=== PATIENT | female | born 1935 | race Caucasian/White ===

== ENCOUNTER → 2016-08-27 | Outpatient (CLI) | payer MEDICARE, OTHER ==
[2016-08-27 16:00] LABS: HEMATOCRIT 31.3 % (36.0-47.0); HEMOGLOBIN 10.6 g/dL (12.0-15.5); HGB HCT DIFFERENCE 0.5; MEAN CORPUSCULAR HEMOGLOBIN 33.2 pg (27.0-33.4); MEAN CORPUSCULAR HGB CONC 33.8 g/dL (32.0-36.0); MEAN CORPUSCULAR VOLUME 98 fl (80-97); RED BLOOD COUNT 3.18 10^6/uL (3.72-5.28); RED CELL DISTRIBUTION WIDTH 12.3 % (11.5-14.0); WHITE BLOOD COUNT 11.3 10^3/uL (4.0-10.5)
[2016-08-28 11:06] LABS: ANION GAP 16 (5-19); BLOOD UREA NITROGEN 42 mg/dL (7-20); CALCIUM 9.1 mg/dL (8.4-10.2); CARBON DIOXIDE 20 mmol/L (22-30); CHLORIDE 97 mmol/L (98-107); CREATININE RESULT 1.83 mg/dL (0.52-1.25); POTASSIUM 5.5 mmol/L (3.6-5.0); SODIUM 132.5 mmol/L (137-145)
[2016-08-28 11:21] LABS: GLUCOSE 438 mg/dL (75-110)
== END ==
LOC: OD 15:12
PROVIDERS: ATTEND Internal Medicine Nephrology
DX: D64.9 Anemia, unspecified (principal); N18.3 Chronic kidney disease, stage 3 (moderate); E11.9 Type 2 diabetes mellitus without complications; I12.9 Hypertensive chronic kidney disease with stage 1 through stage 4 chronic kidney disease, or unspecified chronic kidney disease
CPT/HCPCS: 36415; 80048; 82728; 83540; 83550; 85027

== ENCOUNTER → 2016-11-13 | Outpatient (CLI) | payer MEDICARE, OTHER ==
--- NOTE | 2016-11-13 14:24 | RADIOLOGY REPORT (SQ) ---
EXAM DESCRIPTION: HIPS BILATERAL COMPLETED DATE/TIME: 11/13/2016 1:39 pm REASON FOR STUDY: PAIN IN UNSPECIFIED HIP M25.569 PAIN IN UNSPECIFIED KNEE M25.559 PAIN IN UNSPECI FIED HIP COMPARISON: None. NUMBER OF VIEWS: Two views TECHNIQUE: AP pelvis and additional frog-leg view of both hips. LIMITATIONS: None. FINDINGS: MINERALIZATION: Bony structures are somewhat osteopenic. HIPS: No acute fracture or dislocation. No worrisome bone lesions. PELVIS AND SACRUM: No acute fracture or dislocation. Sclerotic density is identified adjacent to th e right SI joint presumably degenerative in nature. This was present on the previous KUB dated 2015 PUBIS AND ISCHIUM: No acute fracture. LOWER LUMBAR SPINE: Degenerative changes are identified in the lower lumbar spine. SOFT TISSUES: Extensive calcifications are identified in the pelvis most consistent with calcified ut erine fibroids. OTHER: No other significant finding. IMPRESSION: No evidence for acute fracture dislocation. Other findings as noted above. TECHNICAL DOCUMENTATION: JOB ID: [id number] [employer]- All Rights Reserved
--- NOTE | 2016-11-13 14:26 | RADIOLOGY REPORT (SQ) ---
EXAM DESCRIPTION: KNEE LEFT 4 VIEWS COMPLETED DATE/TIME: 11/13/2016 1:39 pm REASON FOR STUDY: PAIN IN UNSPECIFIED KNEE M25.569 PAIN IN UNSPECIFIED KNEE M25.559 PAIN IN UNSPEC IFIED HIP COMPARISON: None. NUMBER OF VIEWS: Four views. TECHNIQUE: AP, lateral, and both oblique radiographic images acquired of the left knee. LIMITATIONS: None. FINDINGS: MINERALIZATION: Normal. BONES: No acute fracture or dislocation. Osteophytic lipping is identified at the level of the media l compartment. A separate bony ossicle is identified at the level of the medial tibial plateau which may be related to previous trauma JOINT: No effusion. No chondrocalcinosis. OTHER: Extensive vascular calcifications are identified. IMPRESSION: No acute fracture or dislocation. Degenerative changes as noted above. Other findings as noted above TECHNICAL DOCUMENTATION: JOB ID: [id number] [employer]- All Rights Reserved
--- NOTE | 2016-11-13 14:29 | RADIOLOGY REPORT (SQ) ---
EXAM DESCRIPTION: KNEE RIGHT 4 VIEWS COMPLETED DATE/TIME: 11/13/2016 1:39 pm REASON FOR STUDY: PAIN IN UNSPECIFIED KNEE M25.569 PAIN IN UNSPECIFIED KNEE M25.559 PAIN IN UNSPEC IFIED HIP COMPARISON: July 2015 NUMBER OF VIEWS: Four views. TECHNIQUE: AP, lateral, and both oblique radiographic images acquired of the right knee. LIMITATIONS: None. FINDINGS: MINERALIZATION: Normal. BONES: No acute fracture or dislocation. The previously described sclerosis and irregularity of the lateral femoral condyle and lateral tibial plateau appears unchanged JOINT: The previously described joint space narrowing with osteophytes in all 3 compartments appears stable. Calcific density is identified posterior to the distal femur which could conceivably represe nt synovial chondrocalcinosis or an intra-articular loose body. SOFT TISSUES: No soft tissue swelling. No radio-opaque foreign body. OTHER: Vascular calcifications are again identified. IMPRESSION: Degenerative changes as noted above. Other findings as noted above. TECHNICAL DOCUMENTATION: JOB ID: [id number] [employer]- All Rights Reserved
== END ==
LOC: OD 13:06
PROVIDERS: ATTEND Physician Assistant Medical
DX: M25.562 Pain in left knee (principal); M25.561 Pain in right knee; M25.552 Pain in left hip; M25.551 Pain in right hip
CPT/HCPCS: 73522

== ENCOUNTER → 2016-11-28 | Outpatient (CLI) | payer MEDICARE, OTHER ==
[2016-11-28 14:53] LABS: HEMATOCRIT 34.3 % (36.0-47.0); HEMOGLOBIN 11.5 g/dL (12.0-15.5); HGB HCT DIFFERENCE 0.2; MEAN CORPUSCULAR HEMOGLOBIN 33.5 pg (27.0-33.4); MEAN CORPUSCULAR HGB CONC 33.5 g/dL (32.0-36.0); MEAN CORPUSCULAR VOLUME 100 fl (80-97); RED BLOOD COUNT 3.44 10^6/uL (3.72-5.28); RED CELL DISTRIBUTION WIDTH 13.2 % (11.5-14.0); WHITE BLOOD COUNT 8.1 10^3/uL (4.0-10.5)
[2016-11-28 15:09] LABS: ANION GAP 11 (5-19); BLOOD UREA NITROGEN 35 mg/dL (7-20); CALCIUM 8.9 mg/dL (8.4-10.2); CARBON DIOXIDE 22 mmol/L (22-30); CHLORIDE 99 mmol/L (98-107); CREATININE RESULT 1.95 mg/dL (0.52-1.25); SODIUM 132.3 mmol/L (137-145)
[2016-11-28 15:53] LABS: GLUCOSE 475 mg/dL (75-110)
== END ==
LOC: OD 14:12
PROVIDERS: ATTEND Internal Medicine Nephrology
DX: I12.9 Hypertensive chronic kidney disease with stage 1 through stage 4 chronic kidney disease, or unspecified chronic kidney disease (principal); N18.3 Chronic kidney disease, stage 3 (moderate); D64.9 Anemia, unspecified; E87.1 Hypo-osmolality and hyponatremia
CPT/HCPCS: 36415; 80048; 82728; 83540; 83550; 85027

== ENCOUNTER 2016-12-08 18:56 | Inpatient (IN) | payer MEDICARE, OTHER ==
--- NOTE | 2016-12-08 19:18 | ER Document Report ---
ED General - General Chief Complaint: Knee Pain Stated Complaint: FALL, KNEE PAIN Time Seen by Provider: 12/08/16 19:08 Notes: 81-year-old female with history of diabetes dementia and DJD presents with 2 days of right knee swelling after a fall from standing while getting into bed. She has had multiple falls and gets around with a walker. Swelling began yesterday but the daughter states that this is happened before and usually the swelling goes down. They brought her in tonight because it did not go down. She commits of no numbness or tingling. She did not syncopized lose consciousness or hit her head when she fell. TRAVEL OUTSIDE OF THE [place] IN LAST 30 DAYS: No - Related Data Allergies/Adverse Reactions: promethazine HCl [From Phenergan] Allergy (Severe, Verified 01/09/15 15:40) severe leg pain baclofen [Baclofen] Allergy (Mild, Verified 01/09/15 15:40) Hives,hallucinate Beef Containing Products Adverse Reaction (Severe, Verified 08/02/15 14:20) GI upset Past Medical History - General Information source: Patient - Social History Smoking Status: Former Smoker Frequency of alcohol use: None Family History: CAD, DM - Past Medical History Cardiac Medical History: Reports: Hx Atrial Fibrillation, Hx Congestive Heart Failure, Hx Coronary Artery Disease, Hx Hypercholesterolemia, Hx Hypertension Denies: Hx Heart Attack Pulmonary Medical History: Reports: Hx Pneumonia - Hx of septic shock Denies: Hx Asthma, Hx Bronchitis, Hx COPD Neurological Medical History: Denies: Hx Cerebrovascular Accident, Hx Seizures Endocrine Medical History: Reports: Hx Diabetes Mellitus Type 1, Hx Diabetes Mellitus Type 2 Renal/ Medical History: Reports: Hx End Stage Renal Disease - stage 3 Musculoskeltal Medical History: Reports Hx Arthritis - osteoporosis/legs Psychiatric Medical History: Reports: Hx Depression Past Surgical History: Reports: Hx Abdominal Surgery - hernia, Hx Appendectomy. Denies: Hx Hysterectomy, Hx Pacemaker - Immunizations Hx Diphtheria, Pertussis, Tetanus Vaccination: No Hx Pneumococcal Vaccination: 01/25/13 Review of Systems - Review of Systems Notes: REVIEW OF SYSTEMS GEN: Denies fever, chills, weight loss ENT: Denies sore throat, nasal discharge, ear pain EYES: Denies blurry vision, eye pain, discharge CV: Denies chest pain, palpitations, edema RESP: Denies cough, shortness of breath, wheezing GI: Denies abdominal pain, nausea, vomiting, diarrhea MSK: Right knee pain and swelling SKIN: Denies rash, skin lesions LYMPH: Denies swollen glands/lymph nodes NEURO: Denies headache, focal weakness or numbness, dizziness PSYCH: Denies depression, suicidal or homicidal ideation PHYSICAL EXAMINATION General: No acute distress, well-nourished Head: Atraumatic, normocephalic ENT: Mouth normal, oropharynx moist, no exudates or tonsillar enlargement Eyes: Conjunctiva normal, pupils equal, lids normal Neck: No JVD, supple, no guarding CVS: Normal rate, regular rhythm, no murmurs Resp: No resp distress, equal and normal breath sounds bilaterally GI: Nondistended, soft, no tenderness to palpation, no rebound or guarding Ext: Pronounced deformity of the right knee with large effusion and medial tibial plateau swelling with tenderness. Decreased range of motion. Patella is palpable in its normal position, however ballotable secondary to effusion. Lateral medial and superficial posterior compartments are soft. Normal movement of the toes without pain. Back: No CVA or midline TTP Skin: No rash, warm Lymphatic: No lymphadeopathy noted Neuro: Awake, alert. Face symmetric. GCS 15. Obvious memory impairment. Normal sensation right foot. Physical Exam - Vital signs Vitals: Temp Pulse Resp BP Pulse Ox 98.4 F 67 18 173/72 H 95 12/08/16 19:10 12/08/16 19:10 12/08/16 19:10 12/08/16 19:10 12/08/16 19:10 Course - Re-evaluation Re-evalutation: 12/08/16 19:18 81-year-old female baseline dementia and walks with wheelchair presented with obvious right knee trauma. Likely tibial plateau fracture. Less likely dislocation or patellar dislocation based on her physical exam. We will get x- rays. 12/08/16 20:12 On reassessment after the x-rays were read as only degenerative change and I saw that there old films that look like, it turns out the patient's knee is almost always this swollen. The daughter is now saying that the patient needs to be admitted because she cannot walk and the daughter can no longer care for her. I did a CT scan to rule out acute fracture and it was negative. Will admit for placement and physical therapy in the setting of ambulatory dysfunction. - Vital Signs Vital signs: Temp Pulse Resp BP Pulse Ox 98.4 F 67 14 172/57 H 97 12/08/16 20:52 12/08/16 20:52 12/08/16 20:52 12/08/16 20:52 12/08/16 20:52 - Laboratory Result Diagrams: 12/08/16 20:28 12/08/16 20:28 Laboratory results interpreted by me: 12/08/16 12/08/16 20:28 20:28 RBC 3.58 L MCV 101 H MCH 34.0 H Chloride 110 H Carbon Dioxide 19 L BUN 33 H Creatinine 1.49 H Est GFR ( Amer) 41 L Est GFR (Non-Af Amer) 34 L Glucose 348 H Calcium 7.7 L - Diagnostic Test Radiology reviewed: Image reviewed, Reports reviewed Discharge - Discharge Clinical Impression: Osteoarthritis involving multiple joints on both sides of body Condition: Good Disposition: ADMITTED INPATIENT Admitting Provider: Hospitalist Unit Admitted: Telemetry
--- NOTE | 2016-12-08 19:52 | RADIOLOGY REPORT (SQ) ---
EXAM DESCRIPTION: KNEE RIGHT 3 VIEWS COMPLETED DATE/TIME: 12/08/2016 7:32 pm REASON FOR STUDY: fall pn COMPARISON: 11/13/2016 NUMBER OF VIEWS: Three views TECHNIQUE: AP, lateral, and sunrise patella radiographic images acquired of the right knee. LIMITATIONS: None. FINDINGS: MINERALIZATION: Bony structures are osteopenic BONES: No acute fracture or dislocation. The previously described sclerosis and irregularity of the lateral femoral condyles and lateral tibial plateau appears unchanged. JOINT: The previously described joint space narrowing with osteophytes in all 3 compartments appears stable. Calcific density is again identified posterior to the distal femur which could conceivably r epresent synovial chondrocalcinosis or an intra-articular loose body. SOFT TISSUES: No soft tissue swelling. No radio-opaque foreign body. Extensive vascular calcificati ons are identified. OTHER: No other significant finding. IMPRESSION: Degenerative changes as noted above. No acute fracture dislocation. Other findings as noted above TECHNICAL DOCUMENTATION: JOB ID: [id number] [employer]- All Rights Reserved
--- NOTE | 2016-12-08 20:24 | RADIOLOGY REPORT (SQ) ---
EXAM DESCRIPTION: CT RT LOWER EXTREMITY WITHOUT COMPLETED DATE/TIME: 12/08/2016 8:09 pm REASON FOR STUDY: knee fx vs. degen COMPARISON: Plain films dated 12/08/2016 TECHNIQUE: Axial imaging performed through the right knee with reformatted coronal and sagittal imag ing windowed for bone and soft tissues. Images saved to PACS. 3D IMAGING: Were 3D images as MIP, SSD, or volume rendering performed at the work station? No All CT scanners at this facility use dose modulation, iterative reconstruction, and/or weight based d osing when appropriate to reduce radiation dose to as low as reasonably achievable (ALARA). [facility]: Dose Right [facility]: CareDose [facility]: Dose Right [facility]: Teradose 4D [facility]: [employer] LIMITATIONS: None. RADIATION DOSE: Up-to-date CT equipment and radiation dose reduction techniques were employed. CTDIv ol: 4.1 mGy. DLP: 104 mGy-cm. mGy. FINDINGS: SOFT TISSUES: Joint effusion is identified. BONES: Extensive degenerative changes are identified without definite evidence for acute fracture or dislocation. MINERALIZATION: Bony structures are osteopenic OTHER: Vascular calcifications are identified. Calcific density is identified posterior to the media l femoral condyles which could represent synovial calcifications or an intra-articular loose body. IMPRESSION: Extensive degenerative changes are identified without definite evidence for acute fractu re dislocation. Joint effusion is identified. Other findings as noted above TECHNICAL DOCUMENTATION: JOB ID: [id number] Quality ID # [id number]: Final reports with documentation of one or more dose reduction techniques (e.g., Au tomated exposure control, adjustment of the mA and/or kV according to patient size, use of iterative reconstruction technique) 2010 [employer]- All Rights Reserved
[2016-12-08 20:35] LABS: ABSOLUTE EOSINOPHILS # (AUTO) 0.1 10^3/uL (0.0-0.6); ABSOLUTE LYMPHOCYTES (AUTO) 1.4 10^3/uL (0.5-4.7); ABSOLUTE MONOCYTES (AUTO) 0.7 10^3/uL (0.1-1.4); ABSOLUTE NEUT (AUTO) 5.8 10^3/uL (1.7-8.2); BASOPHILS % (AUTO) 0.2 % (0-2); EOSINOPHILS % (AUTO) 0.9 % (0-6); HEMATOCRIT 36.3 % (36.0-47.0); HEMOGLOBIN 12.2 g/dL (12.0-15.5); HGB HCT DIFFERENCE 0.3; LYMPHOCYTES % (AUTO) 17.6 % (13-45); MEAN CORPUSCULAR HGB CONC 33.6 g/dL (32.0-36.0); MEAN CORPUSCULAR VOLUME 101 fl (80-97); MONOCYTES % (AUTO) 9.3 % (3-13); RED BLOOD COUNT 3.58 10^6/uL (3.72-5.28); RED CELL DISTRIBUTION WIDTH 13.2 % (11.5-14.0); WHITE BLOOD COUNT 8.1 10^3/uL (4.0-10.5)
[2016-12-08 21:04] LABS: ANION GAP 9 (5-19); BLOOD UREA NITROGEN 33 mg/dL (7-20); CALCIUM 7.7 mg/dL (8.4-10.2); CARBON DIOXIDE 19 mmol/L (22-30); CHLORIDE 110 mmol/L (98-107); CREATININE RESULT 1.49 mg/dL (0.52-1.25); GLUCOSE 348 mg/dL (75-110); POTASSIUM 4.3 mmol/L (3.6-5.0); SODIUM 137.9 mmol/L (137-145)
[2016-12-09] MEDS ORDERED: GLUCAGON,HUMAN RECOMB 1 MG INJ IM PRN (02:19)
[2016-12-09] MEDS ORDERED: DEXTROSE 50%-WATER 25 GM/50 ML DISP.SYRIN IV PRN ×2 (02:19)
[2016-12-09] MEDS ORDERED: DEXTROSE 40% GEL 15 GM TUBE PO PRN ×2 (02:19)
[2016-12-09] MEDS ORDERED: ACETAMINOPHEN 325 MG TABLET PO PRN (02:34)
--- NOTE | 2016-12-09 02:51 | PDOC H&P ---
History of Present Illness Admission Date/PCP: 12/08/16 21:31 HARI NELSON MD Patient complains of: Right knee pain and swelling, difficulty walking History of Present Illness: THOR PORTER is a 81 year old female, with known underlying type 1 diabetes mellitus, hypertension, and degenerative joint disease, who presents to the emergency room for evaluation of a 2 day history of increasing pain and swelling involving her right knee, along with falls and generalized weakness. Patient has been discussed with emergency room physician who evaluated the patient. Patient is globally disoriented and is able to provide no history whatsoever in terms of acute or chronic events, review of systems, personal habits, family history, etc. No friends or family are present. Old inpatient records are reviewed. There was no loss of consciousness or head trauma. According to emergency room physician, initial suspicion was that the swelling of the knee had worsened. However, upon further discussion with family members , it turns out she has had swelling around the right knee for quite some time now. Overall, family has come to the decision that they simply are no longer able to care for patient and would like her placed in a group home. This is confirmed by my telephone conversation shortly after 2 AM with Daughter Leonarda Porter, who is her healthcare power of state attorney. Daughter also confirmed that mother is a full code. Patient is currently resting quietly, denying pain. Hospitalized on our service July 27- of last year with final diagnoses including pneumonia secondary to ESBL E. coli, along with a ESBL urinary tract infection. History and physical and discharge summary have been reviewed. Dictation via voice recognition software. Laboratory results are listed in [employer] and are reviewed. X-ray summary results are listed below, with full report(s) reviewed. . EKG reviewed. Social history/personal habits: . Currently lives with family. Former smoker. Allergies/adverse reactions are listed in [employer] and are reviewed. Home medications initially autopopulated into [employer] may not accurately reflect patient's true medications, dosages, and/or frequencies. firestopper technician to reconcile medications. Unfortunately, patient not able to provide any information related to medications/dosages/frequencies. REVIEW OF SYSTEMS: See history and present illness. No further information available this point in time. PHYSICAL EXAMINATION: 5 feet 5 inches tall. 72.9 kg. BMI 26.7 kg/m.Temperature 98.2. Blood pressure 168/65. Pulse 68 and regular. Respirations are 16 and unlabored. 94 % saturation on room air. Slightly overweight otherwise well-nourished well-developed elderly female appearing approximately her stated age. Initially asleep, but awakens easily. Cooperative. No obvious distress other than perhaps mildly anxious. Female floor nurse Julieta is present. Skin is warm and dry. No grossly obvious evidence of rash in areas of skin examined. No subcutaneous nodules palpated. No evidence of skin breakdown per nursing staff. ENT: Perhaps slightly hard of hearing to normal conversation. Tongue midline on protrusion pink and slightly tacky. No alvarado sign. Eyes: No scleral icterus. Pupils equal and reactive to light at 4 mm. [place] conjunctivae. No raccoon eyes. Neck is supple and nontender to gentle active range of motion and palpation. Midline trachea. No palpable thyroid nodule mass enlargement or tenderness. Lymphatic: No palpable cervical or clavicular nodes. Neck and lymphatic exams limited by patient body habitus. Psychiatric: Cannot be adequately evaluated due to her current status. Lungs: Auscultation reveals clear and equal breath sounds bilaterally. No use of accessory respiratory muscles. Cardiovascular: Heart regular rate and rhythm, without gallop murmur or rub. No carotid or abdominal aortic bruits. Very mild bilateral symmetric nonpitting ankle and pedal edema. Faintly palpable dorsalis pedis pulses. Abdomen:soft slightly distended nontender with positive bowel sounds. Unable to adequately evaluate abdomen for masses or organomegaly due to distention. Extremities: Feet are warm and dry. No calf tenderness to compression. No grossly obvious visual evidence of calf swelling. Gentle manipulation of left lower extremity fails to reveal any obvious evidence of injury or instability to knee hip or ankle. Examination of the right lower extremity reveals small to moderate effusion, primarily superolateral to the right knee joint. No inflammation warmth, or unusual discomfort on palpation of the effusion, which is soft. Gentle manipulation of right lower extremity does reveal some mild discomfort and slight restricted range of motion at the knee. Neurologic: Moves upper extremities grossly normally. Absent Babinski. Light touch cannot be adequately evaluated due to her mental status. Dorsiflexion and plantarflexion of feet 5 / 5 and symmetric. Past Medical History Past Medical History: Information from current and old records; patient not able to provide any information herself. Cardiac Medical History: Reports: Atrial Fibrillation, Congestive Heart Failure , Coronary Artery Disease, Hyperlipidema, Hypertension Denies: Myocardial Infarction Pulmonary Medical History: Reports: Pneumonia - Hx of septic shock Denies: Asthma, Bronchitis, Chronic Obstructive Pulmonary Disease (COPD) Neurological Medical History: Denies: Seizures Endocrine Medical History: Reports: Diabetes Mellitus Type 2 Renal/ Medical History: Reports: Chronic Kidney Disease GI Medical History: Reports: Other - Hx IBS Musculoskeltal Medical History: Reports: Arthritis, Other - DJD; osteoporosis Psychiatric Medical History: Reports: Depression Hematology: Reports: Anemia - chronic dz Past Surgical History Past Surgical History: Information from current and old records; patient not able to provide any information herself. Past Surgical History: Reports: Appendectomy Social History Information Source: Emergency Med Personnel, [facility] Records Lives with: Family Smoking Status: Former Smoker Frequency of Alcohol Use: None Hx Recreational Drug Use: No Drugs: None Hx Prescription Drug Abuse: No - Advance Directive Resuscitation Status: Full Code Surrogate healthcare decision maker:: Daughter Leonarda Porter Family History Family History: CAD, DM Parental Family History Reviewed: No - Patient cannot provide any information. Children Family History Reviewed: No - Patient cannot provide any information. Sibling(s) Family History Reviewed.: No - Patient cannot provide any information. Medication/Allergy Home Medications: RX: Alendronate Sodium [Fosamax 10 mg Tablet] 10 mg PO MOWEFR@1000 12/09/16 RX: Cholecalciferol (Vitamin D3) [Vitamin D3 400 Unit Tablet] 400 unit PO DAILY 12/09/16 RX: Ferrous Sulfate [Feosol 325 mg Tablet] 325 mg PO QHS 12/09/16 RX: Fluoxetine HCl [Prozac 20 mg Capsule] 20 mg PO DAILY 12/09/16 RX: Levothyroxine Sodium [Levo-T] 100 mcg PO DAILY 12/09/16 RX: Memantine HCl [Namenda Xr] 14 mg PO DAILY 12/09/16 RX: Metoprolol Tartrate [Lopressor 50 mg Tablet] 50 mg PO Q12 12/09/16 RX: Omeprazole 40 mg PO BID 12/09/16 RX: Ondansetron HCl [Zofran 4 mg Tablet] 1 tab PO Q8HP PRN 12/09/16 RX: Ranitidine HCl [Zantac 150 mg Tablet] 150 mg PO QHS 12/09/16 RX: Rivastigmine Tartrate [Rivastigmine] 3 mg PO BID 12/09/16 RX: Ropinirole HCl [Requip] 0.5 mg PO HSP PRN 12/09/16 RX: Acetaminophen [Tylenol 325 mg Tablet] 650 mg PO Q8HP PRN tablet 12/12/16 RX: Gabapentin [Neurontin 100 mg Capsule] 200 mg PO Q8 capsule 12/12/16 RX: Tramadol HCl [Ultram 50 mg Tablet] 50 mg PO Q4HP PRN #30 tablet 12/12/16 Allergies/Adverse Reactions: promethazine HCl [From Phenergan] Allergy (Severe, Verified 01/09/15 15:40) severe leg pain baclofen [Baclofen] Allergy (Mild, Verified 01/09/15 15:40) Hives,hallucinate Beef Containing Products Adverse Reaction (Severe, Verified 08/02/15 14:20) GI upset Physical Exam Vital Signs: Temp Pulse Resp BP Pulse Ox 98.2 F 68 16 168/65 H 94 12/08/16 23:29 12/08/16 23:29 12/08/16 23:29 12/08/16 23:29 12/08/16 23:29 Results Impressions: Knee X-Ray 12/08/16 19:08 IMPRESSION: Degenerative changes as noted above. No acute fracture dislocation. Other findings as noted above Lower Extremity CT 12/08/16 19:46 IMPRESSION: Extensive degenerative changes are identified without definite evidence for acute fracture dislocation. Joint effusion is identified. Other findings as noted above Assessment & Plan - Diagnosis (1) Ambulatory dysfunction Is this a current diagnosis for this admission?: Yes (2) Effusion, right knee Is this a current diagnosis for this admission?: Yes (3) Right knee DJD Qualifiers: Osteoarthritis type: unspecified Qualified Code(s): M17.11 - Unilateral primary osteoarthritis, right knee Is this a current diagnosis for this admission?: Yes (4) Right knee pain Qualifiers: Chronicity: unspecified Qualified Code(s): M25.561 - Pain in right knee Is this a current diagnosis for this admission?: Yes Plan: Orthopedics consult. Physical therapy consult. According to daughter Leonarda, confirmed also by my earlier telephone conversation with her sister Vida, family members are interested in patient being transferred to group home. Point has been reach where she simply cannot be properly cared for at home. I have strongly encouraged patient not to get out of bed without notifying staff , to avoid a fall with injury. Knee high SCDs for DVT prophylaxis, along with subcutaneous heparin. Impression and plans were discussed with daughters, who concur. Time spent in evaluation and management of patient: 60 minutes. (5) HTN (hypertension) Qualifiers: Hypertension type: essential hypertension Qualified Code(s): I10 - Essential (primary) hypertension Is this a current diagnosis for this admission?: Yes Plan: Resume home medications as appropriate once these have been determined and reviewed. (6) Dementia Qualifiers: Dementia type: unspecified type Dementia behavioral disturbance: without behavioral disturbance Qualified Code(s): F03.90 - Unspecified dementia without behavioral disturbance Is this a current diagnosis for this admission?: Yes Plan: Resume home medications as appropriate once these have been determined and reviewed. (7) Diabetes mellitus type 1 Qualifiers: Diabetes mellitus complication status: without complication Qualified Code( s): E10.9 - Type 1 diabetes mellitus without complications Is this a current diagnosis for this admission?: Yes Plan: Diabetic cardiac prerenal diet. Accu-Cheks with appropriate sliding scale coverage. Resume home medications as appropriate once these have been determined and reviewed. (8) Hypothyroidism Qualifiers: Hypothyroidism type: unspecified Qualified Code(s): E03.9 - Hypothyroidism , unspecified Is this a current diagnosis for this admission?: Yes Plan: Resume home medications as appropriate once these have been determined and reviewed. - Time Time Spent: 50 to 70 Minutes Anticipated discharge: SNF Within: within 72 hours - Inpatient Certification Based on my medical assessment, after consideration of the patient's comorbidities, presenting symptoms, or acuity I expect that the services needed warrant INPATIENT care.: Yes I certify that my determination is in accordance with my understanding of Medicare's requirements for reasonable and necessary INPATIENT services [42 CFR 412.3e].: Yes Medical Necessity: Significant Comorbidiites Make Outpatient Treatment Too Risky , Need for Pain Control Post Hospital Care: D/C or Transfer Summary
[2016-12-09 04:18] LABS: APPEARANCE,URINE TURBID; BILIRUBIN,URINE NEGATIVE (NEGATIVE); GLUCOSE, URINE 50 mg/dL (NEGATIVE); KETONES,URINE NEGATIVE (NEGATIVE); LEUKOCYTE ESTERASE,URINE MODERATE (NEGATIVE); NITRITE,URINE NEGATIVE (NEGATIVE); PROTEIN,URINE 100 mg/dL (NEGATIVE); URINE SPECIFIC GRAVITY 1.014; UROBILINOGEN,URINE NEGATIVE mg/dL (<2.0)
[2016-12-09] MEDS ORDERED: PHARMACY COMMUNICATION ORDER MC SCH (05:30)
[2016-12-09 05:44] LABS: ADD ON TESTING BLD IN LAB ACKNOWLEDGE
[2016-12-09 05:51] LABS: ALANINE AMINOTRANSFERASE 10 U/L (9-52); ALBUMIN 2.8 g/dL (3.5-5.0); ALKALINE PHOSPHATASE 112 U/L (38-126); ASPARTATE AMINO TRANSFERASE 18 U/L (14-36); BILIRUBIN,DIRECT 0.4 mg/dL (0.0-0.4); BILIRUBIN,TOTAL 0.5 mg/dL (0.2-1.3); MAGNESIUM 1.8 mg/dL (1.6-2.3); TOTAL PROTEIN 5.6 g/dL (6.3-8.2)
[2016-12-09] MEDS ORDERED: PIPERACILLIN SODIUM/TAZOBACTAM 3.375 GM in NORMAL SALINE 100 ML IV SCH (06:00)
[2016-12-09] MEDS ORDERED: PIPERACILLIN/TAZOBACTAM 3.375 GM VIAL IV PRN (06:01)
[2016-12-09] MEDS ORDERED: PIPERACILLIN/TAZOBACTAM 3.375 GM VIAL IV ONE (06:13)
[2016-12-09] MEDS ORDERED: PIPERACILLIN SODIUM/TAZOBACTAM 3.375 GM in NORMAL SALINE 100 ML IV ONE (06:15)
[2016-12-09 06:58] LABS: ANION GAP 11 (5-19); BLOOD UREA NITROGEN 35 mg/dL (7-20); CARBON DIOXIDE 24 mmol/L (22-30); CHLORIDE 106 mmol/L (98-107); CREATININE RESULT 1.83 mg/dL (0.52-1.25); GLUCOSE 183 mg/dL (75-110); POTASSIUM 3.8 mmol/L (3.6-5.0); SODIUM 140.8 mmol/L (137-145)
--- NOTE | 2016-12-09 07:07 | PDOC CONSULTATION ---
Consultation Consult Date: 12/09/16 Consult reason:: Right knee pain History of Present Illness Admission Date/PCP: 12/09/16 02:31 HARI NELSON MD History of Present Illness: An 81-year-old white female who has been a functional household ambulator with a walker who fell on Thursday and has been unable to ambulate since that time. She seen multiple orthopedic surgeons in the past regarding bilateral knee pain right greater than left and while a diagnosis of severe osteoarthritis has been made, and has been felt in the past that she is not a surgical candidate. Admitted because of a fall on Thursday and questionable mental status changes. Plan is for placement in a facility Past Medical History Cardiac Medical History: Reports: Atrial Fibrillation, Congestive Heart Failure , Coronary Artery Disease, Hyperlipidema, Hypertension Denies: Myocardial Infarction Pulmonary Medical History: Reports: Pneumonia - Hx of septic shock Denies: Asthma, Bronchitis, Chronic Obstructive Pulmonary Disease (COPD) Neurological Medical History: Denies: Seizures Endocrine Medical History: Reports: Diabetes Mellitus Type 1, Diabetes Mellitus Type 2 Renal/ Medical History: Reports: End Stage Renal Disease - stage 3 Musculoskeltal Medical History: Reports: Arthritis - osteoporosis/legs Psychiatric Medical History: Reports: Depression Hematology: Reports: Anemia - Procrit Q 2 wks Iron Q 6 months Past Surgical History Past Surgical History: Reports: Appendectomy Denies: Hysterectomy, Pacemaker Social History Lives with: Family Smoking Status: Former Smoker Frequency of Alcohol Use: None Hx Recreational Drug Use: No Drugs: None Hx Prescription Drug Abuse: No - Advance Directive Resuscitation Status: Full Code Family History Family History: CAD, DM Parental Family History Reviewed: No Children Family History Reviewed: No Sibling(s) Family History Reviewed.: No Medication/Allergy Home Medications: Gabapentin 200 mg PO TID 09/06/14 Ropinirole HCl [Requip] 0.5 mg PO QHS PRN 09/06/14 Albuterol Sulfate [Ventolin HFA MDI 18 GM] 1 - 2 puff IH Q4H PRN #1 mdi Cholecalciferol (Vitamin D3) [Vitamin D3] 400 unit PO DAILY #30 ml 12/21/14 Oxybutynin Chloride [Ditropan Xl] 10 mg PO QHS #30 tab.er.24 12/21/14 Ferrous Sulfate 324 mg PO QHS 01/09/15 Insulin Glargine,Hum.rec.anlog [Lantus] See Protocol SQ ASDIR PRN 01/09/15 Cranberry Extract [Urinary Health 450 mg Tablet] 450 mg PO PRN PRN 07/28/15 Fluoxetine HCl 20 mg PO DAILY 07/28/15 L-Thyroxine 100 mcg PO DAILY 07/28/15 Metoprolol Tartrate [Lopressor] 50 mg PO BID 07/28/15 Omeprazole 40 mg PO DAILY 07/28/15 Rivastigmine Tartrate [Exelon] 3 mg PO BID 07/28/15 Simvastatin 20 mg PO QHS 07/28/15 Acetaminophen [Tylenol 325 mg Tablet] 650 mg PO Q4HP PRN tablet 08/03/15 Alprazolam [Xanax 0.5 mg Tablet] 0.5 mg PO TID PRN #30 tablet 08/03/15 Aspirin [Ecotrin 81 mg EC Tablet] 81 mg PO DAILY tabec 08/03/15 Diltiazem HCl [Cardizem Cd 240 mg Capsule.cr] 240 mg PO QHS capsule.cr Docusate Sodium [Colace 100 mg Capsule] 100 mg PO BID capsule 08/03/15 Hydrocodone/Acetaminophen [Lortab 7.5-325 mg Tablet] 1 each PO Q8H PRN #30 tablet 08/03/15 Imipenem/Cilastatin Sodium [Primaxin 500 mg Vial] 500 mg IV Q8H #33 vial Allergies/Adverse Reactions: promethazine HCl [From Phenergan] Allergy (Severe, Verified 01/09/15 15:40) severe leg pain baclofen [Baclofen] Allergy (Mild, Verified 01/09/15 15:40) Hives,hallucinate Beef Containing Products Adverse Reaction (Severe, Verified 08/02/15 14:20) GI upset Review of Systems All systems: as per PMH Physical Exam Vital Signs: Temp Pulse Resp BP Pulse Ox 36.8 C 64 16 142/66 H 97 12/09/16 03:00 12/09/16 03:00 12/09/16 03:00 12/09/16 03:00 12/09/16 03:00 Intake & Output 12/08/16 12/09/16 12/10/16 06:59 06:59 06:59 Intake Total 600 Output Total 60 Balance 540 Weight 62.5 kg General appearance: PRESENT: mild distress Head exam: PRESENT: normocephalic Eye exam: PRESENT: EOMI Respiratory exam: PRESENT: unlabored Cardiovascular exam: PRESENT: RRR Pulses: PRESENT: +1 pedal pulses bilateral Vascular exam: PRESENT: normal capillary refill GI/Abdominal exam: PRESENT: soft Rectal exam: PRESENT: deferred Extremities exam: PRESENT: other - Supine on a hospital bed with pillows behind her knees. Right knee has a considerable effusion. Passive range of motion is painful. Ligamentous instability cannot be adequately assessed. Skin is intact. Distal neurovascular examination is intact. Neurological exam: PRESENT: alert, awake, oriented to person, oriented to place , oriented to time, oriented to situation. ABSENT: motor sensory deficit Psychiatric exam: PRESENT: appropriate affect, normal mood. ABSENT: homicidal ideation, suicidal ideation Skin exam: PRESENT: dry, intact, warm. ABSENT: cyanosis, rash Results Laboratory Results: 12/09/16 06:10 12/09/16 12/09/16 03:40 06:10 Sodium 140.8 Potassium 3.8 Chloride 106 Carbon Dioxide 24 Anion Gap 11 BUN 35 H Creatinine 1.83 H Est GFR ( Amer) 32 L Est GFR (Non-Af Amer) 26 L Glucose 183 H Calcium 9.0 Urine Color YELLOW Urine Appearance TURBID Urine pH 5.0 Ur Specific [place] 1.014 Urine Protein 100 H Urine Glucose (UA) 50 H Urine Ketones NEGATIVE Urine Blood SMALL H Urine Nitrite NEGATIVE Ur Leukocyte Esterase MODERATE H Urine WBC (Auto) >182 Urine RBC (Auto) 10 Impressions: Knee X-Ray 12/08/16 19:08 IMPRESSION: Degenerative changes as noted above. No acute fracture dislocation. Other findings as noted above Lower Extremity CT 12/08/16 19:46 IMPRESSION: Extensive degenerative changes are identified without definite evidence for acute fracture dislocation. Joint effusion is identified. Other findings as noted above Status: Imported from PACS Assessment & Plan - Diagnosis (1) Right knee DJD Qualifiers: Osteoarthritis type: unspecified Qualified Code(s): M17.11 - Unilateral primary osteoarthritis, right knee Is this a current diagnosis for this admission?: YesPlan: 81-year-old white female with declining functional status who had previously been a functional household ambulator with a walker. Her bilateral knee arthritis has been assessed in the past and she is felt not to be an adequate surgical candidate. At this point potentially intra-articular steroid injection to alleviate her pain temporarily. - Time Time Spent: 50 to 70 Minutes Anticipated discharge: SNF Within: Other
--- NOTE | 2016-12-09 07:46 | EKG REPORT ---
SEVERITY:- ABNORMAL ECG - SINUS RHYTHM LEFT VENTRICULAR HYPERTROPHY BORDERLINE PROLONGED QT INTERVAL : Confirmed by: Yves Garcia MD 09-Dec-2016 07:44:32
--- NOTE | 2016-12-09 09:46 | Physician Advisory Note ---
Physician Advisor ProgressNote .: Pursuant to the plan for [facility], I have reviewed the medical record for this patient. Physician Advisor Statement: Please consider documentin. "Chronic ___ type CHF" (?"valvular" type or cor pulmonale? or syst/diast? - last ECHO = mod MR, mod-sev TR, severe pulm HTN, EF>65%, diast fn "nl") 2. "persistent Afib" or "paroxysmal Afib" ? 3. ? "ARF, likely due to intravascular volume depletion due to poor po intake related to knee pain" (what do you consider to be her baseline Cr?) 4. What is being tx'd with Zosyn? 5. ? "Acute metabolic acidosis, likely due to ____, improved" ? Status; 81yo Medicare pt w/DM uncontrolled, chronic CHF likely valvular or cor pulmonale type, ___ type Afib, CAD, HTN, HLD, CKD-3, dementia, severe DJD but not been an operative candidate due to her chronic problematic co-morbidities, came in w/severe Rt knee swelling/pain, unable to walk, family unable to care for her. Initially, sounded most appropriate for Outpt Obs status for OA/pain tx'd w/Tylenol, placement needs. However, per today's attending (phone call), pt has not been eating/drinking due to the severe acute pain, & not taking her meds due to it either, and her repeat labs show evidence of ARF newly developed 12/09 related to this. Attg has ordered IV NS to help this, though this is at slower rate than otherwise would due to her underlying CHF with risks for precipitating acute CHF, especially given underlying Afib presence as well. Repeat labs are planned. For this, patient needs a 2nd midnight in hospital care & monitoring, so therefore she is now appropriate for Inpatient status. CK
[2016-12-09] MEDS: DOCUSATE SODIUM 100 MG CAPSULE PO SCH ×2 (11:25→17:13)
[2016-12-09] MEDS: TRAMADOL HCL 50 MG TABLET PO PRN ×3 (11:25→22:30)
[2016-12-09] MEDS: HEPARIN SOD (PORCINE) 5,000 UNIT/ML 1 ML SYRINGE SUBCUT SCH ×2 (11:26→21:18)
[2016-12-09] MEDS ORDERED: (PENDING PHARMACY ID) (Ropinirole Hcl [Requip] 0.5 MG) PO PRN (11:59)
[2016-12-09] MEDS: INSULIN LISPRO 100 UNIT/ML 3 ML VIAL SUBCUT PRN (12:05)
[2016-12-09] MEDS ORDERED: ONDANSETRON 4 MG TAB.RAPDIS PO PRN (12:06)
[2016-12-09] MEDS: NORMAL SALINE 1000 ML 1,000 ML IV PRN (12:09)
[2016-12-09] MEDS: LANSOPRAZOLE 30 MG TAB.RAP.DR PO SCH (17:14)
[2016-12-09] MEDS: RIVASTIGMINE TARTRATE 1.5 MG CAPSULE PO SCH (17:15)
[2016-12-09] MEDS ORDERED: (PENDING PHARMACY ID) (Rivastigmine Tartrate [Rivastigmine] 3 MG) PO SCH (18:00)
[2016-12-09] MEDS: METOPROLOL TARTRATE 50 MG TABLET PO SCH (21:18)
[2016-12-09] MEDS: FERROUS SULFATE 325 MG TABLET PO SCH (21:18)
[2016-12-09] MEDS: FAMOTIDINE 20 MG TABLET PO SCH (21:19)
[2016-12-09] MEDS ORDERED: (PENDING PHARMACY ID) (Ranitidine Hcl [Zantac 150 Mg Tablet] 150 MG) PO SCH (22:00)
[2016-12-10] MEDS: TRAMADOL HCL 50 MG TABLET PO PRN ×3 (06:00→18:41)
[2016-12-10 07:55] LABS: ANION GAP 10 (5-19); BLOOD UREA NITROGEN 31 mg/dL (7-20); CALCIUM 8.8 mg/dL (8.4-10.2); CARBON DIOXIDE 22 mmol/L (22-30); CHLORIDE 108 mmol/L (98-107); CREATININE RESULT 1.69 mg/dL (0.52-1.25); GLUCOSE 91 mg/dL (75-110); MAGNESIUM 1.9 mg/dL (1.6-2.3); POTASSIUM 3.9 mmol/L (3.6-5.0); SODIUM 139.7 mmol/L (137-145)
[2016-12-10] MEDS ORDERED: BETAMET ACET/BETAMET NA INJ 6 MG/1 ML IM ONE (08:30)
[2016-12-10] MEDS ORDERED: BUPIVACAINE HCL 0.25 % INJ/PF (2.5 MG/1 ML) 30 ML VIAL INJ ONE (08:30)
[2016-12-10] MEDS ORDERED: (PENDING PHARMACY ID) (Memantine Hcl [Namenda Xr] 14 MG) PO SCH (10:00)
--- NOTE | 2016-12-10 10:10 | PDOC PROGRESS REPORT ---
Subjective Progress Note for:: 12/09/16 Subjective:: Patient seen on morning rounds resting in bed. She is currently eating breakfast. She complains of pain in the right knee even at rest. It is swollen , tender to palpation, but there is no warmth or erythema of the joint. She denies any fever or chills. She denies any cough or dyspnea. She denies any cough, shortness of breath or dyspnea. She denies any nausea, vomiting or abdominal pain. She has had a poor appetite because of her knee pain. She does admit to frequent falls because her right knee mary and gives out. Remaining review of systems is negative. Physical Exam Vital Signs: Temp Pulse Resp BP Pulse Ox 98.3 F 67 16 145/69 H 92 12/09/16 07:40 12/09/16 07:40 12/09/16 07:40 12/09/16 07:40 12/09/16 07:40 Intake & Output 12/08/16 12/09/16 12/10/16 06:59 06:59 06:59 Intake Total 600 Output Total 60 Balance 540 Weight 62.5 kg General appearance: PRESENT: no acute distress, well-developed, well-nourished Head exam: PRESENT: atraumatic, normocephalic Eye exam: PRESENT: conjunctiva pink, EOMI, PERRLA. ABSENT: scleral icterus Ear exam: PRESENT: normal external ear exam Mouth exam: PRESENT: moist, tongue midline Neck exam: ABSENT: carotid bruit, JVD, lymphadenopathy, thyromegaly Respiratory exam: PRESENT: clear to auscultation mónica. ABSENT: rales, rhonchi, wheezes Cardiovascular exam: PRESENT: +S1 - 3/6 mitral area, +S2, systolic murmur Pulses: PRESENT: normal dorsalis pedis pul Vascular exam: PRESENT: normal capillary refill GI/Abdominal exam: PRESENT: normal bowel sounds, soft. ABSENT: distended, guarding, mass, organolmegaly, rebound, tenderness Rectal exam: PRESENT: deferred Extremities exam: PRESENT: joint swelling, +2 edema - right knee Musculoskeletal exam: PRESENT: tenderness, other Neurological exam: PRESENT: alert, altered, awake, oriented to person, CN II- XII grossly intact Psychiatric exam: PRESENT: appropriate affect, normal mood. ABSENT: homicidal ideation, suicidal ideation Skin exam: PRESENT: dry, intact, warm. ABSENT: cyanosis, rash Results Laboratory Results: 12/09/16 06:10 12/09/16 12/09/16 03:40 06:10 Sodium 140.8 Potassium 3.8 Chloride 106 Carbon Dioxide 24 Anion Gap 11 BUN 35 H Creatinine 1.83 H Est GFR ( Amer) 32 L Est GFR (Non-Af Amer) 26 L Glucose 183 H Calcium 9.0 Urine Color YELLOW Urine Appearance TURBID Urine pH 5.0 Ur Specific [place] 1.014 Urine Protein 100 H Urine Glucose (UA) 50 H Urine Ketones NEGATIVE Urine Blood SMALL H Urine Nitrite NEGATIVE Ur Leukocyte Esterase MODERATE H Urine WBC (Auto) >182 Urine RBC (Auto) 10 Impressions: Knee X-Ray 12/08/16 19:08 IMPRESSION: Degenerative changes as noted above. No acute fracture dislocation. Other findings as noted above Lower Extremity CT 12/08/16 19:46 IMPRESSION: Extensive degenerative changes are identified without definite evidence for acute fracture dislocation. Joint effusion is identified. Other findings as noted above Assessment & Plan - Diagnosis (1) Acute renal failure superimposed on stage 3 chronic kidney disease Qualifiers: Acute renal failure type: unspecified Qualified Code(s): N17.9 - Acute kidney failure, unspecified Is this a current diagnosis for this admission?: Yes Plan: Patient admits to poor appetite and oral intake secondary to pain. Her blood glucose is also elevated on admission. Most likely acute kidney injury is due to prerenal dehydration from poor oral intake and hyperglycemia. Will start gentle hydration with normal saline at 75 cc/h and monitor. Will avoid nephrotoxic drugs and dosages. (2) Diabetes 1.5, managed as type 2 Is this a current diagnosis for this admission?: Yes Plan: Continue current home medications and sliding scale coverage (3) Ambulatory dysfunction Is this a current diagnosis for this admission?: Yes Plan: Will attempt to consult physical therapy once her pain. (4) Effusion, right knee Is this a current diagnosis for this admission?: Yes Plan: Dr Combs, from orthopedic surgery (5) Right knee pain Qualifiers: Chronicity: unspecified Qualified Code(s): M25.561 - Pain in right knee Is this a current diagnosis for this admission?: Yes (6) Chronic diastolic heart failure due to valvular disease Is this a current diagnosis for this admission?: Yes Plan: Stable. (7) HTN (hypertension) Qualifiers: Hypertension type: essential hypertension Qualified Code(s): I10 - Essential (primary) hypertension Is this a current diagnosis for this admission?: Yes (9) Pulmonary hypertension Is this a current diagnosis for this admission?: Yes (11) Dementia Qualifiers: Dementia type: unspecified type Dementia behavioral disturbance: without behavioral disturbance Qualified Code(s): F03.90 - Unspecified dementia without behavioral disturbance Is this a current diagnosis for this admission?: Yes (12) Hypothyroidism Qualifiers: Hypothyroidism type: unspecified Qualified Code(s): E03.9 - Hypothyroidism , unspecified Is this a current diagnosis for this admission?: Yes - Time Time Spent with patient: 25-34 minutes Critical Time spent with patient: 25-34 minutes Medications reviewed and adjusted accordingly: Yes Anticipated discharge: Home with Homehealth
[2016-12-10] MEDS: LANSOPRAZOLE 30 MG TAB.RAP.DR PO SCH ×2 (10:23→17:32)
[2016-12-10] MEDS: METOPROLOL TARTRATE 50 MG TABLET PO SCH ×2 (10:23→21:40)
[2016-12-10] MEDS: HEPARIN SOD (PORCINE) 5,000 UNIT/ML 1 ML SYRINGE SUBCUT SCH ×2 (10:23→21:41)
[2016-12-10] MEDS: DOCUSATE SODIUM 100 MG CAPSULE PO SCH ×2 (10:24→17:32)
[2016-12-10] MEDS: LEVOTHYROXINE SODIUM 0.1 MG TABLET PO SCH (10:24)
[2016-12-10] MEDS: FLUOXETINE HCL 20 MG CAPSULE PO SCH (12:20)
[2016-12-10] MEDS: RIVASTIGMINE TARTRATE 1.5 MG CAPSULE PO SCH ×2 (12:21→17:32)
[2016-12-10] MEDS: CHOLECALCIFEROL (D3) 400 UNIT TABLET PO SCH (13:45)
[2016-12-10] MEDS: ALENDRONATE SODIUM 10 MG TABLET PO SCH (13:46)
--- NOTE | 2016-12-10 14:17 | PDOC PROGRESS REPORT ---
Subjective Progress Note for:: 12/10/16 Subjective:: Patient seen on morning rounds resting in bed. She continues to complain of pain in the right knee even at rest. It is swollen, tender to palpation, but there is no warmth or erythema of the joint. She denies any fever or chills. She denies any cough or dyspnea. She denies any cough, shortness of breath or dyspnea. She denies any nausea, vomiting or abdominal pain. She has had a poor appetite because of her knee pain. She does admit to frequent falls because her right knee mary and gives out. Remaining review of systems is negative. Physical Exam Vital Signs: Temp Pulse Resp BP Pulse Ox 98.3 F 64 18 198/64 H 94 12/10/16 11:45 12/10/16 11:45 12/10/16 11:45 12/10/16 11:45 12/10/16 11:45 Intake & Output 12/09/16 12/10/16 12/11/16 06:59 06:59 06:59 Intake Total 600 3820 Output Total 60 Balance 540 3820 Weight 62.5 kg General appearance: PRESENT: no acute distress, well-developed, well-nourished Head exam: PRESENT: atraumatic, normocephalic Eye exam: PRESENT: conjunctiva pink, EOMI, PERRLA. ABSENT: scleral icterus Ear exam: PRESENT: normal external ear exam Mouth exam: PRESENT: moist, tongue midline Neck exam: ABSENT: carotid bruit, JVD, lymphadenopathy, thyromegaly Respiratory exam: PRESENT: clear to auscultation mónica. ABSENT: rales, rhonchi, wheezes Cardiovascular exam: PRESENT: RRR. ABSENT: diastolic murmur, rubs, systolic murmur Pulses: PRESENT: normal dorsalis pedis pul Vascular exam: PRESENT: normal capillary refill GI/Abdominal exam: PRESENT: ascites Rectal exam: PRESENT: deferred Extremities exam: PRESENT: +2 edema Musculoskeletal exam: PRESENT: tenderness, other Neurological exam: PRESENT: alert, awake, oriented to person, oriented to place , oriented to situation, CN II-XII grossly intact. ABSENT: motor sensory deficit Psychiatric exam: PRESENT: appropriate affect, normal mood. ABSENT: homicidal ideation, suicidal ideation Skin exam: PRESENT: dry, intact, warm. ABSENT: cyanosis, rash Results Laboratory Results: 12/10/16 04:26 12/10/16 04:26 Sodium 139.7 Potassium 3.9 Chloride 108 H Carbon Dioxide 22 Anion Gap 10 BUN 31 H Creatinine 1.69 H Est GFR ( Amer) 35 L Est GFR (Non-Af Amer) 29 L Glucose 91 Calcium 8.8 Magnesium 1.9 12/09/16 03:40 Catheterized Urine Urine Culture - Final Yeast, Not [place] Impressions: Knee X-Ray 12/08/16 19:08 IMPRESSION: Degenerative changes as noted above. No acute fracture dislocation. Other findings as noted above Lower Extremity CT 12/08/16 19:46 IMPRESSION: Extensive degenerative changes are identified without definite evidence for acute fracture dislocation. Joint effusion is identified. Other findings as noted above Assessment & Plan - Diagnosis (1) Acute renal failure superimposed on stage 3 chronic kidney disease Qualifiers: Acute renal failure type: unspecified Qualified Code(s): N17.9 - Acute kidney failure, unspecified Is this a current diagnosis for this admission?: Yes Plan: Patient admits to poor appetite and oral intake secondary to pain. Her blood glucose is also elevated on admission. Most likely acute kidney injury is due to prerenal dehydration from poor oral intake and hyperglycemia. Will start gentle hydration with normal saline at 75 cc/h and monitor. Will avoid nephrotoxic drugs and dosages. (2) Diabetes 1.5, managed as type 2 Is this a current diagnosis for this admission?: Yes Plan: Continue current home medications and sliding scale coverage (3) Ambulatory dysfunction Is this a current diagnosis for this admission?: Yes Plan: Will attempt to consult physical therapy once her pain. (4) Effusion, right knee Is this a current diagnosis for this admission?: Yes Plan: Dr Combs, from orthopedic surgery (5) Right knee pain Qualifiers: Chronicity: unspecified Qualified Code(s): M25.561 - Pain in right knee Is this a current diagnosis for this admission?: Yes (6) Chronic diastolic heart failure due to valvular disease Is this a current diagnosis for this admission?: Yes Plan: Stable. (7) HTN (hypertension) Qualifiers: Hypertension type: essential hypertension Qualified Code(s): I10 - Essential (primary) hypertension Is this a current diagnosis for this admission?: Yes Plan: Continue home medications (8) Iron deficiency anemia Is this a current diagnosis for this admission?: Yes (9) Pulmonary hypertension Is this a current diagnosis for this admission?: Yes (10) Debility Is this a current diagnosis for this admission?: Yes (11) Dementia Qualifiers: Dementia type: unspecified type Dementia behavioral disturbance: without behavioral disturbance Qualified Code(s): F03.90 - Unspecified dementia without behavioral disturbance Is this a current diagnosis for this admission?: Yes (12) Hypothyroidism Qualifiers: Hypothyroidism type: unspecified Qualified Code(s): E03.9 - Hypothyroidism , unspecified Is this a current diagnosis for this admission?: Yes Plan: Continue synthroid - Time Time Spent with patient: 25-34 minutes Critical Time spent with patient: 15-24 minutes Medications reviewed and adjusted accordingly: Yes Anticipated discharge: Home with Homehealth
[2016-12-10] MEDS: NORMAL SALINE 1000 ML 1,000 ML IV PRN (15:20)
[2016-12-10] MEDS: INSULIN LISPRO 100 UNIT/ML 3 ML VIAL SUBCUT PRN ×2 (18:39→22:50)
[2016-12-10] MEDS: FAMOTIDINE 20 MG TABLET PO SCH (21:40)
[2016-12-10] MEDS: ROPINIROLE HCL 0.25 MG TABLET PO PRN (21:40)
[2016-12-10] MEDS: FERROUS SULFATE 325 MG TABLET PO SCH (21:40)
[2016-12-11] MEDS: TRAMADOL HCL 50 MG TABLET PO PRN ×3 (03:32→21:55)
--- NOTE | 2016-12-11 07:13 | PDOC PROGRESS REPORT ---
Subjective Progress Note for:: 12/11/16 Subjective:: 81 yo female 1 day s/p right knee injection. Patient reports that her pain is much better this morning and that she has regained much mobility and function as a result. Physical Exam Vital Signs: Temp Pulse Resp BP Pulse Ox 36.8 C 52 L 16 186/58 H 97 12/11/16 03:29 12/11/16 03:29 12/11/16 03:29 12/11/16 03:29 12/11/16 03:29 Intake & Output 12/10/16 12/11/16 12/12/16 06:59 06:59 06:59 Intake Total 3820 1260 Balance 3820 1260 General appearance: PRESENT: no acute distress, well-developed, well-nourished Head exam: PRESENT: atraumatic, normocephalic Musculoskeletal exam: PRESENT: ambulatory Neurological exam: PRESENT: alert, awake, oriented to person, oriented to place , oriented to time, oriented to situation, CN II-XII grossly intact. ABSENT: motor sensory deficit Psychiatric exam: PRESENT: appropriate affect, normal mood. ABSENT: homicidal ideation, suicidal ideation Skin exam: PRESENT: dry, intact, warm. ABSENT: cyanosis, rash Results Laboratory Results: 12/10/16 04:26 12/10/16 04:26 Sodium 139.7 Potassium 3.9 Chloride 108 H Carbon Dioxide 22 Anion Gap 10 BUN 31 H Creatinine 1.69 H Est GFR ( Amer) 35 L Est GFR (Non-Af Amer) 29 L Glucose 91 Calcium 8.8 Magnesium 1.9 12/09/16 03:40 Catheterized Urine Urine Culture - Final Yeast, Not [place] Impressions: Knee X-Ray 12/08/16 19:08 IMPRESSION: Degenerative changes as noted above. No acute fracture dislocation. Other findings as noted above Lower Extremity CT 12/08/16 19:46 IMPRESSION: Extensive degenerative changes are identified without definite evidence for acute fracture dislocation. Joint effusion is identified. Other findings as noted above Assessment & Plan - Diagnosis (1) Effusion, right knee Is this a current diagnosis for this admission?: Yes Plan: Patient received injection of marcane and celestone on 12/10/16. She has experienced great pain relief and increased mobility. Physical therapy is recommended at this point to assist with increased strength and mobility of right knee.
[2016-12-11] MEDS: HEPARIN SOD (PORCINE) 5,000 UNIT/ML 1 ML SYRINGE SUBCUT SCH ×2 (10:09→21:56)
[2016-12-11] MEDS: LEVOTHYROXINE SODIUM 0.1 MG TABLET PO SCH (10:11)
[2016-12-11] MEDS: FLUOXETINE HCL 20 MG CAPSULE PO SCH (10:11)
[2016-12-11] MEDS: METOPROLOL TARTRATE 50 MG TABLET PO SCH ×2 (10:12→21:54)
[2016-12-11] MEDS: DOCUSATE SODIUM 100 MG CAPSULE PO SCH ×2 (10:12→18:23)
[2016-12-11] MEDS: LANSOPRAZOLE 30 MG TAB.RAP.DR PO SCH ×2 (10:13→18:23)
[2016-12-11] MEDS: CHOLECALCIFEROL (D3) 400 UNIT TABLET PO SCH (10:15)
[2016-12-11] MEDS: RIVASTIGMINE TARTRATE 1.5 MG CAPSULE PO SCH ×2 (10:15→18:23)
--- NOTE | 2016-12-11 11:29 | PDOC PROGRESS REPORT ---
Subjective Progress Note for:: 12/11/16 Subjective:: Patient seen on morning rounds resting in bed. She states her right knee She denies any fever or chills. She denies any cough or dyspnea. She denies any cough, shortness of breath or dyspnea. She denies any nausea, vomiting or abdominal pain. Her appetite is improving Remaining review of systems is negative. Physical Exam Vital Signs: Temp Pulse Resp BP Pulse Ox 98.3 F 64 20 176/60 H 100 12/11/16 08:14 12/11/16 08:14 12/11/16 08:14 12/11/16 08:14 12/11/16 08:14 Intake & Output 12/10/16 12/11/16 12/12/16 06:59 06:59 06:59 Intake Total 3820 1999 Balance 3820 1999 Weight 71.6 kg General appearance: PRESENT: no acute distress, obese, well-developed, well- nourished Head exam: PRESENT: atraumatic, normocephalic Eye exam: PRESENT: conjunctiva pink, EOMI, PERRLA. ABSENT: scleral icterus Ear exam: PRESENT: normal external ear exam Mouth exam: PRESENT: moist, tongue midline Neck exam: ABSENT: carotid bruit, JVD, lymphadenopathy, thyromegaly Respiratory exam: PRESENT: clear to auscultation mónica. ABSENT: rales, rhonchi, wheezes Cardiovascular exam: PRESENT: RRR. ABSENT: diastolic murmur, rubs, systolic murmur Pulses: PRESENT: normal dorsalis pedis pul Vascular exam: PRESENT: normal capillary refill GI/Abdominal exam: PRESENT: normal bowel sounds, soft. ABSENT: distended, guarding, mass, organolmegaly, rebound, tenderness Rectal exam: PRESENT: deferred Extremities exam: PRESENT: full ROM. ABSENT: calf tenderness, clubbing, pedal edema Neurological exam: PRESENT: alert, awake, oriented to person, CN II-XII grossly intact. ABSENT: motor sensory deficit Psychiatric exam: PRESENT: appropriate affect, normal mood. ABSENT: homicidal ideation, suicidal ideation Skin exam: PRESENT: dry, intact, warm. ABSENT: cyanosis, rash Results Laboratory Results: 12/10/16 04:26 12/09/16 03:40 Catheterized Urine Urine Culture - Final Yeast, Not [place] Impressions: Knee X-Ray 12/08/16 19:08 IMPRESSION: Degenerative changes as noted above. No acute fracture dislocation. Other findings as noted above Lower Extremity CT 12/08/16 19:46 IMPRESSION: Extensive degenerative changes are identified without definite evidence for acute fracture dislocation. Joint effusion is identified. Other findings as noted above Assessment & Plan - Diagnosis (1) Acute renal failure superimposed on stage 3 chronic kidney disease Qualifiers: Acute renal failure type: unspecified Qualified Code(s): N17.9 - Acute kidney failure, unspecified Is this a current diagnosis for this admission?: Yes Plan: Patient admits to poor appetite and oral intake secondary to pain. Her blood glucose is also elevated on admission. Most likely acute kidney injury is due to prerenal dehydration from poor oral intake and hyperglycemia. Will start gentle hydration with normal saline at 75 cc/h and monitor. Will avoid nephrotoxic drugs and dosages. (2) Diabetes 1.5, managed as type 2 Is this a current diagnosis for this admission?: Yes Plan: Continue current home medications and sliding scale coverage (3) Ambulatory dysfunction Is this a current diagnosis for this admission?: Yes Plan: Will attempt to consult physical therapy once her pain. (4) Effusion, right knee Is this a current diagnosis for this admission?: Yes Plan: Dr Combs, from orthopedic surgery (5) Right knee pain Qualifiers: Chronicity: unspecified Qualified Code(s): M25.561 - Pain in right knee Is this a current diagnosis for this admission?: Yes (6) Chronic diastolic heart failure due to valvular disease Is this a current diagnosis for this admission?: Yes Plan: Stable. (7) HTN (hypertension) Qualifiers: Hypertension type: essential hypertension Qualified Code(s): I10 - Essential (primary) hypertension Is this a current diagnosis for this admission?: Yes Plan: Continue home medications (8) Iron deficiency anemia Is this a current diagnosis for this admission?: Yes (9) Pulmonary hypertension Is this a current diagnosis for this admission?: Yes (10) Debility Is this a current diagnosis for this admission?: Yes (11) Dementia Qualifiers: Dementia type: unspecified type Dementia behavioral disturbance: without behavioral disturbance Qualified Code(s): F03.90 - Unspecified dementia without behavioral disturbance Is this a current diagnosis for this admission?: Yes (12) Hypothyroidism Qualifiers: Hypothyroidism type: unspecified Qualified Code(s): E03.9 - Hypothyroidism , unspecified Is this a current diagnosis for this admission?: Yes Plan: Continue synthroid - Time Time Spent with patient: 25-34 minutes Critical Time spent with patient: 15-24 minutes Medications reviewed and adjusted accordingly: Yes Anticipated discharge: SNF Within: when bed available
[2016-12-11] MEDS: GABAPENTIN 100 MG CAPSULE PO SCH ×2 (15:13→21:54)
--- NOTE | 2016-12-11 16:36 | Physician Advisory Note ---
Physician Advisor ProgressNote .: Pursuant to the plan for [facility], I have reviewed the medical record for this patient. Physician Advisor Statement: 1. H&P states, under PMH, that there is Afib. Please clarify if this is "chronic/persistent Afib" or "paroxysmal Afib", or if pt doesn't actually have Afib. 2. Fe defic anemia - if possible, please state whether this is likely from " nutritional cause" or "from chronic or acute blood loss from ____". Very nice documentation otherwise! Thanks! CK
[2016-12-11] MEDS: FERROUS SULFATE 325 MG TABLET PO SCH (21:53)
[2016-12-11] MEDS: ROPINIROLE HCL 0.25 MG TABLET PO PRN (21:53)
[2016-12-11] MEDS: FAMOTIDINE 20 MG TABLET PO SCH (21:55)
[2016-12-11] MEDS: INSULIN LISPRO 100 UNIT/ML 3 ML VIAL SUBCUT PRN (22:57)
[2016-12-12] MEDS ORDERED: COLCHICINE 0.6 MG TABLET PO ONE ×3 (00:30→06:45)
[2016-12-12] MEDS ORDERED: NORMAL SALINE 1000 ML 1,000 ML IV ONE (01:03)
[2016-12-12 05:14] LABS: ANION GAP 11 (5-19); BLOOD UREA NITROGEN 33 mg/dL (7-20); CALCIUM 9.1 mg/dL (8.4-10.2); CARBON DIOXIDE 19 mmol/L (22-30); CHLORIDE 107 mmol/L (98-107); CREATININE RESULT 1.47 mg/dL (0.52-1.25); GLUCOSE 120 mg/dL (75-110); POTASSIUM 4.3 mmol/L (3.6-5.0); SODIUM 136.9 mmol/L (137-145)
[2016-12-12] MEDS: GABAPENTIN 100 MG CAPSULE PO SCH (05:20)
[2016-12-12] MEDS ORDERED: LEVOTHYROXINE SODIUM 0.1 MG TABLET PO SCH ×2 (06:00→08:00)
[2016-12-12] MEDS: LANSOPRAZOLE 30 MG TAB.RAP.DR PO SCH ×2 (12:11→18:20)
[2016-12-12] MEDS: FLUOXETINE HCL 20 MG CAPSULE PO SCH (12:13)
[2016-12-12] MEDS: METOPROLOL TARTRATE 50 MG TABLET PO SCH (12:13)
[2016-12-12] MEDS: HEPARIN SOD (PORCINE) 5,000 UNIT/ML 1 ML SYRINGE SUBCUT SCH (12:14)
[2016-12-12] MEDS: CHOLECALCIFEROL (D3) 400 UNIT TABLET PO SCH (12:19)
[2016-12-12] MEDS: ALENDRONATE SODIUM 10 MG TABLET PO SCH (12:19)
[2016-12-12] MEDS: DOCUSATE SODIUM 100 MG CAPSULE PO SCH ×2 (12:20→18:03)
[2016-12-12] MEDS: RIVASTIGMINE TARTRATE 1.5 MG CAPSULE PO SCH ×2 (12:20→18:20)
--- NOTE | 2016-12-12 13:57 | PDOC TRANSFER SUMMARY ---
General - Admit/Disc Date/PCP Admission Date/Primary Care Provider: 12/09/16 02:31 HARI NELSON MD Discharge Date: 12/12/16 - Discharge Diagnosis (1) Acute renal failure superimposed on stage 3 chronic kidney disease Is this a current diagnosis for this admission?: Yes Summary: Resolved with IV hydration (2) Diabetes 1.5, managed as type 2 Is this a current diagnosis for this admission?: Yes Summary: Continue current medications and sliding scale coverage (3) Ambulatory dysfunction Is this a current diagnosis for this admission?: Yes Summary: She is increasing activity with physical therapy. She is status post cortisone injection into the right knee by Dr. Combs with improvement of her pain. (4) Effusion, right knee Is this a current diagnosis for this admission?: Yes Summary: Somewhat improved with injectable steroid (5) Right knee pain Is this a current diagnosis for this admission?: Yes Summary: Post cortisone injection improving (6) Chronic diastolic heart failure due to valvular disease Is this a current diagnosis for this admission?: Yes Summary: Presently euvolemic (7) HTN (hypertension) Is this a current diagnosis for this admission?: Yes Summary: Continue current medications. (8) Iron deficiency anemia Is this a current diagnosis for this admission?: Yes Summary: New iron supplements. (9) Pulmonary hypertension Is this a current diagnosis for this admission?: Yes Summary: Patient with severe pulmonary hypertension. (10) Debility Is this a current diagnosis for this admission?: Yes (11) Dementia Is this a current diagnosis for this admission?: Yes (12) Hypothyroidism Is this a current diagnosis for this admission?: Yes Summary: Continue thyroid replacement. - Additional Information Resuscitation Status: Full Code Discharge Diet: Regular, Other (Comments) - Ensure supplements with each meals Discharge Activity: Activity As Tolerated, Balance Activity w/Rest Home Medications: Alendronate Sodium [Fosamax 10 mg Tablet] 10 mg PO MOWEFR@1000 12/09/16 Cholecalciferol (Vitamin D3) [Vitamin D3 400 Unit Tablet] 400 unit PO DAILY Ferrous Sulfate [Feosol 325 mg Tablet] 325 mg PO QHS 12/09/16 Fluoxetine HCl [Prozac 20 mg Capsule] 20 mg PO DAILY 12/09/16 Levothyroxine Sodium [Levo-T] 100 mcg PO DAILY 12/09/16 Memantine HCl [Namenda Xr] 14 mg PO DAILY 12/09/16 Metoprolol Tartrate [Lopressor 50 mg Tablet] 50 mg PO Q12 12/09/16 Omeprazole 40 mg PO BID 12/09/16 Ondansetron HCl [Zofran 4 mg Tablet] 1 tab PO Q8HP PRN 12/09/16 Ranitidine HCl [Zantac 150 mg Tablet] 150 mg PO QHS 12/09/16 Rivastigmine Tartrate [Rivastigmine] 3 mg PO BID 12/09/16 Ropinirole HCl [Requip] 0.5 mg PO HSP PRN 12/09/16 Acetaminophen [Tylenol 325 mg Tablet] 650 mg PO Q8HP PRN tablet 12/12/16 Gabapentin [Neurontin 100 mg Capsule] 200 mg PO Q8 capsule 12/12/16 Tramadol HCl [Ultram 50 mg Tablet] 50 mg PO Q4HP PRN #30 tablet 12/12/16 History of Present Illness Admission Date/PCP: 12/09/16 02:31 HARI NELSON MD Patient complains of: Increasing right knee pain and inability to ambulate and falls History of Present Illness: THOR SWAN is a 81 year old female, with known underlying type 1 diabetes mellitus, hypertension, and degenerative joint disease, who presents to the emergency room for evaluation of a 2 day history of increasing pain and swelling involving her right knee, along with falls and generalized weakness. Patient has been discussed with emergency room physician who evaluated the patient. Patient is globally disoriented and is able to provide no history whatsoever in terms of acute or chronic events, review of systems, personal habits, family history, etc. No friends or family are present. Old inpatient records are reviewed. There was no loss of consciousness or head trauma. According to emergency room physician, initial suspicion was that the swelling of the knee had worsened. However, upon further discussion with family members , it turns out she has had swelling around the right knee for quite some time now. Overall, family has come to the decision that they simply are no longer able to care for patient and would like her placed in a group home. This is confirmed by my telephone conversation shortly after 2 AM withDaughter Leonarda Swan, who is her healthcare power of commercial real estate attorney. Daughter also confirmed that mother is a full code. Patient is currently resting quietly, denying pain. Hospitalized on our service July 27- of last year with final diagnoses including pneumonia secondary to ESBL E. coli, along with a ESBL urinary tract infection. History and physical and discharge summary have been reviewed. Dictation via voice recognition software. Laboratory results are listed in [employer] and are reviewed. X-ray summary results are listed below, with full report(s) reviewed. . EKG reviewed. Social history/personal habits: . Currently lives with family. Former smoker. Allergies/adverse reactions are listed in [employer] and are reviewed. Home medications initially autopopulated into [employer] may not accurately reflect patient's true medications, dosages, and/or frequencies. manufacturing technology professor to reconcile medications. Unfortunately, patient not able to provide any information related to medications/dosages/frequencies. REVIEW OF SYSTEMS: See history and present illness. No further information available this point in time. PHYSICAL EXAMINATION: 5 feet 5 inches tall. 72.9 kg. BMI 26.7 kg/m.Temperature 98.2. Blood pressure 168/65. Pulse 68 and regular. Respirations are 16 and unlabored. 94 % saturation on room air. Slightly overweight otherwise well-nourished well-developed elderly female appearing approximately her stated age. Initially asleep, but awakens easily. Cooperative. No obvious distress other than perhaps mildly anxious. Female floor nurse Julieta is present. Skin is warm and dry. No grossly obvious evidence of rash in areas of skin examined. No subcutaneous nodules palpated. No evidence of skin breakdown per nursing staff. ENT: Perhaps slightly hard of hearing to normal conversation. Tongue midline on protrusion pink and slightly tacky. No alvarado sign. Eyes: No scleral icterus. Pupils equal and reactive to light at 4 mm. [place] conjunctivae. No raccoon eyes. Neck is supple and nontender to gentle active range of motion and palpation. Midline trachea. No palpable thyroid nodule mass enlargement or tenderness. Lymphatic: No palpable cervical or clavicular nodes. Neck and lymphatic exams limited by patient body habitus. Psychiatric: Cannot be adequately evaluated due to her current status. Lungs: Auscultation reveals clear and equal breath sounds bilaterally. No use of accessory respiratory muscles. Cardiovascular: Heart regular rate and rhythm, without gallop murmur or rub. No carotid or abdominal aortic bruits. Very mild bilateral symmetric nonpitting ankle and pedal edema. Faintly palpable dorsalis pedis pulses. Abdomen:soft slightly distended nontender with positive bowel sounds. Unable to adequately evaluate abdomen for masses or organomegaly due to distention. Extremities: Feet are warm and dry. No calf tenderness to compression. No grossly obvious visual evidence of calf swelling. Gentle manipulation of lower extremities fails to reveal any obvious evidence of injury or instability to left knee hip or ankle. Examination of the right lower extremity reveals small to moderate effusion, primarily superior lateral to the right knee joint. No inflammation warmth, or unusual discomfort on palpation of the effusion, which is soft. Gentle manipulation of right lower extremity does reveal some mild discomfort and slight restricted range of motion at the knee. Neurologic: Moves upper extremities grossly normally. Absent Babinski. Light touch cannot be adequately evaluated due to her mental status. Dorsiflexion and plantarflexion of feet 5 / 5 and symmetric. Hospital Course Hospital Course: Patient was admitted to telemetry. Started IV hydration for her acute kidney injury on her chronic kidney disease stage III per she needed much encouragement to drink or eat. She continued to have significant pain and swelling in the right knee. Dr. Combs saw the patient in consult. He feels her pain is due to degenerative joint disease and osteoarthritis. He offered her the option of steroid injection into the knee. Patient was agreeable to proceed. This was done 2 days ago. She has had decreasing pain and swelling since that time. Physical therapy was consulted for mobilization. Patient does have underlying vascular dementia which has been progressive according to her daughter. She states she has had very poor appetite over the last month. Social work was consulted for discharge planning. Patient is agreeable to rehab post discharge. Physical Exam Vital Signs: Temp Pulse Resp BP Pulse Ox 98.5 F 52 L 17 183/63 H 98 12/12/16 12:01 12/12/16 12:01 12/12/16 12:01 12/12/16 12:01 12/12/16 12:01 Intake & Output 12/11/16 12/12/16 12/13/16 06:59 06:59 06:59 Intake Total 1999 880 Balance 1999 880 Weight 71.6 kg 71.3 kg General appearance: PRESENT: no acute distress, well-developed, well-nourished Head exam: PRESENT: atraumatic, normocephalic Eye exam: PRESENT: conjunctiva pink, EOMI, PERRLA. ABSENT: scleral icterus Ear exam: PRESENT: normal external ear exam Mouth exam: PRESENT: dry mucosa Neck exam: ABSENT: carotid bruit, JVD, lymphadenopathy, thyromegaly Respiratory exam: PRESENT: clear to auscultation mónica. ABSENT: rales, rhonchi, wheezes Cardiovascular exam: PRESENT: RRR. ABSENT: diastolic murmur, rubs, systolic murmur Pulses: PRESENT: normal carotid pulses, normal radial pulses Vascular exam: PRESENT: normal capillary refill Rectal exam: PRESENT: deferred Extremities exam: PRESENT: full ROM. ABSENT: calf tenderness, clubbing, pedal edema Musculoskeletal exam: PRESENT: ambulatory, tenderness, other - swelling of right knee Neurological exam: PRESENT: alert, awake, oriented to person, oriented to place , CN II-XII grossly intact. ABSENT: motor sensory deficit Psychiatric exam: PRESENT: appropriate affect, normal mood. ABSENT: homicidal ideation, suicidal ideation Skin exam: PRESENT: dry, intact, warm. ABSENT: cyanosis, rash Results Laboratory Results: 12/12/16 04:23 12/12/16 04:23 Sodium 136.9 L Potassium 4.3 Chloride 107 Carbon Dioxide 19 L Anion Gap 11 BUN 33 H Creatinine 1.47 H Est GFR ( Amer) 41 L Est GFR (Non-Af Amer) 34 L Glucose 120 H Calcium 9.1 Impressions: Knee X-Ray 12/08/16 19:08 IMPRESSION: Degenerative changes as noted above. No acute fracture dislocation. Other findings as noted above Lower Extremity CT 12/08/16 19:46 IMPRESSION: Extensive degenerative changes are identified without definite evidence for acute fracture dislocation. Joint effusion is identified. Other findings as noted above Transfer Plan - Disposition Transfer Plan: [facility] - Time Spent with Patient Time spent with patient: Less than 30 Minutes
[2016-12-12] MEDS ORDERED: GABAPENTIN 100 MG CAPSULE PO SCH (14:00)
[2016-12-12 15:44] VITALS: BP 159/52
[2016-12-12] MEDS: TRAMADOL HCL 50 MG TABLET PO PRN (18:48)
== END 2016-12-12 19:39 | DRG 683 ==
LOC: ER 18:56 → UNDOADMIN 21:31 → EH 21:31 → 4S 23:45 → EH 23:45 → 4S 12-09 02:31
PROVIDERS: ADMIT Family Medicine; ATTEND Family Medicine
PROC: 3E0U33Z Introduction of Anti-inflammatory into Joints, Percutaneous Approach (ICD-10-PCS; principal; 2016-12-10)
PROC: 3E0U3BZ Introduction of Anesthetic Agent into Joints, Percutaneous Approach (ICD-10-PCS; 2016-12-10)
DX: N17.9 Acute kidney failure, unspecified (principal); I13.0 Hypertensive heart and chronic kidney disease with heart failure and stage 1 through stage 4 chronic kidney disease, or unspecified chronic kidney disease; I50.32 Chronic diastolic (congestive) heart failure; M17.11 Unilateral primary osteoarthritis, right knee; M25.561 Pain in right knee; N18.3 Chronic kidney disease, stage 3 (moderate); D63.8 Anemia in other chronic diseases classified elsewhere; E11.22 Type 2 diabetes mellitus with diabetic chronic kidney disease; F03.90 Unspecified dementia, unspecified severity, without behavioral disturbance, psychotic disturbance, mood disturbance, and anxiety; I48.2 Chronic atrial fibrillation; E03.9 Hypothyroidism, unspecified; I27.2 Other secondary pulmonary hypertension; E86.0 Dehydration; R53.81 Other malaise; D50.9 Iron deficiency anemia, unspecified; E78.5 Hyperlipidemia, unspecified; W18.39XA Other fall on same level, initial encounter; Y93.89 Activity, other specified; Y92.013 Bedroom of single-family (private) house as the place of occurrence of the external cause; Z87.891 Personal history of nicotine dependence; Z79.82 Long term (current) use of aspirin; Z79.4 Long term (current) use of insulin; Z79.51 Long term (current) use of inhaled steroids; Z79.899 Other long term (current) drug therapy
CPT/HCPCS: 36415; 80048; 80076; 81001; 82962; 83735; 84443; 85025; 87040; 87086; 93005; 93010; 99285; G8978-GP; G8979-GP; J0702; J1644; J1815; J2543; J3490; J7030

== ENCOUNTER 2016-12-23 11:54 | Emergency (ER) | payer MEDICARE, OTHER ==
[2016-12-23 12:52] LABS: ABSOLUTE LYMPHOCYTES (AUTO) 1.6 10^3/uL (0.5-4.7); ABSOLUTE MONOCYTES (AUTO) 0.8 10^3/uL (0.1-1.4); ABSOLUTE NEUT (AUTO) 6.1 10^3/uL (1.7-8.2); BASOPHILS % (AUTO) 0.3 % (0-2); EOSINOPHILS % (AUTO) 0.1 % (0-6); HEMATOCRIT 30.6 % (36.0-47.0); HEMOGLOBIN 10.3 g/dL (12.0-15.5); HGB HCT DIFFERENCE 0.3; LYMPHOCYTES % (AUTO) 18.9 % (13-45); MEAN CORPUSCULAR HEMOGLOBIN 33.7 pg (27.0-33.4); MEAN CORPUSCULAR HGB CONC 33.6 g/dL (32.0-36.0); MEAN CORPUSCULAR VOLUME 100 fl (80-97); MONOCYTES % (AUTO) 9.4 % (3-13); RED BLOOD COUNT 3.04 10^6/uL (3.72-5.28); RED CELL DISTRIBUTION WIDTH 13.7 % (11.5-14.0); SEGMENTED NEUTROPHILS % (AUTO) 71.3 % (42-78); WHITE BLOOD COUNT 8.6 10^3/uL (4.0-10.5)
[2016-12-23 12:53] LABS: VENOUS BLOOD BASE EXCESS -6.8 mmol/L; VENOUS BLOOD PCO2 33.5 mmHg (35-63); VENOUS BLOOD PH 7.35 (7.30-7.42)
[2016-12-23 13:02] LABS: APPEARANCE,URINE SLIGHTLY-CLOUDY; BILIRUBIN,URINE NEGATIVE (NEGATIVE); GLUCOSE, URINE >=500 mg/dL (NEGATIVE); KETONES,URINE NEGATIVE (NEGATIVE); LEUKOCYTE ESTERASE,URINE TRACE (NEGATIVE); NITRITE,URINE NEGATIVE (NEGATIVE); PROTEIN,URINE 100 mg/dL (NEGATIVE); URINE SPECIFIC GRAVITY 1.015; UROBILINOGEN,URINE NEGATIVE mg/dL (<2.0)
[2016-12-23 13:08] LABS: ANION GAP 12 (5-19); BLOOD UREA NITROGEN 35 mg/dL (7-20); CALCIUM 8.1 mg/dL (8.4-10.2); CARBON DIOXIDE 18 mmol/L (22-30); CHLORIDE 106 mmol/L (98-107); CREATININE RESULT 1.79 mg/dL (0.52-1.25); GLUCOSE 342 mg/dL (75-110); POTASSIUM 4.7 mmol/L (3.6-5.0); SODIUM 136.3 mmol/L (137-145)
[2016-12-23] MEDS ORDERED: NORMAL SALINE 1000 ML 1,000 ML IV ONE (13:11)
[2016-12-23] MEDS ORDERED: NITROFURANTOIN MONOHYD/M-CRYST 100 MG CAPSULE PO ONE (14:06)
--- NOTE | 2016-12-23 14:06 | ER Document Report ---
ED General - General Chief Complaint: High Blood Sugar Stated Complaint: BLOOD SUGAR PROBLEM Time Seen by Provider: 12/23/16 12:03 TRAVEL OUTSIDE OF THE [place] IN LAST 30 DAYS: No - HPI Patient complains to provider of: Elevated blood sugar Notes: Patient coming in for blood sugar greater than [facility]. Patient otherwise states chronic myalgias which currently under evaluation by her PCP. Patient also states that she is having burning with urination. Apparently patient is insulin was changed over the weekend. Patient is unaware of what the insulin was changed to. Otherwise patient is alert no signs of obvious distress upon my evaluation. Vital signs look to be within normal - Related Data Allergies/Adverse Reactions: promethazine HCl [From Phenergan] Allergy (Severe, Verified 01/09/15 15:40) severe leg pain baclofen [Baclofen] Allergy (Mild, Verified 01/09/15 15:40) Hives,hallucinate Beef Containing Products Adverse Reaction (Severe, Verified 08/02/15 14:20) GI upset Past Medical History - Social History Smoking Status: Never Smoker Chew tobacco use (# tins/day): No Frequency of alcohol use: None Drug Abuse: None Family History: CAD, DM - Past Medical History Cardiac Medical History: Reports: Hx Atrial Fibrillation, Hx Congestive Heart Failure, Hx Coronary Artery Disease, Hx Hypercholesterolemia, Hx Hypertension Denies: Hx Heart Attack Pulmonary Medical History: Reports: Hx Pneumonia - Hx of septic shock Denies: Hx Asthma, Hx Bronchitis, Hx COPD Neurological Medical History: Denies: Hx Cerebrovascular Accident, Hx Seizures Endocrine Medical History: Reports: Hx Diabetes Mellitus Type 1, Hx Diabetes Mellitus Type 2 Renal/ Medical History: Reports: Hx End Stage Renal Disease - stage 3. Denies : Hx Peritoneal Dialysis Musculoskeltal Medical History: Reports Hx Arthritis Psychiatric Medical History: Reports: Hx Depression Past Surgical History: Reports: Hx Abdominal Surgery - hernia, Hx Appendectomy. Denies: Hx Hysterectomy, Hx Pacemaker - Immunizations Hx Diphtheria, Pertussis, Tetanus Vaccination: No Hx Pneumococcal Vaccination: 01/25/13 Review of Systems - Review of Systems Constitutional: Other - Dysuria elevated blood sugars EENT: No symptoms reported Cardiovascular: No symptoms reported Respiratory: No symptoms reported Gastrointestinal: No symptoms reported Genitourinary: No symptoms reported Female Genitourinary: No symptoms reported Musculoskeletal: No symptoms reported Skin: No symptoms reported Hematologic/Lymphatic: No symptoms reported Neurological/Psychological: No symptoms reported Physical Exam - Vital signs Vitals: Resp Pulse Ox 20 99 12/23/16 12:11 12/23/16 12:11 Interpretation: Normal - General General appearance: Appears well, Alert - HEENT Head: Normocephalic, Atraumatic Eyes: Normal Pupils: PERRL - Respiratory Respiratory status: No respiratory distress Chest status: Nontender Breath sounds: Normal Chest palpation: Normal - Cardiovascular Rhythm: Regular Heart sounds: Normal auscultation Murmur: No - Abdominal Inspection: Normal Distension: No distension Bowel sounds: Normal Tenderness: Nontender Organomegaly: No organomegaly - Back Back: Normal, Nontender - Extremities General upper extremity: Normal inspection, Nontender, Normal color, Normal ROM , Normal temperature General lower extremity: Normal inspection, Nontender, Normal color, Normal ROM , Normal temperature, Normal weight bearing. No: Nadeen's sign - Neurological Neuro grossly intact: Yes Cognition: Normal Orientation: AAOx4 [place] Coma Scale Eye Opening: Spontaneous Jovanny Coma Scale Verbal: Oriented Jovanny Coma Scale Motor: Obeys Commands Jovanny Coma Scale Total: 15 Speech: Normal Motor strength normal: LUE, RUE, LLE, RLE Sensory: Normal - Psychological Associated symptoms: Normal affect, Normal mood - Skin Skin Temperature: Warm Skin Moisture: Dry Skin Color: Normal Course - Re-evaluation Re-evalutation: 12/23/16 14:05 Patient coming in today for evaluation of hyperglycemia. Lab work does not show any signs of DKA or HH S. Slight dehydration. Patient's hemoglobin A1c recently performed in November was 11.1. Please have the patient's insulin and sliding scale insulin adjusted appropriately. Urinalysis was bacteria with pyuria will treat with Macrobid until urine culture can return for sensitivities in the next 2 days. Would recommend calling the hospital for that evaluation. Return to the ER if symptoms worsen. Patient does show signs of slight dehydration patient was given IV fluids here stable for return back to jail. - Vital Signs Vital signs: Temp Pulse Resp BP Pulse Ox 17 178/79 H 100 12/23/16 14:01 12/23/16 14:01 12/23/16 14:01 - Laboratory Result Diagrams: 12/23/16 12:25 12/23/16 12:25 Laboratory results interpreted by me: 12/23/16 12/23/16 12/23/16 12:25 12:25 12:25 RBC 3.04 L Hgb 10.3 L Hct 30.6 L MCV 100 H MCH 33.7 H VBG pCO2 33.5 L VBG HCO3 18.0 L Sodium 136.3 L Carbon Dioxide 18 L BUN 35 H Creatinine 1.79 H Est GFR ( Amer) 33 L Est GFR (Non-Af Amer) 27 L Glucose 342 H Calcium 8.1 L Urine Protein Urine Glucose (UA) Ur Leukocyte Esterase 12/23/16 12:25 RBC Hgb Hct MCV MCH VBG pCO2 VBG HCO3 Sodium Carbon Dioxide BUN Creatinine Est GFR ( Amer) Est GFR (Non-Af Amer) Glucose Calcium Urine Protein 100 H Urine Glucose (UA) >=500 H Ur Leukocyte Esterase TRACE H Discharge - Discharge Clinical Impression: Hyperglycemia, Dehydration UTI (urinary tract infection) Qualifiers: Urinary tract infection type: site unspecified Hematuria presence: without hematuria Qualified Code(s): N39.0 - Urinary tract infection, site not specified Condition: Good Disposition: HOME, SELF-CARE Instructions: Hyperglycemia ([facility]), Nitrofurantoin ([facility]), Urinary Tract Infection ([facility]) Additional Instructions: Patient coming in today for evaluation of hyperglycemia. Lab work does not show any signs of DKA or HH S. Slight dehydration. Patient's hemoglobin A1c recently performed in November was 11.1. Please have the patient's insulin and sliding scale insulin adjusted appropriately. Urinalysis was bacteria with pyuria will treat with Macrobid until urine culture can return for sensitivities in the next 2 days. Would recommend calling the hospital for that evaluation. Return to the ER if symptoms worsen. Patient does show signs of slight dehydration patient was given IV fluids here stable for return back to jail. Prescriptions: Nitrofurantoin Monohyd/M-Cryst [Macrobid 100 mg Capsule] 100 mg PO BID #14 capsule Forms: Return to Work
[2016-12-23 17:07] VITALS: BP 174/70
== END 2016-12-23 15:00 | disposition home or self-care (01) ==
LOC: ER 11:54
DX: E11.65 Type 2 diabetes mellitus with hyperglycemia (principal); Z79.4 Long term (current) use of insulin; E86.0 Dehydration; N39.0 Urinary tract infection, site not specified; M79.1 Myalgia; R30.0 Dysuria; I10 Essential (primary) hypertension; I25.10 Atherosclerotic heart disease of native coronary artery without angina pectoris; Z88.8 Allergy status to other drugs, medicaments and biological substances
CPT/HCPCS: 99285; 96360; 36415; 85025; 80048; 81001; 82803; J7030; A9270; J8499

== ENCOUNTER → 2018-06-15 | Outpatient (CLI) | payer MEDICARE, OTHER ==
--- NOTE | 2018-06-15 16:25 | RADIOLOGY REPORT (SQ) ---
EXAM DESCRIPTION: HIP LEFT AP/LATERAL COMPLETED DATE/TIME: 06/15/2018 3:57 pm REASON FOR STUDY: LEFT HIP PAIN N18.3 CHRONIC KIDNEY DISEASE, STAGE 3 (MODERATE) E87.5 HYPERKALEMI A D64.9 ANEMIA, UNSPECIFIED COMPARISON: None. NUMBER OF VIEWS: Two views. TECHNIQUE: AP pelvis and additional frog-leg view of the left hip. LIMITATIONS: None. FINDINGS: MINERALIZATION: Normal. LEFT HIP: No fracture or dislocation. No worrisome bone lesions. No contour deformity. No joint spa ce narrowing. RIGHT HIP: No fracture or dislocation. No worrisome bone lesions. PUBIS AND ISCHIUM: No fracture. PELVIS: No fracture. SACRUM: No fracture or dislocation. No worrisome bone lesions. LOWER LUMBAR SPINE: No fracture or dislocation. No worrisome bone lesions. No significant disc disea se. SOFT TISSUES: No findings. OTHER: Pelvic calcifications secondary to calcified uterine fibroids. IMPRESSION: NEGATIVE STUDY OF THE LEFT HIP AND PELVIS. NO EXPLANATION FOR PAIN. TECHNICAL DOCUMENTATION: JOB ID: [id number] [employer]- All Rights Reserved Reading location - IP/workstation name: [email or web address]
[2018-06-15 16:59] LABS: HEMOGLOBIN 11.8 g/dL (12.0-15.5); MEAN CORPUSCULAR HEMOGLOBIN 33.3 pg (27.0-33.4); MEAN CORPUSCULAR HGB CONC 33.7 g/dL (32.0-36.0); MEAN CORPUSCULAR VOLUME 99 fl (80-97); PLATELET COUNT 203 10^3/uL (150-450); RED BLOOD COUNT 3.55 10^6/uL (3.72-5.28); RED CELL DISTRIBUTION WIDTH 13.5 % (11.5-14.0); WHITE BLOOD COUNT 8.2 10^3/uL (4.0-10.5)
[2018-06-15 17:29] LABS: ANION GAP 12 (5-19); BLOOD UREA NITROGEN 34 mg/dL (7-20); CARBON DIOXIDE 22 mmol/L (22-30); CHLORIDE 95 mmol/L (98-107); POTASSIUM 4.9 mmol/L (3.6-5.0); SODIUM 128.8 mmol/L (137-145)
[2018-06-15 18:58] LABS: GLUCOSE 691 mg/dL (75-110)
== END ==
LOC: OD 15:15
PROVIDERS: ATTEND Family Medicine
DX: M25.552 Pain in left hip (principal); N18.3 Chronic kidney disease, stage 3 (moderate); E87.5 Hyperkalemia; D64.9 Anemia, unspecified; D25.9 Leiomyoma of uterus, unspecified
CPT/HCPCS: 36415; 80048; 85027

== ENCOUNTER → 2018-07-02 | Outpatient (CLI) | payer MEDICARE, OTHER ==
[2018-07-02 16:15] LABS: HEMATOCRIT 36.7 % (36.0-47.0); HEMOGLOBIN 12.2 g/dL (12.0-15.5); MEAN CORPUSCULAR HEMOGLOBIN 33.1 pg (27.0-33.4); MEAN CORPUSCULAR HGB CONC 33.3 g/dL (32.0-36.0); MEAN CORPUSCULAR VOLUME 99 fl (80-97); PLATELET COUNT 186 10^3/uL (150-450); RED BLOOD COUNT 3.69 10^6/uL (3.72-5.28); RED CELL DISTRIBUTION WIDTH 13.4 % (11.5-14.0); WHITE BLOOD COUNT 10.9 10^3/uL (4.0-10.5)
[2018-07-02 18:01] LABS: ANION GAP 13 (5-19); BLOOD UREA NITROGEN 35 mg/dL (7-20); CALCIUM 9.1 mg/dL (8.4-10.2); CARBON DIOXIDE 21 mmol/L (22-30); CHLORIDE 93 mmol/L (98-107); POTASSIUM 4.6 mmol/L (3.6-5.0); SODIUM 127.2 mmol/L (137-145)
[2018-07-02 18:44] LABS: GLUCOSE 568 mg/dL (75-110)
== END ==
LOC: OD 15:18
PROVIDERS: ATTEND Internal Medicine Nephrology
DX: I12.9 Hypertensive chronic kidney disease with stage 1 through stage 4 chronic kidney disease, or unspecified chronic kidney disease (principal); N18.3 Chronic kidney disease, stage 3 (moderate); E11.21 Type 2 diabetes mellitus with diabetic nephropathy; E87.5 Hyperkalemia; D63.1 Anemia in chronic kidney disease
CPT/HCPCS: 36415; 80048; 83735; 83930; 84443; 85027

== ENCOUNTER 2018-07-04 13:55 | Inpatient (IN) | payer MEDICARE, OTHER ==
[2018-07-04 14:46] LABS: ABSOLUTE LYMPHOCYTES (AUTO) 1.1 10^3/uL (0.5-4.7); ABSOLUTE MONOCYTES (AUTO) 0.9 10^3/uL (0.1-1.4); BASOPHILS % (AUTO) 0.3 % (0-2); EOSINOPHILS % (AUTO) 0.1 % (0-6); HEMATOCRIT 34.5 % (36.0-47.0); HEMOGLOBIN 11.4 g/dL (12.0-15.5); LYMPHOCYTES % (AUTO) 7.9 % (13-45); MEAN CORPUSCULAR HEMOGLOBIN 32.7 pg (27.0-33.4); MEAN CORPUSCULAR HGB CONC 32.9 g/dL (32.0-36.0); MEAN CORPUSCULAR VOLUME 99 fl (80-97); MONOCYTES % (AUTO) 6.7 % (3-13); PLATELET COUNT 206 10^3/uL (150-450); RED BLOOD COUNT 3.48 10^6/uL (3.72-5.28); RED CELL DISTRIBUTION WIDTH 13.4 % (11.5-14.0); TOTAL CELLS COUNTED % (AUTO) 100 %; WHITE BLOOD COUNT 14.1 10^3/uL (4.0-10.5)
[2018-07-04 14:50] LABS: VENOUS BLOOD HCO3 21.5 mmol/L (20-32); VENOUS BLOOD PCO2 49.3 mmHg (35-63); VENOUS BLOOD PH 7.26 (7.30-7.42)
[2018-07-04 14:59] LABS: APPEARANCE,URINE TURBID; BILIRUBIN,URINE NEGATIVE (NEGATIVE); COLOR,URINE AMBER; GLUCOSE, URINE >=500 mg/dL (NEGATIVE); KETONES,URINE TRACE mg/dL (NEGATIVE); LEUKOCYTE ESTERASE,URINE LARGE (NEGATIVE); NITRITE,URINE NEGATIVE (NEGATIVE); PROTEIN,URINE 100 mg/dL (NEGATIVE); URINE SPECIFIC GRAVITY 1.016; UROBILINOGEN,URINE NEGATIVE mg/dL (<2.0)
[2018-07-04 15:06] LABS: ALANINE AMINOTRANSFERASE 17 U/L (9-52); ALBUMIN 3.1 g/dL (3.5-5.0); ALKALINE PHOSPHATASE 116 U/L (38-126); ANION GAP 13 (5-19); ASPARTATE AMINO TRANSFERASE 11 U/L (14-36); BILIRUBIN,DIRECT 0.3 mg/dL (0.0-0.4); BILIRUBIN,TOTAL 0.7 mg/dL (0.2-1.3); BLOOD UREA NITROGEN 39 mg/dL (7-20); CALCIUM 8.5 mg/dL (8.4-10.2); CARBON DIOXIDE 20 mmol/L (22-30); CHLORIDE 98 mmol/L (98-107); LIPASE 52.3 U/L (23-300); POTASSIUM 4.5 mmol/L (3.6-5.0); SODIUM 130.8 mmol/L (137-145); TOTAL PROTEIN 5.8 g/dL (6.3-8.2)
[2018-07-04 15:15] LABS: GLUCOSE 470 mg/dL (75-110)
[2018-07-04] MEDS ORDERED: NORMAL SALINE 1000 ML 1,000 ML IV ONE ×2 (15:20)
[2018-07-04] MEDS ORDERED: INSULIN REG, HUMAN 100 UNIT/ML 3 ML VIAL (PYX) IV ONE ×2 (15:20→20:46)
[2018-07-04 15:26] LABS: INTERNATIONAL RATION (INR) 1.13; PARTIAL THROMBOPLASTIN TIME 33.8 SEC (23.5-35.8); PROTHROMBIN TIME 15.1 SEC (11.4-15.4)
--- NOTE | 2018-07-04 15:35 | RADIOLOGY REPORT (SQ) ---
EXAM DESCRIPTION: CHEST SINGLE VIEW COMPLETED DATE/TIME: 07/04/2018 3:25 pm REASON FOR STUDY: cough COMPARISON: Chest x-ray 07/31/2015, 12/18/2014. EXAM PARAMETERS: NUMBER OF VIEWS: One view. TECHNIQUE: Single frontal radiographic view of the chest acquired. RADIATION DOSE: NA LIMITATIONS: None. FINDINGS: LUNGS AND PLEURA: No consolidation, pneumothorax or pleural effusion. MEDIASTINUM AND HILAR STRUCTURES: No masses. Contour normal. HEART AND VASCULAR STRUCTURES: Heart normal in size. No overt vascular congestion. BONES: No acute findings. HARDWARE: None in the chest. IMPRESSION: No acute radiographic finding in the chest. TECHNICAL DOCUMENTATION: JOB ID: [id number] 2010 [employer]- All Rights Reserved Reading location - IP/workstation name: [email or web address]
[2018-07-04 15:42] LABS: CREATINE KINASE MB 0.63 ng/mL (<4.55)
[2018-07-04 15:46] LABS: TROPONIN I 0.038 ng/mL
--- NOTE | 2018-07-04 15:54 | RADIOLOGY REPORT (SQ) ---
EXAM DESCRIPTION: HIP LEFT AP/LATERAL COMPLETED DATE/TIME: 07/04/2018 3:25 pm REASON FOR STUDY: pain COMPARISON: Left hip x-ray 06/15/2018. Bilateral hip x-ray 11/13/2016. NUMBER OF VIEWS: Two views. TECHNIQUE: AP pelvis and additional frog-leg view of the left hip. LIMITATIONS: None. FINDINGS: There is diffuse osteopenia. There is no acute fracture or dislocation. The pelvic ring is intact. The bilateral hip joints are maintained. Degenerative changes at the visualized lower mari mbar spine. Coarse calcifications at the pelvis are probably uterine fibroids. Stool ball at the re ctum. Vascular calcifications are noted. The soft tissues are unremarkable. IMPRESSION: 1. Osteopenia. No radiographic evidence for acute fracture at the pelvis or left hip. 2. Stool ball at the rectum, please correlate for constipation/ fecal impaction. TECHNICAL DOCUMENTATION: JOB ID: [id number] 2010 [employer]- All Rights Reserved Reading location - IP/workstation name: [email or web address]
[2018-07-04] MEDS ORDERED: CEFTRIAXONE 2 GM/D5W RTU 2 GM/50 ML RTUPB IV ONE (18:54)
[2018-07-04] MEDS ORDERED: NORMAL SALINE 100 ML with INSULIN REGULAR, HUMAN 100 UNIT IV PRN ×4 (18:59→19:12)
--- NOTE | 2018-07-04 19:07 | ER Document Report ---
ED General - General Chief Complaint: Flank Pain Stated Complaint: FALL/HIP PAIN Time Seen by Provider: 07/04/18 19:02 Mode of Arrival: Stretcher Information source: Patient TRAVEL OUTSIDE OF THE [place] IN LAST 30 DAYS: No - HPI Onset: Just prior to arrival Onset/Duration: Sudden Quality of pain: Sharp Pain Level: 2 Associated symptoms: Other - Painful urination. Exacerbated by: Movement Relieved by: Denies Similar symptoms previously: No Recently seen / treated by doctor: No - Related Data Allergies/Adverse Reactions: promethazine HCl [From Phenergan] Allergy (Severe, Verified 01/09/15 15:40) severe leg pain baclofen [Baclofen] Allergy (Mild, Verified 01/09/15 15:40) Hives,hallucinate Beef Containing Products Adverse Reaction (Severe, Verified 08/02/15 14:20) GI upset Past Medical History - Social History Smoking Status: Never Smoker Chew tobacco use (# tins/day): No Frequency of alcohol use: None Drug Abuse: None Family History: CAD, DM Patient has suicidal ideation: No Patient has homicidal ideation: No - Past Medical History Cardiac Medical History: Reports: Hx Atrial Fibrillation, Hx Congestive Heart Failure, Hx Coronary Artery Disease, Hx Hypercholesterolemia, Hx Hypertension Denies: Hx Heart Attack Pulmonary Medical History: Reports: Hx Pneumonia - Hx of septic shock Denies: Hx Asthma, Hx Bronchitis, Hx COPD Neurological Medical History: Denies: Hx Cerebrovascular Accident, Hx Seizures Endocrine Medical History: Reports: Hx Diabetes Mellitus Type 1, Hx Diabetes Mellitus Type 2 Renal/ Medical History: Reports: Hx End Stage Renal Disease - stage 3. Denies: Hx Peritoneal Dialysis Musculoskeletal Medical History: Reports Hx Arthritis Psychiatric Medical History: Reports: Hx Depression Past Surgical History: Reports: Hx Abdominal Surgery - hernia, Hx Appendectomy. Denies: Hx Hysterectomy, Hx Pacemaker - Immunizations Hx Diphtheria, Pertussis, Tetanus Vaccination: No Hx Pneumococcal Vaccination: 01/25/13 Review of Systems - Review of Systems Constitutional: No symptoms reported EENT: No symptoms reported Cardiovascular: No symptoms reported Respiratory: No symptoms reported Gastrointestinal: No symptoms reported Genitourinary: Burning, Dysuria Female Genitourinary: No symptoms reported Musculoskeletal: Other - Left Hip Pain. Skin: No symptoms reported Hematologic/Lymphatic: No symptoms reported Neurological/Psychological: No symptoms reported -: Yes All other systems reviewed and negative Physical Exam - Vital signs Vitals: Temp 98.1 F 07/04/18 14:03 Interpretation: Normal - General General appearance: Appears well, Alert - HEENT Head: Normocephalic, Atraumatic Eyes: Normal Pupils: PERRL - Respiratory Respiratory status: No respiratory distress Chest status: Nontender Breath sounds: Normal Chest palpation: Normal - Cardiovascular Rhythm: Regular Heart sounds: Normal auscultation Murmur: No - Abdominal Inspection: Normal Distension: No distension Bowel sounds: Normal Tenderness: Nontender Organomegaly: No organomegaly - Back Back: Normal, Nontender - Extremities General upper extremity: Normal inspection, Nontender, Normal color, Normal ROM, Normal temperature General lower extremity: Normal inspection, Tender, Normal color, Normal ROM, Normal temperature, Normal weight bearing, Other - Left hip is tender to palpation.. No: Nadeen's sign - Neurological Neuro grossly intact: Yes Cognition: Normal Orientation: AAOx4 [place] Coma Scale Eye Opening: Spontaneous Jovanny Coma Scale Verbal: Oriented [place] Coma Scale Motor: Obeys Commands [place] Coma Scale Total: 15 Speech: Normal Motor strength normal: LUE, RUE, LLE, RLE Sensory: Normal - Psychological Associated symptoms: Normal affect, Normal mood - Skin Skin Temperature: Warm Skin Moisture: Dry Skin Color: Normal Course - Vital Signs Vital signs: Temp Pulse Resp BP Pulse Ox 98.1 F 20 176/81 H 100 07/04/18 14:03 07/04/18 19:01 07/04/18 19:01 07/04/18 19:01 - Laboratory Result Diagrams: 07/04/18 14:24 07/04/18 14:24 Laboratory results interpreted by me: 07/04/18 07/04/18 07/04/18 14:24 14:24 14:24 WBC 14.1 H RBC 3.48 L Hgb 11.4 L Hct 34.5 L MCV 99 H Seg Neutrophils % 85.0 H Lymphocytes % 7.9 L Absolute Neutrophils 12.0 H VBG pH 7.26 L Sodium 130.8 L Carbon Dioxide 20 L BUN 39 H Creatinine 2.33 H Est GFR ( Amer) 24 L Est GFR (Non-Af Amer) 20 L Glucose 470 H* POC Glucose AST 11 L Creatine Kinase Total Protein 5.8 L Albumin 3.1 L Urine Protein Urine Glucose (UA) Urine Ketones Urine Blood Ur Leukocyte Esterase 07/04/18 07/04/18 07/04/18 14:24 14:41 18:55 WBC RBC Hgb Hct MCV Seg Neutrophils % Lymphocytes % Absolute Neutrophils VBG pH Sodium Carbon Dioxide BUN Creatinine Est GFR ( Amer) Est GFR (Non-Af Amer) Glucose POC Glucose 315 H AST Creatine Kinase 22 L Total Protein Albumin Urine Protein 100 H Urine Glucose (UA) >=500 H Urine Ketones TRACE H Urine Blood SMALL H Ur Leukocyte Esterase LARGE H - Diagnostic Test Radiology reviewed: Reports reviewed - EKG Interpretation by Me EKG shows normal: Sinus rhythm Rate: Normal - 69 Voltage: Increased voltage, Consistant with LVH When compared to previous EKG there are: Changes noted Additional EKG results interpreted by me: 07/04/18 20:31 Nonspecific T wave changes. - Transfer of Care Notes: 07/04/18 19:11 Patient will be admitted by the hospitalist Dr Aime Cabrera for further management. Discharge - Discharge Clinical Impression: Left hip pain UTI (urinary tract infection) Qualifiers: Urinary tract infection type: acute cystitis Hematuria presence: without hematuria Qualified Code(s): N30.00 - Acute cystitis without hematuria DKA (diabetic ketoacidosis) Qualifiers: Diabetes mellitus type: type 2 Diabetes mellitus complication detail: without coma Qualified Code(s): E11.10 - Type 2 diabetes mellitus with ketoacidosis without coma Uncontrolled diabetes mellitus Qualifiers: Diabetes mellitus type: type 2 Glycemic state: with hyperglycemia Qualified Code(s): E11.65 - Type 2 diabetes mellitus with hyperglycemia Condition: Stable Disposition: ADMITTED INPATIENT Admitting Provider: Hospitalist Unit Admitted: [facility]
[2018-07-04] MEDS ORDERED: MAGNESIUM HYDROXIDE SUSP 30 ML UDCUP PO PRN (19:12)
[2018-07-04] MEDS ORDERED: DEXTROSE 40% GEL 15 GM TUBE PO PRN ×2 (19:12)
[2018-07-04] MEDS ORDERED: MAG HYDROX/AL HYDROX/SIMETH SUSP 30 ML UDCUP PO PRN (19:12)
[2018-07-04] MEDS ORDERED: GLUCAGON,HUMAN RECOMB 1 MG INJ IM PRN (19:12)
[2018-07-04] MEDS ORDERED: DEXTROSE 50%-WATER 25 GM/50 ML DISP.SYRIN IV PRN (19:12)
--- NOTE | 2018-07-04 19:36 | RADIOLOGY REPORT (SQ) ---
EXAM DESCRIPTION: CT ABD/PELVIS NO ORAL OR IV COMPLETED DATE/TIME: 07/04/2018 7:20 pm REASON FOR STUDY: pain/ left hip pain COMPARISON: 11/22/2014 TECHNIQUE: CT scan of the abdomen and pelvis performed without intravenous or oral contrast. Images reviewed with lung, soft tissue, and bone windows. Reconstructed coronal and sagittal MPR images revi ewed. All images stored on PACS. All CT scanners at this facility use dose modulation, iterative reconstruction, and/or weight based d osing when appropriate to reduce radiation dose to as low as reasonably achievable (ALARA). [facility]: Dose Right [facility]: CareDose [facility]: Dose Right [facility]: Teradose 4D [facility]: [employer] RADIATION DOSE: CT Rad equipment meets quality standard of care and radiation dose reduction techniq ues were employed. CTDIvol: 7.2 mGy. DLP: 354 mGy-cm.mGy. LIMITATIONS: None. FINDINGS: LOWER CHEST: Hiatal hernia. Dense mitral annular calcifications. NON-CONTRASTED LIVER, SPLEEN, ADRENALS: Evaluation limited by lack of IV contrast. No identified sign ificant masses. PANCREAS: No masses. No peripancreatic inflammatory changes. GALLBLADDER: No identified stones by CT criteria. No inflammatory changes to suggest cholecystitis. RIGHT KIDNEY AND URETER: No suspicious masses. Assessment limited by lack of IV contrast. No signif icant calcifications. No hydronephrosis or hydroureter. LEFT KIDNEY AND URETER: No suspicious masses. Assessment limited by lack of IV contrast. No signifi cant calcifications. No hydronephrosis or hydroureter. AORTA AND RETROPERITONEUM: No aneurysm. No retroperitoneal masses or adenopathy. BOWEL AND PERITONEAL CAVITY: No obvious masses or inflammatory changes. No free fluid. APPENDIX: Not visualized. PELVIS, BLADDER, AND ABDOMINAL WALL:Calcified uterine fibroids. Shukla catheter in urinary bladder. BONES: Nothing acute. OTHER: No other significant finding. IMPRESSION: No acute findings. Uterine fibroids. COMMENT: Quality ID # [id number]: Final reports with documentation of one or more dose reduction techniques (e.g., Automated exposure control, adjustment of the mA and/or kV according to patient size, use of iterative reconstruction technique) TECHNICAL DOCUMENTATION: JOB ID: [id number]- All Rights Reserved Reading location - IP/workstation name: [email or web address]
[2018-07-04] MEDS ORDERED: LACTULOSE SYRUP 20 GM/30 ML UDCUP PO ONE ×2 (20:10→22:26)
[2018-07-04] MEDS ORDERED: NA PHOS,M-B/NA PHOS,DI-BA (ADULT) 133 ML ENEMA PR ONE (20:15)
[2018-07-04 21:06] LABS: ANION GAP 9 (5-19); BLOOD UREA NITROGEN 35 mg/dL (7-20); CARBON DIOXIDE 22 mmol/L (22-30); CHLORIDE 104 mmol/L (98-107); GLUCOSE 315 mg/dL (75-110); POTASSIUM 3.9 mmol/L (3.6-5.0); SODIUM 134.6 mmol/L (137-145)
[2018-07-04] MEDS ORDERED: HUM INSULIN NPH/REG INSULIN HM 100 UNIT/1 ML 3 ML SUBCUT ONE (22:14)
[2018-07-04] MEDS: FERROUS SULFATE 325 MG TABLET PO SCH (22:33)
[2018-07-04] MEDS: GABAPENTIN 100 MG CAPSULE PO SCH (22:33)
[2018-07-04] MEDS: HEPARIN SOD (PORCINE) 5,000 UNIT/ML 1 ML SYRINGE SUBCUT SCH (22:38)
[2018-07-04] MEDS: NORMAL SALINE 1000 ML 1,000 ML IV PRN (23:49)
[2018-07-05 01:04] LABS: ANION GAP 8 (5-19); BLOOD UREA NITROGEN 33 mg/dL (7-20); CALCIUM 8.1 mg/dL (8.4-10.2); CARBON DIOXIDE 21 mmol/L (22-30); CHLORIDE 107 mmol/L (98-107); GLUCOSE 249 mg/dL (75-110); POTASSIUM 3.8 mmol/L (3.6-5.0); SODIUM 135.5 mmol/L (137-145)
--- NOTE | 2018-07-05 01:25 | EKG REPORT ---
SEVERITY:- ABNORMAL ECG - SINUS RHYTHM NONSPECIFIC IVCD WITH LAD LVH WITH SECONDARY REPOLARIZATION ABNORMALITY : Confirmed by: Trinity Fairbanks MD 05-Jul-2018 01:24:11
--- NOTE | 2018-07-05 04:42 | PDOC H&P ---
History of Present Illness Admission Date/PCP: 07/04/18 19:41 GEMA BARNHART Patient complains of: Dysuria and constipation History of Present Illness: THOR PORTER is a 83 year old female with a past medical history of paroxysmal atrial fibrillation, stage III chronic kidney disease, congestive heart failure, coronary artery disease, diabetes, dyslipidemia, osteoarthritis, and constipation predominant irritable bowel syndrome. She presents with abdom inal pain complaining of several days of constipation followed by episodes of explosive diarrhea followed by dysuria. In the emergency room she is found to have fever, atrial fibrillation, pyuria, leukocytosis and metabolic acidosis. She started on IV fluid, insulin and empiric antibiotics and referred to the hospitalist for admission. Patient admits several episodes in the past CT abdomen pelvis reveals constipation but no hip fracture. She denies recent change in medications and otherwise feels well. Past Medical History Cardiac Medical History: Reports: Atrial Fibrillation, Congestive Heart Failure, Coronary Artery Disease, Hyperlipidema, Hypertension Denies: Myocardial Infarction Pulmonary Medical History: Reports: Pneumonia - Hx of septic shock Denies: Asthma, Bronchitis, Chronic Obstructive Pulmonary Disease (COPD) Neurological Medical History: Denies: Seizures Endocrine Medical History: Reports: Diabetes Mellitus Type 1, Diabetes Mellitus Type 2 Renal/ Medical History: Reports: End Stage Renal Disease - stage 3 Musculoskeltal Medical History: Reports: Arthritis Psychiatric Medical History: Reports: Depression Hematology: Reports: Anemia - chronic dz Past Surgical History Past Surgical History: Reports: Appendectomy Denies: Hysterectomy, Pacemaker Social History Information Source: Patient, [facility] Records Smoking Status: Never Smoker Frequency of Alcohol Use: None Hx Recreational Drug Use: No Drugs: None Hx Prescription Drug Abuse: No Family History Family History: CAD, DM Parental Family History Reviewed: Yes Children Family History Reviewed: Yes Sibling(s) Family History Reviewed.: Yes Medication/Allergy Home Medications: Alendronate Sodium [Fosamax 10 mg Tablet] 10 mg PO MOWEFR@1000 12/09/16 Cholecalciferol (Vitamin D3) [Vitamin D3 400 Unit Tablet] 400 unit PO DAILY 12/09/16 Ferrous Sulfate [Feosol 325 mg Tablet] 325 mg PO QHS 12/09/16 Fluoxetine HCl [Prozac 20 mg Capsule] 20 mg PO DAILY 12/09/16 Levothyroxine Sodium [Levo-T] 100 mcg PO DAILY 12/09/16 Memantine HCl [Namenda Xr] 14 mg PO DAILY 12/09/16 Metoprolol Tartrate [Lopressor 50 mg Tablet] 50 mg PO Q12 12/09/16 Omeprazole 40 mg PO BID 12/09/16 Ondansetron HCl [Zofran 4 mg Tablet] 1 tab PO Q8HP PRN 12/09/16 Ranitidine HCl [Zantac 150 mg Tablet] 150 mg PO QHS 12/09/16 Rivastigmine Tartrate [Rivastigmine] 3 mg PO BID 12/09/16 Ropinirole HCl [Requip] 0.5 mg PO HSP PRN 12/09/16 Acetaminophen [Tylenol 325 mg Tablet] 650 mg PO Q8HP PRN tablet 12/12/16 Gabapentin [Neurontin 100 mg Capsule] 200 mg PO Q8 capsule 12/12/16 Tramadol HCl [Ultram 50 mg Tablet] 50 mg PO Q4HP PRN #30 tablet 12/12/16 Nitrofurantoin Monohyd/M-Cryst [Macrobid 100 mg Capsule] 100 mg PO BID #14 capsule 12/23/16 Allergies/Adverse Reactions: promethazine HCl [From Phenergan] Allergy (Severe, Verified 01/09/15 15:40) severe leg pain baclofen [Baclofen] Allergy (Mild, Verified 01/09/15 15:40) Hives,hallucinate Beef Containing Products Adverse Reaction (Severe, Verified 08/02/15 14:20) GI upset Review of Systems Constitutional: PRESENT: as per HPI, anorexia. ABSENT: chills, fever(s), headache(s), weight gain, weight loss Eyes: ABSENT: visual disturbances Ears: ABSENT: hearing changes Cardiovascular: ABSENT: chest pain, dyspnea on exertion, edema, orthropnea, palpitations Respiratory: ABSENT: cough, hemoptysis Gastrointestinal: PRESENT: constipation, diarrhea. ABSENT: abdominal pain, hematemesis, hematochezia, nausea, vomiting Genitourinary: PRESENT: as per HPI, dysuria. ABSENT: hematuria Musculoskeletal: ABSENT: joint swelling Integumentary: ABSENT: rash, wounds Neurological: ABSENT: abnormal gait, abnormal speech, confusion, dizziness, focal weakness, syncope Psychiatric: ABSENT: anxiety, depression, homidical ideation, suicidal ideation Endocrine: ABSENT: cold intolerance, heat intolerance, polydipsia, polyuria Hematologic/Lymphatic: ABSENT: easy bleeding, easy bruising Physical Exam Vital Signs: Temp Pulse Resp BP Pulse Ox 98.8 F 14 151/66 H 99 07/04/18 23:52 07/05/18 02:31 07/05/18 02:31 07/05/18 02:31 Intake & Output 07/03/18 07/04/18 07/05/18 10:59 11:59 11:59 Intake Total 2050 Output Total 725 Balance 1325 Weight 57.4 kg General appearance: PRESENT: cooperative, hard of hearing, mild distress, well- developed, well-nourished Head exam: PRESENT: atraumatic, normocephalic Eye exam: PRESENT: conjunctiva pink, EOMI, PERRLA. ABSENT: scleral icterus Ear exam: PRESENT: normal external ear exam Mouth exam: PRESENT: moist, tongue midline Neck exam: ABSENT: carotid bruit, JVD, lymphadenopathy, thyromegaly Respiratory exam: PRESENT: clear to auscultation mónica. ABSENT: rales, rhonchi, wheezes Cardiovascular exam: PRESENT: RRR. ABSENT: diastolic murmur, rubs, systolic murmur Pulses: PRESENT: normal dorsalis pedis pul Vascular exam: PRESENT: normal capillary refill GI/Abdominal exam: PRESENT: normal bowel sounds, soft, tenderness - Left lower quadrant tender without guarding. ABSENT: distended, guarding, mass, org anolmegaly, rebound Rectal exam: PRESENT: deferred Extremities exam: PRESENT: full ROM. ABSENT: calf tenderness, clubbing, pedal edema Musculoskeletal exam: PRESENT: full ROM Neurological exam: PRESENT: alert, awake, oriented to person, oriented to place, oriented to time, oriented to situation, CN II-XII grossly intact. ABSENT: motor sensory deficit Psychiatric exam: PRESENT: appropriate affect, normal mood. ABSENT: homicidal ideation, suicidal ideation Skin exam: PRESENT: dry, intact, warm. ABSENT: cyanosis, rash Results Laboratory Results: 07/04/18 14:24 07/05/18 00:38 07/04/18 07/04/18 07/04/18 14:24 14:24 14:24 WBC 14.1 H RBC 3.48 L Hgb 11.4 L Hct 34.5 L MCV 99 H MCH 32.7 MCHC 32.9 RDW 13.4 Plt Count 206 Seg Neutrophils % 85.0 H Lymphocytes % 7.9 L Monocytes % 6.7 Eosinophils % 0.1 Basophils % 0.3 Absolute Neutrophils 12.0 H Absolute Lymphocytes 1.1 Absolute Monocytes 0.9 Absolute Eosinophils 0.0 Absolute Basophils 0.0 VBG pH 7.26 L VBG pCO2 49.3 VBG HCO3 21.5 VBG Base Excess -6.0 Sodium 130.8 L Potassium 4.5 Chloride 98 Carbon Dioxide 20 L Anion Gap 13 BUN 39 H Creatinine 2.33 H Est GFR ( Amer) 24 L Est GFR (Non-Af Amer) 20 L Glucose 470 H* Lactic Acid Calcium 8.5 Total Bilirubin 0.7 AST 11 L ALT 17 Alkaline Phosphatase 116 Total Protein 5.8 L Albumin 3.1 L Lipase 52.3 Urine Color Urine Appearance Urine pH Ur Specific [place]oper Urine Protein Urine Glucose (UA) Urine Ketones Urine Blood Urine Nitrite Ur Leukocyte Esterase Urine WBC (Auto) Urine RBC (Auto) 07/04/18 07/04/18 07/04/18 14:24 14:41 20:38 WBC RBC Hgb Hct MCV MCH MCHC RDW Plt Count Seg Neutrophils % Lymphocytes % Monocytes % Eosinophils % Basophils % Absolute Neutrophils Absolute Lymphocytes Absolute Monocytes Absolute Eosinophils Absolute Basophils VBG pH VBG pCO2 VBG HCO3 VBG Base Excess Sodium 134.6 L Potassium 3.9 Chloride 104 Carbon Dioxide 22 Anion Gap 9 BUN 35 H Creatinine 2.14 H Est GFR ( Amer) 27 L Est GFR (Non-Af Amer) 22 L Glucose 315 H Lactic Acid 1.2 Calcium 8.0 L Total Bilirubin AST ALT Alkaline Phosphatase Total Protein Albumin Lipase Urine Color OSMEL Urine Appearance TURBID Urine pH 6.0 Ur Specific [place] 1.016 Urine Protein 100 H Urine Glucose (UA) >=500 H Urine Ketones TRACE H Urine Blood SMALL H Urine Nitrite NEGATIVE Ur Leukocyte Esterase LARGE H Urine WBC (Auto) >182 Urine RBC (Auto) 11 07/05/18 00:38 WBC RBC Hgb Hct MCV MCH MCHC RDW Plt Count Seg Neutrophils % Lymphocytes % Monocytes % Eosinophils % Basophils % Absolute Neutrophils Absolute Lymphocytes Absolute Monocytes Absolute Eosinophils Absolute Basophils VBG pH VBG pCO2 VBG HCO3 VBG Base Excess Sodium 135.5 L Potassium 3.8 Chloride 107 Carbon Dioxide 21 L Anion Gap 8 BUN 33 H Creatinine 2.01 H Est GFR ( Amer) 29 L Est GFR (Non-Af Amer) 24 L Glucose 249 H Lactic Acid Calcium 8.1 L Total Bilirubin AST ALT Alkaline Phosphatase Total Protein Albumin Lipase Urine Color Urine Appearance Urine pH Ur Specific [place] Urine Protein Urine Glucose (UA) Urine Ketones Urine Blood Urine Nitrite Ur Leukocyte Esterase Urine WBC (Auto) Urine RBC (Auto) 07/04/18 07/04/18 14:24 14:24 Creatine Kinase 22 L CK-MB (CK-2) 0.63 Troponin I 0.038 Impressions: Hip X-Ray 07/04/18 15:06 IMPRESSION: 1. Osteopenia. No radiographic evidence for acute fracture at the pelvis or left hip. 2. Stool ball at the rectum, please correlate for constipation/ fecal impaction. Chest X-Ray 07/04/18 15:08 IMPRESSION: No acute radiographic finding in the chest. Abdomen/Pelvis CT 07/04/18 17:54 IMPRESSION: No acute findings. Uterine fibroids. Assessment & Plan - Diagnosis (1) DKA (diabetic ketoacidosis) Qualifiers: Diabetes mellitus type: type 2 Diabetes mellitus complication detail: without coma Qualified Code(s): E11.10 - Type 2 diabetes mellitus with ketoacidosis without coma Is this a current diagnosis for this admission?: Yes Plan: IMCU admission, diabetic ketoacidosis patient has had some degree of polyuria polydipsia with nausea and uncontrolled hyperglycemia with supporting labs. Patient will receive IV fluids IV insulin serial chemistries every 6 hours for evaluation for electrolyte repletion. Complicated by UTI c, diabetic, patient education (2) Constipation Is this a current diagnosis for this admission?: Yes Plan: Lactulose and Fleet enema with bowel regiment ordered (3) Left hip pain Is this a current diagnosis for this admission?: Yes Plan: CT follow-up, consider PT eval (4) UTI (urinary tract infection) Qualifiers: Urinary tract infection type: acute cystitis Hematuria presence: without hematuria Qualified Code(s): N30.00 - Acute cystitis without hematuria Is this a current diagnosis for this admission?: Yes Plan: Complicated by constipation, empiric antibiotics initiated, IV fluid challenge, symptomatic management. Follow-up CBC blood and urine culture - Time Time Spent: 50 to 70 Minutes - Inpatient Certification Medical Necessity: Need Close Monitoring Due to Risk of Patient Decompensation
[2018-07-05] MEDS: NORMAL SALINE 1000 ML 1,000 ML IV PRN (05:02)
[2018-07-05 05:04] LABS: ABSOLUTE LYMPHOCYTES (AUTO) 2.1 10^3/uL (0.5-4.7); ABSOLUTE MONOCYTES (AUTO) 0.9 10^3/uL (0.1-1.4); ABSOLUTE NEUT (AUTO) 6.8 10^3/uL (1.7-8.2); BASOPHILS % (AUTO) 0.5 % (0-2); EOSINOPHILS % (AUTO) 0.4 % (0-6); HEMATOCRIT 29.6 % (36.0-47.0); HEMOGLOBIN 10.1 g/dL (12.0-15.5); LYMPHOCYTES % (AUTO) 21.1 % (13-45); MEAN CORPUSCULAR HEMOGLOBIN 33.6 pg (27.0-33.4); MEAN CORPUSCULAR HGB CONC 34.3 g/dL (32.0-36.0); MEAN CORPUSCULAR VOLUME 98 fl (80-97); MONOCYTES % (AUTO) 9.2 % (3-13); PLATELET COUNT 189 10^3/uL (150-450); RED BLOOD COUNT 3.02 10^6/uL (3.72-5.28); RED CELL DISTRIBUTION WIDTH 13.2 % (11.5-14.0); SEGMENTED NEUTROPHILS % (AUTO) 68.8 % (42-78); TOTAL CELLS COUNTED % (AUTO) 100 %; WHITE BLOOD COUNT 9.8 10^3/uL (4.0-10.5)
[2018-07-05] MEDS: HEPARIN SOD (PORCINE) 5,000 UNIT/ML 1 ML SYRINGE SUBCUT SCH ×3 (05:41→23:48)
[2018-07-05] MEDS: LEVOTHYROXINE SODIUM 0.1 MG TABLET PO SCH (05:41)
[2018-07-05] MEDS: GABAPENTIN 100 MG CAPSULE PO SCH ×3 (05:41→23:48)
[2018-07-05] MEDS: POTASSI CL 20 MEQ/50 ML RIDER 20 MEQ/50 ML RTUPB IV SCH ×2 (05:46→07:59)
[2018-07-05 06:13] LABS: ANION GAP 7 (5-19); BLOOD UREA NITROGEN 30 mg/dL (7-20); CALCIUM 7.7 mg/dL (8.4-10.2); CARBON DIOXIDE 18 mmol/L (22-30); CHLORIDE 113 mmol/L (98-107); GLUCOSE 134 mg/dL (75-110); POTASSIUM 3.4 mmol/L (3.6-5.0); SODIUM 138.3 mmol/L (137-145)
[2018-07-05] MEDS ORDERED: ALENDRONATE SODIUM 10 MG TABLET PO SCH (10:00)
[2018-07-05] MEDS: DOCUSATE SODIUM 100 MG CAPSULE PO SCH ×2 (10:01→18:18)
[2018-07-05 10:18] LABS: ANION GAP 10 (5-19); BLOOD UREA NITROGEN 27 mg/dL (7-20); CARBON DIOXIDE 15 mmol/L (22-30); CHLORIDE 114 mmol/L (98-107); GLUCOSE 138 mg/dL (75-110); SODIUM 138.6 mmol/L (137-145)
[2018-07-05 10:29] LABS: POTASSIUM 4.4 mmol/L (3.6-5.0)
[2018-07-05] MEDS: HUM INSULIN NPH/REG INSULIN HM 100 UNIT/1 ML 3 ML SUBCUT SCH ×2 (10:32→18:18)
[2018-07-05] MEDS: POTASSIUM CHLORIDE 10 MEQ CAPSULE.ER PO SCH ×2 (11:21→23:48)
[2018-07-05] MEDS: FLUOXETINE HCL 20 MG CAPSULE PO SCH (11:22)
[2018-07-05] MEDS: CHOLECALCIFEROL (D3) 400 UNIT TABLET PO SCH (11:22)
[2018-07-05] MEDS: ALENDRONATE SODIUM 10 MG TABLET PO SCH (11:23)
[2018-07-05] MEDS ORDERED: HUM INSULIN NPH/REG INSULIN HM 100 UNIT/1 ML 3 ML SUBCUT ONE (12:30)
[2018-07-05 13:34] LABS: ANION GAP 12 (5-19); BLOOD UREA NITROGEN 27 mg/dL (7-20); CALCIUM 8.4 mg/dL (8.4-10.2); CARBON DIOXIDE 15 mmol/L (22-30); CHLORIDE 112 mmol/L (98-107); GLUCOSE 149 mg/dL (75-110); POTASSIUM 4.2 mmol/L (3.6-5.0); SODIUM 138.9 mmol/L (137-145)
--- NOTE | 2018-07-05 14:50 | PDOC PROGRESS REPORT ---
Subjective Progress Note for:: 07/05/18 Subjective:: This is a 83 years old female patient with past medical history of paroxysmal atrial fibrillation, coronary artery disease, stage III CKD, diabetes mellitus, hyperlipidemia, CHF, Shirley' constipation predominant IBS admitted yesterday night with chief complaint of dysuria, left flank pain, hyperglycemia and constipation. Her urine analysis compatible with urinary tract infection and her urine culture grew gram-negative throat most probably E. coli. Patient has been started on ceftriaxone for her UTI and she was given lactulose for her constipation which is relieved. This afternoon I seen patient resting in bed comfortably and she reports this her flank pain is subsiding. Since patient is deconditioned the family wants her to be in rehab. Reason For Visit: DKA UTI CONSTIPATION Physical Exam Vital Signs: Temp Pulse Resp BP Pulse Ox 98.3 F 88 15 191/87 H 100 07/05/18 06:32 07/05/18 07:00 07/05/18 14:03 07/05/18 14:03 07/05/18 14:03 Intake & Output 07/04/18 07/05/18 07/06/18 06:59 06:59 06:59 Intake Total 3050 1100 Output Total 725 650 Balance 2325 450 Weight 57.4 kg General appearance: PRESENT: no acute distress Head exam: PRESENT: atraumatic Eye exam: PRESENT: conjunctiva pink Neck exam: ABSENT: carotid bruit, JVD, lymphadenopathy, thyromegaly Respiratory exam: PRESENT: clear to auscultation mónica. ABSENT: rales, rhonchi, wheezes Cardiovascular exam: PRESENT: RRR. ABSENT: diastolic murmur, rubs, systolic murmur Neurological exam: PRESENT: alert, awake, oriented to time, oriented to situation Results Laboratory Results: 07/05/18 04:51 07/05/18 12:50 07/04/18 07/04/18 07/04/18 14:24 14:24 14:24 WBC 14.1 H RBC 3.48 L Hgb 11.4 L Hct 34.5 L MCV 99 H MCH 32.7 MCHC 32.9 RDW 13.4 Plt Count 206 Seg Neutrophils % 85.0 H Lymphocytes % 7.9 L Monocytes % 6.7 Eosinophils % 0.1 Basophils % 0.3 Absolute Neutrophils 12.0 H Absolute Lymphocytes 1.1 Absolute Monocytes 0.9 Absolute Eosinophils 0.0 Absolute Basophils 0.0 VBG pH 7.26 L VBG pCO2 49.3 VBG HCO3 21.5 VBG Base Excess -6.0 Sodium 130.8 L Potassium 4.5 Chloride 98 Carbon Dioxide 20 L Anion Gap 13 BUN 39 H Creatinine 2.33 H Est GFR ( Amer) 24 L Est GFR (Non-Af Amer) 20 L Glucose 470 H* Lactic Acid Calcium 8.5 Total Bilirubin 0.7 AST 11 L ALT 17 Alkaline Phosphatase 116 Total Protein 5.8 L Albumin 3.1 L Lipase 52.3 Urine Color Urine Appearance Urine pH Ur Specific [place] Urine Protein Urine Glucose (UA) Urine Ketones Urine Blood Urine Nitrite Ur Leukocyte Esterase Urine WBC (Auto) Urine RBC (Auto) 07/04/18 07/04/18 07/04/18 14:24 14:41 20:38 WBC RBC Hgb Hct MCV MCH MCHC RDW Plt Count Seg Neutrophils % Lymphocytes % Monocytes % Eosinophils % Basophils % Absolute Neutrophils Absolute Lymphocytes Absolute Monocytes Absolute Eosinophils Absolute Basophils VBG pH VBG pCO2 VBG HCO3 VBG Base Excess Sodium 134.6 L Potassium 3.9 Chloride 104 Carbon Dioxide 22 Anion Gap 9 BUN 35 H Creatinine 2.14 H Est GFR ( Amer) 27 L Est GFR (Non-Af Amer) 22 L Glucose 315 H Lactic Acid 1.2 Calcium 8.0 L Total Bilirubin AST ALT Alkaline Phosphatase Total Protein Albumin Lipase Urine Color OSMEL Urine Appearance TURBID Urine pH 6.0 Ur Specific [place] 1.016 Urine Protein 100 H Urine Glucose (UA) >=500 H Urine Ketones TRACE H Urine Blood SMALL H Urine Nitrite NEGATIVE Ur Leukocyte Esterase LARGE H Urine WBC (Auto) >182 Urine RBC (Auto) 07/05/18 07/05/18 07/05/18 00:38 04:51 04:51 WBC 9.8 RBC 3.02 L Hgb 10.1 L Hct 29.6 L MCV 98 H MCH 33.6 H MCHC 34.3 RDW 13.2 Plt Count 189 Seg Neutrophils % 68.8 Lymphocytes % 21.1 Monocytes % 9.2 Eosinophils % 0.4 Basophils % 0.5 Absolute Neutrophils 6.8 Absolute Lymphocytes 2.1 Absolute Monocytes 0.9 Absolute Eosinophils 0.0 Absolute Basophils 0.0 VBG pH VBG pCO2 VBG HCO3 VBG Base Excess Sodium 135.5 L 138.3 Potassium 3.8 3.4 L Chloride 107 113 H Carbon Dioxide 21 L 18 L Anion Gap 8 7 BUN 33 H 30 H Creatinine 2.01 H 1.91 H Est GFR ( Amer) 29 L 30 L Est GFR (Non-Af Amer) 24 L 25 L Glucose 249 H 134 H Lactic Acid Calcium 8.1 L 7.7 L Total Bilirubin AST ALT Alkaline Phosphatase Total Protein Albumin Lipase Urine Color Urine Appearance Urine pH Ur Specific [place] Urine Protein Urine Glucose (UA) Urine Ketones Urine Blood Urine Nitrite Ur Leukocyte Esterase Urine WBC (Auto) Urine RBC (Auto) 07/05/18 07/05/18 09:45 12:50 WBC RBC Hgb Hct MCV MCH MCHC RDW Plt Count Seg Neutrophils % Lymphocytes % Monocytes % Eosinophils % Basophils % Absolute Neutrophils Absolute Lymphocytes Absolute Monocytes Absolute Eosinophils Absolute Basophils VBG pH VBG pCO2 VBG HCO3 VBG Base Excess Sodium 138.6 138.9 Potassium 4.4 D 4.2 Chloride 114 H 112 H Carbon Dioxide 15 L 15 L Anion Gap 10 12 BUN 27 H 27 H Creatinine 1.89 H 1.88 H Est GFR ( Amer) 31 L 31 L Est GFR (Non-Af Amer) 25 L 26 L Glucose 138 H 149 H Lactic Acid Calcium 8.0 L 8.4 Total Bilirubin AST ALT Alkaline Phosphatase Total Protein Albumin Lipase Urine Color Urine Appearance Urine pH Ur Specific [place] Urine Protein Urine Glucose (UA) Urine Ketones Urine Blood Urine Nitrite Ur Leukocyte Esterase Urine WBC (Auto) Urine RBC (Auto) 07/04/18 07/04/18 14:24 14:24 Creatine Kinase 22 L CK-MB (CK-2) 0.63 Troponin I 0.038 Impressions: Hip X-Ray 07/04/18 15:06 IMPRESSION: 1. Osteopenia. No radiographic evidence for acute fracture at the pelvis or left hip. 2. Stool ball at the rectum, please correlate for constipation/ fecal impaction. Chest X-Ray 07/04/18 15:08 IMPRESSION: No acute radiographic finding in the chest. Abdomen/Pelvis CT 07/04/18 17:54 IMPRESSION: No acute findings. Uterine fibroids. Assessment & Plan - Diagnosis (1) Leukocytosis Is this a current diagnosis for this admission?: Yes Plan: Has resolved. (2) DKA (diabetic ketoacidoses) Is this a current diagnosis for this admission?: Yes Plan: Has improved with bolus of regular insulin. Now patient on NPH insulin. (3) Complicated UTI (urinary tract infection) Is this a current diagnosis for this admission?: Yes Plan: Continue ceftriaxone (4) Paroxysmal A-fib Is this a current diagnosis for this admission?: Yes Plan: Rate controlled (5) Stage III chronic kidney disease Is this a current diagnosis for this admission?: Yes Plan: Stable continue follow-up with her primary mechanical apprentice. (6) History of systolic CHF Is this a current diagnosis for this admission?: Yes Plan: Compensated. (7) Coronary artery disease Is this a current diagnosis for this admission?: Yes Plan: No anginal symptoms (8) Type 2 diabetes mellitus Is this a current diagnosis for this admission?: Yes Plan: Continue NPH insulin twice daily (9) Hyperlipidemia Qualifiers: Hyperlipidemia type: unspecified Qualified Code(s): E78.5 - Hyperlipidemia, unspecified Is this a current diagnosis for this admission?: Yes Plan: Continue statin
[2018-07-05 17:09] LABS: ANION GAP 7 (5-19); BLOOD UREA NITROGEN 26 mg/dL (7-20); CALCIUM 8.2 mg/dL (8.4-10.2); CARBON DIOXIDE 18 mmol/L (22-30); CHLORIDE 113 mmol/L (98-107); GLUCOSE 165 mg/dL (75-110); POTASSIUM 4.8 mmol/L (3.6-5.0); SODIUM 137.5 mmol/L (137-145)
[2018-07-05 21:15] LABS: ANION GAP 8 (5-19); BLOOD UREA NITROGEN 24 mg/dL (7-20); CALCIUM 8.4 mg/dL (8.4-10.2); CARBON DIOXIDE 17 mmol/L (22-30); CHLORIDE 112 mmol/L (98-107); GLUCOSE 113 mg/dL (75-110); POTASSIUM 4.3 mmol/L (3.6-5.0); SODIUM 136.7 mmol/L (137-145)
[2018-07-05] MEDS ORDERED: CEFTRIAXONE 1 GM/D5W RTU 1 GM/50 ML RTUPB IV SCH (22:00)
[2018-07-05] MEDS: ACETAMINOPHEN 325 MG TABLET PO PRN (23:47)
[2018-07-05] MEDS: FERROUS SULFATE 325 MG TABLET PO SCH (23:48)
[2018-07-06 00:54] LABS: ANION GAP 7 (5-19); BLOOD UREA NITROGEN 23 mg/dL (7-20); CALCIUM 8.3 mg/dL (8.4-10.2); CARBON DIOXIDE 17 mmol/L (22-30); CHLORIDE 112 mmol/L (98-107); GLUCOSE 83 mg/dL (75-110); POTASSIUM 4.2 mmol/L (3.6-5.0)
[2018-07-06] MEDS: HEPARIN SOD (PORCINE) 5,000 UNIT/ML 1 ML SYRINGE SUBCUT SCH ×3 (05:26→21:48)
[2018-07-06] MEDS: GABAPENTIN 100 MG CAPSULE PO SCH ×3 (05:26→21:48)
[2018-07-06] MEDS: LEVOTHYROXINE SODIUM 0.1 MG TABLET PO SCH (05:29)
[2018-07-06 06:57] LABS: ANION GAP 6 (5-19); BLOOD UREA NITROGEN 22 mg/dL (7-20); CALCIUM 8.4 mg/dL (8.4-10.2); CARBON DIOXIDE 17 mmol/L (22-30); CHLORIDE 115 mmol/L (98-107); SODIUM 137.6 mmol/L (137-145)
[2018-07-06 07:09] LABS: GLUCOSE 68 mg/dL (75-110)
[2018-07-06] MEDS: DOCUSATE SODIUM 100 MG CAPSULE PO SCH ×2 (09:03→17:00)
[2018-07-06] MEDS: HUM INSULIN NPH/REG INSULIN HM 100 UNIT/1 ML 3 ML SUBCUT SCH ×2 (09:10→17:00)
[2018-07-06] MEDS: POTASSIUM CHLORIDE 10 MEQ CAPSULE.ER PO SCH (09:11)
[2018-07-06] MEDS: FLUOXETINE HCL 20 MG CAPSULE PO SCH (09:16)
[2018-07-06] MEDS: CHOLECALCIFEROL (D3) 400 UNIT TABLET PO SCH (09:16)
[2018-07-06 12:06] LABS: ANION GAP 5 (5-19); BLOOD UREA NITROGEN 22 mg/dL (7-20); CALCIUM 8.6 mg/dL (8.4-10.2); CARBON DIOXIDE 17 mmol/L (22-30); CHLORIDE 115 mmol/L (98-107); GLUCOSE 112 mg/dL (75-110); POTASSIUM 5.4 mmol/L (3.6-5.0); SODIUM 136.6 mmol/L (137-145)
[2018-07-06 15:31] LABS: ANION GAP 9 (5-19); BLOOD UREA NITROGEN 20 mg/dL (7-20); CALCIUM 8.7 mg/dL (8.4-10.2); CARBON DIOXIDE 14 mmol/L (22-30); CHLORIDE 112 mmol/L (98-107); GLUCOSE 160 mg/dL (75-110); POTASSIUM 5.3 mmol/L (3.6-5.0); SODIUM 135.2 mmol/L (137-145)
--- NOTE | 2018-07-06 16:52 | PDOC PROGRESS REPORT ---
Subjective Progress Note for:: 07/06/18 Subjective:: The patient is resting in her bed. She states that she is feeling a little better since coming to the hospital but still feels sick. She is awake alert and oriented x3 however she gets quite confused when I am talking to her. It was difficult to get a good review of systems. There are no family members at the bedside Reason For Visit: DKA UTI CONSTIPATION Physical Exam Vital Signs: Temp Pulse Resp BP Pulse Ox 99.7 F 91 16 155/72 H 96 07/06/18 12:26 07/06/18 14:00 07/06/18 12:26 07/06/18 12:26 07/06/18 12:26 Intake & Output 07/05/18 07/06/18 07/07/18 06:59 06:59 06:59 Intake Total 3050 1150 Output Total 725 1050 Balance 2325 100 Weight 57.4 kg 65.2 kg General appearance: PRESENT: no acute distress, thin, well-developed Head exam: PRESENT: atraumatic, normocephalic Mouth exam: PRESENT: moist, tongue midline Neck exam: ABSENT: carotid bruit, JVD, lymphadenopathy, thyromegaly Respiratory exam: PRESENT: clear to auscultation mónica. ABSENT: rales, rhonchi, wheezes Cardiovascular exam: PRESENT: RRR. ABSENT: diastolic murmur, rubs, systolic murmur GI/Abdominal exam: PRESENT: normal bowel sounds, soft. ABSENT: distended, guarding, mass, organolmegaly, rebound, tenderness Rectal exam: PRESENT: deferred Extremities exam: PRESENT: full ROM. ABSENT: calf tenderness, clubbing, pedal edema Musculoskeletal exam: ABSENT: ambulatory Neurological exam: PRESENT: alert, awake, oriented to person, oriented to place, oriented to time, CN II-XII grossly intact, other - However she still is acutely confused. ABSENT: oriented to situation, motor sensory deficit Psychiatric exam: PRESENT: appropriate affect, normal mood. ABSENT: homicidal ideation, suicidal ideation Skin exam: PRESENT: dry, intact, warm. ABSENT: cyanosis, rash Results Laboratory Results: 07/05/18 04:51 07/06/18 14:22 07/05/18 07/05/18 07/06/18 16:32 20:40 00:25 Sodium 137.5 136.7 L 136.0 L Potassium 4.8 4.3 4.2 Chloride 113 H 112 H 112 H Carbon Dioxide 18 L 17 L 17 L Anion Gap 7 8 7 BUN 26 H 24 H 23 H Creatinine 1.83 H 1.78 H 1.72 H Est GFR ( Amer) 32 L 33 L 34 L Est GFR (Non-Af Amer) 26 L 27 L 28 L Glucose 165 H 113 H 83 Calcium 8.2 L 8.4 8.3 L Phosphorus 07/06/18 07/06/18 07/06/18 06:08 06:08 10:01 Sodium 137.6 136.6 L Potassium 5.0 5.4 H Chloride 115 H 115 H Carbon Dioxide 17 L 17 L Anion Gap 6 5 BUN 22 H 22 H Creatinine 1.79 H 1.78 H Est GFR ( Amer) 33 L 33 L Est GFR (Non-Af Amer) 27 L 27 L Glucose 68 L 112 H Calcium 8.4 8.6 Phosphorus 1.8 L 07/06/18 14:22 Sodium 135.2 L Potassium 5.3 H Chloride 112 H Carbon Dioxide 14 L Anion Gap 9 BUN 20 Creatinine 1.75 H Est GFR ( Amer) 34 L Est GFR (Non-Af Amer) 28 L Glucose 160 H Calcium 8.7 Phosphorus 07/04/18 14:41 Catheterized Urine Urine Culture - Final Escherichia Coli Esbl 07/04/18 07/04/18 14:24 14:24 Creatine Kinase 22 L CK-MB (CK-2) 0.63 Troponin I 0.038 Impressions: Hip X-Ray 07/04/18 15:06 IMPRESSION: 1. Osteopenia. No radiographic evidence for acute fracture at the pelvis or left hip. 2. Stool ball at the rectum, please correlate for constipation/ fecal impaction. Chest X-Ray 07/04/18 15:08 IMPRESSION: No acute radiographic finding in the chest. Abdomen/Pelvis CT 07/04/18 17:54 IMPRESSION: No acute findings. Uterine fibroids. Assessment & Plan - Diagnosis (1) DKA (diabetic ketoacidoses) Is this a current diagnosis for this admission?: Yes Plan: Resolved. Currently back on her usual insulin. Her blood sugar was actually a little low this morning. (2) ESBL (extended spectrum beta-lactamase) producing bacteria infection Is this a current diagnosis for this admission?: Yes Plan: She has an ESBL producing E. coli urinary tract infection. I am going to change her antibiotic therapy to Zosyn today. This will be the first day of appro priate therapy. (3) Positive blood culture Is this a current diagnosis for this admission?: Yes Plan: She has 1 out of 2 blood cultures positive for gram-positive cocci. At this point I do not know if this is a contaminant. She should be adequately covered with Zosyn for now. Tomorrow we will repeat blood cultures to document clearing. Certainly if this ends up being something other than a coagulase- negative staph we may need to change her therapy. (4) Acute encephalopathy Is this a current diagnosis for this admission?: Yes Plan: Secondary to urinary tract infection. She still seems a bit confused to me. (5) Paroxysmal atrial fibrillation Is this a current diagnosis for this admission?: Yes Plan: Currently in a sinus rhythm and rate controlled. (6) Chronic systolic CHF (congestive heart failure) Is this a current diagnosis for this admission?: Yes Plan: Currently appears to be euvolemic (7) Chronic renal failure, stage 3 (moderate) Is this a current diagnosis for this admission?: Yes Plan: Stable (8) Hyperlipidemia Is this a current diagnosis for this admission?: Yes Plan: Continue statin medication (9) Anemia Is this a current diagnosis for this admission?: Yes Plan: She has an anemia of chronic disease as well as likely some iron deficiency. Her hemoglobin is stable (11) Coronary artery disease Is this a current diagnosis for this admission?: Yes Plan: Continue home regimen (12) Type 2 diabetes mellitus Is this a current diagnosis for this admission?: Yes Plan: Continue home regimen and sliding scale (13) HTN (hypertension) Qualifiers: Hypertension type: essential hypertension Qualified Code(s): I10 - Essential (primary) hypertension Is this a current diagnosis for this admission?: Yes Plan: Stable (14) Full code status Is this a current diagnosis for this admission?: Yes - Time Time Spent with patient: 35 or more minutes - Inpatient Certification Medical Necessity: Other - Inpatient hospitalization remains necessary. This patient has an ESBL producing E. coli urinary tract infection with quite a bit of resistance. I believe she needs to complete a course of IV antibiotics. She is still in encephalopathic likely because she has not been on the proper therapy. I believe she needs to stay in the hospital for a couple of days. Ultimately she is going to need to pursue subacute rehabilitation at discharge and perhaps we could get IV antibiotics set up at a facility. I will discuss this with the discharge planners tomorrow.
[2018-07-06] MEDS ORDERED: PIPERACILLIN SODIUM/TAZOBACTAM 3.375 GM in NORMAL SALINE 100 ML IV SCH (18:00)
[2018-07-06] MEDS: PIPERACILLIN SODIUM/TAZOBACTAM 2.25 GM in NORMAL SALINE 50 ML IV SCH (18:31)
[2018-07-06 19:14] LABS: ANION GAP 6 (5-19); BLOOD UREA NITROGEN 19 mg/dL (7-20); CALCIUM 8.9 mg/dL (8.4-10.2); CARBON DIOXIDE 17 mmol/L (22-30); CHLORIDE 112 mmol/L (98-107); GLUCOSE 171 mg/dL (75-110); SODIUM 134.9 mmol/L (137-145)
[2018-07-06] MEDS: ACETAMINOPHEN 325 MG TABLET PO PRN (21:47)
[2018-07-06] MEDS: FERROUS SULFATE 325 MG TABLET PO SCH (21:48)
[2018-07-07] MEDS: PIPERACILLIN SODIUM/TAZOBACTAM 2.25 GM in NORMAL SALINE 50 ML IV SCH ×5 (00:26→23:41)
[2018-07-07] MEDS: HYDRALAZINE HCL INJ/PF 20 MG/1 ML SDV IV PRN (00:59)
--- NOTE | 2018-07-07 01:52 | RADIOLOGY REPORT (SQ) ---
CLINICAL HISTORY: acute abdominal pain COMPARISON: None. TECHNIQUE: XR ABDOMEN SUPINE AND ERECT WITH CHEST (ABD ACUTE SERIES) 07/07/2018 12:36 AM CDT FINDINGS: Bowel gas pattern is nonspecific. There are multiple calcified uterine fibroids. Osseous structures are grossly unremarkable. The heart is mildly enlarged. Lungs are clear. IMPRESSION: No bowel obstruction or free air.
[2018-07-07 04:58] LABS: ABSOLUTE LYMPHOCYTES (AUTO) 1.5 10^3/uL (0.5-4.7); ABSOLUTE MONOCYTES (AUTO) 1.2 10^3/uL (0.1-1.4); BASOPHILS % (AUTO) 0.2 % (0-2); EOSINOPHILS % (AUTO) 0.1 % (0-6); HEMATOCRIT 33.1 % (36.0-47.0); LYMPHOCYTES % (AUTO) 10.4 % (13-45); MEAN CORPUSCULAR HEMOGLOBIN 32.7 pg (27.0-33.4); MEAN CORPUSCULAR HGB CONC 33.2 g/dL (32.0-36.0); MEAN CORPUSCULAR VOLUME 99 fl (80-97); MONOCYTES % (AUTO) 7.9 % (3-13); PLATELET COUNT 231 10^3/uL (150-450); RED BLOOD COUNT 3.36 10^6/uL (3.72-5.28); RED CELL DISTRIBUTION WIDTH 13.4 % (11.5-14.0); SEGMENTED NEUTROPHILS % (AUTO) 81.4 % (42-78); TOTAL CELLS COUNTED % (AUTO) 100 %; WHITE BLOOD COUNT 14.7 10^3/uL (4.0-10.5)
[2018-07-07] MEDS ORDERED: FUROSEMIDE INJ/PF 40 MG/4 ML SDV ONE (05:13)
[2018-07-07 05:22] LABS: ANION GAP 13 (5-19); BLOOD UREA NITROGEN 20 mg/dL (7-20); CALCIUM 9.3 mg/dL (8.4-10.2); CARBON DIOXIDE 12 mmol/L (22-30); CHLORIDE 111 mmol/L (98-107); GLUCOSE 223 mg/dL (75-110); POTASSIUM 4.6 mmol/L (3.6-5.0); SODIUM 136.3 mmol/L (137-145)
[2018-07-07] MEDS: HEPARIN SOD (PORCINE) 5,000 UNIT/ML 1 ML SYRINGE SUBCUT SCH ×3 (05:28→22:49)
[2018-07-07] MEDS ORDERED: HYDRALAZINE HCL INJ/PF 20 MG/1 ML SDV IV ONE (05:30)
[2018-07-07] MEDS ORDERED: FUROSEMIDE INJ/PF 40 MG/4 ML SDV IV ONE (06:00)
[2018-07-07 06:01] LABS: CREATINE KINASE MB 6.89 ng/mL (<4.55); TROPONIN I 0.042 ng/mL
[2018-07-07] MEDS: LEVOTHYROXINE SODIUM 0.1 MG TABLET PO SCH (06:45)
[2018-07-07] MEDS: GABAPENTIN 100 MG CAPSULE PO SCH ×3 (06:45→23:35)
[2018-07-07] MEDS: ALENDRONATE SODIUM 10 MG TABLET PO SCH (08:16)
[2018-07-07] MEDS: HUM INSULIN NPH/REG INSULIN HM 100 UNIT/1 ML 3 ML SUBCUT SCH ×2 (09:33→18:41)
[2018-07-07] MEDS: DOCUSATE SODIUM 100 MG CAPSULE PO SCH (09:34)
[2018-07-07] MEDS: FLUOXETINE HCL 20 MG CAPSULE PO SCH (09:34)
[2018-07-07] MEDS: LACTOBACILLUS ACIDOPHILUS 250 MG TAB PO SCH ×2 (09:34→18:32)
[2018-07-07] MEDS: CHOLECALCIFEROL (D3) 400 UNIT TABLET PO SCH (09:35)
--- NOTE | 2018-07-07 11:21 | PDOC PROGRESS REPORT ---
Subjective Progress Note for:: 07/07/18 Subjective:: The patient is an 83-year-old female with a past medical history significant for paroxysmal atrial fibrillation, stage III chronic kidney disease congestive heart failure, coronary artery disease and diabetes. She also has constipation predominant irritable bowel syndrome. The patient presented with abdominal pain following several days of constipation. She had had constipation at home which was treated and she began having bowel movements but began to have explosive diarrhea as well as dysuria. At the time of admission she had evidence of mild DKA which quickly resolved. Urine is growing an ESBL producing E. coli. 1 out of 2 blood cultures are positive for staph hominis. She was initially started on IV ceftriaxone but her antibiotic coverage was changed to Zosyn based on her sensitivity results. Overnight the patient was having worsening abdominal pain. She also has developed some nausea and vomiting. She had some abdominal pain overnight and an abdominal film was obtained which was read as normal but she may have a bit of an ileus. The patient is confused and there have been no family members at the bedside. When I saw the patient this morning she is pleasantly confused. She tells me she is having no pain. She also reports no abdominal pain. Nursing staff reports that she has been vomiting this morning. Review of systems could not be obtained Reason For Visit: DKA UTI CONSTIPATION Physical Exam Vital Signs: Temp Pulse Resp BP Pulse Ox 98.6 F 111 H 18 154/72 H 96 07/07/18 04:40 07/07/18 07:00 07/07/18 04:40 07/07/18 06:20 07/07/18 06:20 Intake & Output 07/06/18 07/07/18 07/08/18 06:59 06:59 06:59 Intake Total 1150 725 Output Total 1050 1400 Balance 100 -675 Weight 65.2 kg 63.4 kg General appearance: PRESENT: no acute distress, other - The patient is in no acute distress but is quite confused this morning. Head exam: PRESENT: atraumatic, normocephalic Eye exam: PRESENT: conjunctiva pink, EOMI, PERRLA. ABSENT: scleral icterus Mouth exam: PRESENT: moist, tongue midline Respiratory exam: PRESENT: clear to auscultation mónica. ABSENT: rales, rhonchi, wheezes Cardiovascular exam: PRESENT: RRR. ABSENT: diastolic murmur, rubs, systolic murmur GI/Abdominal exam: PRESENT: normal bowel sounds, soft. ABSENT: distended, guarding, mass, organolmegaly, rebound, tenderness Rectal exam: PRESENT: deferred Extremities exam: PRESENT: full ROM. ABSENT: calf tenderness, clubbing, pedal edema Musculoskeletal exam: ABSENT: ambulatory Neurological exam: PRESENT: alert, awake, oriented to person, oriented to place, CN II-XII grossly intact. ABSENT: oriented to time, oriented to situation, motor sensory deficit Psychiatric exam: PRESENT: appropriate affect, normal mood. ABSENT: homicidal ideation, suicidal ideation Skin exam: PRESENT: dry, intact, warm. ABSENT: cyanosis, rash Results Laboratory Results: 07/07/18 03:51 07/07/18 03:51 07/06/18 07/06/18 07/06/18 10:01 14:22 18:34 WBC RBC Hgb Hct MCV MCH MCHC RDW Plt Count Seg Neutrophils % Lymphocytes % Monocytes % Eosinophils % Basophils % Absolute Neutrophils Absolute Lymphocytes Absolute Monocytes Absolute Eosinophils Absolute Basophils Sodium 136.6 L 135.2 L 134.9 L Potassium 5.4 H 5.3 H 5.0 Chloride 115 H 112 H 112 H Carbon Dioxide 17 L 14 L 17 L Anion Gap 5 9 6 BUN 22 H 20 19 Creatinine 1.78 H 1.75 H 1.79 H Est GFR ( Amer) 33 L 34 L 33 L Est GFR (Non-Af Amer) 27 L 28 L 27 L Glucose 112 H 160 H 171 H Lactic Acid Calcium 8.6 8.7 8.9 Magnesium 07/07/18 07/07/18 07/07/18 03:51 03:51 05:14 WBC 14.7 H RBC 3.36 L Hgb 11.0 L Hct 33.1 L MCV 99 H MCH 32.7 MCHC 33.2 RDW 13.4 Plt Count 231 Seg Neutrophils % 81.4 H Lymphocytes % 10.4 L Monocytes % 7.9 Eosinophils % 0.1 Basophils % 0.2 Absolute Neutrophils 12.0 H Absolute Lymphocytes 1.5 Absolute Monocytes 1.2 Absolute Eosinophils 0.0 Absolute Basophils 0.0 Sodium 136.3 L Potassium 4.6 Chloride 111 H Carbon Dioxide 12 L Anion Gap 13 BUN 20 Creatinine 1.86 H Est GFR ( Amer) 31 L Est GFR (Non-Af Amer) 26 L Glucose 223 H Lactic Acid 1.2 Calcium 9.3 Magnesium 1.5 L 07/04/18 15:30 Blood Blood Culture - Final Staphylococcus Hominis 07/04/18 14:41 Catheterized Urine Urine Culture - Final Escherichia Coli Esbl 07/04/18 07/04/18 07/07/18 14:24 14:24 05:14 Creatine Kinase 22 L 179 H CK-MB (CK-2) 0.63 Troponin I 0.038 07/07/18 05:14 Creatine Kinase CK-MB (CK-2) 6.89 H Troponin I 0.042 Impressions: Hip X-Ray 07/04/18 15:06 IMPRESSION: 1. Osteopenia. No radiographic evidence for acute fracture at the pelvis or left hip. 2. Stool ball at the rectum, please correlate for constipation/ fecal impaction. Chest X-Ray 07/04/18 15:08 IMPRESSION: No acute radiographic finding in the chest. Abdomen/Pelvis CT 07/04/18 17:54 IMPRESSION: No acute findings. Uterine fibroids. Acute Abdomen Series 07/07/18 00:36 IMPRESSION: No bowel obstruction or free air. Assessment & Plan - Diagnosis (1) DKA (diabetic ketoacidoses) Is this a current diagnosis for this admission?: Yes Plan: Resolved. She was started back on her Humulin 70/30 at 15 units twice daily. Yesterday her blood sugar was quite low but today it is markedly elevated again. She does not have sliding scale coverage which will be added today. I have added mealtime Humalog 5 units with meals with the instructions to hold this if she is not eating. Her anion gap is normal this morning. We will just have to watch this quite closely. (2) ESBL (extended spectrum beta-lactamase) producing bacteria infection Is this a current diagnosis for this admission?: Yes Plan: She received 1 day of IV Rocephin but this was changed to IV Zosyn yesterday wh en her urine culture finalized. This is day #2 of IV Zosyn. (3) Positive blood culture Is this a current diagnosis for this admission?: Yes Plan: 1 out of 2 blood cultures positive for staph hominis. This is a coagulase- negative staph and likely a contaminant however you can sometimes see positive cultures with certain GI issues. She is certainly having quite a bit of diarrhea. Her CT scan of her abdomen and pelvis was normal at the time of admission and her abdominal exam is benign. I am simply going to repeat blood cultures today. She will continue IV Zosyn which should cover also for any sort of abdominal process. (4) Acute encephalopathy Is this a current diagnosis for this admission?: Yes Plan: Likely due to her urinary tract infection. She seems more alert today but is still confused. I do not know what her cognitive baseline is as there have been no family members at the hospital. (5) Nausea vomiting and diarrhea Is this a current diagnosis for this admission?: Yes Plan: The patient's abdominal exam is benign. I am adding a probiotic to her regimen that she is receiving IV Zosyn. An order has been written to test her stool for Clostridium difficile infection. I am holding her stool softener. She will have IV Zofran available for her nausea. CT scan at the time of admission was totally unremarkable. She had been taking quite a bit of medication as an outpatient for her constipation. She actually looks better today than she did yesterday so we will just monitor her closely. (6) Paroxysmal atrial fibrillation Is this a current diagnosis for this admission?: Yes Plan: Currently in a sinus rhythm and rate controlled. (7) Chronic diastolic congestive heart failure Is this a current diagnosis for this admission?: Yes Plan: This was incorrectly documented yesterday as systolic congestive heart failure. Review of her records indicates that she has a diastolic congestive heart failure per echocardiogram performed in 2015. She does not seem to be having any cardiac issues and I do not think we need to repeat an echocardiogram at this time. (8) Chronic renal failure, stage 3 (moderate) Is this a current diagnosis for this admission?: Yes Plan: Stable. Due to her diarrhea and nausea and vomiting I will gently hydrate her today. We will have to watch her closely for signs of volume overload. (9) Hyperlipidemia Is this a current diagnosis for this admission?: Yes Plan: Her simvastatin has been held for now. This can be resumed at discharge. (10) Anemia Is this a current diagnosis for this admission?: Yes Plan: She has an anemia of chronic disease as well as likely some iron deficiency. He r hemoglobin is stable (11) Hypertensive urgency Is this a current diagnosis for this admission?: Yes Plan: Patient's blood sugar pressures have been significantly high. She was on metoprolol tartrate 50 mg twice daily at home. This was not started at the time of admission. I am going to start her back on that today. She has IV hydralazine available as needed. (12) Coronary artery disease Is this a current diagnosis for this admission?: Yes Plan: Stable. No complaints of chest pain. (13) Type 2 diabetes mellitus Is this a current diagnosis for this admission?: Yes Plan: Plan as above in regards to her insulin. Now her blood sugars are markedly uncontrolled. This could be due to her nausea vomiting and diarrhea. I have adjusted her insulin. Her anion gap is currently normal. Her insulin likely will need to be further titrated. She would benefit from changing to Lantus. Not sure why she is still on 70/30. This change could be considered if her blood sugar is still fluctuating and difficult to control. (14) Hypokalemia Is this a current diagnosis for this admission?: Yes Plan: Repleted and resolved (15) Full code status Is this a current diagnosis for this admission?: Yes - Time Time Spent with patient: 35 or more minutes - Inpatient Certification Medical Necessity: Other - Inpatient hospitalization remains necessary. The patient has an ESBL producing E. coli urinary tract infection requiring parenteral therapies. She has ongoing nausea vomiting and diarrhea requiring fluids. Clearly at this point further hospitalization is necessary. She is significantly debilitated and can only walk a couple of steps with physical therapy. She will need subacute rehabilitation prior to going home. I suspect she will be in the hospital for the next several days.
[2018-07-07] MEDS: ONDANSETRON HCL INJ/PF 4 MG/2 ML SDV IV PRN (11:53)
[2018-07-07] MEDS: NORMAL SALINE 1000 ML 1,000 ML IV PRN (11:53)
[2018-07-07] MEDS: METOPROLOL TARTRATE 50 MG TABLET PO SCH ×2 (13:58→23:35)
[2018-07-07 14:01] LABS: CREATINE KINASE MB 8.33 ng/mL (<4.55); TROPONIN I 0.045 ng/mL
--- NOTE | 2018-07-07 14:34 | RADIOLOGY REPORT (SQ) ---
EXAM DESCRIPTION: CT ABD/PELVIS NO ORAL OR IV COMPLETED DATE/TIME: 07/07/2018 1:46 pm REASON FOR STUDY: abdominal pain, diarrhea COMPARISON: 07/04/2018. TECHNIQUE: CT scan of the abdomen and pelvis performed without intravenous or oral contrast. Images reviewed with lung, soft tissue, and bone windows. Reconstructed coronal and sagittal MPR images revi ewed. All images stored on PACS. All CT scanners at this facility use dose modulation, iterative reconstruction, and/or weight based d osing when appropriate to reduce radiation dose to as low as reasonably achievable (ALARA). [facility]: Dose Right [facility]: CareDose [facility]: Dose Right [facility]: Teradose 4D [facility]: Smart Swarm Mobile RADIATION DOSE: CT Rad equipment meets quality standard of care and radiation dose reduction techniq ues were employed. CTDIvol: 8.5 mGy. DLP: 406 mGy-cm.mGy. LIMITATIONS: Motion artifact and artifact in the upper abdomen due to position of the patient's arms . FINDINGS: LOWER CHEST: No significant findings. No nodules or infiltrates. NON-CONTRASTED LIVER, SPLEEN, ADRENALS: Evaluation limited by lack of IV contrast. No identified sign ificant masses. PANCREAS: No masses. No peripancreatic inflammatory changes. GALLBLADDER: No identified stones by CT criteria. No inflammatory changes to suggest cholecystitis. RIGHT KIDNEY AND URETER: No suspicious masses. Assessment limited by lack of IV contrast. No signif icant calcifications. No hydronephrosis or hydroureter. LEFT KIDNEY AND URETER: No suspicious masses. Assessment limited by lack of IV contrast. No signifi cant calcifications. No hydronephrosis or hydroureter. AORTA AND RETROPERITONEUM: No aneurysm. No retroperitoneal masses or adenopathy. BOWEL AND PERITONEAL CAVITY: Large hiatal hernia. Moderately dilated proximal small bowel. No obvio us masses or inflammatory changes. No free fluid. APPENDIX: Not visualized. PELVIS, BLADDER, AND ABDOMINAL WALL:Numerous calcified uterine fibroids. No free fluid. Catheter in the bladder. BONES: No significant findings. Degenerative changes in the spine with scoliosis. OTHER: No other significant finding. IMPRESSION: 1. LIMITED VISUALIZATION OF THE UPPER ABDOMEN DUE TO MOTION ARTIFACT AND POSITION OF THE PATIENT'S AR MS. THERE DOES APPEAR TO BE MODERATE DILATION OF THE PROXIMAL SMALL BOWEL. MAY BE DUE TO ILEUS. DE VELOPING MECHANICAL OBSTRUCTION IS PROBABLY LESS LIKELY BUT CANNOT BE EXCLUDED. 2. LARGE HIATAL HERNIA. 3. CALCIFIED UTERINE FIBROIDS. CHRONIC CHANGES IN THE SPINE. 4. NO OTHER SIGNIFICANT OR ACUTE PROCESS IN THE ABDOMEN OR PELVIS. COMMENT: Quality ID # [id number]: Final reports with documentation of one or more dose reduction techniques (e.g., Automated exposure control, adjustment of the mA and/or kV according to patient size, use of iterative reconstruction technique) TECHNICAL DOCUMENTATION: JOB ID: [id number] [employer]- All Rights Reserved Reading location - IP/workstation name: [email or web address]
[2018-07-07] MEDS ORDERED: PHARMACY COMMUNICATION ORDER MC NR (16:00)
--- NOTE | 2018-07-07 17:06 | Progress Note ---
Provider Note Provider Note: I was notified by the nursing staff that the patient was having increased nausea and vomiting. Repeat scan of her abdomen revealed that she has developed an ileus versus an early small bowel obstruction. For now I am going to place an NG tube and will see how she does overnight. I am going to hold off consulting surgery at this point.
--- NOTE | 2018-07-07 17:09 | RADIOLOGY REPORT (SQ) ---
EXAM DESCRIPTION: KUB/ABDOMEN (SINGLE VIEW) COMPLETED DATE/TIME: 07/07/2018 5:00 pm REASON FOR STUDY: Check Placement of NG Tube COMPARISON: 07/07/2018 NUMBER OF VIEWS: One view. TECHNIQUE: Supine radiographic image of the abdomen acquired. LIMITATIONS: None. FINDINGS: BOWEL GAS PATTERN: Normal bowel gas pattern. No dilated loops. CALCIFICATIONS: Calcified uterine fibroids. SOFT TISSUES: No gross mass or suggestion of organomegaly. HARDWARE: None in the abdomen. BONES: No acute fracture. No worrisome bone lesions. OTHER: No other significant finding. IMPRESSION: NO RADIOGRAPHIC EVIDENCE FOR ACUTE ABDOMINAL DISEASE. TECHNICAL DOCUMENTATION: JOB ID: [id number] [employer]- All Rights Reserved Reading location - IP/workstation name: [email or web address]
[2018-07-07] MEDS ORDERED: DEXTROSE 50%-WATER 25 GM/50 ML DISP.SYRIN IV PRN ×2 (17:11)
[2018-07-07] MEDS ORDERED: GLUCAGON,HUMAN RECOMB 1 MG INJ SUBCUT PRN (17:11)
[2018-07-07] MEDS ORDERED: DEXTROSE 40% GEL 15 GM TUBE PO PRN ×2 (17:11)
[2018-07-07] MEDS: INSULIN LISPRO 100 UNIT/ML 3 ML VIAL SUBCUT SCH ×2 (18:22→22:32)
[2018-07-07] MEDS: INSULIN REG, HUMAN 100 UNIT/ML 3 ML VIAL (PYX) SUBCUT SCH (18:22)
[2018-07-07 22:23] LABS: CREATINE KINASE MB 7.5 ng/mL (<4.55); TROPONIN I 0.062 ng/mL
[2018-07-07] MEDS: DEXTROSE 50%-WATER 25 GM/50 ML DISP.SYRIN IV PRN (22:30)
[2018-07-07] MEDS: METOPROLOL TARTRATE PF/INJ 5 MG/5 ML SDV IV PRN (22:50)
[2018-07-07] MEDS ORDERED: DEXTROSE 50%-WATER 25 GM/50 ML DISP.SYRIN IV ONE (23:00)
[2018-07-07] MEDS ORDERED: METOPROLOL TARTRATE PF/INJ 5 MG/5 ML SDV IV ONE (23:00)
[2018-07-07] MEDS: FERROUS SULFATE 325 MG TABLET PO SCH (23:36)
[2018-07-08] MEDS: NORMAL SALINE 1000 ML 1,000 ML IV PRN (05:13)
[2018-07-08 05:19] LABS: ABSOLUTE BASOPHILS # (AUTO) 0.1 10^3/uL (0.0-0.2); ABSOLUTE LYMPHOCYTES (AUTO) 1.7 10^3/uL (0.5-4.7); ABSOLUTE MONOCYTES (AUTO) 1.4 10^3/uL (0.1-1.4); ABSOLUTE NEUT (AUTO) 12.1 10^3/uL (1.7-8.2); BASOPHILS % (AUTO) 0.3 % (0-2); EOSINOPHILS % (AUTO) 0.1 % (0-6); HEMATOCRIT 32.2 % (36.0-47.0); LYMPHOCYTES % (AUTO) 11.3 % (13-45); MEAN CORPUSCULAR HEMOGLOBIN 33.1 pg (27.0-33.4); MEAN CORPUSCULAR HGB CONC 34.2 g/dL (32.0-36.0); MEAN CORPUSCULAR VOLUME 97 fl (80-97); PLATELET COUNT 240 10^3/uL (150-450); RED BLOOD COUNT 3.33 10^6/uL (3.72-5.28); SEGMENTED NEUTROPHILS % (AUTO) 79.3 % (42-78); TOTAL CELLS COUNTED % (AUTO) 100 %; WHITE BLOOD COUNT 15.2 10^3/uL (4.0-10.5)
[2018-07-08] MEDS: ONDANSETRON HCL INJ/PF 4 MG/2 ML SDV IV PRN (05:19)
[2018-07-08] MEDS: PIPERACILLIN SODIUM/TAZOBACTAM 2.25 GM in NORMAL SALINE 50 ML IV SCH ×3 (05:19→18:50)
[2018-07-08] MEDS: LEVOTHYROXINE SODIUM 0.1 MG TABLET PO SCH (05:21)
[2018-07-08] MEDS: HEPARIN SOD (PORCINE) 5,000 UNIT/ML 1 ML SYRINGE SUBCUT SCH ×3 (05:21→22:48)
[2018-07-08] MEDS: GABAPENTIN 100 MG CAPSULE PO SCH (05:22)
[2018-07-08 05:44] LABS: ANION GAP 6 (5-19); BLOOD UREA NITROGEN 28 mg/dL (7-20); CALCIUM 9.2 mg/dL (8.4-10.2); CARBON DIOXIDE 22 mmol/L (22-30); CHLORIDE 115 mmol/L (98-107); POTASSIUM 3.5 mmol/L (3.6-5.0); SODIUM 143.2 mmol/L (137-145)
[2018-07-08 05:59] LABS: GLUCOSE 66 mg/dL (75-110)
[2018-07-08] MEDS: DEXTROSE 50%-WATER 25 GM/50 ML DISP.SYRIN IV PRN (06:14)
[2018-07-08] MEDS: INSULIN LISPRO 100 UNIT/ML 3 ML VIAL SUBCUT SCH ×4 (08:36→22:40)
[2018-07-08] MEDS ORDERED: MAGNESIUM HYDROXIDE SUSP 30 ML UDCUP NG PRN (09:00)
[2018-07-08] MEDS ORDERED: ACETAMINOPHEN 325 MG TABLET NG PRN (09:00)
[2018-07-08] MEDS ORDERED: FLUOXETINE HCL 20 MG CAPSULE NG SCH (10:00)
[2018-07-08] MEDS: METOPROLOL TARTRATE 50 MG TABLET NG SCH ×2 (11:52→22:17)
[2018-07-08] MEDS: LACTOBACILLUS ACIDOPHILUS 250 MG TAB NG SCH ×2 (11:52→22:09)
[2018-07-08] MEDS: CHOLECALCIFEROL (D3) 400 UNIT TABLET NG SCH (11:53)
[2018-07-08] MEDS ORDERED: ZINC OXIDE 20% OINTMENT 28.35 GM TP PRN (12:31)
[2018-07-08] MEDS: HUM INSULIN NPH/REG INSULIN HM 100 UNIT/1 ML 3 ML SUBCUT SCH ×2 (12:31→18:50)
[2018-07-08] MEDS ORDERED: NYSTATIN OINTMENT 15 GM TUBE TP PRN (12:32)
[2018-07-08] MEDS ORDERED: ACETAMINOPHEN SOLN 325 MG/10.15 ML UDCUP NG PRN (12:44)
[2018-07-08] MEDS: POTASSI CL 20 MEQ/D5-1/2NS 1L 1000 ML IV PRN (13:25)
[2018-07-08] MEDS ORDERED: GABAPENTIN 100 MG CAPSULE NG SCH (14:00)
--- NOTE | 2018-07-08 15:58 | PDOC PROGRESS REPORT ---
Subjective Progress Note for:: 07/08/18 Subjective:: No adverse events overnight. She has had an NG tube in place and I do not know if it was emptied overnight but when I came into the room the canister was full this morning. She is got on mitts so she will not pull out her tubes or lines. Reason For Visit: DKA UTI CONSTIPATION Physical Exam Vital Signs: Temp Pulse Resp BP Pulse Ox 98.6 F 93 16 132/98 H 99 07/08/18 08:33 07/08/18 14:00 07/08/18 08:33 07/08/18 08:33 07/08/18 08:33 Intake & Output 07/07/18 07/08/18 07/09/18 06:59 06:59 06:59 Intake Total 725 1308 624 Output Total 1400 2150 Balance -675 -842 624 Weight 63.4 kg 61.1 kg General appearance: PRESENT: no acute distress, cooperative, disheveled Respiratory exam: PRESENT: clear to auscultation mónica, symmetrical, unlabored. ABSENT: accessory muscle use, crackles, prolonged expiratory phas, rhonchi, tachypnea, wheezes Cardiovascular exam: PRESENT: RRR, +S1, +S2 Pulses: PRESENT: normal carotid pulses Vascular exam: PRESENT: normal capillary refill GI/Abdominal exam: PRESENT: diminished bowel sounds, soft, other - NG tube is in place, bilious fluid in the canister. ABSENT: distended, guarding, rebound, tenderness Extremities exam: ABSENT: clubbing, pedal edema Musculoskeletal exam: PRESENT: normal inspection. ABSENT: deformity Neurological exam: PRESENT: alert, awake, oriented to person. ABSENT: oriented to place, oriented to time, oriented to situation Psychiatric exam: PRESENT: appropriate affect Skin exam: PRESENT: dry, warm Results Laboratory Results: 07/08/18 04:05 07/08/18 04:05 07/08/18 07/08/18 04:05 04:05 WBC 15.2 H RBC 3.33 L Hgb 11.0 L Hct 32.2 L MCV 97 MCH 33.1 MCHC 34.2 RDW 13.0 Plt Count 240 Seg Neutrophils % 79.3 H Lymphocytes % 11.3 L Monocytes % 9.0 Eosinophils % 0.1 Basophils % 0.3 Absolute Neutrophils 12.1 H Absolute Lymphocytes 1.7 Absolute Monocytes 1.4 Absolute Eosinophils 0.0 Absolute Basophils 0.1 Sodium 143.2 Potassium 3.5 L Chloride 115 H Carbon Dioxide 22 Anion Gap 6 BUN 28 H Creatinine 2.33 H Est GFR ( Amer) 24 L Est GFR (Non-Af Amer) 20 L Glucose 66 L Calcium 9.2 Magnesium 1.7 07/04/18 07/04/18 07/07/18 14:24 14:24 05:14 Creatine Kinase 22 L 179 H CK-MB (CK-2) 0.63 Troponin I 0.038 07/07/18 07/07/18 07/07/18 05:14 13:00 13:00 Creatine Kinase 246 H CK-MB (CK-2) 6.89 H 8.33 H Troponin I 0.042 0.045 07/07/18 07/07/18 21:45 21:45 Creatine Kinase 220 H CK-MB (CK-2) 7.50 H Troponin I 0.062 Impressions: Hip X-Ray 07/04/18 15:06 IMPRESSION: 1. Osteopenia. No radiographic evidence for acute fracture at the pelvis or left hip. 2. Stool ball at the rectum, please correlate for constipation/ fecal impaction. Chest X-Ray 07/04/18 15:08 IMPRESSION: No acute radiographic finding in the chest. Abdomen/Pelvis CT 07/07/18 00:00 IMPRESSION: 1. LIMITED VISUALIZATION OF THE UPPER ABDOMEN DUE TO MOTION ARTIFACT AND POSITION OF THE PATIENT'S ARMS. THERE DOES APPEAR TO BE MODERATE DILATION OF THE PROXIMAL SMALL BOWEL. MAY BE DUE TO ILEUS. DEVELOPING MECHANICAL OBSTRUCTION IS PROBABLY LESS LIKELY BUT CANNOT BE EXCLUDED. 2. LARGE HIATAL HERNIA. 3. CALCIFIED UTERINE FIBROIDS. CHRONIC CHANGES IN THE SPINE. 4. NO OTHER SIGNIFICANT OR ACUTE PROCESS IN THE ABDOMEN OR PELVIS. Acute Abdomen Series 07/07/18 00:36 IMPRESSION: No bowel obstruction or free air. KUB X-Ray 07/07/18 15:52 IMPRESSION: NO RADIOGRAPHIC EVIDENCE FOR ACUTE ABDOMINAL DISEASE. Assessment & Plan - Diagnosis (1) Ileus Is this a current diagnosis for this admission?: Yes Plan: Abdomen is decompressing with NG tube suction. Will let it continue on suction overnight and will reassess tomorrow with abdominal plain films. (2) Complicated UTI (urinary tract infection) Is this a current diagnosis for this admission?: Yes Plan: Continue current antibiotic regimen. (3) Constipation Qualifiers: Constipation type: other constipation type Qualified Code(s): K59.09 - Other constipation Is this a current diagnosis for this admission?: Yes Plan: She has constipation predominant IBS has not had a bowel movement several days, this could be the source of her ileus. We will review her imaging to see if we can evaluate the degree of constipation and will consider the best way to olivia viate it. - Time Time Spent with patient: 25-34 minutes
[2018-07-08] MEDS: INSULIN REG, HUMAN 100 UNIT/ML 3 ML VIAL (PYX) SUBCUT SCH (17:11)
[2018-07-08] MEDS ORDERED: FERROUS SULFATE LIQUID 300 MG/5 ML UDC NG SCH (22:00)
[2018-07-08] MEDS: GABAPENTIN 100 MG CAPSULE NG SCH (22:09)
[2018-07-08] MEDS: LEVOTHYROXINE SODIUM 0.1 MG TABLET NG SCH (22:18)
[2018-07-09] MEDS: PIPERACILLIN SODIUM/TAZOBACTAM 2.25 GM in NORMAL SALINE 50 ML IV SCH ×4 (00:48→18:34)
[2018-07-09] MEDS: ONDANSETRON HCL INJ/PF 4 MG/2 ML SDV IV PRN (01:38)
--- NOTE | 2018-07-09 02:37 | RADIOLOGY REPORT (SQ) ---
CLINICAL HISTORY: NG tube placement COMPARISON: July 07, 2018. TECHNIQUE: XR ABDOMEN 1 VIEW (KUB) 07/09/2018 12:00 AM CDT FINDINGS: Bowel gas pattern is nonspecific. There are calcified uterine fibroids. Osseous structures are grossly unremarkable. NG tube tip is in the stomach. IMPRESSION: NG tube tip in the stomach.
[2018-07-09] MEDS: POTASSI CL 20 MEQ/D5-1/2NS 1L 1000 ML IV PRN (05:17)
[2018-07-09] MEDS: HEPARIN SOD (PORCINE) 5,000 UNIT/ML 1 ML SYRINGE SUBCUT SCH ×3 (05:18→23:23)
[2018-07-09] MEDS: LACTOBACILLUS ACIDOPHILUS 250 MG TAB NG SCH ×2 (09:16→18:46)
[2018-07-09] MEDS: METOPROLOL TARTRATE 50 MG TABLET NG SCH ×2 (09:16→22:24)
[2018-07-09] MEDS: INSULIN LISPRO 100 UNIT/ML 3 ML VIAL SUBCUT SCH ×4 (09:36→22:13)
[2018-07-09] MEDS ORDERED: FLUOXETINE HCL 20 MG/5 ML UDCUP NG SCH (10:00)
[2018-07-09] MEDS: CHOLECALCIFEROL (D3) 400 UNIT TABLET NG SCH (11:55)
[2018-07-09] MEDS ORDERED: FLUOXETINE HCL 20 MG CAPSULE PO SCH (14:30)
--- NOTE | 2018-07-09 16:49 | PDOC PROGRESS REPORT ---
Subjective Progress Note for:: 07/09/18 Subjective:: No adverse events overnight. No new complaints. Vital signs are stable. She managed to get her hands out of her mittens and pulled out her NG tube last night, but it was replaced without difficulty and she has not tried to pull it out since. Reason For Visit: DKA UTI CONSTIPATION Physical Exam Vital Signs: Temp Pulse Resp BP Pulse Ox 98.1 F 88 15 190/84 H 98 07/09/18 11:33 07/09/18 11:33 07/09/18 11:33 07/09/18 11:33 07/09/18 11:33 Intake & Output 07/08/18 07/09/18 07/10/18 06:59 06:59 06:59 Intake Total 1308 1724 100 Output Total 2150 875 Balance -842 849 100 Weight 61.1 kg 59.9 kg General appearance: PRESENT: no acute distress, cooperative, disheveled Respiratory exam: PRESENT: clear to auscultation mónica, symmetrical, unlabored. ABSENT: accessory muscle use, crackles, prolonged expiratory phas, rhonchi, tachypnea, wheezes Cardiovascular exam: PRESENT: RRR, +S1, +S2 Pulses: PRESENT: normal carotid pulses Vascular exam: PRESENT: normal capillary refill GI/Abdominal exam: PRESENT: diminished bowel sounds, soft, other - NG tube is in place, bilious fluid in the canister. ABSENT: distended, guarding, rebound, tenderness Extremities exam: ABSENT: clubbing, pedal edema Musculoskeletal exam: PRESENT: normal inspection. ABSENT: deformity Neurological exam: PRESENT: alert, awake, oriented to person. ABSENT: oriented to place, oriented to time, oriented to situation Psychiatric exam: PRESENT: appropriate affect Skin exam: PRESENT: dry, warm Results Laboratory Results: 07/08/18 04:05 07/08/18 04:05 07/04/18 07/04/18 07/07/18 14:24 14:24 05:14 Creatine Kinase 22 L 179 H CK-MB (CK-2) 0.63 Troponin I 0.038 07/07/18 07/07/18 07/07/18 05:14 13:00 13:00 Creatine Kinase 246 H CK-MB (CK-2) 6.89 H 8.33 H Troponin I 0.042 0.045 07/07/18 07/07/18 21:45 21:45 Creatine Kinase 220 H CK-MB (CK-2) 7.50 H Troponin I 0.062 Impressions: Hip X-Ray 07/04/18 15:06 IMPRESSION: 1. Osteopenia. No radiographic evidence for acute fracture at the pelvis or left hip. 2. Stool ball at the rectum, please correlate for constipation/ fecal impaction. Chest X-Ray 07/04/18 15:08 IMPRESSION: No acute radiographic finding in the chest. Abdomen/Pelvis CT 07/07/18 00:00 IMPRESSION: 1. LIMITED VISUALIZATION OF THE UPPER ABDOMEN DUE TO MOTION ARTIFACT AND POSITIO N OF THE PATIENT'S ARMS. THERE DOES APPEAR TO BE MODERATE DILATION OF THE PROXIMAL SMALL BOWEL. MAY BE DUE TO ILEUS. DEVELOPING MECHANICAL OBSTRUCTION IS PROBABLY LESS LIKELY BUT CANNOT BE EXCLUDED. 2. LARGE HIATAL HERNIA. 3. CALCIFIED UTERINE FIBROIDS. CHRONIC CHANGES IN THE SPINE. 4. NO OTHER SIGNIFICANT OR ACUTE PROCESS IN THE ABDOMEN OR PELVIS. Acute Abdomen Series 07/07/18 00:36 IMPRESSION: No bowel obstruction or free air. KUB X-Ray 07/09/18 00:00 IMPRESSION: NG tube tip in the stomach. Assessment & Plan - Diagnosis (1) Ileus Is this a current diagnosis for this admission?: Yes Plan: We will going to clamp her NG tube and give her some clear liquids. If she tolerates this we can DC the NG tube. (2) Complicated UTI (urinary tract infection) Is this a current diagnosis for this admission?: Yes Plan: Continue current antibiotic regimen. (3) Constipation Qualifiers: Constipation type: other constipation type Qualified Code(s): K59.09 - Other constipation Is this a current diagnosis for this admission?: Yes Plan: Once we are able to pull the NG tube, we will see if her bowels will start moving after she starts taking some nutrition by mouth. - Time Time Spent with patient: 25-34 minutes
[2018-07-09] MEDS: HUM INSULIN NPH/REG INSULIN HM 100 UNIT/1 ML 3 ML SUBCUT SCH ×2 (17:33→18:36)
[2018-07-09] MEDS: INSULIN REG, HUMAN 100 UNIT/ML 3 ML VIAL (PYX) SUBCUT SCH (18:45)
[2018-07-09] MEDS: GABAPENTIN 100 MG CAPSULE NG SCH (18:46)
[2018-07-09] MEDS ORDERED: DEXTROSE 40% GEL 15 GM TUBE NG PRN ×2 (19:00)
[2018-07-09] MEDS ORDERED: FERROUS SULFATE 325 MG TABLET PO SCH (22:00)
[2018-07-09] MEDS: FERROUS SULFATE LIQUID 300 MG/5 ML UDC PO SCH (22:23)
[2018-07-10] MEDS: POTASSI CL 20 MEQ/D5-1/2NS 1L 1000 ML IV PRN (00:08)
[2018-07-10] MEDS: PIPERACILLIN SODIUM/TAZOBACTAM 2.25 GM in NORMAL SALINE 50 ML IV SCH ×4 (00:08→17:38)
[2018-07-10] MEDS: ONDANSETRON HCL INJ/PF 4 MG/2 ML SDV IV PRN ×2 (04:36→14:31)
[2018-07-10] MEDS: LEVOTHYROXINE SODIUM 0.1 MG TABLET NG SCH (05:14)
[2018-07-10] MEDS: HEPARIN SOD (PORCINE) 5,000 UNIT/ML 1 ML SYRINGE SUBCUT SCH ×3 (05:14→22:49)
[2018-07-10 09:26] LABS: HEMATOCRIT 31.5 % (36.0-47.0); HEMOGLOBIN 10.7 g/dL (12.0-15.5); MEAN CORPUSCULAR HGB CONC 34.1 g/dL (32.0-36.0); MEAN CORPUSCULAR VOLUME 97 fl (80-97); PLATELET COUNT 270 10^3/uL (150-450); RED BLOOD COUNT 3.26 10^6/uL (3.72-5.28); RED CELL DISTRIBUTION WIDTH 13.4 % (11.5-14.0); WHITE BLOOD COUNT 15.5 10^3/uL (4.0-10.5)
[2018-07-10] MEDS: INSULIN LISPRO 100 UNIT/ML 3 ML VIAL SUBCUT SCH ×3 (09:31→17:42)
[2018-07-10 09:44] LABS: ANION GAP 11 (5-19); BLOOD UREA NITROGEN 31 mg/dL (7-20); CALCIUM 8.9 mg/dL (8.4-10.2); CARBON DIOXIDE 21 mmol/L (22-30); CHLORIDE 113 mmol/L (98-107); GLUCOSE 131 mg/dL (75-110); POTASSIUM 3.2 mmol/L (3.6-5.0); SODIUM 145.1 mmol/L (137-145)
[2018-07-10] MEDS ORDERED: FLUOXETINE HCL 20 MG CAPSULE NG SCH (10:00)
[2018-07-10] MEDS: METOPROLOL TARTRATE 50 MG TABLET NG SCH ×2 (10:34→22:49)
[2018-07-10] MEDS: LACTOBACILLUS ACIDOPHILUS 250 MG TAB NG SCH ×2 (10:34→18:52)
[2018-07-10] MEDS: HUM INSULIN NPH/REG INSULIN HM 100 UNIT/1 ML 3 ML SUBCUT SCH ×2 (10:35→17:40)
[2018-07-10] MEDS: CHOLECALCIFEROL (D3) 400 UNIT TABLET NG SCH (10:37)
[2018-07-10] MEDS: POTASSI CL 20 MEQ/D5-1/2NS 1L 1,000 ML IV PRN (15:20)
[2018-07-10] MEDS: HYDRALAZINE HCL INJ/PF 20 MG/1 ML SDV IV PRN (15:21)
--- NOTE | 2018-07-10 15:36 | PDOC PROGRESS REPORT ---
Subjective Progress Note for:: 07/10/18 Subjective:: Will clamp NG tube yesterday and gave her some clear liquids and she got nauseated so the tube was put back to suction. She has had a fair amount of fluid out of the tube overnight. Neither of the 2 CT scans she has had so far have been with oral contrast and so will order 1 of those today. Her vital signs been stable. Reason For Visit: DKA UTI CONSTIPATION Physical Exam Vital Signs: Temp Pulse Resp BP Pulse Ox 98.6 F 65 14 181/67 H 98 07/10/18 15:10 07/10/18 15:10 07/10/18 15:10 07/10/18 15:10 07/10/18 15:10 Intake & Output 07/09/18 07/10/18 07/11/18 06:59 06:59 06:59 Intake Total 1724 1450 1050 Output Total 875 601 Balance 003 449 8053 Weight 59.9 kg 60.6 kg General appearance: PRESENT: no acute distress, cooperative, disheveled Respiratory exam: PRESENT: clear to auscultation mónica, symmetrical, unlabored. ABSENT: accessory muscle use, crackles, prolonged expiratory phas, rhonchi, tachypnea, wheezes Cardiovascular exam: PRESENT: RRR, +S1, +S2 Pulses: PRESENT: normal carotid pulses Vascular exam: PRESENT: normal capillary refill GI/Abdominal exam: PRESENT: diminished bowel sounds, soft, other - NG tube is in place, bilious fluid in the canister. ABSENT: distended, guarding, rebound, tenderness Extremities exam: ABSENT: clubbing, pedal edema Musculoskeletal exam: PRESENT: normal inspection. ABSENT: deformity Neurological exam: PRESENT: alert, awake, oriented to person. ABSENT: oriented to place, oriented to time, oriented to situation Psychiatric exam: PRESENT: appropriate affect Skin exam: PRESENT: dry, warm Results Laboratory Results: 07/10/18 08:59 07/10/18 08:59 07/10/18 07/10/18 08:59 08:59 WBC 15.5 H RBC 3.26 L Hgb 10.7 L Hct 31.5 L MCV 97 MCH 33.0 MCHC 34.1 RDW 13.4 Plt Count 270 Sodium 145.1 H Potassium 3.2 L Chloride 113 H Carbon Dioxide 21 L Anion Gap 11 BUN 31 H Creatinine 2.35 H Est GFR ( Amer) 24 L Est GFR (Non-Af Amer) 20 L Glucose 131 H Calcium 8.9 07/04/18 17:50 Blood Blood Culture - Final NO GROWTH IN 5 DAYS 07/04/18 07/04/18 07/07/18 14:24 14:24 05:14 Creatine Kinase 22 L 179 H CK-MB (CK-2) 0.63 Troponin I 0.038 07/07/18 07/07/18 07/07/18 05:14 13:00 13:00 Creatine Kinase 246 H CK-MB (CK-2) 6.89 H 8.33 H Troponin I 0.042 0.045 07/07/18 07/07/18 21:45 21:45 Creatine Kinase 220 H CK-MB (CK-2) 7.50 H Troponin I 0.062 Impressions: Hip X-Ray 07/04/18 15:06 IMPRESSION: 1. Osteopenia. No radiographic evidence for acute fracture at the pelvis or left hip. 2. Stool ball at the rectum, please correlate for constipation/ fecal impaction. Chest X-Ray 07/04/18 15:08 IMPRESSION: No acute radiographic finding in the chest. Acute Abdomen Series 07/07/18 00:36 IMPRESSION: No bowel obstruction or free air. KUB X-Ray 07/09/18 00:00 IMPRESSION: NG tube tip in the stomach. Assessment & Plan - Diagnosis (1) Ileus Is this a current diagnosis for this admission?: Yes Plan: Of ordered a CT scan with oral contrast. I am waiting for the official read, but it looks like she is got contrast going all the way down into her rectum. If there is nothing bad on the official read, we may try to clamp the tube and try her on some liquids again. (2) Complicated UTI (urinary tract infection) Is this a current diagnosis for this admission?: Yes Plan: Continue current antibiotic regimen. She grew an ESBL E. coli. She is had about 6 days of antibiotics so far. (3) Constipation Qualifiers: Constipation type: other constipation type Qualified Code(s): K59.09 - O ther constipation Is this a current diagnosis for this admission?: Yes Plan: She had a bowel movement yesterday and a bowel movement this morning. (4) Dprvg-vi-xiozecd kidney injury Qualifiers: Acute renal failure type: unspecified Chronic kidney disease stage: stage 3 (moderate) Qualified Code(s): N17.9 - Acute kidney failure, unspecified; N18.3 - Chronic kidney disease, stage 3 (moderate) Is this a current diagnosis for this admission?: Yes Plan: Suspected to be due to decreased perfusion from dehydration. We had her on some IV fluids yesterday and her creatinine stabilized, but I am going to increase her fluid little bit today to offset more of the ongoing GI losses. - Time Time Spent with patient: 25-34 minutes
[2018-07-10] MEDS: INSULIN REG, HUMAN 100 UNIT/ML 3 ML VIAL (PYX) SUBCUT SCH (17:42)
[2018-07-10] MEDS: GABAPENTIN 100 MG CAPSULE NG SCH (18:52)
--- NOTE | 2018-07-10 20:24 | RADIOLOGY REPORT (SQ) ---
CT ABDOMEN PELVIS WITHOUT IV CONTRAST HISTORY: Abdominal pain. COMPARISON: 07/07/2018. TECHNIQUE: CT scan of the abdomen and pelvis without IV contrast. This exam was performed according to our departmental dose-optimization program, which includes automated exposure control, adjustment of the mA and/or kV according to patient size and/or use of iterative reconstruction technique. Motion artifact limits evaluation. FINDINGS: Findings suggesting viral pneumonitis versus reactive airway disease. There is a moderate hiatal hernia. Enteric tube terminates in the stomach. There are coarse mitral valve and coronary calcification. There is a subcentimeter hypodensity in the liver which is too small to characterize. The gallbladder is contracted, limiting evaluation. The spleen, pancreas, adrenal glands, and left kidney are unremarkable. There is a nonobstructing stone in the right kidney. Shukla catheter is seen in the urinary bladder. Multiple calcified fibroids are seen. No small bowel obstruction. The appendix is not visualized. No evidence of acute diverticulitis. No intraperitoneal free fluid or free air is seen. There are mild degenerative changes of the spine. The aorta is normal caliber and contains atherosclerotic calcifications. IMPRESSION: 1. No evidence of small bowel obstruction or ileus. 2. Moderate-sized hiatal hernia. 3. Fibroid uterus.
[2018-07-10] MEDS: FERROUS SULFATE LIQUID 300 MG/5 ML UDC PO SCH (22:49)
[2018-07-11] MEDS: INSULIN LISPRO 100 UNIT/ML 3 ML VIAL SUBCUT SCH ×5 (01:04→21:41)
[2018-07-11] MEDS: PIPERACILLIN SODIUM/TAZOBACTAM 2.25 GM in NORMAL SALINE 50 ML IV SCH ×4 (01:05→17:29)
[2018-07-11] MEDS: POTASSI CL 20 MEQ/D5-1/2NS 1L 1,000 ML IV PRN ×2 (02:36→12:50)
[2018-07-11] MEDS: HEPARIN SOD (PORCINE) 5,000 UNIT/ML 1 ML SYRINGE SUBCUT SCH ×3 (05:33→21:40)
[2018-07-11] MEDS ORDERED: ZINC OXIDE 20% OINTMENT 28.35 GM ONE (06:35)
[2018-07-11] MEDS ORDERED: NYSTATIN CREAM 15 GM ONE (06:36)
[2018-07-11] MEDS: LEVOTHYROXINE SODIUM 0.1 MG TABLET NG SCH (10:04)
[2018-07-11] MEDS: LACTOBACILLUS ACIDOPHILUS 250 MG TAB NG SCH ×2 (10:04→17:20)
[2018-07-11] MEDS: METOPROLOL TARTRATE 50 MG TABLET NG SCH ×2 (10:04→21:40)
[2018-07-11] MEDS: FLUOXETINE HCL 20 MG/5 ML UDCUP NG SCH (10:04)
[2018-07-11] MEDS: HUM INSULIN NPH/REG INSULIN HM 100 UNIT/1 ML 3 ML SUBCUT SCH ×2 (10:06→17:20)
[2018-07-11] MEDS: CHOLECALCIFEROL (D3) 400 UNIT TABLET NG SCH (10:06)
[2018-07-11 10:22] LABS: ANION GAP 10 (5-19); BLOOD UREA NITROGEN 33 mg/dL (7-20); CALCIUM 8.4 mg/dL (8.4-10.2); CARBON DIOXIDE 21 mmol/L (22-30); CHLORIDE 109 mmol/L (98-107); GLUCOSE 157 mg/dL (75-110); POTASSIUM 3.2 mmol/L (3.6-5.0); SODIUM 139.5 mmol/L (137-145)
[2018-07-11] MEDS: ONDANSETRON HCL INJ/PF 4 MG/2 ML SDV IV PRN ×2 (14:00→21:40)
--- NOTE | 2018-07-11 14:20 | PDOC PROGRESS REPORT ---
Subjective Progress Note for:: 07/11/18 Subjective:: No adverse events overnight. She says she feels like she is gagging from the NG tube. She really wants that tube taken out and have her mittens taken off. We pulled the NG tube and the first thing she asked for was something to drink. Reason For Visit: DKA UTI CONSTIPATION Physical Exam Vital Signs: Temp Pulse Resp BP Pulse Ox 99.1 F 72 16 153/67 H 97 07/11/18 10:59 07/11/18 10:59 07/11/18 10:59 07/11/18 10:59 07/11/18 10:59 Intake & Output 07/10/18 07/11/18 07/12/18 06:59 06:59 06:59 Intake Total 1450 2200 1100 Output Total 801 1200 240 Balance 649 1000 860 Weight 60.6 kg 62.2 kg General appearance: PRESENT: no acute distress, cooperative, disheveled Respiratory exam: PRESENT: clear to auscultation mónica, symmetrical, unlabored. ABSENT: accessory muscle use, crackles, prolonged expiratory phas, rhonchi, tachypnea, wheezes Cardiovascular exam: PRESENT: RRR, +S1, +S2 Pulses: PRESENT: normal carotid pulses Vascular exam: PRESENT: normal capillary refill GI/Abdominal exam: PRESENT: diminished bowel sounds, soft, other - NG tube is in place, bilious fluid in the canister. ABSENT: distended, guarding, rebound, tenderness Extremities exam: ABSENT: clubbing, pedal edema Musculoskeletal exam: PRESENT: normal inspection. ABSENT: deformity Neurological exam: PRESENT: alert, awake, oriented to person. ABSENT: oriented to place, oriented to time, oriented to situation Psychiatric exam: PRESENT: appropriate affect Skin exam: PRESENT: dry, warm Results Laboratory Results: 07/10/18 08:59 07/11/18 09:29 07/11/18 09:29 Sodium 139.5 Potassium 3.2 L Chloride 109 H Carbon Dioxide 21 L Anion Gap 10 BUN 33 H Creatinine 2.43 H Est GFR ( Amer) 23 L Est GFR (Non-Af Amer) 19 L Glucose 157 H Calcium 8.4 07/04/18 07/04/18 07/07/18 14:24 14:24 05:14 Creatine Kinase 22 L 179 H CK-MB (CK-2) 0.63 Troponin I 0.038 07/07/18 07/07/18 07/07/18 05:14 13:00 13:00 Creatine Kinase 246 H CK-MB (CK-2) 6.89 H 8.33 H Troponin I 0.042 0.045 07/07/18 07/07/18 21:45 21:45 Creatine Kinase 220 H CK-MB (CK-2) 7.50 H Troponin I 0.062 Impressions: Hip X-Ray 07/04/18 15:06 IMPRESSION: 1. Osteopenia. No radiographic evidence for acute fracture at the pelvis or left hip. 2. Stool ball at the rectum, please correlate for constipation/ fecal impaction. Chest X-Ray 07/04/18 15:08 IMPRESSION: No acute radiographic finding in the chest. Acute Abdomen Series 07/07/18 00:36 IMPRESSION: No bowel obstruction or free air. KUB X-Ray 07/09/18 00:00 IMPRESSION: NG tube tip in the stomach. Abdomen/Pelvis CT 07/10/18 00:00 IMPRESSION: 1. No evidence of small bowel obstruction or ileus. 2. Moderate-sized hiatal hernia. 3. Fibroid uterus. Assessment & Plan - Diagnosis (1) Ileus Is this a current diagnosis for this admission?: Yes Plan: CT scan showed that she was not obstructed, contrast went all the way through to the rectum. We will pull the NG tube and will start her on clear liquid diet. (2) Complicated UTI (urinary tract infection) Is this a current diagnosis for this admission?: Yes Plan: We will continue on her current antibiotic coverage, she needs about 10 days total (3) Constipation Qualifiers: Constipation type: other constipation type Qualified Code(s): K59.09 - Other constipation Is this a current diagnosis for this admission?: Yes Plan: Resolved (4) Mssvi-ym-omwkjlo kidney injury Qualifiers: Acute renal failure type: unspecified Chronic kidney disease stage: stage 3 (moderate) Qualified Code(s): N17.9 - Acute kidney failure, unspecified; N18.3 - Chronic kidney disease, stage 3 (moderate) Is this a current diagnosis for this admission?: Yes Plan: Creatinine has stabilized, will continue to monitor oral intake to make sure she does not get volume depleted (5) Hypokalemia Is this a current diagnosis for this admission?: Yes Plan: She is been getting potassium in her fluids but her potassium level has not changed, so I am going to check her magnesium level to see if that needs to be adjusted first - Time Time Spent with patient: 25-34 minutes
[2018-07-11] MEDS: MAG HYDROX/AL HYDROX/SIMETH SUSP 30 ML UDCUP NG PRN ×2 (15:46→21:53)
[2018-07-11] MEDS: GABAPENTIN 100 MG CAPSULE NG SCH (17:20)
[2018-07-11] MEDS: INSULIN REG, HUMAN 100 UNIT/ML 3 ML VIAL (PYX) SUBCUT SCH (17:24)
[2018-07-11] MEDS: HYDRALAZINE HCL INJ/PF 20 MG/1 ML SDV IV PRN (20:29)
[2018-07-11] MEDS: FERROUS SULFATE LIQUID 300 MG/5 ML UDC PO SCH (21:41)
[2018-07-12] MEDS: PIPERACILLIN SODIUM/TAZOBACTAM 2.25 GM in NORMAL SALINE 50 ML IV SCH ×4 (00:06→17:13)
[2018-07-12] MEDS: POTASSI CL 20 MEQ/D5-1/2NS 1L 1,000 ML IV PRN ×2 (00:06→17:14)
[2018-07-12] MEDS: LEVOTHYROXINE SODIUM 0.1 MG TABLET NG SCH (06:08)
[2018-07-12] MEDS: HEPARIN SOD (PORCINE) 5,000 UNIT/ML 1 ML SYRINGE SUBCUT SCH ×3 (06:08→23:16)
[2018-07-12] MEDS: MAG HYDROX/AL HYDROX/SIMETH SUSP 30 ML UDCUP NG PRN (06:10)
[2018-07-12] MEDS: ONDANSETRON HCL INJ/PF 4 MG/2 ML SDV IV PRN (06:10)
[2018-07-12] MEDS: INSULIN LISPRO 100 UNIT/ML 3 ML VIAL SUBCUT SCH ×4 (07:53→23:18)
[2018-07-12] MEDS ORDERED: (PENDING PHARMACY ID) (Ropinirole Hcl [Requip] 0.5 MG) PO PRN (08:47)
[2018-07-12] MEDS ORDERED: HYDROCODONE ACETAMIN PO PRN (08:47)
[2018-07-12] MEDS ORDERED: ALPRAZOLAM 0.5 MG TABLET PO PRN (08:47)
[2018-07-12] MEDS: HUM INSULIN NPH/REG INSULIN HM 100 UNIT/1 ML 3 ML SUBCUT SCH ×2 (09:09→17:12)
[2018-07-12] MEDS: ALENDRONATE SODIUM 10 MG TABLET NG SCH (09:09)
[2018-07-12] MEDS: LACTOBACILLUS ACIDOPHILUS 250 MG TAB NG SCH ×2 (09:09→17:12)
[2018-07-12] MEDS: CHOLECALCIFEROL (D3) 400 UNIT TABLET NG SCH (09:09)
--- NOTE | 2018-07-12 09:16 | PDOC PROGRESS REPORT ---
Subjective Progress Note for:: 07/12/18 Subjective:: 07/12/2018 NG tube was taken out yesterday patient has one episode of coffee colored vomitus this morning. Patient is also complaining of abdominal pains. Plan to do the acute abdominal series and consult was placed for surgeons. Labs were requested for this morning. Started on IV morphine 1 mg every 8 as needed for abdominal pain. Patient is afebrile temperature is 97.8 blood pressure is 121/67. Patient is presently on IV potassium supplementation and D5 W. Plan is for long-term placement. Reason For Visit: DKA UTI CONSTIPATION Physical Exam Vital Signs: Temp Pulse Resp BP Pulse Ox 97.8 F 115 H 16 121/67 100 07/12/18 03:53 07/12/18 07:00 07/12/18 03:53 07/12/18 03:53 07/12/18 03:53 Intake & Output 07/11/18 07/12/18 07/13/18 06:59 06:59 06:59 Intake Total 2200 2422 50 Output Total 1200 1265 Balance 1000 1157 50 Weight 62.2 kg 61.9 kg General appearance: PRESENT: mild distress Head exam: PRESENT: atraumatic Eye exam: PRESENT: PERRLA Mouth exam: PRESENT: moist, tongue midline Neck exam: ABSENT: carotid bruit, JVD, lymphadenopathy, thyromegaly Respiratory exam: PRESENT: clear to auscultation mónica. ABSENT: rales, rhonchi, wheezes Cardiovascular exam: PRESENT: tachycardia GI/Abdominal exam: PRESENT: normal bowel sounds, soft. ABSENT: distended, guarding, mass, organolmegaly, rebound, tenderness Gentrourinary exam: PRESENT: indwelling catheter Neurological exam: PRESENT: alert, awake Psychiatric exam: PRESENT: appropriate affect, normal mood. ABSENT: homicidal ideation, suicidal ideation Results Laboratory Results: 07/10/18 08:59 07/11/18 09:29 07/11/18 07/11/18 09:29 09:29 Sodium 139.5 Potassium 3.2 L Chloride 109 H Carbon Dioxide 21 L Anion Gap 10 BUN 33 H Creatinine 2.43 H Est GFR ( Amer) 23 L Est GFR (Non-Af Amer) 19 L Glucose 157 H Calcium 8.4 Magnesium 1.3 L 07/04/18 07/04/18 07/07/18 14:24 14:24 05:14 Creatine Kinase 22 L 179 H CK-MB (CK-2) 0.63 Troponin I 0.038 07/07/18 07/07/18 07/07/18 05:14 13:00 13:00 Creatine Kinase 246 H CK-MB (CK-2) 6.89 H 8.33 H Troponin I 0.042 0.045 07/07/18 07/07/18 21:45 21:45 Creatine Kinase 220 H CK-MB (CK-2) 7.50 H Troponin I 0.062 Impressions: Hip X-Ray 07/04/18 15:06 IMPRESSION: 1. Osteopenia. No radiographic evidence for acute fracture at the pelvis or left hip. 2. Stool ball at the rectum, please correlate for constipation/ fecal impaction. Chest X-Ray 07/04/18 15:08 IMPRESSION: No acute radiographic finding in the chest. Acute Abdomen Series 07/07/18 00:36 IMPRESSION: No bowel obstruction or free air. KUB X-Ray 07/09/18 00:00 IMPRESSION: NG tube tip in the stomach. Abdomen/Pelvis CT 07/10/18 00:00 IMPRESSION: 1. No evidence of small bowel obstruction or ileus. 2. Moderate-sized hiatal hernia. 3. Fibroid uterus. Assessment & Plan - Diagnosis (1) Ileus Is this a current diagnosis for this admission?: Yes Plan: 07/12/2018-latest CAT scan done 2 days ago shows patient was not obstructed and a G-tube was removed yesterday but the patient has a coffee colored vomitus this morning complaining of abdominal pains. Plan to the acute abdominal series, surgical consult was placed. Labs are requested. Started on IV morphine 1 mg every 8 hours as needed for pain. Plan is to continue to follow her closely. (2) Complicated UTI (urinary tract infection) Is this a current diagnosis for this admission?: Yes Plan: 07/12/2018-patient was admitted with UTI urine culture was positive for ESBL presently on Zosyn. Plan is to give 10 days of antibiotic therapy. (3) [id number] kidney injury Qualifiers: Acute renal failure type: unspecified Chronic kidney disease stage: stage 3 (moderate) Qualified Code(s): N17.9 - Acute kidney failure, unspecified; N18.3 - Chronic kidney disease, stage 3 (moderate) Is this a current diagnosis for this admission?: Yes Plan: 07/12/2018 latest creatinine is 2.38 he states he is going back up again. Since baseline creatinine at the time of admission is around 1.91 with a low GFR indicating stage IV kidney disease.. pt is presently on D5 half normal with potassium supplementation 100 cc/h plan is to continue the present management. plan is to recheck the labs tomorrow. (4) Hyperlipidemia Qualifiers: Hyperlipidemia type: unspecified Qualified Code(s): E78.5 - Hyperlipidemia, unspecified Is this a current diagnosis for this admission?: Yes (5) Hypokalemia Is this a current diagnosis for this admission?: Yes Plan: 07/12/2018 latest potassium level is 3.2 patient is getting K rider. She is also hypomagnesemic with magnesium level of 1.32 g of IV magnesium was ordered. (6) Hypomagnesemia Is this a current diagnosis for this admission?: Yes Plan: 07/12/2018 latest magnesium level is 1.3 order was placed for 2 g of IV magnesium plan to recheck the magnesium levels tomorrow. - Time Time Spent with patient: 15-24 minutes Medications reviewed and adjusted accordingly: Yes Anticipated discharge: SNF
[2018-07-12] MEDS: METOPROLOL TARTRATE 50 MG TABLET NG SCH ×2 (09:21→23:17)
[2018-07-12] MEDS: METOPROLOL TARTRATE PF/INJ 5 MG/5 ML SDV IV PRN (09:25)
[2018-07-12] MEDS: MAGNESIUM SULFATE/D5W 1 GM/100 ML RTUPB IV SCH ×2 (09:26→10:55)
[2018-07-12] MEDS ORDERED: (PENDING PHARMACY ID) (Rivastigmine Tartrate [Rivastigmine] 6 MG) PO SCH (10:00)
[2018-07-12] MEDS ORDERED: VITAMIN D 25 MCG PO SCH ×2 (10:00→17:00)
[2018-07-12] MEDS ORDERED: (PENDING PHARMACY ID) (Memantine Hcl [Namenda Xr] 14 MG) PO SCH (10:00)
[2018-07-12] MEDS ORDERED: (PENDING PHARMACY ID) (Iron 65 65 MG) PO SCH (10:00)
[2018-07-12 10:01] LABS: ABSOLUTE LYMPHOCYTES (AUTO) 2.1 10^3/uL (0.5-4.7); ABSOLUTE MONOCYTES (AUTO) 1.1 10^3/uL (0.1-1.4); ABSOLUTE NEUT (AUTO) 10.8 10^3/uL (1.7-8.2); BASOPHILS % (AUTO) 0.2 % (0-2); EOSINOPHILS % (AUTO) 0.3 % (0-6); HEMATOCRIT 26.1 % (36.0-47.0); HEMOGLOBIN 8.8 g/dL (12.0-15.5); LYMPHOCYTES % (AUTO) 15.2 % (13-45); MEAN CORPUSCULAR HGB CONC 33.7 g/dL (32.0-36.0); MEAN CORPUSCULAR VOLUME 98 fl (80-97); MONOCYTES % (AUTO) 7.6 % (3-13); PLATELET COUNT 232 10^3/uL (150-450); RED BLOOD COUNT 2.67 10^6/uL (3.72-5.28); RED CELL DISTRIBUTION WIDTH 13.5 % (11.5-14.0); SEGMENTED NEUTROPHILS % (AUTO) 76.7 % (42-78); TOTAL CELLS COUNTED % (AUTO) 100 %; WHITE BLOOD COUNT 14.1 10^3/uL (4.0-10.5)
[2018-07-12 10:15] LABS: ALANINE AMINOTRANSFERASE 18 U/L (9-52); ALBUMIN 2.8 g/dL (3.5-5.0); ALKALINE PHOSPHATASE 48 U/L (38-126); ANION GAP 11 (5-19); ASPARTATE AMINO TRANSFERASE 20 U/L (14-36); BILIRUBIN,DIRECT 0.5 mg/dL (0.0-0.4); BILIRUBIN,TOTAL 0.6 mg/dL (0.2-1.3); BLOOD UREA NITROGEN 51 mg/dL (7-20); CALCIUM 8.5 mg/dL (8.4-10.2); CARBON DIOXIDE 17 mmol/L (22-30); CHLORIDE 111 mmol/L (98-107); GLUCOSE 195 mg/dL (75-110); POTASSIUM 4.1 mmol/L (3.6-5.0); SODIUM 139.3 mmol/L (137-145); TOTAL PROTEIN 5.4 g/dL (6.3-8.2)
[2018-07-12] MEDS ORDERED: HYDROCODONE/ACETAMINOPHEN 7.5-325 MG TABLET PO PRN (12:26)
[2018-07-12] MEDS: FLUOXETINE HCL 20 MG/5 ML UDCUP NG SCH (12:30)
[2018-07-12] MEDS ORDERED: ROPINIROLE HCL 0.25 MG TABLET PO PRN (12:31)
[2018-07-12] MEDS: PANTOPRAZOLE SODIUM 40 MG VIAL IV SCH ×2 (12:38→23:17)
[2018-07-12] MEDS: MORPHINE SULFATE 10 MG/ML INJ IV PRN (12:39)
--- NOTE | 2018-07-12 16:33 | RADIOLOGY REPORT (SQ) ---
EXAM DESCRIPTION: ACUTE ABDOMEN SERIES COMPLETED DATE/TIME: 07/12/2018 4:25 pm REASON FOR STUDY: vomitings COMPARISON: 07/09/2018 NUMBER OF VIEWS: Three views. TECHNIQUE: Frontal chest, supine abdomen and upright/decubitus abdomen radiographic images acquired. LIMITATIONS: None. FINDINGS: CHEST: Lungs are clear. FREE AIR: None. No abnormal gas collections. BOWEL GAS PATTERN: Nonobstructive pattern. No dilated loops or air fluid levels. CALCIFICATIONS: There are fibroid calcifications noted within the uterus. No suspicious calcificatio ns are seen. HARDWARE: None in the abdomen. SOFT TISSUES: No gross mass or suggestion of organomegaly. BONES: No acute fracture. No worrisome bone lesions. OTHER: No other significant finding. IMPRESSION: NO RADIOGRAPHIC EVIDENCE FOR ACUTE ABDOMINAL DISEASE. TECHNICAL DOCUMENTATION: JOB ID: [id number] [employer]- All Rights Reserved Reading location - IP/workstation name: [email or web address]
[2018-07-12] MEDS: RIVASTIGMINE TARTRATE 1.5 MG CAPSULE PO SCH (17:12)
[2018-07-12] MEDS: INSULIN REG, HUMAN 100 UNIT/ML 3 ML VIAL (PYX) SUBCUT SCH (17:12)
[2018-07-12] MEDS: GABAPENTIN 100 MG CAPSULE NG SCH (17:13)
[2018-07-12] MEDS ORDERED: (PENDING PHARMACY ID) (Simvastatin [Simvastatin] 20 MG) PO SCH (22:00)
[2018-07-12] MEDS ORDERED: FERROUS SULFATE LIQUID 300 MG/5 ML UDC NG SCH (22:00)
[2018-07-12] MEDS: SIMVASTATIN 10 MG TABLET PO SCH (23:17)
[2018-07-13] MEDS: PIPERACILLIN SODIUM/TAZOBACTAM 2.25 GM in NORMAL SALINE 50 ML IV SCH ×4 (00:35→18:36)
--- NOTE | 2018-07-13 00:45 | PDOC CONSULTATION ---
Consultation Consult Date: 07/13/18 Consult reason:: Vomiting,vomitus guiac positive History of Present Illness Admission Date/PCP: 07/04/18 19:41 GEMA BARNHART History of Present Illness: THOR PORTER is a 83 year old female with multiple medical problems including DM,Paroxysmal A-FIB,CRF,CHF,dyslipidemia,osteoarthritis was initially admitted for UTI,Ileus. NGT inserted 07/07 and ileus resolved on 07/10/18 and NGT discontinued on 07/11. This morning vomited and vomitus was + for bllob. Not on any blood thinners and coags are normal. Her Hb was 107 on 07/10 and 8.7 on 07/12/18. Past Medical History Cardiac Medical History: Reports: Atrial Fibrillation, Congestive Heart Failure, Coronary Artery Disease, Hyperlipidema, Hypertension Denies: Myocardial Infarction Pulmonary Medical History: Reports: Pneumonia - Hx of septic shock Denies: Asthma, Bronchitis, Chronic Obstructive Pulmonary Disease (COPD) Neurological Medical History: Denies: Seizures Endocrine Medical History: Reports: Diabetes Mellitus Type 1, Diabetes Mellitus Type 2 Renal/ Medical History: Reports: End Stage Renal Disease - stage 3 Musculoskeltal Medical History: Reports: Arthritis Psychiatric Medical History: Reports: Depression Hematology: Reports: Anemia - chronic dz Past Surgical History Past Surgical History: Reports: Appendectomy Denies: Hysterectomy, Pacemaker Social History Smoking Status: Unknown if Ever Smoked Frequency of Alcohol Use: None Hx Recreational Drug Use: No Drugs: None Hx Prescription Drug Abuse: No Family History Family History: CAD, DM Parental Family History Reviewed: No Children Family History Reviewed: No Sibling(s) Family History Reviewed.: No Medication/Allergy Home Medications: Alendronate Sodium [Fosamax 10 mg Tablet] 10 mg PO MOWEFR@1000 12/09/16 Fluoxetine HCl [Prozac 20 mg Capsule] 20 mg PO DAILY 12/09/16 Levothyroxine Sodium [Levo-T] 100 mcg PO DAILY 12/09/16 Memantine HCl [Namenda Xr] 14 mg PO DAILY 12/09/16 Metoprolol Tartrate [Lopressor 50 mg Tablet] 50 mg PO Q12 12/09/16 Omeprazole 40 mg PO BID 12/09/16 Rivastigmine Tartrate [Rivastigmine] 6 mg PO BID 12/09/16 Ropinirole HCl [Requip] 0.5 mg PO HSP PRN 12/09/16 Gabapentin [Neurontin 100 mg Capsule] 200 mg PO Q8 capsule 12/12/16 Alprazolam [Xanax] 0.5 mg PO Q8HP PRN 07/05/18 Hydrocodone-Acetamin 7.5-325 1 tab PO Q8HP PRN 07/05/18 Insulin Glargine,Hum.rec.anlog [Lantus Insulin 100 Unit/mL] 22 unit SQ QHS 07/05/18 Iron 65 65 mg PO DAILY 07/05/18 Simvastatin 20 mg PO QHS 07/05/18 Vitamin D 25 Mcg 25 mcg PO DAILY 07/05/18 Allergies/Adverse Reactions: promethazine HCl [From Phenergan] Allergy (Severe, Verified 01/09/15 15:40) severe leg pain baclofen [Baclofen] Allergy (Mild, Verified 01/09/15 15:40) Hives,hallucinate Beef Containing Products Adverse Reaction (Severe, Verified 08/02/15 14:20) GI upset Review of Systems Constitutional: PRESENT: as per HPI Gastrointestinal: PRESENT: other - denies pains though not very well oriented Physical Exam Vital Signs: Temp Pulse Resp BP Pulse Ox 98.4 F 91 16 150/63 H 99 07/12/18 21:10 07/12/18 21:10 07/12/18 21:10 07/12/18 21:10 07/12/18 21:10 Intake & Output 07/11/18 07/12/18 07/13/18 06:59 06:59 06:59 Intake Total 2200 2422 1350 Output Total 1200 1265 505 Balance 1000 1157 845 Weight 62.2 kg 61.9 kg General appearance: PRESENT: no acute distress Head exam: PRESENT: atraumatic Mouth exam: PRESENT: moist Neck exam: PRESENT: full ROM Pulses: PRESENT: normal radial pulses Vascular exam: PRESENT: normal capillary refill GI/Abdominal exam: PRESENT: soft - non tender Rectal exam: PRESENT: deferred Skin exam: PRESENT: normal color, warm Results Laboratory Results: 07/12/18 09:40 07/12/18 09:40 07/12/18 07/12/18 09:40 09:40 WBC 14.1 H RBC 2.67 L Hgb 8.8 L Hct 26.1 L MCV 98 H MCH 33.0 MCHC 33.7 RDW 13.5 Plt Count 232 Seg Neutrophils % 76.7 Lymphocytes % 15.2 Monocytes % 7.6 Eosinophils % 0.3 Basophils % 0.2 Absolute Neutrophils 10.8 H Absolute Lymphocytes 2.1 Absolute Monocytes 1.1 Absolute Eosinophils 0.0 Absolute Basophils 0.0 Sodium 139.3 Potassium 4.1 Chloride 111 H Carbon Dioxide 17 L Anion Gap 11 BUN 51 H Creatinine 2.22 H Est GFR ( Amer) 26 L Est GFR (Non-Af Amer) 21 L Glucose 195 H Calcium 8.5 Magnesium 1.3 L Total Bilirubin 0.6 AST 20 ALT 18 Alkaline Phosphatase 48 Total Protein 5.4 L Albumin 2.8 L 07/07/18 12:00 Blood Blood Culture - Final NO GROWTH IN 5 DAYS 07/07/18 12:11 Blood Blood Culture - Final NO GROWTH IN 5 DAYS 07/04/18 07/04/18 07/07/18 14:24 14:24 05:14 Creatine Kinase 22 L 179 H CK-MB (CK-2) 0.63 Troponin I 0.038 07/07/18 07/07/18 07/07/18 05:14 13:00 13:00 Creatine Kinase 246 H CK-MB (CK-2) 6.89 H 8.33 H Troponin I 0.042 0.045 07/07/18 07/07/18 21:45 21:45 Creatine Kinase 220 H CK-MB (CK-2) 7.50 H Troponin I 0.062 Impressions: Hip X-Ray 07/04/18 15:06 IMPRESSION: 1. Osteopenia. No radiographic evidence for acute fracture at the pelvis or left hip. 2. Stool ball at the rectum, please correlate for constipation/ fecal impaction. Chest X-Ray 07/04/18 15:08 IMPRESSION: No acute radiographic finding in the chest. KUB X-Ray 07/09/18 00:00 IMPRESSION: NG tube tip in the stomach. Abdomen/Pelvis CT 07/10/18 00:00 IMPRESSION: 1. No evidence of small bowel obstruction or ileus. 2. Moderate-sized hiatal hernia. 3. Fibroid uterus. Acute Abdomen Series 07/12/18 00:00 IMPRESSION: NO RADIOGRAPHIC EVIDENCE FOR ACUTE ABDOMINAL DISEASE. Assessment & Plan - Time Time Spent: 30 to 50 Minutes - Plan Summary Plan Summary: 83 yo female had an NGT for ileus 07/07 and d/c on 07/11 . On am of 07/12 had vomiting and vomitus tested + for blood. Her HB decreasd from 10.7 mto 8.8. Most likely bleeding from gastriris from irritation due to NGT. Recommend: Monitor H/H Start Protonix If with evidence of bleeding will do EGD
[2018-07-13 05:53] LABS: ABSOLUTE EOSINOPHILS # (AUTO) 0.1 10^3/uL (0.0-0.6); ABSOLUTE LYMPHOCYTES (AUTO) 2.9 10^3/uL (0.5-4.7); ABSOLUTE MONOCYTES (AUTO) 1.2 10^3/uL (0.1-1.4); ABSOLUTE NEUT (AUTO) 9.5 10^3/uL (1.7-8.2); BASOPHILS % (AUTO) 0.3 % (0-2); EOSINOPHILS % (AUTO) 0.7 % (0-6); LYMPHOCYTES % (AUTO) 20.9 % (13-45); MEAN CORPUSCULAR HEMOGLOBIN 32.6 pg (27.0-33.4); MEAN CORPUSCULAR HGB CONC 33.3 g/dL (32.0-36.0); MEAN CORPUSCULAR VOLUME 98 fl (80-97); PLATELET COUNT 199 10^3/uL (150-450); RED BLOOD COUNT 2.35 10^6/uL (3.72-5.28); RED CELL DISTRIBUTION WIDTH 13.5 % (11.5-14.0); SEGMENTED NEUTROPHILS % (AUTO) 69.1 % (42-78); TOTAL CELLS COUNTED % (AUTO) 100 %; WHITE BLOOD COUNT 13.7 10^3/uL (4.0-10.5)
[2018-07-13] MEDS: HEPARIN SOD (PORCINE) 5,000 UNIT/ML 1 ML SYRINGE SUBCUT SCH ×3 (05:55→22:38)
[2018-07-13] MEDS: LEVOTHYROXINE SODIUM 0.1 MG TABLET NG SCH (05:56)
[2018-07-13 06:08] LABS: HEMOGLOBIN 7.7 g/dL (12.0-15.5)
[2018-07-13 06:25] LABS: ALANINE AMINOTRANSFERASE 24 U/L (9-52); ALBUMIN 2.6 g/dL (3.5-5.0); ALKALINE PHOSPHATASE 58 U/L (38-126); ANION GAP 9 (5-19); ASPARTATE AMINO TRANSFERASE 15 U/L (14-36); BILIRUBIN,DIRECT 0.2 mg/dL (0.0-0.4); BILIRUBIN,TOTAL 0.3 mg/dL (0.2-1.3); BLOOD UREA NITROGEN 46 mg/dL (7-20); CALCIUM 8.3 mg/dL (8.4-10.2); CARBON DIOXIDE 17 mmol/L (22-30); CHLORIDE 111 mmol/L (98-107); GLUCOSE 243 mg/dL (75-110); POTASSIUM 3.9 mmol/L (3.6-5.0); TOTAL PROTEIN 4.8 g/dL (6.3-8.2)
[2018-07-13] MEDS ORDERED: NORMAL SALINE 250 ML IV PRN ×2 (07:40)
--- NOTE | 2018-07-13 08:22 | PDOC PROGRESS REPORT ---
Subjective Progress Note for:: 07/13/18 Subjective:: 07/12/2018 NG tube was taken out yesterday patient has one episode of coffee colored vomitus this morning. Patient is also complaining of abdominal pains. Plan to do the acute abdominal series and consult was placed for surgeons. Labs were requested for this morning. Started on IV morphine 1 mg every 8 as needed for abdominal pain. Patient is afebrile temperature is 97.8 blood pressure is 121/67. Patient is presently on IV potassium supplementation and D5 W. Plan is for long-term placement. 07/13/2018 patient's hemoglobin dropped to 7.7 today I spoke to Dr. Lagunas's recommendation is to do give 2 units of PRBC on examination patient is comfortably in the bed denies any complaints not communicating much may be because of dementia the nurse told me after taking the NG tube 2 days ago patient is not eating anything and she had one episode of bright colored blood vomitus acute abdominal series done was yesterday was negative for obstruction no signs of aspiration but patient does not have any appetite and she does not want to eat. Vital signs this morning is 97.9 blood pressure is 140/57. I requested Dr. Lagunas to reevaluate the patient today for possible EGD. Reason For Visit: DKA UTI CONSTIPATION Physical Exam Vital Signs: Temp Pulse Resp BP Pulse Ox 97.9 F 98 16 140/57 H 100 07/13/18 04:41 07/13/18 07:00 07/13/18 04:41 07/13/18 04:41 07/13/18 04:41 Intake & Output 07/12/18 07/13/18 07/14/18 06:59 06:59 06:59 Intake Total 2422 1450 Output Total 1265 780 Balance 1157 670 Weight 61.9 kg 62.2 kg General appearance: PRESENT: no acute distress Head exam: PRESENT: atraumatic Eye exam: PRESENT: PERRLA Mouth exam: PRESENT: moist, tongue midline Neck exam: ABSENT: carotid bruit, JVD, lymphadenopathy, thyromegaly Respiratory exam: PRESENT: clear to auscultation mónica. ABSENT: rales, rhonchi, wheezes Cardiovascular exam: PRESENT: irregular rhythm, tachycardia GI/Abdominal exam: PRESENT: normal bowel sounds, soft. ABSENT: distended, guarding, mass, organolmegaly, rebound, tenderness Extremities exam: PRESENT: full ROM. ABSENT: calf tenderness, clubbing, pedal edema Neurological exam: PRESENT: alert, awake, CN II-XII grossly intact. ABSENT: m otor sensory deficit Psychiatric exam: PRESENT: appropriate affect, normal mood. ABSENT: homicidal ideation, suicidal ideation Results Laboratory Results: 07/13/18 04:24 07/13/18 04:24 07/12/18 07/12/18 07/13/18 09:40 09:40 04:24 WBC 14.1 H 13.7 H RBC 2.67 L 2.35 L Hgb 8.8 L 7.7 L Hct 26.1 L 23.0 L MCV 98 H 98 H MCH 33.0 32.6 MCHC 33.7 33.3 RDW 13.5 13.5 Plt Count 232 199 Seg Neutrophils % 76.7 69.1 Lymphocytes % 15.2 20.9 Monocytes % 7.6 9.0 Eosinophils % 0.3 0.7 Basophils % 0.2 0.3 Absolute Neutrophils 10.8 H 9.5 H Absolute Lymphocytes 2.1 2.9 Absolute Monocytes 1.1 1.2 Absolute Eosinophils 0.0 0.1 Absolute Basophils 0.0 0.0 Sodium 139.3 Potassium 4.1 Chloride 111 H Carbon Dioxide 17 L Anion Gap 11 BUN 51 H Creatinine 2.22 H Est GFR ( Amer) 26 L Est GFR (Non-Af Amer) 21 L Glucose 195 H Calcium 8.5 Magnesium 1.3 L Total Bilirubin 0.6 AST 20 ALT 18 Alkaline Phosphatase 48 Total Protein 5.4 L Albumin 2.8 L 07/13/18 04:24 WBC RBC Hgb Hct MCV MCH MCHC RDW Plt Count Seg Neutrophils % Lymphocytes % Monocytes % Eosinophils % Basophils % Absolute Neutrophils Absolute Lymphocytes Absolute Monocytes Absolute Eosinophils Absolute Basophils Sodium 137.0 Potassium 3.9 Chloride 111 H Carbon Dioxide 17 L Anion Gap 9 BUN 46 H Creatinine 2.34 H Est GFR ( Amer) 24 L Est GFR (Non-Af Amer) 20 L Glucose 243 H Calcium 8.3 L Magnesium 2.2 Total Bilirubin 0.3 AST 15 ALT 24 Alkaline Phosphatase 58 Total Protein 4.8 L Albumin 2.6 L 07/07/18 12:00 Blood Blood Culture - Final NO GROWTH IN 5 DAYS 07/07/18 12:11 Blood Blood Culture - Final NO GROWTH IN 5 DAYS 07/04/18 07/04/18 07/07/18 14:24 14:24 05:14 Creatine Kinase 22 L 179 H CK-MB (CK-2) 0.63 Troponin I 0.038 07/07/18 07/07/18 07/07/18 05:14 13:00 13:00 Creatine Kinase 246 H CK-MB (CK-2) 6.89 H 8.33 H Troponin I 0.042 0.045 07/07/18 07/07/18 21:45 21:45 Creatine Kinase 220 H CK-MB (CK-2) 7.50 H Troponin I 0.062 Impressions: Hip X-Ray 07/04/18 15:06 IMPRESSION: 1. Osteopenia. No radiographic evidence for acute fracture at the pelvis or left hip. 2. Stool ball at the rectum, please correlate for constipation/ fecal impaction. Chest X-Ray 07/04/18 15:08 IMPRESSION: No acute radiographic finding in the chest. KUB X-Ray 07/09/18 00:00 IMPRESSION: NG tube tip in the stomach. Abdomen/Pelvis CT 07/10/18 00:00 IMPRESSION: 1. No evidence of small bowel obstruction or ileus. 2. Moderate-sized hiatal hernia. 3. Fibroid uterus. Acute Abdomen Series 07/12/18 00:00 IMPRESSION: NO RADIOGRAPHIC EVIDENCE FOR ACUTE ABDOMINAL DISEASE. Assessment and Plan - Diagnosis (1) Ileus Is this a current diagnosis for this admission?: Yes Plan: 07/12/2018-latest CAT scan done 2 days ago shows patient was not obstructed and a G-tube was removed yesterday but the patient has a coffee colored vomitus this morning complaining of abdominal pains. Plan to the acute abdominal series, surgical consult was placed. Labs are requested. Started on IV morphine 1 mg every 8 hours as needed for pain. Plan is to continue to follow her closely. 07/13/2018-acute abdominal series yesterday negative for obstruction she had one episodes of coffee colored vomitus yesterday morning. Patient appetite is very poor. Patient hemoglobin dropped to 8.8 yesterday and it was 7.7 today I spoke to Dr. Lagunas he recommendation is to give 2 units of PRBC. Patient may be a candidate for EGD. Dr. Lagunas is going to follow the patient today. (2) Complicated UTI (urinary tract infection) Is this a current diagnosis for this admission?: Yes Plan: 07/12/2018-patient was admitted with UTI urine culture was positive for ESBL presently on Zosyn. Plan is to give 10 days of antibiotic therapy. 07/13/2018-urine culture was positive for ESBL E. coli patient is presently on Zosyn patient was afebrile with a T-max of 97.9. Plan is to continue the antibiotic therapy for 1 more day. (3) [id number] kidney injury Qualifiers: Acute renal failure type: unspecified Chronic kidney disease stage: stage 3 (moderate) Qualified Code(s): N17.9 - Acute kidney failure, unspecified; N18.3 - Chronic kidney disease, stage 3 (moderate) Is this a current diagnosis for this admission?: Yes Plan: 07/12/2018 latest creatinine is 2.38 he states he is going back up again. Since baseline creatinine at the time of admission is around 1.91 with a low GFR indicating stage IV kidney disease.. pt is presently on D5 half normal with potassium supplementation 100 cc/h plan is to continue the present management. plan is to recheck the labs tomorrow. 07/13/2018-patient creatinine today is 2.34 on admission creatinine is around 1.9 he has a stage IV kidney disease acute on chronic renal insufficiency may be secondary to poor oral intake. Started on IV fluids normal saline 50 cc/h. And is to recheck chemistry tomorrow. (4) Hyperlipidemia Qualifiers: Hyperlipidemia type: unspecified Qualified Code(s): E78.5 - Hyperlipidemia, unspecified Is this a current diagnosis for this admission?: Yes (5) Hypokalemia Is this a current diagnosis for this admission?: Yes Plan: 07/13/18 08:19 Patient's latest potassium is 4.2 she is on potassium supplementation hypokalemia is resolved. Gianluca most likely secondary to poor oral intake. (6) Hypomagnesemia Is this a current diagnosis for this admission?: Yes Plan: 07/13/18 08:19 Patient's latest magnesium is 1.7 she is refusing the p.o. medications be going to give 1 g of IV magnesium today. Dietary consult was requested. (7) Protein-energy malnutrition Is this a current diagnosis for this admission?: Yes Plan: 07/13/2018-since BMI is less than 20 dietary consult is going to be requested patient has very poor appetite she was admitted with ILEUS and on NG tube for 3 days after the removal of NG tube she had one episode of bright colored vomitus after that she is not eating much at all. Last night pt is refused to take the po medications. - Time Time Spent with patient: 15-24 minutes Anticipated discharge: SNF
[2018-07-13] MEDS: INSULIN LISPRO 100 UNIT/ML 3 ML VIAL SUBCUT SCH ×4 (08:39→22:28)
[2018-07-13] MEDS ORDERED: MAGNESIUM SULFATE/D5W 1 GM/100 ML RTUPB IV ONE (08:42)
[2018-07-13] MEDS: RIVASTIGMINE TARTRATE 1.5 MG CAPSULE PO SCH ×2 (09:02→18:35)
[2018-07-13] MEDS: LACTOBACILLUS ACIDOPHILUS 250 MG TAB NG SCH ×2 (09:02→17:49)
[2018-07-13] MEDS: PANTOPRAZOLE SODIUM 40 MG VIAL IV SCH ×2 (09:03→22:38)
[2018-07-13] MEDS: FLUOXETINE HCL 20 MG/5 ML UDCUP NG SCH (09:03)
[2018-07-13] MEDS: METOPROLOL TARTRATE 50 MG TABLET NG SCH ×2 (09:03→22:38)
[2018-07-13] MEDS: FERROUS SULFATE 325 MG TABLET PO SCH (09:03)
[2018-07-13] MEDS: CHOLECALCIFEROL (D3) 400 UNIT TABLET NG SCH (09:05)
[2018-07-13] MEDS: HUM INSULIN NPH/REG INSULIN HM 100 UNIT/1 ML 3 ML SUBCUT SCH ×2 (12:19→17:49)
--- NOTE | 2018-07-13 16:46 | EKG REPORT ---
SEVERITY:- ABNORMAL ECG - A FIB RVR CONSIDER LEFT VENTRICULAR HYPERTROPHY RBBB AND RVH : Confirmed by: Yo Polalrd 13-Jul-2018 16:45:06
[2018-07-13] MEDS: INSULIN REG, HUMAN 100 UNIT/ML 3 ML VIAL (PYX) SUBCUT SCH (17:49)
[2018-07-13] MEDS: GABAPENTIN 100 MG CAPSULE NG SCH (18:35)
[2018-07-13 20:51] LABS: ABSOLUTE EOSINOPHILS # (AUTO) 0.1 10^3/uL (0.0-0.6); ABSOLUTE LYMPHOCYTES (AUTO) 1.9 10^3/uL (0.5-4.7); ABSOLUTE MONOCYTES (AUTO) 0.8 10^3/uL (0.1-1.4); ABSOLUTE NEUT (AUTO) 6.8 10^3/uL (1.7-8.2); BASOPHILS % (AUTO) 0.5 % (0-2); EOSINOPHILS % (AUTO) 1.5 % (0-6); HEMATOCRIT 31.5 % (36.0-47.0); LYMPHOCYTES % (AUTO) 19.6 % (13-45); MEAN CORPUSCULAR HGB CONC 34.6 g/dL (32.0-36.0); MONOCYTES % (AUTO) 8.5 % (3-13); PLATELET COUNT 161 10^3/uL (150-450); RED BLOOD COUNT 3.41 10^6/uL (3.72-5.28); RED CELL DISTRIBUTION WIDTH 15.1 % (11.5-14.0); SEGMENTED NEUTROPHILS % (AUTO) 69.9 % (42-78); TOTAL CELLS COUNTED % (AUTO) 100 %; WHITE BLOOD COUNT 9.7 10^3/uL (4.0-10.5)
[2018-07-13 20:54] LABS: HEMOGLOBIN 10.9 g/dL (12.0-15.5); MEAN CORPUSCULAR VOLUME 92 fl (80-97)
[2018-07-13] MEDS: SIMVASTATIN 10 MG TABLET PO SCH (22:38)
[2018-07-14] MEDS: NORMAL SALINE 1000 ML 1,000 ML IV PRN ×2 (00:11→18:21)
[2018-07-14] MEDS: PIPERACILLIN SODIUM/TAZOBACTAM 2.25 GM in NORMAL SALINE 50 ML IV SCH ×5 (00:11→23:41)
[2018-07-14 05:28] LABS: ALANINE AMINOTRANSFERASE 27 U/L (9-52); ALBUMIN 2.5 g/dL (3.5-5.0); ALKALINE PHOSPHATASE 53 U/L (38-126); ANION GAP 8 (5-19); ASPARTATE AMINO TRANSFERASE 19 U/L (14-36); BILIRUBIN,DIRECT 0.3 mg/dL (0.0-0.4); BILIRUBIN,TOTAL 0.7 mg/dL (0.2-1.3); BLOOD UREA NITROGEN 38 mg/dL (7-20); CALCIUM 8.4 mg/dL (8.4-10.2); CARBON DIOXIDE 18 mmol/L (22-30); CHLORIDE 114 mmol/L (98-107); GLUCOSE 109 mg/dL (75-110); POTASSIUM 4.1 mmol/L (3.6-5.0); SODIUM 140.4 mmol/L (137-145); TOTAL PROTEIN 4.9 g/dL (6.3-8.2)
[2018-07-14] MEDS: HEPARIN SOD (PORCINE) 5,000 UNIT/ML 1 ML SYRINGE SUBCUT SCH ×3 (06:40→21:44)
[2018-07-14] MEDS: LEVOTHYROXINE SODIUM 0.1 MG TABLET NG SCH (06:40)
[2018-07-14] MEDS: INSULIN LISPRO 100 UNIT/ML 3 ML VIAL SUBCUT SCH ×4 (09:27→22:23)
[2018-07-14] MEDS: ALENDRONATE SODIUM 10 MG TABLET NG SCH (09:32)
[2018-07-14] MEDS ORDERED: DEXTROSE 40% GEL 15 GM TUBE PO PRN ×2 (10:30)
[2018-07-14] MEDS ORDERED: LACTOBACILLUS ACIDOPHILUS 250 MG TAB PO ONE (11:00)
[2018-07-14] MEDS ORDERED: FLUOXETINE HCL 20 MG CAPSULE PO ONE (11:00)
[2018-07-14] MEDS ORDERED: MAGNESIUM HYDROXIDE SUSP 30 ML UDCUP PO PRN (11:00)
[2018-07-14] MEDS ORDERED: METOPROLOL TARTRATE 50 MG TABLET PO ONE (11:00)
[2018-07-14] MEDS ORDERED: CHOLECALCIFEROL (D3) 400 UNIT TABLET PO ONE (11:00)
[2018-07-14] MEDS ORDERED: MAG HYDROX/AL HYDROX/SIMETH SUSP 30 ML UDCUP PO PRN (11:00)
[2018-07-14] MEDS: HUM INSULIN NPH/REG INSULIN HM 100 UNIT/1 ML 3 ML SUBCUT SCH ×2 (11:27→18:11)
[2018-07-14] MEDS: FERROUS SULFATE 325 MG TABLET PO SCH (11:33)
[2018-07-14] MEDS: PANTOPRAZOLE SODIUM 40 MG VIAL IV SCH ×2 (11:33→21:49)
[2018-07-14] MEDS: RIVASTIGMINE TARTRATE 1.5 MG CAPSULE PO SCH ×2 (11:33→18:15)
[2018-07-14] MEDS: ACETAMINOPHEN SOLN 325 MG/10.15 ML UDCUP PO PRN ×2 (11:43→23:41)
[2018-07-14] MEDS ORDERED: PROPOFOL INJ 200 MG/20 ML VIAL IV ONE (11:53)
--- NOTE | 2018-07-14 12:28 | PDOC PROGRESS REPORT ---
Subjective Progress Note for:: 07/14/18 Subjective:: There is an 83-year-old female with a history of hematemesis. The patient reports that she had a bowel movement yesterday, and that her abdomen is not painful or distended. She denies chest pain or shortness of breath. She denies blurry vision, orthostasis. She does report feeling "cold" today. She does report malaise. Reason For Visit: DKA UTI CONSTIPATION Physical Exam Vital Signs: Temp Pulse Resp BP Pulse Ox 98.3 F 56 L 18 173/48 H 98 07/14/18 11:37 07/14/18 11:37 07/14/18 11:37 07/14/18 11:37 07/14/18 11:37 Intake & Output 07/13/18 07/14/18 07/15/18 06:59 06:59 06:59 Intake Total 1450 1830 50 Output Total 780 725 Balance 670 1105 50 Weight 62.2 kg 62.2 kg General appearance: PRESENT: no acute distress Head exam: PRESENT: atraumatic, normocephalic Eye exam: PRESENT: EOMI Neck exam: ABSENT: meningismus, tenderness, thyromegaly, tracheal deviation Respiratory exam: PRESENT: clear to auscultation móncia, unlabored. ABSENT: accessory muscle use, tachypnea Cardiovascular exam: PRESENT: RRR Pulses: PRESENT: normal radial pulses GI/Abdominal exam: PRESENT: soft. ABSENT: distended, firm, guarding, hernia, tenderness Rectal exam: PRESENT: deferred Extremities exam: ABSENT: clubbing Musculoskeletal exam: ABSENT: deformity Neurological exam: PRESENT: alert, awake, oriented to person, oriented to place, oriented to time, oriented to situation, CN II-XII grossly intact Psychiatric exam: ABSENT: agitated, anxious, depressed Focused psych exam: ABSENT: delusional Skin exam: ABSENT: cyanosis, erythema, jaundice Results Laboratory Results: 07/13/18 20:28 07/14/18 04:05 07/13/18 07/13/18 07/14/18 08:05 20:28 04:05 WBC 9.7 RBC 3.41 L Hgb 10.9 L D Hct 31.5 L MCV 92 D MCH 32.0 MCHC 34.6 RDW 15.1 H Plt Count 161 Seg Neutrophils % 69.9 Lymphocytes % 19.6 Monocytes % 8.5 Eosinophils % 1.5 Basophils % 0.5 Absolute Neutrophils 6.8 Absolute Lymphocytes 1.9 Absolute Monocytes 0.8 Absolute Eosinophils 0.1 Absolute Basophils 0.0 Sodium 140.4 Potassium 4.1 Chloride 114 H Carbon Dioxide 18 L Anion Gap 8 BUN 38 H Creatinine 2.32 H Est GFR ( Amer) 24 L Est GFR (Non-Af Amer) 20 L Glucose 109 Calcium 8.4 Magnesium 2.4 H Total Bilirubin 0.7 AST 19 ALT 27 Alkaline Phosphatase 53 Total Protein 4.9 L Albumin 2.5 L Blood Type O POSITIVE Antibody Screen NEGATIVE 07/04/18 07/04/18 07/07/18 14:24 14:24 05:14 Creatine Kinase 22 L 179 H CK-MB (CK-2) 0.63 Troponin I 0.038 07/07/18 07/07/18 07/07/18 05:14 13:00 13:00 Creatine Kinase 246 H CK-MB (CK-2) 6.89 H 8.33 H Troponin I 0.042 0.045 07/07/18 07/07/18 21:45 21:45 Creatine Kinase 220 H CK-MB (CK-2) 7.50 H Troponin I 0.062 Impressions: Hip X-Ray 07/04/18 15:06 IMPRESSION: 1. Osteopenia. No radiographic evidence for acute fracture at the pelvis or left hip. 2. Stool ball at the rectum, please correlate for constipation/ fecal impaction. Chest X-Ray 07/04/18 15:08 IMPRESSION: No acute radiographic finding in the chest. KUB X-Ray 07/09/18 00:00 IMPRESSION: NG tube tip in the stomach. Abdomen/Pelvis CT 07/10/18 00:00 IMPRESSION: 1. No evidence of small bowel obstruction or ileus. 2. Moderate-sized hiatal hernia. 3. Fibroid uterus. Acute Abdomen Series 07/12/18 00:00 IMPRESSION: NO RADIOGRAPHIC EVIDENCE FOR ACUTE ABDOMINAL DISEASE. Assessment & Plan - Diagnosis (1) Hematemesis Qualifiers: Nausea presence: without nausea Qualified Code(s): K92.0 - Hematemesis Is this a current diagnosis for this admission?: Yes - Plan Summary Plan Summary: A 3-year-old female with hematemesis. Surgery has been asked to evaluate with EGD. Plan for EGD today. Risks/benefits discussed, informed consent obtained, and all questions answered.
[2018-07-14] MEDS: METOPROLOL TARTRATE 50 MG TABLET NG SCH (12:36)
[2018-07-14] MEDS: LACTOBACILLUS ACIDOPHILUS 250 MG TAB NG SCH (12:36)
[2018-07-14] MEDS: CHOLECALCIFEROL (D3) 400 UNIT TABLET NG SCH (12:37)
[2018-07-14] MEDS: FLUOXETINE HCL 20 MG/5 ML UDCUP NG SCH (12:37)
--- NOTE | 2018-07-14 13:29 | Operative Report ---
Nonrecallable Operative Report DATE OF SURGERY: 07/14/18 PREOPERATIVE DIAGNOSIS: hematemesis POSTOPERATIVE DIAGNOSIS: 1. Hematemesis. 2. Large hiatal hernia. #3 Reflux esophagitis. 4. Gastritis. 5. Duodenitis OPERATION: EGD with biopsy SURGEON: NAEL HERR ANESTHESIA: LMAC TISSUE REMOVED OR ALTERED: 1. Distal esophagus biopsy. 2. Antral biopsy. 3. Duodenal bulb biopsy. COMPLICATIONS: None apparent ESTIMATED BLOOD LOSS: Minimal PROCEDURE: Procedure in detail: After informed consent was obtained, the patient was brought into the operating room and laid in left lateral decubitus position. The endoscope was passed down the esophagus, and into the stomach. The stomach was insufflated with air. Immediately there was noted to be gastritis throughout the stomach. The scope was pushed through the pylorus and into the first and second portions of the duodenum. The second portion of the duodenum appeared normal, however the first portion of the duodenum had acute inflammation present. Biopsy was taken at the first portion of the duodenum. The scope was pulled into the antrum, where antral gastritis was again identified. Biopsy was taken at the antrum to rule out H. pylori. A retroflexion maneuver was then performed in the stomach. This demonstrated a very large hiatal hernia. Scope was pulled up into the hiatal hernia, and into the distal esophagus. The distal esophagus had ulcerations consistent with reflux gastritis. Biopsy was taken at the margin of the distal esophageal ulcerations. I suspect that her esophageal ulceration was the cause of her recent hematemesis. The scope was then withdrawn up the remainder of the esophagus. The omentum remainder of the esophagus was smooth in contour without masses, lesions, or other abnormalities. Scope was removed from the oropharynx, and the procedure was concluded. All sponge, instrument, and needle counts were correct x2. Condition: Fair.
[2018-07-14] MEDS: INSULIN REG, HUMAN 100 UNIT/ML 3 ML VIAL (PYX) SUBCUT SCH (17:54)
[2018-07-14] MEDS: GABAPENTIN 100 MG CAPSULE PO SCH (18:15)
[2018-07-14] MEDS: LACTOBACILLUS ACIDOPHILUS 250 MG TAB PO SCH (18:15)
--- NOTE | 2018-07-14 20:14 | Progress Note ---
Provider Note Provider Note: EGD complete. No further surgical intervention required at this time. Will sign off. Please renotify with questions or concerns.
--- NOTE | 2018-07-14 21:09 | PDOC PROGRESS REPORT ---
Subjective Progress Note for:: 07/14/18 Subjective:: 83 y.o. F with a past medical history significant for paroxysmal atrial fibrillation, stage III chronic kidney disease congestive heart failure, coronary artery disease and diabetes. She also has constipation predominant irritable bowel syndrome. The patient presented with abdominal pain following several days of constipation. She had had constipation at home which was treated and she began having bowel movements but began to have explosive diarrhea as well as dysuria. At the time of admission she had evidence of mild DKA which quickly resolved. Urine is growing an ESBL producing E. coli, on Zosyn. Recently, the patient has been vomiting, what nursing staff describes, as coffee ground emesis. The patient's Hgb has also dropped < 8.0 requiring transfusions. Today the patient is scheduled for an EGD to evaluate for an upper GI bleed. Upon my evaluation, the patient is resting comfortably in bed. She is able to follow commands but has difficulty answering questions appropriately. Daughter is at the bedside and provides most of the history. During this hospitalization, the patient experienced significant diarrhea, requiring a rectal tube. The tube was d/c'd within the last few days as her diarrhea has slowed down. No blood noted in stool, per nursing staff. Reason For Visit: DKA UTI CONSTIPATION Physical Exam Vital Signs: Temp Pulse Resp BP Pulse Ox 98.0 F 64 16 165/51 H 100 07/14/18 15:22 07/14/18 19:00 07/14/18 15:22 07/14/18 15:22 07/14/18 15:22 Intake & Output 07/13/18 07/14/18 07/15/18 06:59 06:59 06:59 Intake Total 1450 1830 1408 Output Total 780 725 505 Balance 670 1105 903 Weight 62.2 kg 62.2 kg General appearance: PRESENT: thin Eye exam: PRESENT: conjunctiva pink, PERRLA Mouth exam: PRESENT: moist Teeth exam: PRESENT: poor dentation Neck exam: PRESENT: full ROM Respiratory exam: PRESENT: clear to auscultation mónica, symmetrical, unlabored Cardiovascular exam: PRESENT: RRR Pulses: PRESENT: normal radial pulses, normal dorsalis pedis pul Vascular exam: PRESENT: pallor GI/Abdominal exam: PRESENT: normal bowel sounds, soft. ABSENT: distended, tenderness Rectal exam: PRESENT: deferred Extremities exam: PRESENT: full ROM. ABSENT: pedal edema Musculoskeletal exam: PRESENT: full ROM Neurological exam: PRESENT: alert, awake Skin exam: PRESENT: dry, intact, pallor Results Laboratory Results: 07/13/18 20:28 07/14/18 04:05 07/13/18 07/14/18 20:28 04:05 WBC 9.7 RBC 3.41 L Hgb 10.9 L D Hct 31.5 L MCV 92 D MCH 32.0 MCHC 34.6 RDW 15.1 H Plt Count 161 Seg Neutrophils % 69.9 Lymphocytes % 19.6 Monocytes % 8.5 Eosinophils % 1.5 Basophils % 0.5 Absolute Neutrophils 6.8 Absolute Lymphocytes 1.9 Absolute Monocytes 0.8 Absolute Eosinophils 0.1 Absolute Basophils 0.0 Sodium 140.4 Potassium 4.1 Chloride 114 H Carbon Dioxide 18 L Anion Gap 8 BUN 38 H Creatinine 2.32 H Est GFR ( Amer) 24 L Est GFR (Non-Af Amer) 20 L Glucose 109 Calcium 8.4 Magnesium 2.4 H Total Bilirubin 0.7 AST 19 ALT 27 Alkaline Phosphatase 53 Total Protein 4.9 L Albumin 2.5 L 07/04/18 07/04/18 07/07/18 14:24 14:24 05:14 Creatine Kinase 22 L 179 H CK-MB (CK-2) 0.63 Troponin I 0.038 07/07/18 07/07/18 07/07/18 05:14 13:00 13:00 Creatine Kinase 246 H CK-MB (CK-2) 6.89 H 8.33 H Troponin I 0.042 0.045 07/07/18 07/07/18 21:45 21:45 Creatine Kinase 220 H CK-MB (CK-2) 7.50 H Troponin I 0.062 Impressions: Hip X-Ray 07/04/18 15:06 IMPRESSION: 1. Osteopenia. No radiographic evidence for acute fracture at the pelvis or left hip. 2. Stool ball at the rectum, please correlate for constipation/ fecal impaction. Chest X-Ray 07/04/18 15:08 IMPRESSION: No acute radiographic finding in the chest. KUB X-Ray 07/09/18 00:00 IMPRESSION: NG tube tip in the stomach. Abdomen/Pelvis CT 07/10/18 00:00 IMPRESSION: 1. No evidence of small bowel obstruction or ileus. 2. Moderate-sized hiatal hernia. 3. Fibroid uterus. Acute Abdomen Series 07/12/18 00:00 IMPRESSION: NO RADIOGRAPHIC EVIDENCE FOR ACUTE ABDOMINAL DISEASE. Status: Imported from PACS Assessment and Plan - Diagnosis (1) Complicated UTI (urinary tract infection) Is this a current diagnosis for this admission?: Yes Plan: patient was admitted with UTI urine culture was positive for ESBL presently on Zosyn. Plan is to give 10 days of antibiotic therapy. Today is the last day of Zosyn (2) Upper GI bleed Is this a current diagnosis for this admission?: Yes Plan: (+) coffee ground emesis EGD done today by Dr. Sanabria Found ulcerations in the distal esophagus consistent with gastritis, likely the culprit Protonix IV BID (3) [id number]-nizmhip kidney injury Qualifiers: Acute renal failure type: unspecified Chronic kidney disease stage: stage 3 (moderate) Qualified Code(s): N17.9 - Acute kidney failure, unspecified; N18.3 - Chronic kidney disease, stage 3 (moderate) Is this a current diagnosis for this admission?: Yes Plan: Improving ALBERTO stemming from dehydration/hypovolemia from profound diarrhea and vomiting Baseline creatinine at the time of admission is around 1.91 with a low GFR indicating stage IV kidney disease. Creatinine 2.3 today Continue IVF normal saline 50 cc/h. Daily chemistries (4) Diabetes Is this a current diagnosis for this admission?: Yes Plan: Accucheks LUISS Humalog SSI (5) Hyperlipidemia Qualifiers: Hyperlipidemia type: unspecified Qualified Code(s): E78.5 - Hyperlipidemia, unspecified Is this a current diagnosis for this admission?: Yes Plan: [facility] Continue home dose simvastatin - Time Time Spent with patient: 15-24 minutes Medications reviewed and adjusted accordingly: Yes Anticipated discharge: Home - Inpatient Certification Based on my medical assessment, after consideration of the patient's comorbidities, presenting symptoms, or acuity I expect that the services needed warrant INPATIENT care.: Yes I certify that my determination is in accordance with my understanding of Medicare's requirements for reasonable and necessary INPATIENT services [42 CFR 412.3e].: Yes Medical Necessity: Need for Surgery, Risk of Complication if Not Cared For in Hospital
[2018-07-14] MEDS: METOPROLOL TARTRATE 50 MG TABLET PO SCH (21:49)
[2018-07-14] MEDS: SIMVASTATIN 10 MG TABLET PO SCH (21:49)
[2018-07-15] MEDS: HEPARIN SOD (PORCINE) 5,000 UNIT/ML 1 ML SYRINGE SUBCUT SCH ×3 (05:03→21:16)
[2018-07-15] MEDS: LEVOTHYROXINE SODIUM 0.1 MG TABLET PO SCH (05:20)
[2018-07-15] MEDS: PIPERACILLIN SODIUM/TAZOBACTAM 2.25 GM in NORMAL SALINE 50 ML IV SCH ×3 (05:20→18:17)
[2018-07-15] MEDS: INSULIN LISPRO 100 UNIT/ML 3 ML VIAL SUBCUT SCH ×4 (08:31→21:22)
[2018-07-15] MEDS: ONDANSETRON HCL INJ/PF 4 MG/2 ML SDV IV PRN (09:52)
[2018-07-15] MEDS: PANTOPRAZOLE SODIUM 40 MG VIAL IV SCH (09:52)
[2018-07-15] MEDS: FERROUS SULFATE 325 MG TABLET PO SCH (09:56)
[2018-07-15] MEDS: FLUOXETINE HCL 20 MG CAPSULE PO SCH (09:56)
[2018-07-15] MEDS: HUM INSULIN NPH/REG INSULIN HM 100 UNIT/1 ML 3 ML SUBCUT SCH ×2 (09:56→18:18)
[2018-07-15] MEDS: METOPROLOL TARTRATE 50 MG TABLET PO SCH ×2 (09:57→21:16)
[2018-07-15] MEDS: LACTOBACILLUS ACIDOPHILUS 250 MG TAB PO SCH ×2 (09:57→18:17)
[2018-07-15] MEDS: CHOLECALCIFEROL (D3) 400 UNIT TABLET PO SCH (09:58)
[2018-07-15] MEDS ORDERED: FLUOXETINE HCL 20 MG/5 ML UDCUP PO SCH (10:00)
[2018-07-15] MEDS: RIVASTIGMINE TARTRATE 1.5 MG CAPSULE PO SCH ×2 (10:03→18:17)
[2018-07-15] MEDS: MORPHINE SULFATE 10 MG/ML INJ IV PRN ×2 (10:03→21:16)
[2018-07-15 12:41] LABS: HEMATOCRIT 31.2 % (36.0-47.0); HEMOGLOBIN 10.7 g/dL (12.0-15.5); MEAN CORPUSCULAR HEMOGLOBIN 32.3 pg (27.0-33.4); MEAN CORPUSCULAR HGB CONC 34.1 g/dL (32.0-36.0); MEAN CORPUSCULAR VOLUME 95 fl (80-97); PLATELET COUNT 156 10^3/uL (150-450); RED CELL DISTRIBUTION WIDTH 15.9 % (11.5-14.0); WHITE BLOOD COUNT 10.3 10^3/uL (4.0-10.5)
[2018-07-15 13:05] LABS: ALANINE AMINOTRANSFERASE 18 U/L (9-52); ALBUMIN 2.5 g/dL (3.5-5.0); ALKALINE PHOSPHATASE 61 U/L (38-126); ANION GAP 11 (5-19); ASPARTATE AMINO TRANSFERASE 12 U/L (14-36); BILIRUBIN,DIRECT 0.3 mg/dL (0.0-0.4); BILIRUBIN,TOTAL 0.4 mg/dL (0.2-1.3); BLOOD UREA NITROGEN 29 mg/dL (7-20); CALCIUM 7.9 mg/dL (8.4-10.2); CARBON DIOXIDE 13 mmol/L (22-30); CHLORIDE 113 mmol/L (98-107); GLUCOSE 228 mg/dL (75-110); POTASSIUM 3.5 mmol/L (3.6-5.0); TOTAL PROTEIN 4.9 g/dL (6.3-8.2)
--- NOTE | 2018-07-15 17:05 | PDOC PROGRESS REPORT ---
Subjective Progress Note for:: 07/15/18 Subjective:: 83 y.o. F with a past medical history significant for paroxysmal atrial fibrillation, stage III chronic kidney disease congestive heart failure, coronary artery disease and diabetes. She also has constipation predominant irritable bowel syndrome. The patient presented with abdominal pain following several days of constipation. She had had constipation at home which was treated and she began having bowel movements but began to have explosive diarrhea as well as dysuria. At the time of admission she had evidence of mild DKA which quickly resolved. Urine is growing an ESBL producing E. coli, on Zosyn. EGD to evaluate for an upper GI bleed done yesterday, revealed multiple gastric ulcers in the distal esophagus. Likely the source of her GI bleed. Today, the patient's Hgb remains stable at 10, if this trend continues tomorrow she will be medically ready for discharge. Reason For Visit: DKA UTI CONSTIPATION Physical Exam Vital Signs: Temp Pulse Resp BP Pulse Ox 97.8 F 63 20 167/53 H 100 07/15/18 16:00 07/15/18 16:00 07/15/18 16:00 07/15/18 16:00 07/15/18 16:00 Intake & Output 07/14/18 07/15/18 07/16/18 06:59 06:59 06:59 Intake Total 1830 1508 577 Output Total 725 655 525 Balance 1105 853 52 Weight 62.2 kg 62.5 kg General appearance: PRESENT: thin Eye exam: PRESENT: PERRLA Mouth exam: PRESENT: moist, tongue midline Neck exam: PRESENT: full ROM Respiratory exam: PRESENT: clear to auscultation mónica, decreased breath sounds, symmetrical, unlabored Cardiovascular exam: PRESENT: +S1, +S2 Pulses: PRESENT: normal radial pulses, +1 pedal pulses bilateral Vascular exam: PRESENT: pallor GI/Abdominal exam: PRESENT: soft. ABSENT: distended Rectal exam: PRESENT: deferred Extremities exam: PRESENT: full ROM. ABSENT: pedal edema Musculoskeletal exam: PRESENT: ambulatory, full ROM, normal inspection Neurological exam: PRESENT: alert, awake, oriented to person, oriented to place. ABSENT: oriented to time, oriented to situation Psychiatric exam: PRESENT: appropriate affect Skin exam: PRESENT: dry, intact, pallor Results Laboratory Results: 07/15/18 12:20 07/15/18 12:20 07/15/18 07/15/18 12:20 12:20 WBC 10.3 RBC 3.30 L Hgb 10.7 L Hct 31.2 L MCV 95 MCH 32.3 MCHC 34.1 RDW 15.9 H Plt Count 156 Sodium 137.0 Potassium 3.5 L Chloride 113 H Carbon Dioxide 13 L Anion Gap 11 BUN 29 H Creatinine 2.24 H Est GFR ( Amer) 25 L Est GFR (Non-Af Amer) 21 L Glucose 228 H Calcium 7.9 L Magnesium 1.9 Total Bilirubin 0.4 AST 12 L ALT 18 Alkaline Phosphatase 61 Total Protein 4.9 L Albumin 2.5 L 07/04/18 07/04/18 07/07/18 14:24 14:24 05:14 Creatine Kinase 22 L 179 H CK-MB (CK-2) 0.63 Troponin I 0.038 07/07/18 07/07/18 07/07/18 05:14 13:00 13:00 Creatine Kinase 246 H CK-MB (CK-2) 6.89 H 8.33 H Troponin I 0.042 0.045 07/07/18 07/07/18 21:45 21:45 Creatine Kinase 220 H CK-MB (CK-2) 7.50 H Troponin I 0.062 Impressions: Hip X-Ray 07/04/18 15:06 IMPRESSION: 1. Osteopenia. No radiographic evidence for acute fracture at the pelvis or left hip. 2. Stool ball at the rectum, please correlate for constipation/ fecal impaction. Chest X-Ray 07/04/18 15:08 IMPRESSION: No acute radiographic finding in the chest. KUB X-Ray 07/09/18 00:00 IMPRESSION: NG tube tip in the stomach. Abdomen/Pelvis CT 07/10/18 00:00 IMPRESSION: 1. No evidence of small bowel obstruction or ileus. 2. Moderate-sized hiatal hernia. 3. Fibroid uterus. Acute Abdomen Series 07/12/18 00:00 IMPRESSION: NO RADIOGRAPHIC EVIDENCE FOR ACUTE ABDOMINAL DISEASE. Status: Imported from PACS Assessment and Plan - Diagnosis (1) Complicated UTI (urinary tract infection) Is this a current diagnosis for this admission?: Yes Plan: Resolved patient was admitted with UTI urine culture was positive for ESBL presently on Zosyn. Completed 10-day regimen of Zosyn (2) Upper GI bleed Is this a current diagnosis for this admission?: Yes Plan: Resolved (+) coffee ground emesis EGD done yesterday by Dr. Sanabria Found ulcerations in the distal esophagus consistent with gastritis, likely the culprit Protonix IV BID (3) [id number] kidney injury Qualifiers: Acute renal failure type: unspecified Chronic kidney disease stage: stage 3 (moderate) Qualified Code(s): N17.9 - Acute kidney failure, unspecified; N18.3 - Chronic kidney disease, stage 3 (moderate) Is this a current diagnosis for this admission?: Yes Plan: Improving ALBERTO stemming from dehydration/hypovolemia from profound diarrhea and vomiting Baseline creatinine at the time of admission is around 1.91 with a low GFR indicating stage IV kidney disease. Creatinine 2.2 today Continue IVF normal saline 50 cc/h. Daily chemistries (4) Diabetes Is this a current diagnosis for this admission?: Yes Plan: Accucheks ACHS Humalog SSI (5) Hyperlipidemia Qualifiers: Hyperlipidemia type: unspecified Qualified Code(s): E78.5 - Hyperlipidemia, unspecified Is this a current diagnosis for this admission?: Yes Plan: [facility] HLD Continue home dose simvastatin - Time Time Spent with patient: 15-24 minutes Medications reviewed and adjusted accordingly: Yes Anticipated discharge: SNF Within: within 24 hours - Inpatient Certification Based on my medical assessment, after consideration of the patient's comorbidities, presenting symptoms, or acuity I expect that the services needed warrant INPATIENT care.: Yes I certify that my determination is in accordance with my understanding of Medicare's requirements for reasonable and necessary INPATIENT services [42 CFR 412.3e].: Yes Medical Necessity: Risk of Complication if Not Cared For in Hospital - Plan Summary Plan Summary: Continue to monitor for hematemesis or melena. If Hgb remains stable tomorrow, may discharge to SNF/rehab.
[2018-07-15] MEDS: INSULIN REG, HUMAN 100 UNIT/ML 3 ML VIAL (PYX) SUBCUT SCH (17:06)
[2018-07-15] MEDS: GABAPENTIN 100 MG CAPSULE PO SCH (18:17)
[2018-07-15] MEDS: NORMAL SALINE 1000 ML 1,000 ML IV PRN (18:18)
[2018-07-15] MEDS: SIMVASTATIN 10 MG TABLET PO SCH (21:16)
[2018-07-16] MEDS: PIPERACILLIN SODIUM/TAZOBACTAM 2.25 GM in NORMAL SALINE 50 ML IV SCH ×3 (00:01→11:24)
[2018-07-16] MEDS: HYDRALAZINE HCL INJ/PF 20 MG/1 ML SDV IV PRN (04:05)
[2018-07-16] MEDS: LEVOTHYROXINE SODIUM 0.1 MG TABLET PO SCH (06:05)
[2018-07-16] MEDS: HEPARIN SOD (PORCINE) 5,000 UNIT/ML 1 ML SYRINGE SUBCUT SCH ×2 (06:05→14:33)
[2018-07-16] MEDS ORDERED: ALENDRONATE SODIUM 10 MG TABLET PO SCH (07:00)
[2018-07-16] MEDS: INSULIN LISPRO 100 UNIT/ML 3 ML VIAL SUBCUT SCH ×2 (09:13→11:24)
[2018-07-16] MEDS: FERROUS SULFATE 325 MG TABLET PO SCH (09:50)
[2018-07-16] MEDS: FLUOXETINE HCL 20 MG CAPSULE PO SCH (09:50)
[2018-07-16] MEDS: METOPROLOL TARTRATE 50 MG TABLET PO SCH (09:50)
[2018-07-16] MEDS: HUM INSULIN NPH/REG INSULIN HM 100 UNIT/1 ML 3 ML SUBCUT SCH (09:50)
[2018-07-16] MEDS: RIVASTIGMINE TARTRATE 1.5 MG CAPSULE PO SCH (09:51)
[2018-07-16] MEDS: LACTOBACILLUS ACIDOPHILUS 250 MG TAB PO SCH (09:51)
[2018-07-16] MEDS: CHOLECALCIFEROL (D3) 400 UNIT TABLET PO SCH (09:53)
[2018-07-16 10:39] LABS: HEMATOCRIT 33.4 % (36.0-47.0); HEMOGLOBIN 11.6 g/dL (12.0-15.5); MEAN CORPUSCULAR HEMOGLOBIN 32.3 pg (27.0-33.4); MEAN CORPUSCULAR HGB CONC 34.8 g/dL (32.0-36.0); MEAN CORPUSCULAR VOLUME 93 fl (80-97); PLATELET COUNT 174 10^3/uL (150-450); RED CELL DISTRIBUTION WIDTH 15.5 % (11.5-14.0); WHITE BLOOD COUNT 9.4 10^3/uL (4.0-10.5)
[2018-07-16 12:12] VITALS: BP 150/54
--- NOTE | 2018-07-16 12:28 | PDOC TRANSFER SUMMARY ---
General - Admit/Disc Date/PCP Admission Date/Primary Care Provider: 07/04/18 19:41 GEMA BARNHART Discharge Date: 07/16/18 - Discharge Diagnosis (1) Complicated UTI (urinary tract infection) Is this a current diagnosis for this admission?: Yes (2) Upper GI bleed Is this a current diagnosis for this admission?: Yes (3) Ifnvt-pf-voxzzrn kidney injury Is this a current diagnosis for this admission?: Yes (4) Diabetes Is this a current diagnosis for this admission?: Yes (5) Hyperlipidemia Is this a current diagnosis for this admission?: Yes - Additional Information Resuscitation Status: Full Code Discharge Diet: As Tolerated Prescriptions: Alprazolam [Xanax] 0.5 mg PO Q8HP PRN #20 tablet PRN Reason: FOR ANXIETY Home Medications: Alendronate Sodium [Fosamax 10 mg Tablet] 10 mg PO MOWEFR@1000 12/09/16 Fluoxetine HCl [Prozac 20 mg Capsule] 20 mg PO DAILY 12/09/16 Levothyroxine Sodium [Levo-T] 100 mcg PO DAILY 12/09/16 Memantine HCl [Namenda Xr] 14 mg PO DAILY 12/09/16 Metoprolol Tartrate [Lopressor 50 mg Tablet] 50 mg PO Q12 12/09/16 Omeprazole 40 mg PO BID 12/09/16 Rivastigmine Tartrate [Rivastigmine] 6 mg PO BID 12/09/16 Ropinirole HCl [Requip] 0.5 mg PO HSP PRN 12/09/16 Gabapentin [Neurontin 100 mg Capsule] 200 mg PO Q8 capsule 12/12/16 Insulin Glargine,Hum.rec.anlog [Lantus Insulin 100 Unit/mL] 22 unit SQ QHS 07/05/18 Iron 65 65 mg PO DAILY 07/05/18 Simvastatin 20 mg PO QHS 07/05/18 Vitamin D 25 Mcg 25 mcg PO DAILY 07/05/18 Acetaminophen [Tylenol Soln 325 mg/10.15 ml Udcup] 650 mg PO Q6HP PRN udc 07/16/18 Alprazolam [Xanax] 0.5 mg PO Q8HP PRN #20 tablet 07/16/18 Fluoxetine HCl [Prozac 20 mg Capsule] 20 mg PO DAILY capsule 07/16/18 Lactobacillus Acidophilus [Bacid 250 mg Tablet] 500 mg PO BID tab 07/16/18 Metoprolol Tartrate [Lopressor 50 mg Tablet] 50 mg PO Q12 tablet 07/16/18 Zinc Oxide [Zinc Oxide 20% Ointment 28.35 gm] 1 applic TP PRN PRN tube 07/16/18 History of Present Illness Admission Date/PCP: 07/04/18 19:41 GEMA BARNHART History of Present Illness: THOR PORTER is a 83 year old female with a past medical history of paroxysmal atrial fibrillation, stage III chronic kidney disease, congestive heart failure, coronary artery disease, diabetes, dyslipidemia, osteoarthritis, and constipation predominant irritable bowel syndrome. She presents with a bdominal pain complaining of several days of constipation followed by episodes of explosive diarrhea followed by dysuria. In the emergency room she is found to have fever, atrial fibrillation, pyuria, leukocytosis and metabolic acidosis. She started on IV fluid, insulin and empiric antibiotics and referred to the hospitalist for admission. Patient admits several episodes in the past CT abdomen pelvis reveals constipation but no hip fracture. She denies recent change in medications and otherwise feels well. Hospital Course Hospital Course: 83 y.o. F with a past medical history significant for paroxysmal atrial fibrillation, stage III chronic kidney disease congestive heart failure, coronary artery disease and diabetes. She also has constipation predominant irritable bowel syndrome. The patient presented with abdominal pain following several days of constipation. She had had constipation at home which was treated and she began having bowel movements but began to have explosive diarrhea as well as dysuria. At the time of admission she had evidence of mild DKA (BG > 400 AG 13) which quickly resolved. Urine was growing an ESBL producing E. coli, was placed on Zosyn and completed 10 days of treatment. 1 week into her hospital stay, the patient developed acute anemia, her Hgb dropped to 7.7. Nursing staff reported that the patient had multiple episodes of coffee-ground emesis. She was transfused PRBCs to bring her Hgb up to an ac ceptable range. Additionally, the patient underwent an EGD, which revealed multiple gastric ulcers in the distal esophagus. Patient was treated with twice daily Protonix. Within 48 hours of developing a GI bleed, her symptoms had resolved. We continued to monitor the patient for an additional 48 hours to ensure that her Hgb levels had stabilized. On the day of discharge, the patient's Hgb was 11.6. For further information regarding this patient's hospitalization, please refer to the EMR. Physical Exam Vital Signs: Temp Pulse Resp BP Pulse Ox 98.1 F 65 16 150/54 H 99 07/16/18 11:47 07/16/18 11:47 07/16/18 11:47 07/16/18 11:47 07/16/18 11:47 Intake & Output 07/15/18 07/16/18 07/17/18 06:59 06:59 06:59 Intake Total 1508 2087 0 Output Total 655 1675 225 Balance 853 412 -225 Weight 62.5 kg 62.9 kg General appearance: PRESENT: thin Eye exam: PRESENT: conjunctiva pink, PERRLA Mouth exam: PRESENT: moist, tongue midline Neck exam: PRESENT: full ROM Respiratory exam: PRESENT: clear to auscultation mónica, decreased breath sounds, symmetrical, unlabored Cardiovascular exam: PRESENT: RRR Pulses: PRESENT: normal radial pulses, +1 pedal pulses bilateral GI/Abdominal exam: PRESENT: soft. ABSENT: distended, tenderness Rectal exam: PRESENT: deferred Extremities exam: PRESENT: full ROM. ABSENT: pedal edema Musculoskeletal exam: PRESENT: full ROM. ABSENT: ambulatory Neurological exam: PRESENT: alert, awake, oriented to person, oriented to place. ABSENT: oriented to time, oriented to situation Psychiatric exam: PRESENT: appropriate affect Skin exam: PRESENT: dry, intact, normal color Results Laboratory Results: 07/16/18 10:10 07/15/18 12:20 07/15/18 07/15/18 07/16/18 12:20 12:20 10:10 WBC 10.3 9.4 RBC 3.30 L 3.60 L Hgb 10.7 L 11.6 L Hct 31.2 L 33.4 L MCV 95 93 MCH 32.3 32.3 MCHC 34.1 34.8 RDW 15.9 H 15.5 H Plt Count 156 174 Sodium 137.0 Potassium 3.5 L Chloride 113 H Carbon Dioxide 13 L Anion Gap 11 BUN 29 H Creatinine 2.24 H Est GFR ( Amer) 25 L Est GFR (Non-Af Amer) 21 L Glucose 228 H Calcium 7.9 L Magnesium 1.9 Total Bilirubin 0.4 AST 12 L ALT 18 Alkaline Phosphatase 61 Total Protein 4.9 L Albumin 2.5 L 07/04/18 07/04/18 07/07/18 14:24 14:24 05:14 Creatine Kinase 22 L 179 H CK-MB (CK-2) 0.63 Troponin I 0.038 07/07/18 07/07/18 07/07/18 05:14 13:00 13:00 Creatine Kinase 246 H CK-MB (CK-2) 6.89 H 8.33 H Troponin I 0.042 0.045 07/07/18 07/07/18 21:45 21:45 Creatine Kinase 220 H CK-MB (CK-2) 7.50 H Troponin I 0.062 Impressions: Hip X-Ray 07/04/18 15:06 IMPRESSION: 1. Osteopenia. No radiographic evidence for acute fracture at the pelvis or left hip. 2. Stool ball at the rectum, please correlate for constipation/ fecal impaction. Chest X-Ray 07/04/18 15:08 IMPRESSION: No acute radiographic finding in the chest. KUB X-Ray 07/09/18 00:00 IMPRESSION: NG tube tip in the stomach. Abdomen/Pelvis CT 07/10/18 00:00 IMPRESSION: 1. No evidence of small bowel obstruction or ileus. 2. Moderate-sized hiatal hernia. 3. Fibroid uterus. Acute Abdomen Series 07/12/18 00:00 IMPRESSION: NO RADIOGRAPHIC EVIDENCE FOR ACUTE ABDOMINAL DISEASE. Status: Imported from PACS Transfer Plan - Time Spent with Patient Time spent with patient: Greater than 30 Minutes Qualifiers - * PATIENT BEING DISCHARGED WITH ANY OF THE FOLLOWING DIAGNOSIS: No
== END 2018-07-16 15:00 | DRG 637 ==
LOC: ER 13:55 → EH 19:41 → 3N 07-05 14:42
PROVIDERS: ADMIT Internal Medicine; ATTEND Internal Medicine
PROC: 30233N1 Transfusion of Nonautologous Red Blood Cells into Peripheral Vein, Percutaneous Approach (ICD-10-PCS; principal; 2018-07-13)
PROC: 0DB78ZX Excision of Stomach, Pylorus, Via Natural or Artificial Opening Endoscopic, Diagnostic (ICD-10-PCS; 2018-07-14)
PROC: 0DB38ZX Excision of Lower Esophagus, Via Natural or Artificial Opening Endoscopic, Diagnostic (ICD-10-PCS; 2018-07-14)
PROC: 0DB98ZX Excision of Duodenum, Via Natural or Artificial Opening Endoscopic, Diagnostic (ICD-10-PCS; 2018-07-14 13:45)
DX: E11.10 Type 2 diabetes mellitus with ketoacidosis without coma (principal); K22.11 Ulcer of esophagus with bleeding; N17.9 Acute kidney failure, unspecified; K56.7 Ileus, unspecified; I13.0 Hypertensive heart and chronic kidney disease with heart failure and stage 1 through stage 4 chronic kidney disease, or unspecified chronic kidney disease; N30.00 Acute cystitis without hematuria; G93.40 Encephalopathy, unspecified; I50.32 Chronic diastolic (congestive) heart failure; E46 Unspecified protein-calorie malnutrition; Z68.1 Body mass index [BMI] 19.9 or less, adult; Z78.1 Physical restraint status; B96.20 Unspecified Escherichia coli [E. coli] as the cause of diseases classified elsewhere; E78.5 Hyperlipidemia, unspecified; F41.9 Anxiety disorder, unspecified; N18.3 Chronic kidney disease, stage 3 (moderate); E11.22 Type 2 diabetes mellitus with diabetic chronic kidney disease; I25.10 Atherosclerotic heart disease of native coronary artery without angina pectoris; M19.90 Unspecified osteoarthritis, unspecified site; K58.1 Irritable bowel syndrome with constipation; D63.1 Anemia in chronic kidney disease; I48.0 Paroxysmal atrial fibrillation; K44.9 Diaphragmatic hernia without obstruction or gangrene; K21.0 Gastro-esophageal reflux disease with esophagitis; M25.552 Pain in left hip; K29.70 Gastritis, unspecified, without bleeding; K29.80 Duodenitis without bleeding; I16.0 Hypertensive urgency; E83.42 Hypomagnesemia; E86.0 Dehydration; E87.6 Hypokalemia; Z79.4 Long term (current) use of insulin; Z79.1 Long term (current) use of non-steroidal anti-inflammatories (NSAID); Z79.899 Other long term (current) drug therapy; Z82.49 Family history of ischemic heart disease and other diseases of the circulatory system; Z83.3 Family history of diabetes mellitus; Z88.8 Allergy status to other drugs, medicaments and biological substances; Z91.018 Allergy to other foods
CPT/HCPCS: 00731; 36415; 36430; 43239; 43255; 51701; 51702; 71045; 74018; 74022; 74176; 80048; 80053; 81001; 82550; 82553; 82803; 82962; 83605; 83690; 83735; 83930; 84100; 84443; 84484; 85025; 85027; 85610; 85730; 86850; 86900; 86901; 86920; 87040; 87077; 87086; 87088; 87186; 87493; 88305; 88312; 93005; 93010; 96360; 96361; 99285; J0360; J0696; J1644; J1815; J1940; J2270; J2405; J2543; J2704; J3475; J3480; J3490; J7030; P9016; S0164

== ENCOUNTER → 2018-09-30 | Outpatient (CLI) | payer MEDICARE, OTHER ==
[2018-09-30 14:38] LABS: HEMATOCRIT 29.7 % (36.0-47.0); MEAN CORPUSCULAR HEMOGLOBIN 33.2 pg (27.0-33.4); MEAN CORPUSCULAR HGB CONC 33.7 g/dL (32.0-36.0); MEAN CORPUSCULAR VOLUME 99 fl (80-97); PLATELET COUNT 269 10^3/uL (150-450); RED CELL DISTRIBUTION WIDTH 14.6 % (11.5-14.0); WHITE BLOOD COUNT 8.4 10^3/uL (4.0-10.5)
[2018-09-30 15:01] LABS: ALANINE AMINOTRANSFERASE 13 U/L (9-52); ALBUMIN 3.6 g/dL (3.5-5.0); ALKALINE PHOSPHATASE 124 U/L (38-126); ANION GAP 15 (5-19); ASPARTATE AMINO TRANSFERASE 21 U/L (14-36); BILIRUBIN,DIRECT 0.3 mg/dL (0.0-0.4); BILIRUBIN,TOTAL 0.3 mg/dL (0.2-1.3); BLOOD UREA NITROGEN 48 mg/dL (7-20); CALCIUM 7.7 mg/dL (8.4-10.2); CARBON DIOXIDE 19 mmol/L (22-30); CHLORIDE 103 mmol/L (98-107); GLUCOSE 209 mg/dL (75-110); POTASSIUM 5.2 mmol/L (3.6-5.0); SODIUM 136.8 mmol/L (137-145); TOTAL PROTEIN 6.5 g/dL (6.3-8.2)
== END ==
LOC: OD 13:18
PROVIDERS: ATTEND Internal Medicine Gastroenterology
DX: R19.7 Diarrhea, unspecified (principal)
CPT/HCPCS: 36415; 80048; 80076; 85027

== ENCOUNTER 2018-11-01 02:08 | Inpatient (IN) | payer MEDICARE, OTHER ==
[2018-11-01] MEDS ORDERED: NORMAL SALINE 1000 ML 1,000 ML IV ONE (02:21)
[2018-11-01] MEDS ORDERED: PANTOPRAZOLE SODIUM 40 MG VIAL IV ONE (02:21)
[2018-11-01] MEDS ORDERED: ONDANSETRON HCL INJ/PF 4 MG/2 ML SDV IV ONE (02:21)
--- NOTE | 2018-11-01 02:25 | ER Document Report ---
ED General - General Stated Complaint: NAUSEA Time Seen by Provider: 11/01/18 02:14 Primary Care Provider: DONALD GOLD MD [Primary Care Provider] - Follow up as needed Notes: Patient is a 83-year-old female presents with complaint of vomiting that started yesterday. There is some report that there may be some blood in emesis. Patient cannot tell me for sure. She denies abdominal pain. She complains of some aches into her lower extremities. Blood sugars have been running high. She is cared for by her daughter at home. Patient is unsure when her last dose of insulin was. Daughter is not currently here at this time to ask about recent insulin dosages. Patient arrives with a large amount of stool in her diaper. I did guaiac test this and it was guaiac positive. Patient denies any fevers. She does have previous history of DKA as well as upper GI bleed in June when she was admitted here previously. No other complaints at this time. TRAVEL OUTSIDE OF THE [place] IN LAST 30 DAYS: No - Related Data Allergies/Adverse Reactions: promethazine HCl [From Phenergan] Allergy (Severe, Verified 01/09/15 15:40) severe leg pain baclofen [Baclofen] Allergy (Mild, Verified 01/09/15 15:40) Hives,hallucinate Beef Containing Products Adverse Reaction (Severe, Verified 08/02/15 14:20) GI upset Past Medical History - Social History Smoking Status: Unknown if Ever Smoked Frequency of alcohol use: None Drug Abuse: None Family History: CAD, DM - Past Medical History Cardiac Medical History: Reports: Hx Atrial Fibrillation, Hx Congestive Heart Failure, Hx Coronary Artery Disease, Hx Hypercholesterolemia, Hx Hypertension Denies: Hx Heart Attack Pulmonary Medical History: Reports: Hx Pneumonia - Hx of septic shock Denies: Hx Asthma, Hx Bronchitis, Hx COPD Neurological Medical History: Denies: Hx Cerebrovascular Accident, Hx Seizures Endocrine Medical History: Reports: Hx Diabetes Mellitus Type 1, Hx Diabetes Mellitus Type 2 Renal/ Medical History: Reports: Hx End Stage Renal Disease - stage 3. Denies: Hx Peritoneal Dialysis Musculoskeletal Medical History: Reports Hx Arthritis Psychiatric Medical History: Reports: Hx Depression Past Surgical History: Reports: Hx Abdominal Surgery - hernia, Hx Appendectomy. Denies: Hx Hysterectomy, Hx Pacemaker - Immunizations Hx Diphtheria, Pertussis, Tetanus Vaccination: No Hx Pneumococcal Vaccination: 01/25/13 Review of Systems - Review of Systems Notes: My Normal Review Basic REVIEW OF SYSTEMS: CONSTITUTIONAL : Denies fever, chills, or sweats. Denies recent illness CARDIOVASCULAR: Denies chest pain. RESPIRATORY: Denies cough, cold, or chest congestion. Denies shortness of breath, difficulty breathing, or wheezing. GASTROINTESTINAL: Denies abdominal pain. Vomiting. Dark stool. GENITOURINARY: Denies difficulty urinating, painful urination, burning, frequency, or blood in urine. MUSCULOSKELETAL: Denies neck or back pain or joint pain or swelling. SKIN: Denies rash or skin lesions. HEMATOLOGIC : Denies easy bruising or bleeding. NEUROLOGICAL: Denies altered mental status or loss of consciousness. Denies headache. Denies weakness or paralysis or loss of use of either side. Denies problems with gait or speech. Denies sensory or motor loss. ALL OTHER SYSTEMS REVIEWED AND NEGATIVE. Physical Exam - Vital signs Vitals: Resp Pulse Ox 15 94 11/01/18 02:24 11/01/18 02:24 - Notes Notes: General Appearance: Well nourished, alert, cooperative, no acute distress, no ob vious discomfort. Vitals: reviewed, See vital signs table. Head: no swelling or tenderness to the head Eyes: PERRL, EOMI, Conjuctiva clear Mouth: No decreasd moisture Lungs: No wheezing, No rales, No rhonci, No accessory muscle use, good air exchange bilaterally. Heart: Normal rate, Regular rythm, No murmur, no rub Abdomen: Normal BS, soft, No rigidity, No abdominal tenderness, No guarding, no rebound, no abdominal masses, no organomegaly Rectal exam: Dark stool which is guaiac positive. No rectal masses or hemorrhoids. Extremities: strength 5/5 in all extremities, good pulses in all extremities, no swelling or tenderness in the extremities, no edema. Skin: warm, dry, appropriate color, no rash Neuro: speech clear, oriented x 3, normal affect, responds appropriately to questions. Metric facial movement. Patient is able to move all 4 extremities on her own. No focal neurologic deficits on exam. Course - Re-evaluation Re-evalutation: 11/01/18 04:53 Patient does have hyperglycemia but no evidence of DKA. I have ordered subcutaneous insulin for her. Blood pressures been running pretty high. Have ordered 10 milligrams of hydralazine. She does have evidence of upper GI bleeding and that she was vomiting some blood at home and here she has guaiac positive stools. Her previous endoscopy in June did show the esophageal ulcers. They did give a dose of Protonix. I will start her on Protonix drip. I did discuss case with Dr. Cabrera who agrees to evaluate the patient for admission. Dictation of this chart was performed using voice recognition software; therefore, there may be some unintended grammatical errors. - Vital Signs Vital signs: Temp Pulse Resp BP Pulse Ox 98.0 F 16 205/91 H 96 11/01/18 03:10 11/01/18 04:11 11/01/18 04:11 11/01/18 04:11 - Laboratory Result Diagrams: 11/01/18 02:31 11/01/18 02:31 Laboratory results interpreted by me: 11/01/18 11/01/18 02:31 02:31 WBC 11.8 H RBC 2.90 L Hgb 9.5 L Hct 29.1 L MCV 101 H Seg Neutrophils % 86.5 H Lymphocytes % 9.6 L Absolute Neutrophils 10.2 H Sodium 135.3 L BUN 65 H Creatinine 2.98 H Est GFR ( Amer) 18 L Est GFR (Non-Af Amer) 15 L Glucose 558 H* Albumin 3.4 L - EKG Interpretation by Me Additional EKG results interpreted by me: 11/01/18 02:39 EKG is reviewed and interpreted by me. EKG shows sinus rhythm with a rate of [address] segment elevation or depression. No ischemic T wave inversions. MS interval, QRS duration are within normal range. QTc interval is prolonged. Old EKG for comparison is from July 13, 2018. Discharge - Discharge Clinical Impression: Upper GI bleed, Hyperglycemia Hypertension Qualifiers: Hypertension type: unspecified Qualified Code(s): I10 - Essential (primary) hypertension Condition: Stable Disposition: ADMITTED INPATIENT Admitting Provider: Rick (Hospitalist) Unit Admitted: ICU Referrals: DONALD GOLD MD [Primary Care Provider] - Follow up as needed
[2018-11-01 02:49] LABS: VENOUS BLOOD BASE EXCESS -1.3 mmol/L; VENOUS BLOOD HCO3 24.4 mmol/L (20-32); VENOUS BLOOD PH 7.35 (7.30-7.42)
[2018-11-01 02:52] LABS: ABSOLUTE BASOPHILS # (AUTO) 0.1 10^3/uL (0.0-0.2); ABSOLUTE LYMPHOCYTES (AUTO) 1.1 10^3/uL (0.5-4.7); ABSOLUTE MONOCYTES (AUTO) 0.4 10^3/uL (0.1-1.4); ABSOLUTE NEUT (AUTO) 10.2 10^3/uL (1.7-8.2); BASOPHILS % (AUTO) 0.6 % (0-2); HEMATOCRIT 29.1 % (36.0-47.0); HEMOGLOBIN 9.5 g/dL (12.0-15.5); LYMPHOCYTES % (AUTO) 9.6 % (13-45); MEAN CORPUSCULAR HEMOGLOBIN 32.9 pg (27.0-33.4); MEAN CORPUSCULAR HGB CONC 32.7 g/dL (32.0-36.0); MEAN CORPUSCULAR VOLUME 101 fl (80-97); MONOCYTES % (AUTO) 3.3 % (3-13); PLATELET COUNT 202 10^3/uL (150-450); RED CELL DISTRIBUTION WIDTH 13.3 % (11.5-14.0); SEGMENTED NEUTROPHILS % (AUTO) 86.5 % (42-78); TOTAL CELLS COUNTED % (AUTO) 100 %; WHITE BLOOD COUNT 11.8 10^3/uL (4.0-10.5)
[2018-11-01 02:56] LABS: INTERNATIONAL RATION (INR) 1.09; PROTHROMBIN TIME 14.1 SEC (11.4-15.4)
[2018-11-01 02:57] LABS: PARTIAL THROMBOPLASTIN TIME 26.2 SEC (23.5-35.8)
[2018-11-01 03:10] LABS: ALANINE AMINOTRANSFERASE 16 U/L (9-52); ALBUMIN 3.4 g/dL (3.5-5.0); ALKALINE PHOSPHATASE 116 U/L (38-126); ANION GAP 11 (5-19); ASPARTATE AMINO TRANSFERASE 18 U/L (14-36); BILIRUBIN,DIRECT 0.3 mg/dL (0.0-0.4); BILIRUBIN,TOTAL 0.4 mg/dL (0.2-1.3); BLOOD UREA NITROGEN 65 mg/dL (7-20); CALCIUM 8.8 mg/dL (8.4-10.2); CARBON DIOXIDE 24 mmol/L (22-30); CHLORIDE 100 mmol/L (98-107); POTASSIUM 4.8 mmol/L (3.6-5.0); SODIUM 135.3 mmol/L (137-145); TOTAL PROTEIN 6.3 g/dL (6.3-8.2)
[2018-11-01 03:23] LABS: GLUCOSE 558 mg/dL (75-110)
[2018-11-01] MEDS ORDERED: INSULIN REG, HUMAN 100 UNIT/ML 3 ML VIAL (PYX) SUBCUT ONE (04:45)
[2018-11-01] MEDS ORDERED: PANTOPRAZOLE SODIUM 40 MG VIAL IV PRN (04:50)
[2018-11-01] MEDS ORDERED: HYDRALAZINE HCL INJ/PF 20 MG/1 ML SDV IV ONE (04:52)
[2018-11-01] MEDS ORDERED: DEXTROSE 50%-WATER 25 GM/50 ML DISP.SYRIN IV PRN ×2 (04:53)
[2018-11-01] MEDS ORDERED: ONDANSETRON HCL INJ/PF 4 MG/2 ML SDV IV PRN (04:53)
[2018-11-01] MEDS ORDERED: GLUCAGON,HUMAN RECOMB 1 MG INJ IM PRN (04:53)
[2018-11-01] MEDS ORDERED: DEXTROSE 40% GEL 15 GM TUBE PO PRN ×2 (04:53)
[2018-11-01] MEDS: INSULIN LISPRO 100 UNIT/ML 3 ML VIAL SUBCUT SCH ×3 (05:14→18:30)
--- NOTE | 2018-11-01 05:23 | PDOC H&P ---
History of Present Illness Admission Date/PCP: DONALD GOLD MD Patient complains of: Vomiting blood History of Present Illness: THOR PORTER is a 83 year old female with a past medical history of diabetes, paroxysmal atrial fibrillation, stage IV CKD, congestive heart failure, coronary artery disease, dyslipidemia, osteoarthritis, constipation predominant irritable bowel and upper GI bleed June 2018 with biopsy negative distal esophageal ulcers and gastritis complicated by NSAID use and hiatal hernia. She presents with 24 hours of hematemesis prompting evaluation in the emergency room where she is found to have dried blood around the mouth, Hemo ccult positive stool and blood loss anemia. Past Medical History Cardiac Medical History: Reports: Atrial Fibrillation, Congestive Heart Failure, Coronary Artery Disease, Hyperlipidema, Hypertension Denies: Myocardial Infarction Pulmonary Medical History: Reports: Pneumonia - Hx of septic shock Denies: Asthma, Bronchitis, Chronic Obstructive Pulmonary Disease (COPD) Neurological Medical History: Denies: Seizures Endocrine Medical History: Reports: Diabetes Mellitus Type 1, Diabetes Mellitus Type 2 Renal/ Medical History: Reports: End Stage Renal Disease - stage 3 Musculoskeltal Medical History: Reports: Arthritis Psychiatric Medical History: Reports: Depression Hematology: Reports: Anemia - chronic dz Past Surgical History Past Surgical History: Reports: Appendectomy Denies: Hysterectomy, Pacemaker Social History Smoking Status: Unknown if Ever Smoked Frequency of Alcohol Use: None Hx Recreational Drug Use: No Drugs: None Hx Prescription Drug Abuse: No Family History Family History: CAD, DM Parental Family History Reviewed: Yes Children Family History Reviewed: Yes Sibling(s) Family History Reviewed.: Yes Medication/Allergy Home Medications: Alendronate Sodium [Fosamax 10 mg Tablet] 10 mg PO MOWEFR@1000 12/09/16 Fluoxetine HCl [Prozac 20 mg Capsule] 20 mg PO DAILY 12/09/16 Levothyroxine Sodium [Levo-T] 100 mcg PO DAILY 12/09/16 Memantine HCl [Namenda Xr] 14 mg PO DAILY 12/09/16 Metoprolol Tartrate [Lopressor 50 mg Tablet] 50 mg PO Q12 12/09/16 Omeprazole 40 mg PO BID 12/09/16 Rivastigmine Tartrate [Rivastigmine] 6 mg PO BID 12/09/16 Ropinirole HCl [Requip] 0.5 mg PO HSP PRN 12/09/16 Gabapentin [Neurontin 100 mg Capsule] 200 mg PO Q8 capsule 12/12/16 Insulin Glargine,Hum.rec.anlog [Lantus Insulin 100 Unit/mL Insulin Pen] 22 unit SQ QHS 07/05/18 Iron 65 65 mg PO DAILY 07/05/18 Simvastatin 20 mg PO QHS 07/05/18 Vitamin D 25 Mcg 25 mcg PO DAILY 07/05/18 Acetaminophen [Tylenol Soln 325 mg/10.15 ml Udcup] 650 mg PO Q6HP PRN udc 07/16/18 Alprazolam [Xanax] 0.5 mg PO Q8HP PRN #20 tablet 07/16/18 Fluoxetine HCl [Prozac 20 mg Capsule] 20 mg PO DAILY capsule 07/16/18 Lactobacillus Acidophilus [Bacid 250 mg Tablet] 500 mg PO BID tab 07/16/18 Metoprolol Tartrate [Lopressor 50 mg Tablet] 50 mg PO Q12 tablet 07/16/18 Zinc Oxide [Zinc Oxide 20% Ointment 28.35 gm] 1 applic TP PRN PRN tube 07/16/18 Allergies/Adverse Reactions: promethazine HCl [From Phenergan] Allergy (Severe, Verified 01/09/15 15:40) severe leg pain baclofen [Baclofen] Allergy (Mild, Verified 01/09/15 15:40) Hives,hallucinate Beef Containing Products Adverse Reaction (Severe, Verified 08/02/15 14:20) GI upset Review of Systems Constitutional: ABSENT: chills, fever(s), headache(s), weight gain, weight loss Eyes: ABSENT: visual disturbances Ears: ABSENT: hearing changes Cardiovascular: ABSENT: chest pain, dyspnea on exertion, edema, orthropnea, palpitations Respiratory: ABSENT: cough, hemoptysis Gastrointestinal: ABSENT: abdominal pain, constipation, diarrhea, hematemesis, hematochezia, nausea, vomiting Genitourinary: ABSENT: dysuria, hematuria Musculoskeletal: ABSENT: joint swelling Integumentary: ABSENT: rash, wounds Neurological: ABSENT: abnormal gait, abnormal speech, confusion, dizziness, focal weakness, syncope Psychiatric: ABSENT: anxiety, depression, homidical ideation, suicidal ideation Endocrine: ABSENT: cold intolerance, heat intolerance, polydipsia, polyuria Hematologic/Lymphatic: ABSENT: easy bleeding, easy bruising Physical Exam Vital Signs: Temp Pulse Resp BP Pulse Ox 98.0 F 16 205/91 H 96 11/01/18 03:10 11/01/18 04:11 11/01/18 04:11 11/01/18 04:11 Intake & Output 10/30/18 10/31/18 11/01/18 11:59 11:59 11:59 Intake Total 1000 Balance 1000 General appearance: PRESENT: no acute distress, well-developed, well-nourished Head exam: PRESENT: atraumatic, normocephalic Eye exam: PRESENT: conjunctiva pink, EOMI, PERRLA. ABSENT: scleral icterus Ear exam: PRESENT: normal external ear exam Mouth exam: PRESENT: moist, tongue midline Neck exam: ABSENT: carotid bruit, JVD, lymphadenopathy, thyromegaly Respiratory exam: PRESENT: clear to auscultation mónica. ABSENT: rales, rhonchi, wheezes Cardiovascular exam: PRESENT: RRR. ABSENT: diastolic murmur, rubs, systolic murmur Pulses: PRESENT: normal dorsalis pedis pul Vascular exam: PRESENT: normal capillary refill GI/Abdominal exam: PRESENT: hyperactive bowel sounds, normal bowel sounds, soft, tenderness - Epigastric. ABSENT: distended, guarding, mass, organolmegaly, rebound Rectal exam: PRESENT: deferred Extremities exam: PRESENT: full ROM. ABSENT: calf tenderness, clubbing, pedal edema Neurological exam: PRESENT: alert, awake, oriented to person, oriented to place, oriented to time, oriented to situation, CN II-XII grossly intact. ABSENT: motor sensory deficit Psychiatric exam: PRESENT: appropriate affect, normal mood. ABSENT: homicidal ideation, suicidal ideation Skin exam: PRESENT: dry, intact, warm. ABSENT: cyanosis, rash Results Laboratory Results: 11/01/18 02:31 11/01/18 02:31 11/01/18 11/01/18 11/01/18 02:31 02:31 02:31 WBC 11.8 H RBC 2.90 L Hgb 9.5 L Hct 29.1 L MCV 101 H MCH 32.9 MCHC 32.7 RDW 13.3 Plt Count 202 Seg Neutrophils % 86.5 H Lymphocytes % 9.6 L Monocytes % 3.3 Eosinophils % 0.0 Basophils % 0.6 Absolute Neutrophils 10.2 H Absolute Lymphocytes 1.1 Absolute Monocytes 0.4 Absolute Eosinophils 0.0 Absolute Basophils 0.1 VBG pH 7.35 VBG pCO2 45.0 VBG HCO3 24.4 VBG Base Excess -1.3 Sodium 135.3 L Potassium 4.8 Chloride 100 Carbon Dioxide 24 Anion Gap 11 BUN 65 H Creatinine 2.98 H Est GFR ( Amer) 18 L Est GFR (Non-Af Amer) 15 L Glucose 558 H* Calcium 8.8 Total Bilirubin 0.4 AST 18 ALT 16 Alkaline Phosphatase 116 Total Protein 6.3 Albumin 3.4 L Blood Type Antibody Screen 11/01/18 02:49 WBC RBC Hgb Hct MCV MCH MCHC RDW Plt Count Seg Neutrophils % Lymphocytes % Monocytes % Eosinophils % Basophils % Absolute Neutrophils Absolute Lymphocytes Absolute Monocytes Absolute Eosinophils Absolute Basophils VBG pH VBG pCO2 VBG HCO3 VBG Base Excess Sodium Potassium Chloride Carbon Dioxide Anion Gap BUN Creatinine Est GFR ( Amer) Est GFR (Non-Af Amer) Glucose Calcium Total Bilirubin AST ALT Alkaline Phosphatase Total Protein Albumin Blood Type O POSITIVE Antibody Screen NEGATIVE Assessment and Plan - Diagnosis (1) Upper GI bleed Is this a current diagnosis for this admission?: Yes Plan: History of biopsy negative, gastritis and distal esophageal ulcer, complicated by NSAID use, proton pump inhibitor initiated, serial CBC, transfuse hemoglobin less than 8. Follow-up surgical consult (2) Kidney disease, chronic, stage IV (GFR 15-29 ml/min) Is this a current diagnosis for this admission?: Yes Plan: Avoid nephrotoxic meds and doses, somewhat prerenal at present. Receiving IV fluid challenge, follow-up chemistry (3) Hyperglycemia Is this a current diagnosis for this admission?: Yes Plan: Humalog every 6 hours (4) Hypertension Qualifiers: Hypertension type: unspecified Qualified Code(s): I10 - Essential (primary) hypertension Is this a current diagnosis for this admission?: Yes Plan: Hydralazine as needed (5) Acute blood loss anemia Is this a current diagnosis for this admission?: Yes Plan: Secondary to #1, transfuse hemoglobin less than 8 for active bleed. - Time Time Spent with patient: 35 or more minutes - Inpatient Certification Medical Necessity: Need Close Monitoring Due to Risk of Patient Decompensation
[2018-11-01 06:46] LABS: ABSOLUTE LYMPHOCYTES (AUTO) 1.8 10^3/uL (0.5-4.7); ABSOLUTE MONOCYTES (AUTO) 0.5 10^3/uL (0.1-1.4); ABSOLUTE NEUT (AUTO) 9.9 10^3/uL (1.7-8.2); BASOPHILS % (AUTO) 0.4 % (0-2); HEMATOCRIT 30.4 % (36.0-47.0); LYMPHOCYTES % (AUTO) 14.4 % (13-45); MEAN CORPUSCULAR HEMOGLOBIN 32.8 pg (27.0-33.4); MEAN CORPUSCULAR VOLUME 99 fl (80-97); MONOCYTES % (AUTO) 4.2 % (3-13); PLATELET COUNT 217 10^3/uL (150-450); RED BLOOD COUNT 3.06 10^6/uL (3.72-5.28); RED CELL DISTRIBUTION WIDTH 13.3 % (11.5-14.0); TOTAL CELLS COUNTED % (AUTO) 100 %; WHITE BLOOD COUNT 12.2 10^3/uL (4.0-10.5)
[2018-11-01] MEDS: NORMAL SALINE 1000 ML 1,000 ML IV PRN ×2 (06:56→10:18)
--- NOTE | 2018-11-01 06:56 | EKG REPORT ---
SEVERITY:- ABNORMAL ECG - SINUS RHYTHM LEFT AXIS DEVIATION LEFT VENTRICULAR HYPERTROPHY PROLONGED QT INTERVAL : Confirmed by: oY Pollard 01-Nov-2018 06:56:02
--- NOTE | 2018-11-01 11:03 | PDOC CONSULTATION ---
Consultation Consult Date: 11/01/18 Attending physician:: nicolette Provider Consulted: JOSE SARAVIA Consult reason:: GI bleed History of Present Illness Admission Date/PCP: 11/01/18 05:08 DONALD GOLD MD Patient complains of: Weakness History of Present Illness: THOR PORTER is a 83 year old female Admitted to the emergency department via ground rescue, the hospitalist service for weakness, and coughing up blood. She was found to have a hemoglobin of 10.0. She has a history of peptic ulcer disease, last scoped June [address] Gold with findings of superficial ulceration. Patient is politely confused, and therefore poor historian. There are no family members to corroborate her history. She was admitted to the intensive care unit because of unavailability of beds on the floor. She remains hemodynamically stable, and n.p.o. Past Medical History Cardiac Medical History: Reports: Atrial Fibrillation, Congestive Heart Failure, Coronary Artery Disease, Hyperlipidema, Hypertension Denies: Myocardial Infarction Pulmonary Medical History: Reports: Pneumonia - Hx of septic shock Denies: Asthma, Bronchitis, Chronic Obstructive Pulmonary Disease (COPD) Neurological Medical History: Denies: Seizures Endocrine Medical History: Reports: Diabetes Mellitus Type 1, Diabetes Mellitus Type 2 Renal/ Medical History: Reports: End Stage Renal Disease - stage 3 Musculoskeltal Medical History: Reports: Arthritis Psychiatric Medical History: Reports: Depression Hematology: Reports: Anemia - chronic dz Past Surgical History Past Surgical History: Reports: Appendectomy Denies: Hysterectomy, Pacemaker Social History Smoking Status: Unknown if Ever Smoked Frequency of Alcohol Use: None Hx Recreational Drug Use: No Drugs: None Hx Prescription Drug Abuse: No - Advance Directive Resuscitation Status: Full Code Family History Family History: None, CAD, DM Parental Family History Reviewed: No Children Family History Reviewed: No Sibling(s) Family History Reviewed.: No Medication/Allergy Home Medications: Levothyroxine Sodium [Levo-T] 100 mcg PO Q6M 12/09/16 Ropinirole HCl [Requip] 0.5 mg PO HSP PRN 12/09/16 Gabapentin [Neurontin 100 mg Capsule] 200 mg PO Q8 capsule 12/12/16 Insulin Glargine,Hum.rec.anlog [Lantus Insulin 100 Unit/mL Insulin Pen] 0 unit SQ .SLIDING SCALE MDD 22 UNITS 07/05/18 Simvastatin 20 mg PO QHS 07/05/18 Alprazolam [Xanax] 0.5 mg PO Q8HP PRN #20 tablet 07/16/18 Metoprolol Tartrate [Lopressor 50 mg Tablet] 50 mg PO Q12 tablet 07/16/18 Acetaminophen [Pain Relief Extra Strength] 1,000 mg PO DAILYP PRN 11/01/18 Albuterol Sulfate [Albuterol Sulfate Hfa] 1 puff IH Q4HP PRN 11/01/18 Fluoxetine HCl 40 mg PO DAILY 11/01/18 Fluticasone/Umeclidin/Vilanter [Trelegy 100-62.5-25 Mcg Ellipta 14 Dose/Dpi] 1 puff IH DAILY 11/01/18 Hydrocodone/Acetaminophen [[place] 7.5-325 mg Tablet] 1 tab PO Q12 11/01/18 Memantine HCl [Memantine HCl ER] 14 mg PO DAILY 11/01/18 Rivastigmine Tartrate [Rivastigmine] 6 mg PO Q12 11/01/18 Allergies/Adverse Reactions: promethazine HCl [From Phenergan] Allergy (Severe, Verified 01/09/15 15:40) severe leg pain baclofen [Baclofen] Allergy (Mild, Verified 01/09/15 15:40) Hives,hallucinate Beef Containing Products Adverse Reaction (Severe, Verified 08/02/15 14:20) GI upset Review of Systems ROS unobtainable: Due to mental status Physical Exam Vital Signs: Temp Pulse Resp BP Pulse Ox 98.6 F 70 14 149/67 H 98 11/01/18 10:00 11/01/18 10:00 11/01/18 10:16 11/01/18 10:16 11/01/18 10:16 Intake & Output 10/31/18 11/01/18 11/02/18 06:59 06:59 06:59 Intake Total 1000 842 Balance 1000 842 Weight 58.2 kg General appearance: PRESENT: other - Sleepy, no acute distress Head exam: PRESENT: normocephalic Eye exam: PRESENT: other - No icterus Teeth exam: PRESENT: poor dentation Respiratory exam: PRESENT: clear to auscultation mónica Cardiovascular exam: PRESENT: RRR Pulses: PRESENT: normal carotid pulses, normal radial pulses GI/Abdominal exam: PRESENT: soft - Soft, nontender no peritoneal signs no rigidity., other Musculoskeletal exam: PRESENT: other - Bed rest Neurological exam: PRESENT: other - Patient oriented to place. Psychiatric exam: PRESENT: appropriate affect Results Laboratory Results: 11/01/18 06:37 11/01/18 02:31 11/01/18 11/01/18 11/01/18 02:31 02:31 02:31 WBC 11.8 H RBC 2.90 L Hgb 9.5 L Hct 29.1 L MCV 101 H MCH 32.9 MCHC 32.7 RDW 13.3 Plt Count 202 Seg Neutrophils % 86.5 H Lymphocytes % 9.6 L Monocytes % 3.3 Eosinophils % 0.0 Basophils % 0.6 Absolute Neutrophils 10.2 H Absolute Lymphocytes 1.1 Absolute Monocytes 0.4 Absolute Eosinophils 0.0 Absolute Basophils 0.1 VBG pH 7.35 VBG pCO2 45.0 VBG HCO3 24.4 VBG Base Excess -1.3 Sodium 135.3 L Potassium 4.8 Chloride 100 Carbon Dioxide 24 Anion Gap 11 BUN 65 H Creatinine 2.98 H Est GFR ( Amer) 18 L Est GFR (Non-Af Amer) 15 L Glucose 558 H* Calcium 8.8 Total Bilirubin 0.4 AST 18 ALT 16 Alkaline Phosphatase 116 Total Protein 6.3 Albumin 3.4 L Blood Type Antibody Screen 11/01/18 11/01/18 02:49 06:37 WBC 12.2 H RBC 3.06 L Hgb 10.0 L Hct 30.4 L MCV 99 H MCH 32.8 MCHC 33.0 RDW 13.3 Plt Count 217 Seg Neutrophils % 81.0 H Lymphocytes % 14.4 Monocytes % 4.2 Eosinophils % 0.0 Basophils % 0.4 Absolute Neutrophils 9.9 H Absolute Lymphocytes 1.8 Absolute Monocytes 0.5 Absolute Eosinophils 0.0 Absolute Basophils 0.0 VBG pH VBG pCO2 VBG HCO3 VBG Base Excess Sodium Potassium Chloride Carbon Dioxide Anion Gap BUN Creatinine Est GFR ( Amer) Est GFR (Non-Af Amer) Glucose Calcium Total Bilirubin AST ALT Alkaline Phosphatase Total Protein Albumin Blood Type O POSITIVE Antibody Screen NEGATIVE Assessment & Plan - Diagnosis (1) Upper GI bleed Is this a current diagnosis for this admission?: Yes Plan: Impression: Acute upper GI bleed in patient with known history of peptic ulcer disease, chronic anemia; hemodynamically stable. Recommendations: 1. Agree with supportive therapy 2. We will set patient up for upper endoscopy, possible biopsy possible therapeutic intervention, today, in the ICU, Dr. Saravia. Coagulation parameters have been checked and they are within normal limits. (2) Kidney disease, chronic, stage IV (GFR 15-29 ml/min) Is this a current diagnosis for this admission?: Yes (3) Anemia Is this a current diagnosis for this admission?: Yes (4) Coronary artery disease Is this a current diagnosis for this admission?: Yes (5) Diabetes Is this a current diagnosis for this admission?: Yes
--- NOTE | 2018-11-01 12:26 | Progress Note ---
Provider Note Provider Note: This is a 3 years old female patient with past medical history of atrial fibrillation, CHF, coronary artery disease, stage IV CKD, dyslipidemia, diabetes mellitus, history of GI bleeding and dementia brought with chief complaint of hematemesis. Of note patient had had upper GI bleeding in June of this year when Dr. Sanabria did upper endoscopy and he found gastritis and distal esophageal ulcer most probably induced by nonsteroidal anti-inflammatory drugs and alendronate. I talked to her daughter who agreed to proceed with upper endoscopy procedure. Patient seen and evaluated by Dr. Saravia who scheduled her for endoscopy today. Except this patient and I will be her primary attending.
[2018-11-01 14:02] LABS: ABSOLUTE BASOPHILS # (AUTO) 0.1 10^3/uL (0.0-0.2); ABSOLUTE LYMPHOCYTES (AUTO) 2.3 10^3/uL (0.5-4.7); ABSOLUTE MONOCYTES (AUTO) 1.2 10^3/uL (0.1-1.4); ABSOLUTE NEUT (AUTO) 6.3 10^3/uL (1.7-8.2); BASOPHILS % (AUTO) 0.6 % (0-2); EOSINOPHILS % (AUTO) 0.3 % (0-6); HEMATOCRIT 27.5 % (36.0-47.0); HEMOGLOBIN 9.3 g/dL (12.0-15.5); LYMPHOCYTES % (AUTO) 23.3 % (13-45); MEAN CORPUSCULAR HEMOGLOBIN 33.5 pg (27.0-33.4); MEAN CORPUSCULAR HGB CONC 33.9 g/dL (32.0-36.0); MEAN CORPUSCULAR VOLUME 99 fl (80-97); MONOCYTES % (AUTO) 12.2 % (3-13); PLATELET COUNT 203 10^3/uL (150-450); RED BLOOD COUNT 2.78 10^6/uL (3.72-5.28); RED CELL DISTRIBUTION WIDTH 13.1 % (11.5-14.0); SEGMENTED NEUTROPHILS % (AUTO) 63.6 % (42-78); TOTAL CELLS COUNTED % (AUTO) 100 %; WHITE BLOOD COUNT 9.9 10^3/uL (4.0-10.5)
[2018-11-01] MEDS ORDERED: ONDANSETRON HCL INJ/PF 4 MG/2 ML SDV ONE (14:57)
[2018-11-01] MEDS ORDERED: DIPHENHYDRAMINE HCL 50 MG/ML VIAL ONE (14:57)
[2018-11-01] MEDS ORDERED: NALOXONE HCL INJ/PF 0.4 MG/1 ML SDV ONE (14:58)
[2018-11-01] MEDS ORDERED: EPINEPHRINE INJ 1 MG/10 ML DISP.SYRIN ONE (14:58)
[2018-11-01] MEDS ORDERED: FLUMAZENIL INJ 0.5 MG/5 ML VIAL ONE (14:58)
[2018-11-01] MEDS ORDERED: GLUCAGON,HUMAN RECOMB 1 MG INJ ONE (14:58)
[2018-11-01] MEDS ORDERED: FENTANYL CITRATE INJ/PF 100 MCG/2 ML AMPUL ONE (14:58)
[2018-11-01] MEDS ORDERED: MIDAZOLAM 2 MG/2 ML INJ ONE (14:58)
--- NOTE | 2018-11-01 16:40 | Operative Report ---
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 Surgical plan andsurgical timeout were conducted. Patient was maintained on pulse oximeter. Nasal cannula applied. Oral mouthpiece inserted. The flexible adult upper endoscope was advanced to the oropharynx, down the esophagus through the stomach and into the duodenum, first and second portions. The duodenum was essentially normal. The scope was brought back through into the stomach which was noted for multiple small gastric polyps of the greater curvature consistent with fundic polyps. There was no evidence of tumor stricture bleeding or clot in the stomach. A single cold forceps biopsy 1 of the gastric polyps was performed. Bleeding negligible The scope was brought back to the GE junction which was distorted due to a large hiatal hernia. Photos were taken. At the gastroesophageal junction was circumferential ulceration consistent with previous endoscopic findings according to Dr. Sanabria July 14; these ulcers are superficial, but extended up the esophagus by several centimeters. There is no evidence of stricture or active bleeding, but clearly this ulceration was responsible for recent bleeding. The remainder the upper and mid esophagus was normal. The scope was withdrawn to the patient's oropharynx. She tolerated procedure well. Findings discussed with primary care team. We suggested the patient be on clear liquids, and Magic mouthwash as well as H2 blockers. Surgery will sign off at this time; reconsult if needed.
[2018-11-01] MEDS: NYSTATIN/DEXAMETH/DIPHEN SUSP 120 ML PO SCH ×2 (18:35→21:56)
[2018-11-01] MEDS: HYDROCODONE/ACETAMINOPHEN 7.5-325 MG TABLET PO PRN (21:46)
[2018-11-01 21:51] LABS: ABSOLUTE BASOPHILS # (AUTO) 0.1 10^3/uL (0.0-0.2); ABSOLUTE LYMPHOCYTES (AUTO) 2.1 10^3/uL (0.5-4.7); ABSOLUTE MONOCYTES (AUTO) 0.8 10^3/uL (0.1-1.4); ABSOLUTE NEUT (AUTO) 8.9 10^3/uL (1.7-8.2); BASOPHILS % (AUTO) 0.5 % (0-2); EOSINOPHILS % (AUTO) 0.3 % (0-6); HEMATOCRIT 25.2 % (36.0-47.0); HEMOGLOBIN 8.4 g/dL (12.0-15.5); LYMPHOCYTES % (AUTO) 17.6 % (13-45); MEAN CORPUSCULAR HGB CONC 33.1 g/dL (32.0-36.0); MEAN CORPUSCULAR VOLUME 100 fl (80-97); MONOCYTES % (AUTO) 6.7 % (3-13); PLATELET COUNT 186 10^3/uL (150-450); RED BLOOD COUNT 2.53 10^6/uL (3.72-5.28); RED CELL DISTRIBUTION WIDTH 13.1 % (11.5-14.0); SEGMENTED NEUTROPHILS % (AUTO) 74.9 % (42-78); TOTAL CELLS COUNTED % (AUTO) 100 %; WHITE BLOOD COUNT 11.9 10^3/uL (4.0-10.5)
[2018-11-01] MEDS: INSULIN GLARGINE,HUM.REC.ANLOG 1,000 UNIT/10 ML VIAL SUBCUT SCH (21:52)
[2018-11-02] MEDS: INSULIN LISPRO 100 UNIT/ML 3 ML VIAL SUBCUT SCH ×4 (00:28→17:55)
[2018-11-02 04:28] LABS: ANION GAP 7 (5-19); BLOOD UREA NITROGEN 50 mg/dL (7-20); CALCIUM 8.2 mg/dL (8.4-10.2); CARBON DIOXIDE 21 mmol/L (22-30); CHLORIDE 112 mmol/L (98-107); GLUCOSE 102 mg/dL (75-110); SODIUM 139.8 mmol/L (137-145)
[2018-11-02] MEDS: HEPARIN SOD (PORCINE) 5,000 UNIT/ML 1 ML SYRINGE SUBCUT SCH ×3 (06:19→21:54)
[2018-11-02 08:37] LABS: ABSOLUTE BASOPHILS # (AUTO) 0.1 10^3/uL (0.0-0.2); ABSOLUTE EOSINOPHILS # (AUTO) 0.1 10^3/uL (0.0-0.6); ABSOLUTE LYMPHOCYTES (AUTO) 2.7 10^3/uL (0.5-4.7); ABSOLUTE MONOCYTES (AUTO) 1.1 10^3/uL (0.1-1.4); BASOPHILS % (AUTO) 0.7 % (0-2); EOSINOPHILS % (AUTO) 1.2 % (0-6); HEMATOCRIT 24.3 % (36.0-47.0); HEMOGLOBIN 8.1 g/dL (12.0-15.5); LYMPHOCYTES % (AUTO) 24.7 % (13-45); MEAN CORPUSCULAR HEMOGLOBIN 32.9 pg (27.0-33.4); MEAN CORPUSCULAR HGB CONC 33.2 g/dL (32.0-36.0); MEAN CORPUSCULAR VOLUME 99 fl (80-97); PLATELET COUNT 177 10^3/uL (150-450); RED BLOOD COUNT 2.45 10^6/uL (3.72-5.28); RED CELL DISTRIBUTION WIDTH 13.3 % (11.5-14.0); SEGMENTED NEUTROPHILS % (AUTO) 63.4 % (42-78); TOTAL CELLS COUNTED % (AUTO) 100 %; WHITE BLOOD COUNT 11.1 10^3/uL (4.0-10.5)
--- NOTE | 2018-11-02 09:00 | PDOC PROGRESS REPORT ---
Subjective Progress Note for:: 11/02/18 Subjective:: 83 year old female with a past medical history of diabetes, paroxysmal atrial fibrillation, stage IV CKD, congestive heart failure, coronary artery disease, dyslipidemia, osteoarthritis, constipation predominant irritable bowel and upper GI bleed June 2018 with biopsy negative distal esophageal ulcers and gastritis complicated by NSAID use and hiatal hernia. She presents with 24 hours of hematemesis prompting evaluation in the emergency room where she is found to have dried blood around the mouth, Hemoccult positive stool and blood loss anemia. 11/02/[id number]-[id number]-old female with history of multiple medical problems including diabetes mellitus paroxysmal A. fib stage IV kidney disease congestive heart failure coronary artery disease osteoarthritis constipation admitted for GI bleed status post EGD was done they found a small fundic polyps gastric biopsy w as done no obvious bleed was seen hemoglobin is 8.1's morning and able to tolerate the clear liquids from yesterday. Patient is stable to go to the telemetry unit today. Review of the home medications indicates patient is not on anticoagulations at home. Reason For Visit: UPPER GI BLEED Physical Exam Vital Signs: Temp Pulse Resp BP Pulse Ox 98.8 F 72 13 136/61 H 97 11/02/18 08:00 11/02/18 08:00 11/02/18 08:00 11/02/18 08:00 11/02/18 08:00 Intake & Output 11/01/18 11/02/18 11/03/18 06:59 06:59 06:59 Intake Total 1000 1892 Output Total 0 Balance 1000 1892 0 Weight 58.2 kg 59.8 kg General appearance: PRESENT: no acute distress, thin Head exam: PRESENT: atraumatic Eye exam: PRESENT: PERRLA Mouth exam: PRESENT: moist, tongue midline Teeth exam: PRESENT: poor dentation Neck exam: ABSENT: carotid bruit, JVD, lymphadenopathy, thyromegaly Respiratory exam: PRESENT: decreased breath sounds Cardiovascular exam: PRESENT: RRR. ABSENT: diastolic murmur, rubs, systolic murmur GI/Abdominal exam: PRESENT: normal bowel sounds, soft. ABSENT: distended, guarding, mass, organolmegaly, rebound, tenderness Rectal exam: PRESENT: deferred Extremities exam: PRESENT: full ROM. ABSENT: calf tenderness, clubbing, pedal edema Neurological exam: PRESENT: alert, awake, oriented to person, oriented to place, oriented to time, oriented to situation, CN II-XII grossly intact. ABSENT: motor sensory deficit Psychiatric exam: PRESENT: appropriate affect, normal mood. ABSENT: homicidal ideation, suicidal ideation Results Laboratory Results: 11/02/18 08:17 11/02/18 03:44 11/01/18 11/01/18 11/02/18 13:31 21:27 03:44 WBC 9.9 11.9 H RBC 2.78 L 2.53 L Hgb 9.3 L 8.4 L Hct 27.5 L 25.2 L MCV 99 H 100 H MCH 33.5 H 33.0 MCHC 33.9 33.1 RDW 13.1 13.1 Plt Count 203 186 Seg Neutrophils % 63.6 74.9 Lymphocytes % 23.3 17.6 Monocytes % 12.2 6.7 Eosinophils % 0.3 0.3 Basophils % 0.6 0.5 Absolute Neutrophils 6.3 8.9 H Absolute Lymphocytes 2.3 2.1 Absolute Monocytes 1.2 0.8 Absolute Eosinophils 0.0 0.0 Absolute Basophils 0.1 0.1 Sodium 139.8 Potassium 4.0 Chloride 112 H Carbon Dioxide 21 L Anion Gap 7 BUN 50 H Creatinine 2.39 H Est GFR ( Amer) 23 L Est GFR (Non-Af Amer) 19 L Glucose 102 Calcium 8.2 L 11/02/18 08:17 WBC 11.1 H RBC 2.45 L Hgb 8.1 L Hct 24.3 L MCV 99 H MCH 32.9 MCHC 33.2 RDW 13.3 Plt Count 177 Seg Neutrophils % 63.4 Lymphocytes % 24.7 Monocytes % 10.0 Eosinophils % 1.2 Basophils % 0.7 Absolute Neutrophils 7.0 Absolute Lymphocytes 2.7 Absolute Monocytes 1.1 Absolute Eosinophils 0.1 Absolute Basophils 0.1 Sodium Potassium Chloride Carbon Dioxide Anion Gap BUN Creatinine Est GFR ( Amer) Est GFR (Non-Af Amer) Glucose Calcium Assessment and Plan - Diagnosis (1) Upper GI bleed Is this a current diagnosis for this admission?: Yes Plan: History of biopsy negative, gastritis and distal esophageal ulcer, complicated by NSAID use, proton pump inhibitor initiated, serial CBC, transfuse hemoglobin less than 8. Follow-up surgical consult 11/02/2018-patient was admitted with a GI bleed EGD was negative for acute bleed. Gastric biopsy was done. Upper GI bleed most likely secondary to NSAID use and the aldosterone. Hemoglobin is stable around 8.1. She is started on clear liquid diets yesterday tolerated very well. Patient is going to be downgraded to telemetry today. (2) Kidney disease, chronic, stage IV (GFR 15-29 ml/min) Is this a current diagnosis for this admission?: Yes Plan: Avoid nephrotoxic meds and doses, somewhat prerenal at present. Receiving IV fluid challenge, follow-up chemistry 11/02/2018-patient has a stage IV kidney disease creatinine today is 2.3 910. Female plan is to avoid nephrotoxic agents. Plan is to do the labs on daily basis. (3) Hypertension Qualifiers: Hypertension type: unspecified Qualified Code(s): I10 - Essential (primary) hypertension Is this a current diagnosis for this admission?: Yes Plan: Hydralazine as needed 11/02/2018-patient's blood pressure today is 167/72. Gently on hydralazine 10 mg IV every 6 PRN for systolic blood pressure more than 150 plan is to continue the present management. (4) Acute blood loss anemia Is this a current diagnosis for this admission?: Yes Plan: Secondary to #1, transfuse hemoglobin less than 8 for active bleed. 11/02/2018-patient has acute blood loss anemia most likely secondary to GI bleed caused by erosive gastritis due to an ascites. Hemoglobin is stable at 8.1. Status post EGD no active bleed was seen. - Time Time Spent with patient: 15-24 minutes Medications reviewed and adjusted accordingly: Yes Anticipated discharge: Home
[2018-11-02] MEDS: NYSTATIN/DEXAMETH/DIPHEN SUSP 120 ML PO SCH ×4 (12:40→21:55)
[2018-11-02] MEDS: ACETAMINOPHEN 325 MG TABLET PO PRN (14:55)
[2018-11-02] MEDS ORDERED: HYDRALAZINE HCL INJ/PF 20 MG/1 ML SDV IV PRN (17:43)
[2018-11-02] MEDS ORDERED: (PENDING PHARMACY ID) (Ropinirole Hcl [Requip] 0.5 MG) PO PRN (17:59)
[2018-11-02] MEDS ORDERED: ALBUTEROL SULFATE HFA (90 MCG/PUFF) 200 PUFF/8.5 GM MDI IH PRN (17:59)
[2018-11-02] MEDS ORDERED: ACETAMINOPHEN 1000 MG PO PRN (17:59)
[2018-11-02] MEDS: HYDROCODONE/ACETAMINOPHEN 7.5-325 MG TABLET PO PRN (18:16)
[2018-11-02] MEDS ORDERED: ROPINIROLE HCL 0.25 MG TABLET PO PRN (18:18)
[2018-11-02] MEDS: AMLODIPINE BESYLATE 10 MG TABLET PO SCH (21:34)
[2018-11-02] MEDS: GABAPENTIN 100 MG CAPSULE PO SCH (21:54)
[2018-11-02] MEDS: METOPROLOL TARTRATE 50 MG TABLET PO SCH (21:54)
[2018-11-02] MEDS: RIVASTIGMINE TARTRATE 1.5 MG CAPSULE PO SCH (21:54)
[2018-11-02] MEDS: SIMVASTATIN 10 MG TABLET PO SCH (21:55)
[2018-11-02] MEDS: INSULIN GLARGINE,HUM.REC.ANLOG 1,000 UNIT/10 ML VIAL SUBCUT SCH (21:55)
[2018-11-02] MEDS ORDERED: (PENDING PHARMACY ID) (Simvastatin [Simvastatin] 20 MG) PO SCH (22:00)
[2018-11-02] MEDS ORDERED: (PENDING PHARMACY ID) (Rivastigmine Tartrate [Rivastigmine] 6 MG) PO SCH (22:00)
[2018-11-03] MEDS: GABAPENTIN 100 MG CAPSULE PO SCH ×3 (06:17→21:11)
[2018-11-03] MEDS: INSULIN LISPRO 100 UNIT/ML 3 ML VIAL SUBCUT SCH ×5 (06:18→21:14)
[2018-11-03] MEDS: LEVOTHYROXINE SODIUM 0.1 MG TABLET PO SCH (06:18)
[2018-11-03] MEDS: HEPARIN SOD (PORCINE) 5,000 UNIT/ML 1 ML SYRINGE SUBCUT SCH ×3 (06:18→21:13)
[2018-11-03 07:14] LABS: ABSOLUTE EOSINOPHILS # (AUTO) 0.1 10^3/uL (0.0-0.6); ABSOLUTE LYMPHOCYTES (AUTO) 2.8 10^3/uL (0.5-4.7); ABSOLUTE MONOCYTES (AUTO) 0.9 10^3/uL (0.1-1.4); ABSOLUTE NEUT (AUTO) 4.4 10^3/uL (1.7-8.2); BASOPHILS % (AUTO) 0.6 % (0-2); EOSINOPHILS % (AUTO) 1.3 % (0-6); HEMATOCRIT 24.3 % (36.0-47.0); HEMOGLOBIN 8.1 g/dL (12.0-15.5); LYMPHOCYTES % (AUTO) 33.7 % (13-45); MEAN CORPUSCULAR HEMOGLOBIN 33.3 pg (27.0-33.4); MEAN CORPUSCULAR HGB CONC 33.5 g/dL (32.0-36.0); MEAN CORPUSCULAR VOLUME 99 fl (80-97); MONOCYTES % (AUTO) 10.7 % (3-13); PLATELET COUNT 204 10^3/uL (150-450); RED BLOOD COUNT 2.44 10^6/uL (3.72-5.28); RED CELL DISTRIBUTION WIDTH 13.1 % (11.5-14.0); SEGMENTED NEUTROPHILS % (AUTO) 53.7 % (42-78); TOTAL CELLS COUNTED % (AUTO) 100 %; WHITE BLOOD COUNT 8.3 10^3/uL (4.0-10.5)
[2018-11-03 07:48] LABS: ALANINE AMINOTRANSFERASE 17 U/L (9-52); ALBUMIN 2.7 g/dL (3.5-5.0); ALKALINE PHOSPHATASE 74 U/L (38-126); ANION GAP 6 (5-19); ASPARTATE AMINO TRANSFERASE 16 U/L (14-36); BILIRUBIN,DIRECT 0.3 mg/dL (0.0-0.4); BILIRUBIN,TOTAL 0.3 mg/dL (0.2-1.3); BLOOD UREA NITROGEN 41 mg/dL (7-20); CALCIUM 8.5 mg/dL (8.4-10.2); CARBON DIOXIDE 23 mmol/L (22-30); CHLORIDE 111 mmol/L (98-107); GLUCOSE 80 mg/dL (75-110); POTASSIUM 3.8 mmol/L (3.6-5.0); SODIUM 139.7 mmol/L (137-145); TOTAL PROTEIN 5.4 g/dL (6.3-8.2)
[2018-11-03] MEDS: METOPROLOL TARTRATE 50 MG TABLET PO SCH ×2 (09:57→21:11)
[2018-11-03] MEDS: NYSTATIN/DEXAMETH/DIPHEN SUSP 120 ML PO SCH ×4 (09:58→21:26)
[2018-11-03] MEDS: FLUOXETINE HCL 20 MG CAPSULE PO SCH (09:58)
[2018-11-03] MEDS: AMLODIPINE BESYLATE 10 MG TABLET PO SCH (09:58)
[2018-11-03] MEDS: RIVASTIGMINE TARTRATE 1.5 MG CAPSULE PO SCH ×2 (09:58→21:12)
[2018-11-03] MEDS ORDERED: MEMANTINE HCL 14 MG PO SCH (10:00)
[2018-11-03] MEDS: HYDROCODONE/ACETAMINOPHEN 7.5-325 MG TABLET PO PRN (12:07)
--- NOTE | 2018-11-03 14:36 | PDOC PROGRESS REPORT ---
Subjective Progress Note for:: 11/03/18 Subjective:: This is a 3 years old female patient with past medical history of atrial fibrillation, CHF, coronary artery disease, stage IV CKD, dyslipidemia, diabetes mellitus, history of GI bleeding and dementia brought with chief complaint of hematemesis. Of note patient had had upper GI bleeding in June of this year when Dr. Sanabria did upper endoscopy and he found gastritis and distal esophageal ulcer most probably induced by nonsteroidal anti-inflammatory drugs and alend ronate. I talked to her daughter who agreed to proceed with upper endoscopy procedure. Patient seen and evaluated by Dr. Saravia who scheduled her for endoscopy today. Except this patient and I will be her primary attending. 11/03/2018: Patient downgraded from ICU to medical floor yesterday. I seen patient resting in bed comfortably. Patient has been started on clear liquid diet and will advance it as to if she tolerates. Her hemoglobin is 8.1. Her upper endoscopy report is as gastroesophageal junction circumferential ulceration consistent with previous endoscopic findings according to Dr. Sanabria which was done on June 2018 the ulcers are superficial, but extended up the esophagus by several centimeters. I restarted the patient on Protonix IV and Carafate 1 g every 8 hours. Reason For Visit: UPPER GI BLEED Physical Exam Vital Signs: Temp Pulse Resp BP Pulse Ox 98.2 F 64 16 152/67 H 98 11/03/18 12:06 11/03/18 12:06 11/03/18 12:06 11/03/18 12:06 11/03/18 12:06 Intake & Output 11/02/18 11/03/18 11/04/18 06:59 06:59 06:59 Intake Total 1892 150 Output Total 0 Balance 1892 150 Weight 59.8 kg 60.2 kg General appearance: PRESENT: no acute distress Head exam: PRESENT: atraumatic Teeth exam: PRESENT: edentulous Neck exam: ABSENT: carotid bruit, JVD, lymphadenopathy, thyromegaly Respiratory exam: PRESENT: clear to auscultation mónica. ABSENT: rales, rhonchi, wheezes Cardiovascular exam: PRESENT: irregular rhythm GI/Abdominal exam: PRESENT: normal bowel sounds, soft. ABSENT: distended, guarding, mass, organolmegaly, rebound, tenderness Neurological exam: PRESENT: alert, awake Results Laboratory Results: 11/03/18 06:48 11/03/18 06:48 11/03/18 11/03/18 06:48 06:48 WBC 8.3 RBC 2.44 L Hgb 8.1 L Hct 24.3 L MCV 99 H MCH 33.3 MCHC 33.5 RDW 13.1 Plt Count 204 Seg Neutrophils % 53.7 Lymphocytes % 33.7 Monocytes % 10.7 Eosinophils % 1.3 Basophils % 0.6 Absolute Neutrophils 4.4 Absolute Lymphocytes 2.8 Absolute Monocytes 0.9 Absolute Eosinophils 0.1 Absolute Basophils 0.0 Sodium 139.7 Potassium 3.8 Chloride 111 H Carbon Dioxide 23 Anion Gap 6 BUN 41 H Creatinine 2.34 H Est GFR ( Amer) 24 L Est GFR (Non-Af Amer) 20 L Glucose 80 Calcium 8.5 Magnesium 1.7 Total Bilirubin 0.3 AST 16 ALT 17 Alkaline Phosphatase 74 Total Protein 5.4 L Albumin 2.7 L Assessment and Plan - Diagnosis (1) Acute blood loss anemia UGI bleed Is this a current diagnosis for this admission?: Yes Plan: Status post PRBC transfusion. Status post EGD which reveals circumferential ulceration at the gastroesophageal junction. Patient is on PPI and Carafate. (2) A-fib Qualifiers: Atrial fibrillation type: chronic Qualified Code(s): I48.2 - Chronic atrial fibrillation Is this a current diagnosis for this admission?: Yes Plan: Rate controlled. Patient is not on anticoagulation due to risk of bleeding. (3) Coronary artery disease Qualifiers: Coronary Disease-Associated Artery/Lesion type: [place] artery Is this a current diagnosis for this admission?: Yes Plan: No anginal symptoms (4) Hypertension Qualifiers: Hypertension type: essential hypertension Qualified Code(s): I10 - Essential (primary) hypertension Is this a current diagnosis for this admission?: Yes Plan: Continue home medication (5) Hyperlipidemia Qualifiers: Hyperlipidemia type: unspecified Qualified Code(s): E78.5 - Hyperlipidemia, unspecified Is this a current diagnosis for this admission?: Yes Plan: Continue home medication
[2018-11-03] MEDS: SUCRALFATE 1 GM TABLET PO SCH ×2 (16:25→21:12)
[2018-11-03] MEDS: PANTOPRAZOLE SODIUM 40 MG VIAL IV SCH ×2 (16:25→22:15)
[2018-11-03] MEDS: ACETAMINOPHEN 325 MG TABLET PO PRN (19:41)
[2018-11-03] MEDS: SIMVASTATIN 10 MG TABLET PO SCH (21:11)
[2018-11-03] MEDS: ALPRAZOLAM 0.5 MG TABLET PO PRN (21:11)
[2018-11-03] MEDS: INSULIN GLARGINE,HUM.REC.ANLOG 1,000 UNIT/10 ML VIAL SUBCUT SCH (22:47)
[2018-11-04] MEDS: GABAPENTIN 100 MG CAPSULE PO SCH ×3 (05:23→22:39)
[2018-11-04] MEDS: LEVOTHYROXINE SODIUM 0.1 MG TABLET PO SCH (05:23)
[2018-11-04] MEDS: HYDROCODONE/ACETAMINOPHEN 7.5-325 MG TABLET PO PRN ×2 (05:23→22:39)
[2018-11-04] MEDS: SUCRALFATE 1 GM TABLET PO SCH ×3 (05:23→22:40)
[2018-11-04] MEDS: HEPARIN SOD (PORCINE) 5,000 UNIT/ML 1 ML SYRINGE SUBCUT SCH ×3 (05:24→22:42)
[2018-11-04 06:12] LABS: HEMATOCRIT 24.6 % (36.0-47.0); HEMOGLOBIN 8.2 g/dL (12.0-15.5); MEAN CORPUSCULAR HGB CONC 33.5 g/dL (32.0-36.0); MEAN CORPUSCULAR VOLUME 99 fl (80-97); PLATELET COUNT 192 10^3/uL (150-450); RED CELL DISTRIBUTION WIDTH 13.2 % (11.5-14.0); WHITE BLOOD COUNT 7.6 10^3/uL (4.0-10.5)
[2018-11-04 06:32] LABS: ANION GAP 7 (5-19); BLOOD UREA NITROGEN 39 mg/dL (7-20); CALCIUM 8.3 mg/dL (8.4-10.2); CARBON DIOXIDE 21 mmol/L (22-30); CHLORIDE 110 mmol/L (98-107); GLUCOSE 76 mg/dL (75-110); POTASSIUM 3.9 mmol/L (3.6-5.0); SODIUM 137.9 mmol/L (137-145)
[2018-11-04] MEDS: INSULIN LISPRO 100 UNIT/ML 3 ML VIAL SUBCUT SCH ×4 (11:03→22:41)
[2018-11-04] MEDS: FLUOXETINE HCL 20 MG CAPSULE PO SCH (12:33)
[2018-11-04] MEDS: RIVASTIGMINE TARTRATE 1.5 MG CAPSULE PO SCH ×2 (12:33→22:42)
[2018-11-04] MEDS: PANTOPRAZOLE SODIUM 40 MG VIAL IV SCH ×2 (12:33→22:40)
[2018-11-04] MEDS: AMLODIPINE BESYLATE 10 MG TABLET PO SCH (12:33)
[2018-11-04] MEDS: METOPROLOL TARTRATE 50 MG TABLET PO SCH ×2 (12:34→22:39)
[2018-11-04] MEDS: NYSTATIN/DEXAMETH/DIPHEN SUSP 120 ML PO SCH ×4 (12:34→22:41)
[2018-11-04] MEDS ORDERED: ONDANSETRON HCL INJ/PF 4 MG/2 ML SDV IV PRN (14:30)
--- NOTE | 2018-11-04 14:35 | PDOC PROGRESS REPORT ---
Subjective Progress Note for:: 11/04/18 Subjective:: This is a 3 years old female patient with past medical history of atrial fibrillation, CHF, coronary artery disease, stage IV CKD, dyslipidemia, diabetes mellitus, history of GI bleeding and dementia brought with chief complaint of hematemesis. Of note patient had had upper GI bleeding in June of this year when Dr. Sanabria did upper endoscopy and he found gastritis and distal esophageal ulcer most probably induced by nonsteroidal anti-inflammatory drugs and alend ronate. I talked to her daughter who agreed to proceed with upper endoscopy procedure. Patient seen and evaluated by Dr. Saravia who scheduled her for endoscopy today. Except this patient and I will be her primary attending. 11/03/2018: Patient downgraded from ICU to medical floor yesterday. I seen patient resting in bed comfortably. Patient has been started on clear liquid diet and will advance it as to if she tolerates. Her hemoglobin is 8.1. Her upper endoscopy report is as gastroesophageal junction circumferential ulceration consistent with previous endoscopic findings according to Dr. Sanabria which was done on June 2018 the ulcers are superficial, but extended up the esophagus by several centimeters. I restarted the patient on Protonix IV and Carafate 1 g every 8 hours. 11/04/2018: Patient seen resting her recliner. She does not have new complaint but she is eager to go home. Her hemoglobin slightly increased from 8.1-8.2. If she is maintained at 8 she is potential discharge for tomorrow and follow-up with her primary billing associate and will send her with ferrous sulfate, Protonix and Carafate. Reason For Visit: UPPER GI BLEED Physical Exam Vital Signs: Temp Pulse Resp BP Pulse Ox 98.0 F 66 16 179/62 H 98 11/04/18 12:27 11/04/18 12:27 11/04/18 12:27 11/04/18 12:27 11/04/18 12:27 Intake & Output 11/03/18 11/04/18 11/05/18 06:59 06:59 06:59 Intake Total 150 583 Output Total 0 Balance 150 583 Weight 60.2 kg 59.6 kg General appearance: PRESENT: no acute distress Eye exam: PRESENT: conjunctiva pale Mouth exam: PRESENT: moist Respiratory exam: PRESENT: clear to auscultation mónica. ABSENT: rales, rhonchi, wheezes Cardiovascular exam: PRESENT: RRR. ABSENT: diastolic murmur, rubs, systolic murmur GI/Abdominal exam: PRESENT: normal bowel sounds, soft. ABSENT: distended, guarding, mass, organolmegaly, rebound, tenderness Neurological exam: PRESENT: alert, awake Results Laboratory Results: 11/04/18 06:01 11/04/18 06:01 11/04/18 11/04/18 06:01 06:01 WBC 7.6 RBC 2.50 L Hgb 8.2 L Hct 24.6 L MCV 99 H MCH 33.0 MCHC 33.5 RDW 13.2 Plt Count 192 Sodium 137.9 Potassium 3.9 Chloride 110 H Carbon Dioxide 21 L Anion Gap 7 BUN 39 H Creatinine 2.18 H Est GFR ( Amer) 26 L Est GFR (Non-Af Amer) 22 L Glucose 76 Calcium 8.3 L Assessment and Plan - Diagnosis (1) Acute blood loss anemia UGI bleed Is this a current diagnosis for this admission?: Yes Plan: Status post PRBC transfusion. Status post EGD which reveals circumferential ulceration at the gastroesophageal junction. Patient is on PPI and Carafate. (2) A-fib Qualifiers: Atrial fibrillation type: chronic Qualified Code(s): I48.2 - Chronic atrial fibrillation Is this a current diagnosis for this admission?: Yes Plan: Rate controlled. Patient is not on anticoagulation due to risk of bleeding. (3) Coronary artery disease Qualifiers: Coronary Disease-Associated Artery/Lesion type: [place] artery Is this a current diagnosis for this admission?: Yes Plan: No anginal symptoms (4) Hypertension Qualifiers: Hypertension type: essential hypertension Qualified Code(s): I10 - Essential (primary) hypertension Is this a current diagnosis for this admission?: Yes Plan: Continue home medication (5) Hyperlipidemia Qualifiers: Hyperlipidemia type: unspecified Qualified Code(s): E78.5 - Hyperlipidemia, unspecified Is this a current diagnosis for this admission?: Yes Plan: Continue home medication (6) Chronic renal disease, stage IV Is this a current diagnosis for this admission?: Yes Plan: Patient needs close follow-up with cash crop farmer.
[2018-11-04] MEDS: ALPRAZOLAM 0.5 MG TABLET PO PRN (22:39)
[2018-11-04] MEDS: SIMVASTATIN 10 MG TABLET PO SCH (22:40)
[2018-11-04] MEDS: INSULIN GLARGINE,HUM.REC.ANLOG 1,000 UNIT/10 ML VIAL SUBCUT SCH (22:41)
[2018-11-05 05:31] LABS: HEMATOCRIT 24.1 % (36.0-47.0); HEMOGLOBIN 8.3 g/dL (12.0-15.5); MEAN CORPUSCULAR HEMOGLOBIN 33.7 pg (27.0-33.4); MEAN CORPUSCULAR HGB CONC 34.3 g/dL (32.0-36.0); MEAN CORPUSCULAR VOLUME 98 fl (80-97); PLATELET COUNT 191 10^3/uL (150-450); RED BLOOD COUNT 2.45 10^6/uL (3.72-5.28); RED CELL DISTRIBUTION WIDTH 12.9 % (11.5-14.0); WHITE BLOOD COUNT 6.6 10^3/uL (4.0-10.5)
[2018-11-05] MEDS: SUCRALFATE 1 GM TABLET PO SCH (06:23)
[2018-11-05] MEDS: LEVOTHYROXINE SODIUM 0.1 MG TABLET PO SCH (06:23)
[2018-11-05] MEDS: HEPARIN SOD (PORCINE) 5,000 UNIT/ML 1 ML SYRINGE SUBCUT SCH (06:23)
[2018-11-05] MEDS: GABAPENTIN 100 MG CAPSULE PO SCH (06:23)
[2018-11-05] MEDS: INSULIN LISPRO 100 UNIT/ML 3 ML VIAL SUBCUT SCH (08:40)
[2018-11-05] MEDS: PANTOPRAZOLE SODIUM 40 MG VIAL IV SCH (09:54)
[2018-11-05] MEDS: AMLODIPINE BESYLATE 10 MG TABLET PO SCH (09:54)
[2018-11-05] MEDS: FLUOXETINE HCL 20 MG CAPSULE PO SCH (09:54)
[2018-11-05] MEDS: METOPROLOL TARTRATE 50 MG TABLET PO SCH (09:54)
[2018-11-05] MEDS: RIVASTIGMINE TARTRATE 1.5 MG CAPSULE PO SCH (09:58)
--- NOTE | 2018-11-05 11:51 | PDOC DISCHARGE SUMMARY ---
General - Admit/Disc Date/PCP Admission Date/Primary Care Provider: 11/01/18 05:08 DONALD GOLD MD Discharge Date: 11/05/18 - Discharge Diagnosis (1) Acute blood loss anemia UGI bleed Is this a current diagnosis for this admission?: Yes (2) A-fib Is this a current diagnosis for this admission?: Yes (3) Coronary artery disease Is this a current diagnosis for this admission?: Yes (4) Hypertension Is this a current diagnosis for this admission?: Yes (5) Hyperlipidemia Is this a current diagnosis for this admission?: Yes (6) Chronic renal disease, stage IV Is this a current diagnosis for this admission?: Yes - Additional Information Resuscitation Status: Full Code Prescriptions: Ferrous Sulfate 325 mg PO Q12 #60 tablet. Pantoprazole Sodium [Protonix [address] Tablet] 40 mg PO QAMPM #30 tablet. Home Medications: Levothyroxine Sodium [Levo-T] 100 mcg PO Q6M 12/09/16 Ropinirole HCl [Requip] 0.5 mg PO HSP PRN 12/09/16 Gabapentin [Neurontin 100 mg Capsule] 200 mg PO Q8 capsule 12/12/16 Insulin Glargine,Hum.rec.anlog [Lantus Insulin 100 Unit/mL Insulin Pen] 0 unit SQ .SLIDING SCALE MDD 22 UNITS 07/05/18 Simvastatin 20 mg PO QHS 07/05/18 Alprazolam [Xanax] 0.5 mg PO Q8HP PRN #20 tablet 07/16/18 Metoprolol Tartrate [Lopressor 50 mg Tablet] 50 mg PO Q12 tablet 07/16/18 Acetaminophen [Pain Relief Extra Strength] 1,000 mg PO DAILYP PRN 11/01/18 Albuterol Sulfate [Albuterol Sulfate Hfa] 1 puff IH Q4HP PRN 11/01/18 Fluoxetine HCl 40 mg PO DAILY 11/01/18 Fluticasone/Umeclidin/Vilanter [Trelegy 100-62.5-25 Mcg Ellipta 14 Dose/Dpi] 1 puff IH DAILY 11/01/18 Hydrocodone/Acetaminophen [[place] 7.5-325 mg Tablet] 1 tab PO Q12 11/01/18 Memantine HCl [Memantine HCl ER] 14 mg PO DAILY 11/01/18 Rivastigmine Tartrate [Rivastigmine] 6 mg PO Q12 11/01/18 Ferrous Sulfate 325 mg PO Q12 #60 tablet. 11/05/18 Pantoprazole Sodium [Protonix [address] Tablet] 40 mg PO QAMPM #30 tablet. 11/05/18 History of Present Illness History of Present Illness: THOR PORTER is a 83 year old female with a past medical history of diabetes, paroxysmal atrial fibrillation, stage IV CKD, congestive heart failure, coronary artery disease, dyslipidemia, osteoarthritis, constipation predominant irritable bowel and upper GI bleed June 2018 with biopsy negative distal esophageal ulcers and gastritis complicated by NSAID use and hiatal hernia. She presents with 24 hours of hematemesis prompting evaluation in the emergency room where she is found to have dried blood around the mouth, Hemoccult positive stool and blood loss anemia. Hospital Course Hospital Course: This is a 3 years old female patient with past medical history of atrial fibrillation, CHF, coronary artery disease, stage IV CKD, dyslipidemia, diabetes mellitus, history of GI bleeding and dementia brought with chief complaint of hematemesis. Of note patient had had upper GI bleeding in June of this year when Dr. Sanabria did upper endoscopy and he found gastritis and distal esophageal ulcer most probably induced by nonsteroidal anti-inflammatory drugs and alendronate. I talked to her daughter who agreed to proceed with upper endoscop y procedure. Patient seen and evaluated by Dr. Saravia who scheduled her for endoscopy today. Except this patient and I will be her primary attending. 11/03/2018: Patient downgraded from ICU to medical floor yesterday. I seen patient resting in bed comfortably. Patient has been started on clear liquid diet and will advance it as to if she tolerates. Her hemoglobin is 8.1. Her upper endoscopy report is as gastroesophageal junction circumferential ulceration consistent with previous endoscopic findings according to Dr. Sanabria which was done on June 2018 the ulcers are superficial, but extended up the esophagus by several centimeters. I restarted the patient on Protonix IV and Carafate 1 g every 8 hours. 11/04/2018: Patient seen resting her recliner. She does not have new complaint but she is eager to go home. Her hemoglobin slightly increased from 8.1-8.2. If she is maintained at 8 she is potential discharge for tomorrow and follow-up with her primary publication designer and will send her with ferrous sulfate, Protonix and Carafate. 11/05/2018: Patient seen sitting upright and enjoying her lunch. She is surrounded by family members. She is awake alert. She is not in pain or distress. Her hemoglobin is maintained between 9 and 8.3. I will continue all her home medications and I will send her home also with iron sulfate and Protonix 40 mg p.o. daily. Patient advised to see her primary publication designer 1 week. She also encouraged to come to ER if she has another episode of hematemesis. Physical Exam Vital Signs: Temp Pulse Resp BP Pulse Ox 97.7 F 61 16 180/69 H 98 11/05/18 08:07 11/05/18 08:07 11/05/18 08:07 11/05/18 08:07 11/05/18 08:07 Intake & Output 11/04/18 11/05/18 11/06/18 06:59 06:59 06:59 Intake Total 583 490 Balance 583 490 Weight 59.6 kg 60.1 kg General appearance: PRESENT: no acute distress Eye exam: PRESENT: conjunctiva pink Neck exam: ABSENT: carotid bruit, JVD, lymphadenopathy, thyromegaly Respiratory exam: PRESENT: clear to auscultation mónica. ABSENT: rales, rhonchi, wheezes Cardiovascular exam: PRESENT: RRR. ABSENT: diastolic murmur, rubs, systolic murmur Neurological exam: PRESENT: alert, awake Results Laboratory Results: 11/05/18 05:11 11/04/18 06:01 11/05/18 11/05/18 05:11 06:35 WBC 6.6 RBC 2.45 L Hgb 8.3 L Hct 24.1 L MCV 98 H MCH 33.7 H MCHC 34.3 RDW 12.9 Plt Count 191 Stool Occult Blood POSITIVE Qualifiers - * PATIENT BEING DISCHARGED WITH ANY OF THE FOLLOWING DIAGNOSIS: No Acute Heart Failure - Is this a Heart Failure Patient?: No LVEF < 40%?: No- if no continue to question #3 3. Anticoagulant therapy for permanect/persistent/paraoxysmal Afib or Aflutter: N/A
[2018-11-05 12:47] VITALS: BP 130/60
== END 2018-11-05 13:14 | disposition home or self-care (01) | DRG 381 ==
LOC: ER 02:08 → EH 05:08 → ICU 06:18 → 4S 11-02 17:11
PROVIDERS: ADMIT Internal Medicine; ATTEND Internal Medicine
PROC: 0DB68ZX Excision of Stomach, Via Natural or Artificial Opening Endoscopic, Diagnostic (ICD-10-PCS; principal; 2018-11-01 15:30)
DX: K22.11 Ulcer of esophagus with bleeding (principal); D62 Acute posthemorrhagic anemia; N18.4 Chronic kidney disease, stage 4 (severe); I25.10 Atherosclerotic heart disease of native coronary artery without angina pectoris; E78.5 Hyperlipidemia, unspecified; I12.9 Hypertensive chronic kidney disease with stage 1 through stage 4 chronic kidney disease, or unspecified chronic kidney disease; I48.0 Paroxysmal atrial fibrillation; K58.1 Irritable bowel syndrome with constipation; E11.22 Type 2 diabetes mellitus with diabetic chronic kidney disease; D63.1 Anemia in chronic kidney disease; F32.9 Major depressive disorder, single episode, unspecified; E11.65 Type 2 diabetes mellitus with hyperglycemia; K29.61 Other gastritis with bleeding; K31.7 Polyp of stomach and duodenum; K44.9 Diaphragmatic hernia without obstruction or gangrene; T39.395A Adverse effect of other nonsteroidal anti-inflammatory drugs [NSAID], initial encounter; Z79.899 Other long term (current) drug therapy; Z79.4 Long term (current) use of insulin; Z87.11 Personal history of peptic ulcer disease; Z83.3 Family history of diabetes mellitus; Z88.8 Allergy status to other drugs, medicaments and biological substances; Z91.018 Allergy to other foods
CPT/HCPCS: 36415; 43239; 80048; 80053; 82272; 82803; 82962; 83735; 85025; 85027; 85610; 85730; 86850; 86900; 86901; 87070; 88305; 88342; 93005; 93010; 96365; 96375; 99285; J0171; J0360; J1200; J1610; J1644; J1815; J2250; J2310; J2405; J3010; J3490; J7030; S0164

== ENCOUNTER 2019-01-05 01:43 | Inpatient (IN) | payer MEDICARE, OTHER ==
[2019-01-05] MEDS ORDERED: MEROPENEM 1 GM VIAL IV ONE (01:50)
[2019-01-05] MEDS ORDERED: NORMAL SALINE 1000 ML 1,000 ML IV ONE (01:50)
--- NOTE | 2019-01-05 01:53 | ER Document Report ---
ED General - General Stated Complaint: FEVER Time Seen by Provider: 01/05/19 01:46 Primary Care Provider: DONALD GOLD MD [ACTIVE STAFF] - Follow up as needed Notes: 83-year-old lady with a history of ESBL urosepsis living at home comes in with altered mental status and fever. Apparently diagnosed with a UTI about a week ago, and took Cipro but did not finish. Noted to have be tachycardic with a fever of 102.2 rectally from EMS. They gave Tylenol suppository and obtain IV access. Patient is unable to give history but per EMS she is normally recently sharp, somnolent tonight. TRAVEL OUTSIDE OF THE [place] IN LAST 30 DAYS: No - Related Data Allergies/Adverse Reactions: promethazine HCl [From Phenergan] Allergy (Severe, Verified 01/09/15 15:40) severe leg pain baclofen [Baclofen] Allergy (Mild, Verified 01/09/15 15:40) Hives,hallucinate Beef Containing Products Adverse Reaction (Severe, Verified 08/02/15 14:20) GI upset Past Medical History - General Information source: Emergency Med Personnel - Social History Smoking Status: Unknown if Ever Smoked Family History: None, CAD, DM - Past Medical History Cardiac Medical History: Reports: Hx Atrial Fibrillation, Hx Congestive Heart Failure, Hx Coronary Artery Disease, Hx Hypercholesterolemia, Hx Hypertension Denies: Hx Heart Attack Pulmonary Medical History: Reports: Hx Pneumonia - Hx of septic shock Denies: Hx Asthma, Hx Bronchitis, Hx COPD Neurological Medical History: Denies: Hx Cerebrovascular Accident, Hx Seizures Endocrine Medical History: Reports: Hx Diabetes Mellitus Type 1, Hx Diabetes Mellitus Type 2 Renal/ Medical History: Reports: Hx End Stage Renal Disease - stage 3. Denies: Hx Peritoneal Dialysis Musculoskeletal Medical History: Reports Hx Arthritis Psychiatric Medical History: Reports: Hx Depression Past Surgical History: Reports: Hx Abdominal Surgery - hernia, Hx Appendectomy. Denies: Hx Hysterectomy, Hx Pacemaker - Immunizations Hx Diphtheria, Pertussis, Tetanus Vaccination: No Hx Pneumococcal Vaccination: 01/25/13 Review of Systems - Review of Systems Notes: REVIEW OF SYSTEMS Unavailable: Altered mental status PHYSICAL EXAMINATION General: Ill-appearing elderly Head: Atraumatic, normocephalic ENT: Mouth normal, oropharynx very dry no exudates or tonsillar enlargement Eyes: Conjunctiva normal, pupils equal, lids normal Neck: No JVD, supple, no guarding CVS: Normal rate, regular rhythm, no murmurs Resp: No resp distress, equal and normal breath sounds bilaterally GI: Nondistended, soft, no tenderness to palpation, no rebound or guarding Ext: No deformities, no edema, normal range of motion in upper and lower ext Back: No CVA or midline TTP Skin: No rash, warm Lymphatic: No lymphadeopathy noted Neuro: Eyes closed. Arouses to voice. Follows simple commands. Not speaking currently. Does move all extremities.. Physical Exam - Vital signs Vitals: Temp Resp BP Pulse Ox 98.3 F 20 128/68 H 94 01/05/19 01:53 01/05/19 01:53 01/05/19 01:53 01/05/19 01:53 Course - Re-evaluation Re-evalutation: 01/05/19 01:52 Elderly female patient with a history of ESBL urosepsis presents with decline in mental status and fever in the setting of partiallytreated/possibly improperlytreated? Urinary tract infection. Most likely urosepsis. Reviewed old cultures. Ordered sepsis order set including 2 cultures, urine culture and lactic acid. She will be given initial bolus of 1 L given her age, and will consider 30 mLkilo. I will treat with meropenem empirically for ESBL UTI. 01/05/19 02:25 Further info from daughter: Patient was on Cipro but then was switched to another antibiotic. We dog through her medicine bag and found Macrobid. Clearly ineffective for pyelonephritis Blood obtained, urine pending. 01/05/19 03:15 Patient's chemistry shows acute kidney injury with an elevated creatinine from baseline and mild hyperkalemia. Also anion gap 14 with high sugar can indicate a small amount of DKA. Also probably non-gap acidosis from uremia. Lactic is normal. CBC is pending. Urine is infected. We will continue fluids, added bolusdose insulin. Discussed with Dr. Cabrera for admission to the [facility]. - Vital Signs Vital signs: Temp Pulse Resp BP Pulse Ox 98.3 F 19 120/56 L 95 01/05/19 01:53 01/05/19 02:01 01/05/19 02:01 01/05/19 02:01 - Laboratory Result Diagrams: 01/05/19 02:28 01/05/19 02:28 Laboratory results interpreted by me: 01/05/19 01/05/19 01/05/19 02:28 02:28 02:28 VBG pH 7.25 L VBG pCO2 33.4 L VBG HCO3 14.2 L Potassium 5.1 H Chloride 110 H Carbon Dioxide 16 L BUN 61 H Creatinine 3.57 H Est GFR ( Amer) 15 L Est GFR (MDRD) Non-Af 12 L Glucose 369 H Albumin 3.4 L Urine Protein 100 H Urine Glucose (UA) 150 H Urine Ketones 20 H Urine Blood MODERATE H Ur Leukocyte Esterase MODERATE H Critical Care Note - Critical Care Note Total time excluding time spent on procedures (mins): 32 Comments: The above patient is critically ill. Not including procedures, but including direct re-evaluations, speaking with patient and/or consultants, interpreting results, and documenting, I spent the total amount of minute listed listed above on critical care time Discharge - Discharge Clinical Impression: Complicated UTI (urinary tract infection) Sepsis Qualifiers: Sepsis type: sepsis due to unspecified organism Sepsis acute organ dysfunction status: with acute organ dysfunction Severe sepsis acute organ dysfunction type: encephalopathy Severe sepsis shock status: without septic shock Qualified Code(s): A41.9 - Sepsis, unspecified organism Condition: Fair Disposition: ADMITTED INPATIENT Admitting Provider: Rick (Hospitalist) Unit Admitted: IMCU Referrals: DONALD GOLD MD [ACTIVE STAFF] - Follow up as needed
--- NOTE | 2019-01-05 02:20 | RADIOLOGY REPORT (SQ) ---
Chest single view on 01/05/2019 at 2:05 AM CLINICAL INDICATION: Fever COMPARISON: 07/12/2018 FINDINGS: Vascular calcification is noted in the aorta. The lungs are clear. Cardiac, hilar and mediastinal contours are within normal limits. Pulmonary vascularity is within normal limits. No bony abnormality is noted. IMPRESSION: No acute disease.
[2019-01-05 02:48] LABS: HEMATOCRIT 32.7 % (36.0-47.0); HEMOGLOBIN 10.6 g/dL (12.0-15.5); MEAN CORPUSCULAR HEMOGLOBIN 32.8 pg (27.0-33.4); MEAN CORPUSCULAR HGB CONC 32.3 g/dL (32.0-36.0); MEAN CORPUSCULAR VOLUME 102 fl (80-97); PLATELET COUNT 207 10^3/uL (150-450); RED BLOOD COUNT 3.22 10^6/uL (3.72-5.28); RED CELL DISTRIBUTION WIDTH 13.4 % (11.5-14.0); VENOUS BLOOD HCO3 14.2 mmol/L (20-32); VENOUS BLOOD PCO2 33.4 mmHg (35-63); VENOUS BLOOD PH 7.25 (7.30-7.42)
[2019-01-05 02:52] LABS: APPEARANCE,URINE TURBID; BILIRUBIN,URINE NEGATIVE (NEGATIVE); COLOR,URINE YELLOW; GLUCOSE, URINE 150 mg/dL (NEGATIVE); INTERNATIONAL RATION (INR) 1.11; KETONES,URINE 20 mg/dL (NEGATIVE); LEUKOCYTE ESTERASE,URINE MODERATE (NEGATIVE); NITRITE,URINE NEGATIVE (NEGATIVE); PROTEIN,URINE 100 mg/dL (NEGATIVE); PROTHROMBIN TIME 14.4 SEC (11.4-15.4); URINE SPECIFIC GRAVITY 1.016; UROBILINOGEN,URINE NEGATIVE mg/dL (<2.0)
[2019-01-05 03:03] LABS: ALBUMIN 3.4 g/dL (3.5-5.0); ALKALINE PHOSPHATASE 94 U/L (38-126); ANION GAP 14 (5-19); ASPARTATE AMINO TRANSFERASE 23 U/L (14-36); BILIRUBIN,DIRECT 0.2 mg/dL (0.0-0.4); BILIRUBIN,TOTAL 0.4 mg/dL (0.2-1.3); BLOOD UREA NITROGEN 61 mg/dL (7-20); CALCIUM 8.9 mg/dL (8.4-10.2); CARBON DIOXIDE 16 mmol/L (22-30); CHLORIDE 110 mmol/L (98-107); GLUCOSE 369 mg/dL (75-110); POTASSIUM 5.1 mmol/L (3.6-5.0); TOTAL PROTEIN 6.3 g/dL (6.3-8.2)
[2019-01-05] MEDS ORDERED: INSULIN REG, HUMAN 100 UNIT/ML 3 ML VIAL (PYX) IV ONE (03:11)
[2019-01-05] MEDS ORDERED: DEXTROSE 50%-WATER 25 GM/50 ML DISP.SYRIN IV PRN ×2 (03:16)
[2019-01-05] MEDS ORDERED: GLUCAGON,HUMAN RECOMB 1 MG INJ IM PRN (03:16)
[2019-01-05] MEDS ORDERED: ACETAMINOPHEN 325 MG TABLET PO PRN (03:16)
[2019-01-05] MEDS ORDERED: IPRATROPIUM/ALBUTEROL 0.5-2.5 MG/3 ML AMPUL NEB PRN (03:16)
[2019-01-05] MEDS ORDERED: DEXTROSE 40% GEL 15 GM TUBE PO PRN ×2 (03:16)
[2019-01-05] MEDS ORDERED: MAG HYDROX/AL HYDROX/SIMETH SUSP 30 ML UDCUP PO PRN (03:16)
[2019-01-05 03:20] LABS: ABSOLUTE LYMPHOCYTES# (MANUAL) 0.6 10^3/uL (0.5-4.7); ABSOLUTE MONOCYTES # (MANUAL) 0.1 10^3/uL (0.1-1.4); BASOPHILS % (MANUAL) 1 % (0-2); EOSINOPHILS % (MANUAL) 0 % (0-6); LYMPHOCYTES % (MANUAL) 4 % (13-45); MONOCYTES % (MANUAL) 1 % (3-13); SEGMENTED NEUTROPHILS % (MAN) 94 % (42-78); TOTAL CELLS COUNTED 100
[2019-01-05] MEDS ORDERED: ALPRAZOLAM 0.25 MG TABLET PO PRN (03:20)
[2019-01-05 03:23] LABS: PLATELET COMMENT ADEQUATE
--- NOTE | 2019-01-05 06:16 | PDOC H&P ---
History of Present Illness Admission Date/PCP: 01/05/19 03:19 GEMA BARNHART Patient complains of: Altered mental status History of Present Illness: THOR PORTER is a 83 year old female with a past medical history of diabetes, paroxysmal atrial fibrillation, stage IV chronic kidney disease, congestive heart failure, coronary artery disease, dyslipidemia, constipation predominant IBS, upper GI bleed June 2018 with negative biopsy, NSAID gastritis and recent ESBL UTI. She presents with her daughter with fever and altered mental status. She was treated for a urinary tract infection approximately 7 days ago treated with Cipro. In the emergency room she is found to have altered mental status sepsis, acidosis, acute on chronic renal failure, pyuria and leukocytosis. She started on meropenem secondary to recent ESBL UTI. Patient is unresponsive but reportedly verbal at baseline and able to transfer from bed to commode with wheeled walker. Past Medical History Cardiac Medical History: Reports: Atrial Fibrillation, Congestive Heart Failure, Coronary Artery Disease, Hyperlipidema, Hypertension Denies: Myocardial Infarction Pulmonary Medical History: Reports: Pneumonia - Hx of septic shock Denies: Asthma, Bronchitis, Chronic Obstructive Pulmonary Disease (COPD) Neurological Medical History: Denies: Seizures Endocrine Medical History: Reports: Diabetes Mellitus Type 1, Diabetes Mellitus Type 2 Renal/ Medical History: Reports: End Stage Renal Disease - stage 3 Musculoskeltal Medical History: Reports: Arthritis Psychiatric Medical History: Reports: Depression Hematology: Reports: Anemia - chronic dz Past Surgical History Past Surgical History: Reports: Appendectomy Denies: Hysterectomy, Pacemaker Social History Information Source: Patient Lives with: Family Smoking Status: Unknown if Ever Smoked Frequency of Alcohol Use: None Hx Recreational Drug Use: No Drugs: None Hx Prescription Drug Abuse: No - Advance Directive Resuscitation Status: Full Code Family History Family History: None, CAD, DM Parental Family History Reviewed: No - Unobtainable Children Family History Reviewed: No - Unobtainable Sibling(s) Family History Reviewed.: No - Unobtainable Medication/Allergy Home Medications: Levothyroxine Sodium [Levo-T] 100 mcg PO Q6M 12/09/16 Ropinirole HCl [Requip] 0.5 mg PO HSP PRN 12/09/16 Gabapentin [Neurontin 100 mg Capsule] 200 mg PO Q8 capsule 12/12/16 Insulin Glargine,Hum.rec.anlog [Lantus Insulin 100 Unit/mL Insulin Pen] 0 unit SQ .SLIDING SCALE MDD 22 UNITS 07/05/18 Simvastatin 20 mg PO QHS 07/05/18 Alprazolam [Xanax] 0.5 mg PO Q8HP PRN #20 tablet 07/16/18 Metoprolol Tartrate [Lopressor 50 mg Tablet] 50 mg PO Q12 tablet 07/16/18 Acetaminophen [Pain Relief Extra Strength] 1,000 mg PO DAILYP PRN 11/01/18 Albuterol Sulfate [Albuterol Sulfate Hfa] 1 puff IH Q4HP PRN 11/01/18 Fluoxetine HCl 40 mg PO DAILY 11/01/18 Fluticasone/Umeclidin/Vilanter [Trelegy 100-62.5-25 Mcg Ellipta 14 Dose/Dpi] 1 puff IH DAILY 11/01/18 Hydrocodone/Acetaminophen [Leslie 7.5-325 mg Tablet] 1 tab PO Q12 11/01/18 Memantine HCl [Memantine HCl ER] 14 mg PO DAILY 11/01/18 Rivastigmine Tartrate [Rivastigmine] 6 mg PO Q12 11/01/18 Ferrous Sulfate 325 mg PO Q12 #60 tablet. 11/05/18 Pantoprazole Sodium [Protonix [address] Tablet] 40 mg PO QAMPM #30 tablet. 11/05/18 Allergies/Adverse Reactions: promethazine HCl [From Phenergan] Allergy (Severe, Verified 01/09/15 15:40) severe leg pain baclofen [Baclofen] Allergy (Mild, Verified 01/09/15 15:40) Hives,hallucinate Beef Containing Products Adverse Reaction (Severe, Verified 08/02/15 14:20) GI upset Review of Systems ROS unobtainable: Due to mental status Physical Exam Vital Signs: Temp Pulse Resp BP Pulse Ox 98.0 F 17 129/48 H 98 01/05/19 03:36 01/05/19 03:36 01/05/19 03:36 01/05/19 03:36 Intake & Output 01/03/19 01/04/19 01/05/19 11:59 11:59 11:59 Intake Total 1000 Balance 1000 General appearance: PRESENT: well-nourished, other - Chronically ill-appearing with temporal wasting Head exam: PRESENT: atraumatic, normocephalic Eye exam: PRESENT: conjunctiva pink, EOMI, PERRLA. ABSENT: scleral icterus Ear exam: PRESENT: normal external ear exam Mouth exam: PRESENT: dry mucosa, neck supple, tongue midline. ABSENT: moist Neck exam: ABSENT: carotid bruit, JVD, lymphadenopathy, thyromegaly Respiratory exam: PRESENT: clear to auscultation mónica, tachypnea. ABSENT: rales, rhonchi, wheezes Cardiovascular exam: PRESENT: RRR, tachycardia. ABSENT: diastolic murmur, rubs, systolic murmur Pulses: PRESENT: normal dorsalis pedis pul Vascular exam: PRESENT: normal capillary refill GI/Abdominal exam: PRESENT: normal bowel sounds, soft. ABSENT: distended, guarding, mass, organolmegaly, rebound, tenderness Rectal exam: PRESENT: deferred Extremities exam: PRESENT: full ROM. ABSENT: calf tenderness, clubbing, pedal edema Neurological exam: PRESENT: altered, CN II-XII grossly intact Psychiatric exam: PRESENT: appropriate affect, normal mood. ABSENT: homicidal ideation, suicidal ideation Skin exam: PRESENT: dry, intact, warm. ABSENT: cyanosis, rash Results Laboratory Results: 01/05/19 02:28 01/05/19 02:28 01/05/19 01/05/19 01/05/19 02:28 02:28 02:28 WBC 14.0 H RBC 3.22 L Hgb 10.6 L Hct 32.7 L MCV 102 H MCH 32.8 MCHC 32.3 RDW 13.4 Plt Count 207 Seg Neutrophils % Not Reportable VBG pH VBG pCO2 VBG HCO3 VBG Base Excess Sodium 140.4 Potassium 5.1 H Chloride 110 H Carbon Dioxide 16 L Anion Gap 14 BUN 61 H Creatinine 3.57 H Est GFR ( Amer) 15 L Glucose 369 H Lactic Acid 1.7 Calcium 8.9 Total Bilirubin 0.4 AST 23 Alkaline Phosphatase 94 Total Protein 6.3 Albumin 3.4 L Urine Color Urine Appearance Urine pH Ur Specific Fenton Urine Protein Urine Glucose (UA) Urine Ketones Urine Blood Urine Nitrite Ur Leukocyte Esterase Urine WBC (Auto) Urine RBC (Auto) 01/05/19 01/05/19 02:28 02:28 WBC RBC Hgb Hct MCV MCH MCHC RDW Plt Count Seg Neutrophils % VBG pH 7.25 L VBG pCO2 33.4 L VBG HCO3 14.2 L VBG Base Excess -12.0 Sodium Potassium Chloride Carbon Dioxide Anion Gap BUN Creatinine Est GFR ( Amer) Glucose Lactic Acid Calcium Total Bilirubin AST Alkaline Phosphatase Total Protein Albumin Urine Color YELLOW Urine Appearance TURBID Urine pH 5.0 Ur Specific Fenton 1.016 Urine Protein 100 H Urine Glucose (UA) 150 H Urine Ketones 20 H Urine Blood MODERATE H Urine Nitrite NEGATIVE Ur Leukocyte Esterase MODERATE H Urine WBC (Auto) >182 Urine RBC (Auto) 13 Impressions: Chest X-Ray 01/05/19 01:46 IMPRESSION: No acute disease. Assessment and Plan - Diagnosis (1) Complicated UTI (urinary tract infection) Is this a current diagnosis for this admission?: Yes Plan: Recent ESBL, IV fluid challenge, meropenem, follow blood and urine culture (2) Sepsis Qualifiers: Sepsis type: sepsis due to unspecified organism Sepsis acute organ dysfunction status: with acute organ dysfunction Severe sepsis acute organ dysfunction type: encephalopathy Severe sepsis shock status: without septic sh ock Qualified Code(s): A41.9 - Sepsis, unspecified organism; R65.20 - Severe sepsis without septic shock; G93.40 - Encephalopathy, unspecified Is this a current diagnosis for this admission?: Yes Plan: Secondary to #1, IV fluid challenge, follow-up lactic acid and chemistry (3) A-fib Qualifiers: Atrial fibrillation type: chronic Qualified Code(s): I48.2 - Chronic atrial fibrillation Is this a current diagnosis for this admission?: Yes Plan: Rate controlled (4) Acute renal failure superimposed on stage 3 chronic kidney disease Qualifiers: Acute renal failure type: unspecified Qualified Code(s): N17.9 - Acute ki dney failure, unspecified Is this a current diagnosis for this admission?: Yes Plan: Secondary #1, IV fluid challenge, avoid nephrotoxic meds and doses, follow-up chemistry - Time Time Spent with patient: 35 or more minutes - Inpatient Certification Medical Necessity: Need Close Monitoring Due to Risk of Patient Decompensation
[2019-01-05] MEDS: HEPARIN SOD (PORCINE) 5,000 UNIT/ML 1 ML VIAL SUBCUT SCH ×3 (06:26→21:47)
[2019-01-05 08:26] LABS: ANION GAP 13 (5-19); BLOOD UREA NITROGEN 61 mg/dL (7-20); CALCIUM 8.1 mg/dL (8.4-10.2); CARBON DIOXIDE 14 mmol/L (22-30); CHLORIDE 114 mmol/L (98-107); GLUCOSE 325 mg/dL (75-110); POTASSIUM 4.6 mmol/L (3.6-5.0)
--- NOTE | 2019-01-05 09:24 | EKG REPORT ---
SEVERITY:- ABNORMAL ECG - SINUS RHYTHM LAD, CONSIDER LEFT ANTERIOR FASCICULAR BLOCK LEFT VENTRICULAR HYPERTROPHY BORDERLINE PROLONGED QT INTERVAL : Confirmed by: Trinity Fairbanks MD 05-Jan-2019 09:24:09
[2019-01-05] MEDS: INSULIN LISPRO 100 UNIT/ML 3 ML VIAL SUBCUT SCH ×3 (09:48→16:29)
[2019-01-05] MEDS: NORMAL SALINE 1000 ML 1,000 ML IV PRN (09:49)
[2019-01-05] MEDS: MEROPENEM 500 MG in NORMAL SALINE 50 ML IV SCH ×2 (11:14→17:13)
[2019-01-06] MEDS: MEROPENEM 500 MG in NORMAL SALINE 50 ML IV SCH ×3 (01:28→17:50)
[2019-01-06] MEDS: NORMAL SALINE 1000 ML 1,000 ML IV PRN ×2 (02:43→06:48)
[2019-01-06 05:08] LABS: ABSOLUTE EOSINOPHILS # (AUTO) 0.3 10^3/uL (0.0-0.6); ABSOLUTE LYMPHOCYTES (AUTO) 1.4 10^3/uL (0.5-4.7); ABSOLUTE MONOCYTES (AUTO) 0.8 10^3/uL (0.1-1.4); ABSOLUTE NEUT (AUTO) 7.2 10^3/uL (1.7-8.2); BASOPHILS % (AUTO) 0.4 % (0-2); EOSINOPHILS % (AUTO) 2.8 % (0-6); HEMATOCRIT 26.9 % (36.0-47.0); HEMOGLOBIN 8.8 g/dL (12.0-15.5); LYMPHOCYTES % (AUTO) 14.4 % (13-45); MEAN CORPUSCULAR HEMOGLOBIN 33.4 pg (27.0-33.4); MEAN CORPUSCULAR HGB CONC 32.8 g/dL (32.0-36.0); MEAN CORPUSCULAR VOLUME 102 fl (80-97); MONOCYTES % (AUTO) 8.7 % (3-13); PLATELET COUNT 163 10^3/uL (150-450); RED BLOOD COUNT 2.64 10^6/uL (3.72-5.28); RED CELL DISTRIBUTION WIDTH 13.5 % (11.5-14.0); SEGMENTED NEUTROPHILS % (AUTO) 73.7 % (42-78); TOTAL CELLS COUNTED % (AUTO) 100 %; WHITE BLOOD COUNT 9.7 10^3/uL (4.0-10.5)
[2019-01-06 05:29] LABS: ANION GAP 9 (5-19); BLOOD UREA NITROGEN 54 mg/dL (7-20); CALCIUM 7.8 mg/dL (8.4-10.2); CARBON DIOXIDE 15 mmol/L (22-30); CHLORIDE 117 mmol/L (98-107); GLUCOSE 91 mg/dL (75-110); POTASSIUM 3.9 mmol/L (3.6-5.0)
[2019-01-06] MEDS: HEPARIN SOD (PORCINE) 5,000 UNIT/ML 1 ML VIAL SUBCUT SCH ×3 (05:38→21:50)
[2019-01-06] MEDS: INSULIN LISPRO 100 UNIT/ML 3 ML VIAL SUBCUT SCH ×3 (08:02→17:48)
[2019-01-06] MEDS ORDERED: ACETAMINOPHEN 325 MG TABLET PO PRN (13:17)
--- NOTE | 2019-01-06 15:17 | PDOC PROGRESS REPORT ---
Subjective Progress Note for:: 01/06/19 Subjective:: No adverse events overnight. She is more awake and alert and interactive today. She said she ate some breakfast this morning. No fevers. She says overall she feels a lot better. Reason For Visit: PYELONEPHRITIS,ESBL SEPSIS ARF Physical Exam Vital Signs: Temp Pulse Resp BP Pulse Ox 98.6 F 93 17 168/59 H 96 01/06/19 11:25 01/06/19 14:00 01/06/19 12:50 01/06/19 11:25 01/06/19 12:50 Intake & Output 01/05/19 01/06/19 01/07/19 06:59 06:59 06:59 Intake Total 1000 2630 1050 Output Total 900 Balance 1000 1730 1050 Weight 55.9 kg 61.4 kg General appearance: PRESENT: no acute distress, cooperative, disheveled, hard of hearing Respiratory exam: PRESENT: clear to auscultation mónica, symmetrical, unlabored. ABSENT: accessory muscle use, chest wall tenderness, crackles, prolonged expiratory phas, rhonchi, tachypnea, wheezes Cardiovascular exam: PRESENT: RRR, +S1, +S2 Pulses: PRESENT: normal carotid pulses Vascular exam: PRESENT: normal capillary refill GI/Abdominal exam: PRESENT: normal bowel sounds, soft. ABSENT: distended, guarding, rebound, tenderness Extremities exam: ABSENT: clubbing, pedal edema Musculoskeletal exam: PRESENT: normal inspection. ABSENT: deformity Neurological exam: PRESENT: alert, awake, oriented to person, oriented to situation Psychiatric exam: PRESENT: flat affect Skin exam: PRESENT: dry, warm Results Laboratory Results: 01/06/19 04:14 01/06/19 04:14 01/06/19 01/06/19 04:14 04:14 WBC 9.7 RBC 2.64 L Hgb 8.8 L Hct 26.9 L MCV 102 H MCH 33.4 MCHC 32.8 RDW 13.5 Plt Count 163 Seg Neutrophils % 73.7 Sodium 140.5 Potassium 3.9 Chloride 117 H Carbon Dioxide 15 L Anion Gap 9 BUN 54 H Creatinine 2.56 H Est GFR ( Amer) 22 L Glucose 91 Calcium 7.8 L 01/05/19 02:28 Catheterized Urine Urine Culture - Final Lactobacillus (Vaginal [place]) Impressions: Chest X-Ray 01/05/19 01:46 IMPRESSION: No acute disease. Assessment and Plan - Diagnosis (1) Acute encephalopathy Is this a current diagnosis for this admission?: Yes Plan: I suspect this is resolved. I do not know what her baseline mental status is but she substantially improved from yesterday. Suspect a metabolic encephalopathy from dehydration. (2) Dehydration Is this a current diagnosis for this admission?: Yes Plan: Improved with IV fluids. (3) Complicated UTI (urinary tract infection) Is this a current diagnosis for this admission?: Yes Plan: This is been ruled out. She is growing a lactobacillus out of her urine instead of the ESBL E. coli she has grown before. I am to continue her antibiotics for just 1 more day to see if something else grows out of her culture. If nothing else grows out, I will probably discontinue them at that time. (4) Acute renal failure superimposed on stage 3 chronic kidney disease Qualifiers: Acute renal failure type: unspecified Qualified Code(s): N17.9 - Acute kidney failure, unspecified Is this a current diagnosis for this admission?: Yes Plan: Resolved. Creatinine back to its baseline around 2.5. - Time Time Spent with patient: 15-24 minutes
[2019-01-07] MEDS: MEROPENEM 500 MG in NORMAL SALINE 50 ML IV SCH ×2 (01:37→11:24)
[2019-01-07] MEDS ORDERED: HYDRALAZINE HCL 50 MG TABLET PO ONE (01:45)
[2019-01-07 05:45] LABS: ANION GAP 12 (5-19); BLOOD UREA NITROGEN 46 mg/dL (7-20); CALCIUM 8.6 mg/dL (8.4-10.2); CARBON DIOXIDE 13 mmol/L (22-30); CHLORIDE 114 mmol/L (98-107); GLUCOSE 147 mg/dL (75-110); POTASSIUM 4.2 mmol/L (3.6-5.0)
[2019-01-07] MEDS: HEPARIN SOD (PORCINE) 5,000 UNIT/ML 1 ML VIAL SUBCUT SCH ×3 (06:02→21:30)
[2019-01-07] MEDS ORDERED: ONDANSETRON HCL INJ/PF 4 MG/2 ML SDV IV PRN (08:48)
[2019-01-07] MEDS: METOPROLOL TARTRATE 50 MG TABLET PO SCH ×2 (08:53→21:30)
[2019-01-07] MEDS: INSULIN LISPRO 100 UNIT/ML 3 ML VIAL SUBCUT SCH ×3 (08:54→17:18)
--- NOTE | 2019-01-07 15:12 | PDOC DISCHARGE SUMMARY ---
General - Admit/Disc Date/PCP Admission Date/Primary Care Provider: 01/05/19 03:19 GEMA BARNHART Discharge Date: 01/07/19 - Discharge Diagnosis (1) Acute encephalopathy Is this a current diagnosis for this admission?: Yes Summary: This was due to dehydration. Now resolved. Mental status back to baseline. (2) Dehydration Is this a current diagnosis for this admission?: Yes Summary: Resolved with IV fluids (3) Complicated UTI (urinary tract infection) Is this a current diagnosis for this admission?: Yes Summary: She has a history of an ESBL E. coli in the urine, but nothing grew out of at this time except for some lactobacillus which is considered normal luis. Therefore, this diagnosis was ruled out. (4) Acute renal failure superimposed on stage 3 chronic kidney disease Is this a current diagnosis for this admission?: Yes Summary: Responded very well to IV fluids. Creatinine back to baseline. Actually, at discharge her creatinine was better than it usually is. - Additional Information Resuscitation Status: Full Code Discharge Diet: Cardiac Discharge Activity: Balance Activity w/Rest, Supervised Activity Home Medications: Albuterol Sulfate [Proair HFA Inhalation Aerosol 8.5 gm MDI] 1 puff IH Q4HP PRN 01/05/19 Alprazolam [Xanax 0.5 mg Tablet] 0.5 mg PO TIDP PRN 01/05/19 Ferrous Sulfate [Feosol 325 mg Tablet] 325 mg PO Q12 01/05/19 Fluoxetine HCl [Prozac 20 mg Capsule] 20 mg PO DAILY 01/05/19 Fluticasone/Umeclidin/Vilanter [Trelegy 100-62.5-25 Mcg Ellipta 14 Dose/Dpi] 1 puff IH DAILY 01/05/19 Levothyroxine Sodium 100 mcg PO Q6AM 01/05/19 Lisinopril [Zestril] 10 mg PO DAILY 01/05/19 Memantine HCl [Namenda Xr] 14 mg PO DAILY 01/05/19 Metoprolol Tartrate [Lopressor 50 mg Tablet] 50 mg PO Q12 01/05/19 Ondansetron [Zofran Odt 4 mg Tablet] 4 mg PO Q4HP PRN 01/05/19 Pantoprazole Sodium [Protonix [address] Tablet] 40 mg PO DAILY 01/05/19 Rivastigmine Tartrate [Exelon] 6 mg PO BID 01/05/19 Ropinirole HCl [Requip] 0.5 mg PO DAILY 01/05/19 Simvastatin [Zocor 20 mg Tablet] 20 mg PO QPM 01/05/19 History of Present Illness History of Present Illness: THOR PORTER is a 83 year old female with a past medical history of diabetes, paroxysmal atrial fibrillation, stage IV chronic kidney disease, congestive heart failure, coronary artery disease, dyslipidemia, constipation predominant IBS, upper GI bleed June 2018 with negative biopsy, NSAID gastritis and recent ESBL UTI. She presents with her daughter with fever and altered mental status. She was treated for a urinary tract infection approximately 7 days ago treated with Cipro. In the emergency room she is found to have altered mental status sepsis, acidosis, acute on chronic renal failure, pyuria and leukocytosis. She started on meropenem secondary to recent ESBL UTI. Patient is unresponsive but reportedly verbal at baseline and able to transfer from bed to commode with wheeled walker. Hospital Course Hospital Course: She got some IV fluids over the next couple of days her creatinine trended down back towards her normal range. As it did so, her mental status improved dramatically. She was empirically placed on some antibiotics because of a history of an ESBL E. coli UTI that she has had in the past, but her urine culture only grew out lactobacillus. She had one blood culture turned positive that was a likely contaminant. The other blood culture remain negative. She is been in and out of the hospital a bit recently, so we decided to set her up with home health and a social service technician. We also arrange for her to get physical therapy and Occupational Therapy. Her labs and examination were reassuring and she was discharged today in good condition. Physical Exam Vital Signs: Temp Pulse Resp BP Pulse Ox 98.4 F 70 16 142/90 H 96 01/07/19 08:12 01/07/19 12:56 01/07/19 12:56 01/07/19 11:00 01/07/19 12:56 Intake & Output 01/06/19 01/07/19 01/08/19 06:59 06:59 06:59 Intake Total 2630 1830 50 Output Total 900 2000 Balance 1730 -170 50 Weight 61.4 kg 60.8 kg General appearance: PRESENT: no acute distress, cooperative, disheveled, hard of hearing Respiratory exam: PRESENT: clear to auscultation mónica, symmetrical, unlabored. ABSENT: accessory muscle use, chest wall tenderness, crackles, prolonged expiratory phas, rhonchi, tachypnea, wheezes Cardiovascular exam: PRESENT: RRR, +S1, +S2 Pulses: PRESENT: normal carotid pulses Vascular exam: PRESENT: normal capillary refill GI/Abdominal exam: PRESENT: normal bowel sounds, soft. ABSENT: distended, guarding, rebound, tenderness Extremities exam: ABSENT: clubbing, pedal edema Musculoskeletal exam: PRESENT: normal inspection. ABSENT: deformity Neurological exam: PRESENT: alert, awake, oriented to person, oriented to situation Psychiatric exam: PRESENT: flat affect Skin exam: PRESENT: dry, warm Results Laboratory Results: 01/06/19 04:14 01/07/19 04:47 01/07/19 04:47 Sodium 139.3 Potassium 4.2 Chloride 114 H Carbon Dioxide 13 L Anion Gap 12 BUN 46 H Creatinine 1.91 H Est GFR ( Amer) 30 L Glucose 147 H Calcium 8.6 01/05/19 02:28 Catheterized Urine Urine Culture - Final Lactobacillus (Vaginal Luis) Impressions: Chest X-Ray 01/05/19 01:46 IMPRESSION: No acute disease. Qualifiers - * PATIENT BEING DISCHARGED WITH ANY OF THE FOLLOWING DIAGNOSIS: No Acute Heart Failure - Is this a Heart Failure Patient?: No Plan Time Spent: Greater than 30 Minutes
[2019-01-07 20:54] VITALS: BP 168/70
[2019-01-07] MEDS ORDERED: MEROPENEM 500 MG in NORMAL SALINE 50 ML IV SCH (22:00)
== END 2019-01-07 21:50 | disposition home health service (06) | DRG 640 ==
LOC: ER 01:43 → EH 03:19 → 3N 04:02
PROVIDERS: ADMIT Internal Medicine; ATTEND Internal Medicine
DX: E86.0 Dehydration (principal); G93.41 Metabolic encephalopathy; N17.9 Acute kidney failure, unspecified; I13.0 Hypertensive heart and chronic kidney disease with heart failure and stage 1 through stage 4 chronic kidney disease, or unspecified chronic kidney disease; I48.0 Paroxysmal atrial fibrillation; I50.9 Heart failure, unspecified; I25.10 Atherosclerotic heart disease of native coronary artery without angina pectoris; E78.00 Pure hypercholesterolemia, unspecified; E11.22 Type 2 diabetes mellitus with diabetic chronic kidney disease; N18.3 Chronic kidney disease, stage 3 (moderate); E87.5 Hyperkalemia; Z79.4 Long term (current) use of insulin; Z79.899 Other long term (current) drug therapy
CPT/HCPCS: 36415; 71045; 80048; 80053; 81001; 82803; 82962; 83605; 85025; 85610; 87040; 87077; 87086; 87186; 93005; 93010; 96365; 99291; J1644; J1815; J2185; J2405; J7030

== ENCOUNTER 2019-01-08 06:46 | Inpatient (IN) | payer MEDICARE, OTHER ==
[2019-01-08] MEDS ORDERED: ONDANSETRON HCL INJ/PF 4 MG/2 ML SDV IV ONE ×2 (07:02→12:30)
[2019-01-08] MEDS ORDERED: PANTOPRAZOLE SODIUM 40 MG VIAL IV ONE (07:03)
[2019-01-08 08:28] LABS: ABSOLUTE MONOCYTES (AUTO) 0.5 10^3/uL (0.1-1.4); ABSOLUTE NEUT (AUTO) 11.1 10^3/uL (1.7-8.2); BASOPHILS % (AUTO) 0.2 % (0-2); EOSINOPHILS % (AUTO) 0.1 % (0-6); HEMOGLOBIN 10.5 g/dL (12.0-15.5); MEAN CORPUSCULAR HEMOGLOBIN 32.4 pg (27.0-33.4); MEAN CORPUSCULAR HGB CONC 32.7 g/dL (32.0-36.0); MEAN CORPUSCULAR VOLUME 99 fl (80-97); PLATELET COUNT 216 10^3/uL (150-450); RED BLOOD COUNT 3.22 10^6/uL (3.72-5.28); RED CELL DISTRIBUTION WIDTH 13.2 % (11.5-14.0); SEGMENTED NEUTROPHILS % (AUTO) 87.7 % (42-78); TOTAL CELLS COUNTED % (AUTO) 100 %; WHITE BLOOD COUNT 12.7 10^3/uL (4.0-10.5)
[2019-01-08 08:31] LABS: VENOUS BLOOD BASE EXCESS -11.1 mmol/L; VENOUS BLOOD HCO3 13.9 mmol/L (20-32); VENOUS BLOOD PCO2 28.8 mmHg (35-63); VENOUS BLOOD PH 7.3 (7.30-7.42)
[2019-01-08 08:37] LABS: INTERNATIONAL RATION (INR) 1.05; PROTHROMBIN TIME 13.7 SEC (11.4-15.4)
--- NOTE | 2019-01-08 08:38 | ER Document Report ---
Entered by CORAL JACOB SCRIBE 01/08/19 0703 Acting as scribe for:ABHAY SANCHES MD ED GI/ - General Chief Complaint: Vomiting Stated Complaint: GI BLEED Time Seen by Provider: 01/08/19 06:57 Information source: Patient Notes: Patient is an 83-year-old female who presents to the emergency department today with with complaints of coffee-ground emesis. The patient was admitted to this facility on 01/05 for pyelonephritis with sepsis and was discharged yesterday. Friendly took the patient home yesterday and reported the patient had this vomiting yesterday on the way home which continued through the night. Patient has a history of a ulcers. TRAVEL OUTSIDE OF THE [place] IN LAST 30 DAYS: No - Related Data Allergies/Adverse Reactions: promethazine HCl [From Phenergan] Allergy (Severe, Verified 01/09/15 15:40) severe leg pain baclofen [Baclofen] Allergy (Mild, Verified 01/09/15 15:40) Hives,hallucinate Beef Containing Products Adverse Reaction (Severe, Verified 08/02/15 14:20) GI upset Past Medical History - General Information source: Patient - Social History Smoking Status: Former Smoker Frequency of alcohol use: None Drug Abuse: None Family History: None, CAD, DM Patient has suicidal ideation: No Patient has homicidal ideation: No - Past Medical History Cardiac Medical History: Reports: Hx Atrial Fibrillation, Hx Congestive Heart Failure, Hx Coronary Artery Disease, Hx Hypercholesterolemia, Hx Hypertension Pulmonary Medical History: Reports: Hx Pneumonia - Hx of septic shock Endocrine Medical History: Reports: Hx Diabetes Mellitus Type 2 Renal/ Medical History: Reports: Hx End Stage Renal Disease - stage 3 Musculoskeletal Medical History: Reports Hx Arthritis Psychiatric Medical History: Reports: Hx Depression Past Surgical History: Reports: Hx Abdominal Surgery - hernia, Hx Appendectomy - Immunizations Hx Diphtheria, Pertussis, Tetanus Vaccination: No Hx Pneumococcal Vaccination: 01/25/13 Review of Systems - Review of Systems Constitutional: No symptoms reported EENT: No symptoms reported Cardiovascular: No symptoms reported Respiratory: No symptoms reported Gastrointestinal: See HPI, Abdominal pain, Vomiting, Blood in vomit Genitourinary: No symptoms reported Female Genitourinary: No symptoms reported Musculoskeletal: No symptoms reported Skin: No symptoms reported Hematologic/Lymphatic: No symptoms reported Neurological/Psychological: No symptoms reported -: Yes All other systems reviewed and negative Physical Exam - Vital signs Vitals: Resp Pulse Ox 17 98 01/08/19 06:48 01/08/19 06:48 - Notes Notes: Physical Exam: General: Alert, appears nauseated. HEENT: Normocephalic. Atraumatic. PERRL. Extraocular movements intact. Oropharynx clear. Dried coffee-ground appearing emesis in left ear. Neck: Supple. Non-tender. Respiratory: No respiratory distress. Clear and equal breath sounds bilaterally. Cardiovascular: Regular rate and rhythm. Abdominal: Appears nauseated. Non-tender. No distension. Normal Bowel Sounds. Back: No gross abnormalities. Extremities: Moves all four extremities. Upper extremities: Normal inspection. Normal ROM. Lower extremities: Normal inspection. No edema. Normal ROM. Neurological: Normal cognition. AAOx4. Normal speech. Psychological: Normal affect. Normal Mood. Skin: Warm. Dry. Bruising. Course - Vital Signs Vital signs: Temp Pulse Resp BP Pulse Ox 98.1 F 20 202/92 H 99 01/08/19 11:17 01/08/19 12:30 01/08/19 12:30 01/08/19 12:30 - Laboratory Result Diagrams: 01/08/19 07:55 01/08/19 07:55 Laboratory results interpreted by me: 01/08/19 01/08/19 01/08/19 07:55 07:55 07:55 WBC 12.7 H RBC 3.22 L Hgb 10.5 L Hct 32.0 L MCV 99 H Lymph % (Auto) 8.0 L Absolute Neuts (auto) 11.1 H Seg Neutrophils % 87.7 H VBG pCO2 VBG HCO3 Carbon Dioxide 15 L BUN 44 H Creatinine 1.75 H Est GFR ( Amer) 34 L Est GFR (MDRD) Non-Af 28 L Glucose 286 H Hemoglobin A1c % 11.3 H Urine Protein Urine Glucose (UA) Urine Ketones Urine Blood 01/08/19 01/08/19 07:55 08:35 WBC RBC Hgb Hct MCV Lymph % (Auto) Absolute Neuts (auto) Seg Neutrophils % VBG pCO2 28.8 L VBG HCO3 13.9 L Carbon Dioxide BUN Creatinine Est GFR ( Amer) Est GFR (MDRD) Non-Af Glucose Hemoglobin A1c % Urine Protein 100 H Urine Glucose (UA) >=500 H Urine Ketones 80 H Urine Blood SMALL H - Diagnostic Test Radiology reviewed: Image reviewed, Reports reviewed - Chest x-ray read is sent with. KUB shows large uterine fibroids - EKG Interpretation by Me EKG shows normal: Sinus rhythm, [place], QRS Complexes, ST-T Waves. abnormal: Intervals - Borderline prolonged QT interval Rate: Normal - 71 Rhythm: NSR Voltage: Consistant with LVH - Consults Dr. Mullen Time consulted: 10:37 Consulted provider: will come to ER Critical Care Note - Critical Care Note Total time excluding time spent on procedures (mins): 40 Discharge - Discharge Clinical Impression: Uncontrolled hypertension Nausea and vomiting Qualifiers: Vomiting type: unspecified Vomiting Intractability: non-intractable Qualified Code(s): R11.2 - Nausea with vomiting, unspecified High blood pressure Qualifiers: Hypertension type: essential hypertension Qualified Code(s): I10 - Essential (primary) hypertension Hematemesis Qualifiers: Nausea presence: with nausea Qualified Code(s): K92.0 - Hematemesis Uncontrolled diabetes mellitus Qualifiers: Diabetes mellitus type: type 2 Glycemic state: with hyperglycemia Qualified Code(s): E11.65 - Type 2 diabetes mellitus with hyperglycemia Condition: Fair Disposition: ADMITTED INPATIENT Admitting Provider: Paz (Hospitalist) Unit Admitted: IMCU Scribe Attestation: 01/08/19 07:44 I personally performed the services described in the documentation, reviewed and edited the documentation which was dictated to the scribe in my presence, and it accurately records my words and actions. I personally performed the services described in the documentation, reviewed and edited the documentation which was dictated to the scribe in my presence, and it accurately records my words and actions.
[2019-01-08 08:44] LABS: ALBUMIN 3.6 g/dL (3.5-5.0); ALKALINE PHOSPHATASE 87 U/L (38-126); ANION GAP 19 (5-19); ASPARTATE AMINO TRANSFERASE 22 U/L (14-36); BILIRUBIN,DIRECT 0.3 mg/dL (0.0-0.4); BILIRUBIN,TOTAL 0.6 mg/dL (0.2-1.3); BLOOD UREA NITROGEN 44 mg/dL (7-20); CALCIUM 9.4 mg/dL (8.4-10.2); CARBON DIOXIDE 15 mmol/L (22-30); CHLORIDE 107 mmol/L (98-107); CREATINE KINASE 74 U/L (30-135); GLUCOSE 286 mg/dL (75-110); TOTAL PROTEIN 6.4 g/dL (6.3-8.2)
[2019-01-08 09:22] LABS: APPEARANCE,URINE CLEAR; BILIRUBIN,URINE NEGATIVE (NEGATIVE); COLOR,URINE STRAW; GLUCOSE, URINE >=500 mg/dL (NEGATIVE); KETONES,URINE 80 mg/dL (NEGATIVE); LEUKOCYTE ESTERASE,URINE NEGATIVE (NEGATIVE); NITRITE,URINE NEGATIVE (NEGATIVE); PROTEIN,URINE 100 mg/dL (NEGATIVE); URINE SPECIFIC GRAVITY 1.009; UROBILINOGEN,URINE NEGATIVE mg/dL (<2.0)
[2019-01-08] MEDS ORDERED: NORMAL SALINE 1000 ML 1,000 ML IV ONE (09:37)
--- NOTE | 2019-01-08 10:18 | RADIOLOGY REPORT (SQ) ---
EXAM DESCRIPTION: CHEST SINGLE VIEW; KUB/ABDOMEN (SINGLE VIEW) COMPLETED DATE/TIME: 01/08/2019 10:04 am REASON FOR STUDY: vomiting COMPARISON: See below. FINDINGS: Single-view chest: 01/05 comparison. AP portable upright. Heart size accentuated by port able technique. Mild central vascular congestion without overt edema. No evidence of free air. One-view abdomen: Nonobstructive bowel gas pattern although there is some gas-filled nondistended sm all bowel scattered in the abdomen. Densely calcified fibroids in the pelvis. Vascular calcificatio ns. TECHNICAL DOCUMENTATION: JOB ID: [id number] Reading location - IP/workstation name: [email or web address] EQUIPMENT [email or web address]
--- NOTE | 2019-01-08 10:18 | RADIOLOGY REPORT (SQ) ---
EXAM DESCRIPTION: CHEST SINGLE VIEW; KUB/ABDOMEN (SINGLE VIEW) COMPLETED DATE/TIME: 01/08/2019 10:04 am REASON FOR STUDY: vomiting COMPARISON: See below. FINDINGS: Single-view chest: 01/05 comparison. AP portable upright. Heart size accentuated by port able technique. Mild central vascular congestion without overt edema. No evidence of free air. One-view abdomen: Nonobstructive bowel gas pattern although there is some gas-filled nondistended sm all bowel scattered in the abdomen. Densely calcified fibroids in the pelvis. Vascular calcificatio ns. TECHNICAL DOCUMENTATION: JOB ID: [id number] Reading location - IP/workstation name: [email or web address]
[2019-01-08] MEDS ORDERED: METOPROLOL TARTRATE PF/INJ 5 MG/5 ML SDV IV ONE (10:43)
[2019-01-08] MEDS ORDERED: HYDRALAZINE HCL INJ/PF 20 MG/1 ML SDV IV ONE (12:15)
[2019-01-08] MEDS ORDERED: LISINOPRIL 10 MG TABLET PO ONE (12:30)
[2019-01-08] MEDS ORDERED: SUCRALFATE 1 GM TABLET PO ONE (12:30)
[2019-01-08] MEDS ORDERED: METOPROLOL SUCCINATE 50 MG TAB.SR.24H PO ONE (12:30)
[2019-01-08] MEDS ORDERED: ONDANSETRON 4 MG TAB.RAPDIS PO PRN (14:43)
[2019-01-08] MEDS ORDERED: ALPRAZOLAM 0.5 MG TABLET PO PRN (14:43)
[2019-01-08] MEDS ORDERED: ALBUTEROL SULFATE HFA (90 MCG/PUFF) 200 PUFF/8.5 GM MDI IH PRN (14:43)
--- NOTE | 2019-01-08 15:26 | PDOC H&P ---
History of Present Illness Admission Date/PCP: 01/08/19 13:17 GEMA BARNHART History of Present Illness: THOR PORTER is a 83 year old female and progressively declining health who is had multiple hospitalizations and ER visits this year, and was just discharged yesterday after being in the hospital for dehydration and worsening of her chronic kidney disease as a result. She was doing fine and when she went home she apparently had some vomiting. The patient is an awful historian and no one else is here with her to tell me what was going on. Apparently she was having some vomiting and so her family called EMS. EMS allegedly said her blood pressure was 70/40, which I find somewhat hard to believe, because in the ER her systolic was in the 200s. She has not taken her medicine since she left here yesterday. She has a history of erosive esophagitis, gastritis, benign gastric polyps, and a hiatal hernia, which were all seen on EGD that she had approximately 2 months ago in this hospital. They decided to check her vomit for blood and of course it was positive. Her CBC and her metabolic panel both look better than they did when she left here yesterday. She is being admitted because her systolic got as high as 234 in the ER. It responded well to hydralazine and drop down into the 180s. She was nauseated and did not feel like taking her medications at this time. It says in her chart that she has a history of coronary artery disease and congestive heart failure but I can find no evidence of that in any work-up that is been done here, and her medication l ist does not look like somebody with those diagnoses. She had an echocardiogram a few years ago here that showed an EF of 65% or greater was no evidence of diastolic dysfunction. Past Medical History Cardiac Medical History: Reports: Atrial Fibrillation, Hyperlipidema, Hypertension Denies: Myocardial Infarction Pulmonary Medical History: Reports: Pneumonia - Hx of septic shock Denies: Asthma, Bronchitis, Chronic Obstructive Pulmonary Disease (COPD) Neurological Medical History: Denies: Seizures Endocrine Medical History: Reports: Diabetes Mellitus Type 1, Diabetes Mellitus Type 2 Renal/ Medical History: Reports: Chronic Kidney Disease GI Medical History: Reports: Gastroesophageal Reflux Disease, Hiatal Hernia Musculoskeltal Medical History: Reports: Arthritis Psychiatric Medical History: Reports: Depression Hematology: Reports: Anemia - chronic dz Past Surgical History Past Surgical History: Reports: Appendectomy Denies: Hysterectomy, Pacemaker Social History Smoking Status: Former Smoker Frequency of Alcohol Use: None Hx Recreational Drug Use: No Drugs: None Hx Prescription Drug Abuse: No Family History Family History: None, CAD, DM Parental Family History Reviewed: No - Unreliable historian Children Family History Reviewed: No - Unreliable historian Sibling(s) Family History Reviewed.: No - Unreliable historian Medication/Allergy Home Medications: Albuterol Sulfate [Proair HFA Inhalation Aerosol 8.5 gm MDI] 1 puff IH Q4HP PRN 01/05/19 Alprazolam [Xanax 0.5 mg Tablet] 0.5 mg PO TIDP PRN 01/05/19 Ferrous Sulfate [Feosol 325 mg Tablet] 325 mg PO Q12 01/05/19 Fluoxetine HCl [Prozac 20 mg Capsule] 20 mg PO DAILY 01/05/19 Fluticasone/Umeclidin/Vilanter [Trelegy 100-62.5-25 Mcg Ellipta 14 Dose/Dpi] 1 puff IH DAILY 01/05/19 Levothyroxine Sodium 100 mcg PO Q6AM 01/05/19 Lisinopril [Zestril] 10 mg PO DAILY 01/05/19 Memantine HCl [Namenda Xr] 14 mg PO DAILY 01/05/19 Metoprolol Tartrate [Lopressor 50 mg Tablet] 50 mg PO Q12 01/05/19 Ondansetron [Zofran Odt 4 mg Tablet] 4 mg PO Q4HP PRN 01/05/19 Pantoprazole Sodium [Protonix [address] Tablet] 40 mg PO DAILY 01/05/19 Rivastigmine Tartrate [Exelon] 6 mg PO BID 01/05/19 Ropinirole HCl [Requip] 0.5 mg PO DAILY 01/05/19 Simvastatin [Zocor 20 mg Tablet] 20 mg PO QPM 01/05/19 Allergies/Adverse Reactions: promethazine HCl [From Phenergan] Allergy (Severe, Verified 01/09/15 15:40) severe leg pain baclofen [Baclofen] Allergy (Mild, Verified 01/09/15 15:40) Hives,hallucinate Beef Containing Products Adverse Reaction (Severe, Verified 08/02/15 14:20) GI upset Review of Systems ROS unobtainable: Other - Unreliable historian Physical Exam Vital Signs: Temp Pulse Resp BP Pulse Ox 97.8 F 16 185/108 H 99 01/08/19 14:30 01/08/19 14:30 01/08/19 14:30 01/08/19 14:30 Intake & Output 01/07/19 01/08/19 01/09/19 06:59 06:59 06:59 Weight 60.8 kg General appearance: PRESENT: cooperative, disheveled, mild distress, other - She appears generally very unhealthy and frail Head exam: PRESENT: atraumatic, normocephalic Eye exam: PRESENT: EOMI, PERRLA. ABSENT: conjunctival injection, nystagmus, scleral icterus Ear exam: PRESENT: normal external ear exam Mouth exam: PRESENT: moist, neck supple Teeth exam: PRESENT: poor dentation Throat exam: ABSENT: post pharyngeal erythema Neck exam: PRESENT: full ROM. ABSENT: carotid bruit, JVD, lymphadenopathy, meningismus, tenderness, thyromegaly Respiratory exam: PRESENT: chest wall tenderness, symmetrical, unlabored. ABSENT: accessory muscle use, clear to auscultation mónica, crackles, prolonged expiratory phas, rhonchi, tachypnea, wheezes Cardiovascular exam: PRESENT: RRR - Occasional PVCs, +S1, +S2 Pulses: PRESENT: normal carotid pulses Vascular exam: PRESENT: normal capillary refill GI/Abdominal exam: PRESENT: hypoactive bowel sounds, soft. ABSENT: distended, guarding, rebound, tenderness Extremities exam: ABSENT: clubbing, pedal edema Musculoskeletal exam: PRESENT: normal inspection. ABSENT: deformity Neurological exam: PRESENT: awake, oriented to person, oriented to situation, other - She was unable to cooperate with some more complicated aspects of the neurological exam. ABSENT: motor sensory deficit - She is generally weak but that is her baseline Psychiatric exam: PRESENT: flat affect Skin exam: PRESENT: dry, warm, other - She has a general grayish discoloration Results Laboratory Results: 01/08/19 07:55 01/08/19 07:55 01/08/19 01/08/19 01/08/19 07:55 07:55 07:55 WBC 12.7 H RBC 3.22 L Hgb 10.5 L Hct 32.0 L MCV 99 H MCH 32.4 MCHC 32.7 RDW 13.2 Plt Count 216 Seg Neutrophils % 87.7 H VBG pH VBG pCO2 VBG HCO3 VBG Base Excess Sodium 140.6 Potassium 4.0 Chloride 107 Carbon Dioxide 15 L Anion Gap 19 BUN 44 H Creatinine 1.75 H Est GFR ( Amer) 34 L Glucose 286 H Lactic Acid 1.6 Calcium 9.4 Magnesium 1.6 Total Bilirubin 0.6 AST 22 Alkaline Phosphatase 87 Total Protein 6.4 Albumin 3.6 Urine Color Urine Appearance Urine pH Ur Specific [place] Urine Protein Urine Glucose (UA) Urine Ketones Urine Blood Urine Nitrite Ur Leukocyte Esterase Urine WBC (Auto) Urine RBC (Auto) Blood Type Antibody Screen 01/08/19 01/08/19 01/08/19 07:55 07:55 08:35 WBC RBC Hgb Hct MCV MCH MCHC RDW Plt Count Seg Neutrophils % VBG pH 7.30 VBG pCO2 28.8 L VBG HCO3 13.9 L VBG Base Excess -11.1 Sodium Potassium Chloride Carbon Dioxide Anion Gap BUN Creatinine Est GFR ( Amer) Glucose Lactic Acid Calcium Magnesium Total Bilirubin AST Alkaline Phosphatase Total Protein Albumin Urine Color STRAW Urine Appearance CLEAR Urine pH 6.0 Ur Specific [place] 1.009 Urine Protein 100 H Urine Glucose (UA) >=500 H Urine Ketones 80 H Urine Blood SMALL H Urine Nitrite NEGATIVE Ur Leukocyte Esterase NEGATIVE Urine WBC (Auto) 3 Urine RBC (Auto) 1 Blood Type O POSITIVE Antibody Screen NEGATIVE 01/08/19 01/08/19 07:55 07:55 Creatine Kinase 74 Troponin I 0.023 Assessment and Plan - Diagnosis (1) Hypertensive urgency Is this a current diagnosis for this admission?: Yes Plan: Because she responded so well to hydralazine, I think we can manage her on the floor instead of in the ICU. We will give her some PRN hydralazine and try to get her back on her oral medications as soon as she is able to take p.o. (2) Nausea and vomiting Qualifiers: Vomiting type: unspecified Vomiting Intractability: non-intractable Qualified Code(s): R11.2 - Nausea with vomiting, unspecified Is this a current diagnosis for this admission?: Yes Plan: Not sure of the etiology of this. Could be a nonspecific response to her blood pressure if she did get her medication. Labs are unremarkable. Her KUB showed no signs of obstruction. She felt nauseated but had an otherwise unremarkable abdominal examination. Give her some PRN antiemetics and monitor her response. (3) Chronic renal disease, stage IV Is this a current diagnosis for this admission?: Yes Plan: Her creatinine today was the best it has been in months (4) Dementia Qualifiers: Dementia type: unspecified type Dementia behavioral disturbance: without behavioral disturbance Qualified Code(s): F03.90 - Unspecified dementia without behavioral disturbance Is this a current diagnosis for this admission?: Yes Plan: We will continue her Cogentin - Time Time Spent with patient: 35 or more minutes - Plan Summary Plan Summary: This is a very frail and unhealthy elderly woman with dementia. She has been frequently in the hospital this year. Before she goes home, I would like to have a discussion with her family about her CODE STATUS and overall goals of care. Her son and daughter both live with her.
[2019-01-08] MEDS ORDERED: DEXTROSE 40% GEL 15 GM TUBE PO PRN ×2 (15:28)
[2019-01-08] MEDS ORDERED: GLUCAGON,HUMAN RECOMB 1 MG INJ IM PRN (15:28)
[2019-01-08] MEDS ORDERED: DEXTROSE 50%-WATER 25 GM/50 ML DISP.SYRIN IV PRN ×2 (15:28)
[2019-01-08] MEDS ORDERED: PANTOPRAZOLE SODIUM 40 MG TABLET.DR PO SCH (17:00)
[2019-01-08] MEDS ORDERED: RIVASTIGMINE TARTRATE 6 MG PO SCH (18:00)
[2019-01-08] MEDS: INSULIN LISPRO 100 UNIT/ML 3 ML VIAL SUBCUT SCH (18:04)
[2019-01-08] MEDS: SUCRALFATE 1 GM TABLET PO SCH ×2 (18:05→22:25)
[2019-01-08] MEDS: SIMVASTATIN 10 MG TABLET PO SCH (18:05)
[2019-01-08] MEDS: HYDRALAZINE HCL INJ/PF 20 MG/1 ML SDV IV PRN (18:05)
[2019-01-08] MEDS: RIVASTIGMINE TARTRATE 1.5 MG CAPSULE PO SCH (18:05)
[2019-01-08] MEDS: METOCLOPRAMIDE HCL INJ/PF 10 MG/2 ML SDV IV PRN (18:07)
--- NOTE | 2019-01-08 19:42 | EKG REPORT ---
SEVERITY:- ABNORMAL ECG - SINUS RHYTHM PROBABLE LEFT VENTRICULAR HYPERTROPHY BORDERLINE PROLONGED QT INTERVAL : Confirmed by: Trinity Fairbanks MD 08-Jan-2019 19:41:22
[2019-01-08] MEDS: ROPINIROLE HCL 1 MG TABLET PO SCH (22:20)
[2019-01-08] MEDS: METOPROLOL TARTRATE 50 MG TABLET PO SCH (22:25)
[2019-01-08] MEDS: FERROUS SULFATE 325 MG TABLET PO SCH (22:25)
[2019-01-08 23:54] LABS: ARTERIAL BLOOD BASE EXCESS -10.2 mmol/L; ARTERIAL BLOOD HCO3 12.5 mmol/L (20-24); ARTERIAL BLOOD O2 SATURATION 97.5 % (94-98); ARTERIAL BLOOD PH 7.42 (7.35-7.45); ARTERIAL BLOOD PO2 93.6 mmHg (80-100); ARTERIAL BLOOD TOTAL CO2 13.1 mmol/L (21-25)
[2019-01-09 00:07] LABS: ARTERIAL BLOOD FIO2 21%; ARTERIAL BLOOD PCO2 19.8 mmHg (35-45)
[2019-01-09] MEDS ORDERED: PANTOPRAZOLE SODIUM 40 MG VIAL IV ONE (00:15)
[2019-01-09] MEDS: METOPROLOL TARTRATE PF/INJ 5 MG/5 ML SDV IV PRN (01:11)
[2019-01-09] MEDS: METOCLOPRAMIDE HCL INJ/PF 10 MG/2 ML SDV IV PRN ×3 (01:11→13:14)
[2019-01-09] MEDS: INSULIN LISPRO 100 UNIT/ML 3 ML VIAL SUBCUT SCH ×5 (01:13→21:51)
[2019-01-09 04:51] LABS: ANION GAP 13 (5-19); BLOOD UREA NITROGEN 50 mg/dL (7-20); CALCIUM 9.2 mg/dL (8.4-10.2); CARBON DIOXIDE 17 mmol/L (22-30); CHLORIDE 113 mmol/L (98-107); GLUCOSE 220 mg/dL (75-110); POTASSIUM 3.5 mmol/L (3.6-5.0)
[2019-01-09] MEDS: HYDRALAZINE HCL INJ/PF 20 MG/1 ML SDV IV PRN ×3 (05:35→19:56)
[2019-01-09] MEDS: LEVOTHYROXINE SODIUM 0.1 MG TABLET PO SCH (05:37)
[2019-01-09] MEDS ORDERED: ONDANSETRON HCL INJ/PF 4 MG/2 ML SDV IV PRN (09:50)
[2019-01-09] MEDS ORDERED: (PENDING PHARMACY ID) (Memantine Hcl [Namenda Xr] 14 MG) PO SCH (10:00)
[2019-01-09] MEDS ORDERED: PANTOPRAZOLE SODIUM 40 MG VIAL IV SCH (10:00)
[2019-01-09] MEDS ORDERED: LISINOPRIL 10 MG TABLET PO SCH (10:00)
[2019-01-09] MEDS ORDERED: (PENDING PHARMACY ID) (Ropinirole Hcl [Requip] 0.5 MG) PO SCH (10:00)
[2019-01-09] MEDS: FERROUS SULFATE 325 MG TABLET PO SCH ×2 (10:15→21:09)
[2019-01-09] MEDS: FLUOXETINE HCL 20 MG CAPSULE PO SCH (10:15)
[2019-01-09] MEDS: ROPINIROLE HCL 1 MG TABLET PO SCH (10:15)
[2019-01-09] MEDS: SUCRALFATE 1 GM TABLET PO SCH ×4 (10:15→21:08)
[2019-01-09] MEDS: FLUTICASONE/UMECLIDIN/VILANTER 100-62.5-25 MCG/DOSE IH SCH (10:16)
[2019-01-09] MEDS: RIVASTIGMINE TARTRATE 1.5 MG CAPSULE PO SCH ×2 (10:16→17:03)
[2019-01-09] MEDS: METOPROLOL TARTRATE 50 MG TABLET PO SCH (10:16)
--- NOTE | 2019-01-09 16:33 | PDOC PROGRESS REPORT ---
Subjective Progress Note for:: 01/09/19 Subjective:: No adverse events overnight. No new complaints. She is not complaining of any nausea or abdominal pain. Blood pressures have been intermittently elevated throughout the day. She responds to PRN IV hydralazine. When I saw her this morning she was eating breakfast with a good appetite. Reason For Visit: HYPERTENSIVE URGENCY Physical Exam Vital Signs: Temp Pulse Resp BP Pulse Ox 97.5 F 79 17 130/51 H 99 01/09/19 15:06 01/09/19 15:06 01/09/19 15:06 01/09/19 15:50 01/09/19 15:06 Intake & Output 01/08/19 01/09/19 01/10/19 06:59 06:59 06:59 Intake Total 1000 Output Total 350 Balance 650 Weight 56.3 kg General appearance: PRESENT: no acute distress, cooperative, disheveled Respiratory exam: PRESENT: clear to auscultation mónica, symmetrical, unlabored. ABSENT: accessory muscle use, chest wall tenderness, crackles, prolonged expiratory phas, rhonchi, tachypnea, wheezes Cardiovascular exam: PRESENT: RRR, +S1, +S2 Pulses: PRESENT: normal carotid pulses Vascular exam: PRESENT: normal capillary refill GI/Abdominal exam: PRESENT: normal bowel sounds, soft. ABSENT: distended, guarding, rebound, tenderness Extremities exam: ABSENT: clubbing, pedal edema Musculoskeletal exam: PRESENT: normal inspection. ABSENT: deformity Neurological exam: PRESENT: alert, awake, oriented to person, oriented to place Psychiatric exam: PRESENT: flat affect Skin exam: PRESENT: dry, warm Results Laboratory Results: 01/08/19 07:55 01/09/19 03:55 01/08/19 01/09/19 23:10 03:55 Carbonic Acid 0.60 L HCO3/H2CO3 Ratio 20:1 ABG pH 7.42 ABG pCO2 19.8 L* ABG pO2 93.6 ABG HCO3 12.5 L ABG O2 Saturation 97.5 ABG Base Excess -10.2 FiO2 21% Sodium 143.4 Potassium 3.5 L Chloride 113 H Carbon Dioxide 17 L Anion Gap 13 BUN 50 H Creatinine 1.94 H Est GFR ( Amer) 30 L Glucose 220 H Calcium 9.2 01/08/19 01/08/19 07:55 07:55 Creatine Kinase 74 Troponin I 0.023 Assessment and Plan - Diagnosis (1) Hypertensive urgency Is this a current diagnosis for this admission?: Yes Plan: She responded well to PRN medication. Her blood pressure on her home medications does not seem to provide adequate control at this point. I have changed her home Lopressor to Toprol-XL, I have increased her lisinopril to twice a day, and I have added Norvasc. (2) Nausea and vomiting Qualifiers: Vomiting type: unspecified Vomiting Intractability: non-intractable Qualified Code(s): R11.2 - Nausea with vomiting, unspecified Is this a current diagnosis for this admission?: Yes Plan: Resolved (3) Chronic renal disease, stage IV Is this a current diagnosis for this admission?: Yes Plan: Creatinine remains actually improved relative to her usual range (4) Dementia Qualifiers: Dementia type: unspecified type Dementia behavioral disturbance: without behavioral disturbance Qualified Code(s): F03.90 - Unspecified dementia without behavioral disturbance Is this a current diagnosis for this admission?: Yes Plan: We will continue her Cogentin (5) Hiatal hernia with GERD and esophagitis Is this a current diagnosis for this admission?: Yes Plan: This is a known diagnosis based on a recent EGD about 2 months ago. She was only on Protonix once a day. I have increased that to twice a day and have added Carafate. - Time Time Spent with patient: 15-24 minutes
[2019-01-09] MEDS: SIMVASTATIN 10 MG TABLET PO SCH (17:04)
[2019-01-09] MEDS: LISINOPRIL 10 MG TABLET PO SCH (21:19)
[2019-01-09] MEDS: AMLODIPINE BESYLATE 10 MG TABLET PO SCH (21:20)
[2019-01-09] MEDS: METOPROLOL SUCCINATE 50 MG TAB.SR.24H PO SCH (21:20)
[2019-01-10] MEDS: LEVOTHYROXINE SODIUM 0.1 MG TABLET PO SCH (05:57)
[2019-01-10] MEDS: METOCLOPRAMIDE HCL INJ/PF 10 MG/2 ML SDV IV PRN (05:57)
[2019-01-10] MEDS: INSULIN LISPRO 100 UNIT/ML 3 ML VIAL SUBCUT SCH ×4 (08:22→22:15)
[2019-01-10] MEDS: SUCRALFATE 1 GM TABLET PO SCH ×4 (08:23→22:15)
[2019-01-10] MEDS: HYDRALAZINE HCL INJ/PF 20 MG/1 ML SDV IV PRN ×2 (08:25→20:36)
[2019-01-10] MEDS: ROPINIROLE HCL 1 MG TABLET PO SCH ×2 (10:48→11:29)
[2019-01-10] MEDS: METOPROLOL SUCCINATE 50 MG TAB.SR.24H PO SCH ×3 (10:48→22:17)
[2019-01-10] MEDS: LISINOPRIL 10 MG TABLET PO SCH ×3 (10:48→22:17)
[2019-01-10] MEDS: RIVASTIGMINE TARTRATE 1.5 MG CAPSULE PO SCH ×3 (10:49→17:32)
[2019-01-10] MEDS: FLUTICASONE/UMECLIDIN/VILANTER 100-62.5-25 MCG/DOSE IH SCH ×2 (10:49→11:29)
[2019-01-10] MEDS: FLUOXETINE HCL 20 MG CAPSULE PO SCH ×2 (10:49→11:29)
[2019-01-10] MEDS: FERROUS SULFATE 325 MG TABLET PO SCH ×3 (10:49→22:15)
[2019-01-10] MEDS: INSULIN GLARGINE,HUM.REC.ANLOG 1,000 UNIT/10 ML VIAL SUBCUT SCH (12:16)
[2019-01-10] MEDS ORDERED: METOCLOPRAMIDE HCL INJ/PF 10 MG/2 ML SDV IV PRN (13:30)
--- NOTE | 2019-01-10 17:21 | PDOC PROGRESS REPORT ---
Subjective Progress Note for:: 01/10/19 Subjective:: No adverse events overnight. Her blood pressure, while still elevated, has been much better controlled. We got her blood sugar under better control as well. I talked to her daughter again today. Apparently at home they do not always give her her blood pressure medication, because according to the daughter, the patient will "bottom out." I find this very hard to believe because when the patient does not get her blood pressure medication in the hospital, her blood pressure will be over 200 systolic. A similar situation happened at home for this patient regarding her blood sugar. They do not give her a fixed dose of insulin, but rather will give her what they think she needs based on her blood sugar. I tried to explain to her daughter again, as I did yesterday on the phone, that Lantus is not a formulation of insulin that we would use as a sliding scale medication, but the daughter either would not or could not understand that. Reason For Visit: HYPERTENSIVE URGENCY Physical Exam Vital Signs: Temp Pulse Resp BP Pulse Ox 97.5 F 68 18 159/63 H 99 01/10/19 15:10 01/10/19 15:10 01/10/19 15:10 01/10/19 15:10 01/10/19 15:10 Intake & Output 01/09/19 01/10/19 01/11/19 06:59 06:59 06:59 Intake Total 1000 240 Output Total 350 725 Balance 650 -485 Weight 56.3 kg 60.6 kg General appearance: PRESENT: no acute distress, cooperative, disheveled Respiratory exam: PRESENT: clear to auscultation mónica, symmetrical, unlabored. ABSENT: accessory muscle use, chest wall tenderness, crackles, prolonged expiratory phas, rhonchi, tachypnea, wheezes Cardiovascular exam: PRESENT: RRR, +S1, +S2 Pulses: PRESENT: normal carotid pulses Vascular exam: PRESENT: normal capillary refill GI/Abdominal exam: PRESENT: normal bowel sounds, soft. ABSENT: distended, guarding, rebound, tenderness Extremities exam: ABSENT: clubbing, pedal edema Musculoskeletal exam: PRESENT: normal inspection. ABSENT: deformity Neurological exam: PRESENT: alert, awake, oriented to person, oriented to place Psychiatric exam: PRESENT: flat affect Skin exam: PRESENT: dry, warm Results Laboratory Results: 01/08/19 07:55 01/09/19 03:55 01/08/19 01/08/19 07:55 07:55 Creatine Kinase 74 Troponin I 0.023 Assessment and Plan - Diagnosis (1) Hypertensive urgency Is this a current diagnosis for this admission?: Yes Plan: She responded well to PRN medication. Her blood pressure on her home medications does not seem to provide adequate control at this point. I have changed her home Lopressor to Toprol-XL, I have increased her lisinopril to twice a day, and I have added Norvasc. (2) Nausea and vomiting Qualifiers: Vomiting type: unspecified Vomiting Intractability: non-intractable Qualified Code(s): R11.2 - Nausea with vomiting, unspecified Is this a current diagnosis for this admission?: Yes Plan: Resolved (3) Chronic renal disease, stage IV Is this a current diagnosis for this admission?: Yes Plan: Creatinine remains actually improved relative to her usual range (4) Dementia Qualifiers: Dementia type: unspecified type Dementia behavioral disturbance: without behavioral disturbance Qualified Code(s): F03.90 - Unspecified dementia without behavioral disturbance Is this a current diagnosis for this admission?: Yes Plan: We will continue her Cogentin (5) Hiatal hernia with GERD and esophagitis Is this a current diagnosis for this admission?: Yes Plan: This is a known diagnosis based on a recent EGD about 2 months ago. She was only on Protonix once a day. I have increased that to twice a day and have added Carafate. - Time Time Spent with patient: 25-34 minutes - Plan Summary Plan Summary: I am concerned that this patient is not being adequately cared for at home and that is the reason why she continues to wind up in the hospital. This is her fourth or fifth admission this year, and I do not know how many other ER visits she has had if any. We had her evaluated by physical therapy and she pretty much could not do anything and so they recommended alf facility placement, which is exactly what the daughter wanted. She wants her to go to rehab but does not want her placed long-term. Because of her progressive decline, I recommended a palliative care consultation, to which the daughter was amenable.
[2019-01-10] MEDS: SIMVASTATIN 10 MG TABLET PO SCH (17:32)
[2019-01-10 22:16] LABS: ARTERIAL BLOOD BASE EXCESS -6.1 mmol/L; ARTERIAL BLOOD H2CO3 0.75 mmol/L (1.05-1.35); ARTERIAL BLOOD HCO3 16.1 mmol/L (20-24); ARTERIAL BLOOD O2 SATURATION 93.9 % (94-98); ARTERIAL BLOOD PCO2 24.8 mmHg (35-45); ARTERIAL BLOOD PH 7.43 (7.35-7.45); ARTERIAL BLOOD PO2 65.5 mmHg (80-100); ARTERIAL BLOOD TOTAL CO2 16.9 mmol/L (21-25)
[2019-01-10] MEDS: AMLODIPINE BESYLATE 10 MG TABLET PO SCH (22:16)
[2019-01-10 22:17] LABS: ANION GAP 11 (5-19); BLOOD UREA NITROGEN 55 mg/dL (7-20); CALCIUM 8.9 mg/dL (8.4-10.2); CARBON DIOXIDE 17 mmol/L (22-30); CHLORIDE 110 mmol/L (98-107); GLUCOSE 196 mg/dL (75-110); POTASSIUM 3.3 mmol/L (3.6-5.0)
[2019-01-10 22:17] LABS: ARTERIAL BLOOD FIO2 21%
[2019-01-11] MEDS: LEVOTHYROXINE SODIUM 0.1 MG TABLET PO SCH (05:16)
[2019-01-11] MEDS: SUCRALFATE 1 GM TABLET PO SCH ×4 (08:21→21:36)
[2019-01-11] MEDS: INSULIN LISPRO 100 UNIT/ML 3 ML VIAL SUBCUT SCH ×4 (08:21→22:00)
[2019-01-11] MEDS: RIVASTIGMINE TARTRATE 1.5 MG CAPSULE PO SCH ×2 (09:02→17:05)
[2019-01-11] MEDS: FERROUS SULFATE 325 MG TABLET PO SCH ×2 (09:02→21:36)
[2019-01-11] MEDS: METOPROLOL SUCCINATE 50 MG TAB.SR.24H PO SCH ×2 (09:03→21:37)
[2019-01-11] MEDS: LISINOPRIL 10 MG TABLET PO SCH ×2 (09:03→21:38)
[2019-01-11] MEDS: ROPINIROLE HCL 1 MG TABLET PO SCH (09:03)
[2019-01-11] MEDS: FLUOXETINE HCL 20 MG CAPSULE PO SCH (09:03)
[2019-01-11] MEDS: FLUTICASONE/UMECLIDIN/VILANTER 100-62.5-25 MCG/DOSE IH SCH (09:03)
--- NOTE | 2019-01-11 09:31 | Progress Note Acknowledgement ---
Progress Note Acknowledgement Progess Note Acknowledgement: I, the undersigned member of the medical staff with appropriate privileges and with supervisory authority over [Karri Hall], a dependent practice allied health professional, acknowledge that I have reviewed the progress notes entered on this patient, and in my professional judgment believe that the assessment made and/or any care evidenced was appropriate
--- NOTE | 2019-01-11 09:36 | PDOC PROGRESS REPORT ---
Subjective Progress Note for:: 01/11/19 Reason For Visit: HYPERTENSIVE URGENCY Physical Exam Vital Signs: Temp Pulse Resp BP Pulse Ox 98.2 F 86 17 158/61 H 99 01/11/19 08:06 01/11/19 08:06 01/11/19 09:09 01/11/19 08:06 01/11/19 09:09 Intake & Output 01/10/19 01/11/19 01/12/19 06:59 06:59 06:59 Intake Total 240 360 Output Total 725 650 Balance -485 -290 Weight 60.6 kg 58.2 kg General appearance: PRESENT: no acute distress, well-developed, well-nourished Neck exam: ABSENT: carotid bruit, JVD, lymphadenopathy, thyromegaly Respiratory exam: PRESENT: clear to auscultation mónica, other - On BiPAP. ABSENT: rales, rhonchi, wheezes Cardiovascular exam: PRESENT: RRR. ABSENT: diastolic murmur, rubs, systolic murmur Pulses: PRESENT: +1 pedal pulses bilateral Extremities exam: ABSENT: clubbing, pedal edema Neurological exam: PRESENT: other - Unable to assess as patient is on BiPAP and lethargic Focused psych exam: PRESENT: other - Unable to assess this patient on BiPAP and lethargic Skin exam: PRESENT: dry, intact, warm. ABSENT: cyanosis, rash Results Laboratory Results: 01/08/19 07:55 01/10/19 21:45 01/10/19 01/10/19 21:45 21:50 Carbonic Acid 0.75 L HCO3/H2CO3 Ratio 21:1 ABG pH 7.43 ABG pCO2 24.8 L ABG pO2 65.5 L ABG HCO3 16.1 L ABG O2 Saturation 93.9 L ABG Base Excess -6.1 FiO2 21% Sodium 138.3 Potassium 3.3 L Chloride 110 H Carbon Dioxide 17 L Anion Gap 11 BUN 55 H Creatinine 2.24 H Est GFR ( Amer) 25 L Glucose 196 H Calcium 8.9 01/08/19 01/08/19 07:55 07:55 Creatine Kinase 74 Troponin I 0.023 Assessment and Plan - Diagnosis (1) Hypertensive urgency Is this a current diagnosis for this admission?: Yes Plan: She responded well to PRN medication. Her blood pressure on her home medications does not seem to provide adequate control at this point. I have changed her home Lopressor to Toprol-XL, I have increased her lisinopril to twice a day, and I have added Norvasc. 01/01/2019-patient has responded well to Norvasc, lisinopril and Toprol. Patient remains on PRN hydralazine. I have added hydralazine 25 mill grams p.o. 3 times daily. We will continue to follow (2) Nausea and vomiting Qualifiers: Vomiting type: unspecified Vomiting Intractability: non-intractable Qualified Code(s): R11.2 - Nausea with vomiting, unspecified Is this a current diagnosis for this admission?: Yes Plan: Resolved 01/01/2019-no further bouts of nausea or vomiting. We will continue to follow (3) Chronic renal disease, stage IV Is this a current diagnosis for this admission?: Yes Plan: Creatinine remains actually improved relative to her usual range 01/11/2019-chronic stable continue to follow (4) Dementia Is this a current diagnosis for this admission?: Yes Plan: 01/11/2019-patient very lethargic this time unable to assess her mental status. I suspect this is an exacerbation of her ongoing chronic conditions. (5) Hiatal hernia with GERD and esophagitis Is this a current diagnosis for this admission?: Yes Plan: This is a known diagnosis based on a recent EGD about 2 months ago. She was only on Protonix once a day. I have increased that to twice a day and have added Carafate. 01/11/2019-continue Protonix and Carafate - Time Time Spent with patient: 15-24 minutes - Inpatient Certification Based on my medical assessment, after consideration of the patient's comorbidities, presenting symptoms, or acuity I expect that the services needed warrant INPATIENT care.: Yes I certify that my determination is in accordance with my understanding of Medicare's requirements for reasonable and necessary INPATIENT services [42 CFR 412.3e].: Yes Medical Necessity: Other - IV fluids, BiPAP
[2019-01-11] MEDS: INSULIN GLARGINE,HUM.REC.ANLOG 1,000 UNIT/10 ML VIAL SUBCUT SCH (10:27)
[2019-01-11] MEDS: NORMAL SALINE 1000 ML 1,000 ML IV PRN (10:28)
[2019-01-11 12:14] LABS: ARTERIAL BLOOD BASE EXCESS -6.6 mmol/L; ARTERIAL BLOOD FIO2 30%; ARTERIAL BLOOD H2CO3 0.83 mmol/L (1.05-1.35); ARTERIAL BLOOD HCO3 16.9 mmol/L (20-24); ARTERIAL BLOOD O2 SATURATION 97.7 % (94-98); ARTERIAL BLOOD PCO2 27.5 mmHg (35-45); ARTERIAL BLOOD PH 7.41 (7.35-7.45); ARTERIAL BLOOD PO2 100.4 mmHg (80-100); ARTERIAL BLOOD TOTAL CO2 17.7 mmol/L (21-25)
[2019-01-11] MEDS: HYDRALAZINE HCL INJ/PF 20 MG/1 ML SDV IV PRN ×2 (12:15→20:53)
[2019-01-11] MEDS: HYDRALAZINE HCL 25 MG TABLET PO SCH ×2 (13:14→21:36)
--- NOTE | 2019-01-11 16:11 | RADIOLOGY REPORT (SQ) ---
EXAM DESCRIPTION: CT HEAD WITHOUT COMPLETED DATE/TIME: 01/11/2019 4:00 pm REASON FOR STUDY: altered mental status COMPARISON: 12/18/2014 TECHNIQUE: Axial images acquired through the brain without intravenous contrast. Images reviewed wi th bone, brain and subdural windows. Additional sagittal and coronal reconstructions were generated. Images stored on PACS. All CT scanners at this facility use dose modulation, iterative reconstruction, and/or weight based d osing when appropriate to reduce radiation dose to as low as reasonably achievable (ALARA). [facility]: Dose Right [facility]: CareDose [facility]: Dose Right [facility]: Teradose 4D [facility]: Pushfor RADIATION DOSE: CT Rad equipment meets quality standard of care and radiation dose reduction techniq ues were employed. CTDIvol: 48.6 mGy. DLP: 930 mGy-cm.mGy. LIMITATIONS: None. FINDINGS: VENTRICLES: Prominent. CEREBRUM: No masses. No hemorrhage. No midline shift. Areas of low density in the white matter mos t likely due to chronic micro-vascular ischemic change. No evidence for acute infarction. CEREBELLUM: No masses. No hemorrhage. No alteration of density. No evidence for acute infarction. EXTRAAXIAL SPACES: Age-related involutional change. No fluid collections. No masses. ORBITS AND GLOBE: No intra- or extraconal masses. Normal contour of globe without masses. CALVARIUM: No fracture. PARANASAL SINUSES: No fluid or mucosal thickening. SOFT TISSUES: No mass or hematoma. OTHER: No other significant finding. IMPRESSION: CHRONIC CHANGES OF ATROPHY AND MICROVASCULAR ISCHEMIA. NO ACUTE PROCESS. EVIDENCE OF ACUTE STROKE: NO. TECHNICAL DOCUMENTATION: JOB ID: [id number] Quality ID # [id number]: Final reports with documentation of one or more dose reduction techniques (e.g., Au tomated exposure control, adjustment of the mA and/or kV according to patient size, use of iterative reconstruction technique) 2010 [employer]- All Rights Reserved Reading location - IP/workstation name: [email or web address]
[2019-01-11] MEDS: SIMVASTATIN 10 MG TABLET PO SCH (17:06)
[2019-01-11] MEDS: AMLODIPINE BESYLATE 10 MG TABLET PO SCH (21:37)
[2019-01-12 04:59] LABS: HEMATOCRIT 29.7 % (36.0-47.0); MEAN CORPUSCULAR HEMOGLOBIN 32.9 pg (27.0-33.4); MEAN CORPUSCULAR HGB CONC 33.5 g/dL (32.0-36.0); MEAN CORPUSCULAR VOLUME 98 fl (80-97); PLATELET COUNT 222 10^3/uL (150-450); RED BLOOD COUNT 3.03 10^6/uL (3.72-5.28); RED CELL DISTRIBUTION WIDTH 13.4 % (11.5-14.0); WHITE BLOOD COUNT 10.4 10^3/uL (4.0-10.5)
[2019-01-12 05:22] LABS: ANION GAP 10 (5-19); BLOOD UREA NITROGEN 62 mg/dL (7-20); CALCIUM 8.7 mg/dL (8.4-10.2); CARBON DIOXIDE 17 mmol/L (22-30); CHLORIDE 118 mmol/L (98-107); GLUCOSE 123 mg/dL (75-110); POTASSIUM 3.5 mmol/L (3.6-5.0)
[2019-01-12] MEDS: HYDRALAZINE HCL 25 MG TABLET PO SCH ×3 (05:50→21:45)
[2019-01-12] MEDS: LEVOTHYROXINE SODIUM 0.1 MG TABLET PO SCH (05:50)
[2019-01-12] MEDS: SUCRALFATE 1 GM TABLET PO SCH ×3 (07:39→15:16)
[2019-01-12] MEDS: INSULIN LISPRO 100 UNIT/ML 3 ML VIAL SUBCUT SCH ×4 (07:39→21:45)
[2019-01-12] MEDS: HYDRALAZINE HCL INJ/PF 20 MG/1 ML SDV IV PRN (07:45)
--- NOTE | 2019-01-12 08:48 | PDOC PROGRESS REPORT ---
Subjective Progress Note for:: 01/12/19 Subjective:: 01/12/2019-patient awake but nonresponsive Reason For Visit: HYPERTENSIVE URGENCY Physical Exam Vital Signs: Temp Pulse Resp BP Pulse Ox 98.9 F 106 H 17 176/79 H 100 01/12/19 07:22 01/12/19 07:22 01/12/19 07:22 01/12/19 07:22 01/12/19 07:22 Intake & Output 01/11/19 01/12/19 01/13/19 06:59 06:59 06:59 Intake Total 360 366 Output Total 650 250 Balance -290 116 Weight 58.2 kg 56 kg General appearance: PRESENT: no acute distress, well-developed, well-nourished Neck exam: PRESENT: other - BiPAP in place. ABSENT: carotid bruit, JVD, lymphadenopathy, thyromegaly Respiratory exam: PRESENT: decreased breath sounds, symmetrical, tachypnea, unlabored, other - BiPAP Cardiovascular exam: ABSENT: diastolic murmur, rubs, systolic murmur Pulses: PRESENT: +1 pedal pulses bilateral GI/Abdominal exam: PRESENT: normal bowel sounds. ABSENT: distended, guarding, mass, organolmegaly, rebound, tenderness Extremities exam: ABSENT: clubbing, pedal edema Neurological exam: PRESENT: awake Psychiatric exam: PRESENT: other - Unable to assess as patient is nonverbal Skin exam: PRESENT: dry, intact, warm. ABSENT: cyanosis, rash Results Laboratory Results: 01/12/19 04:35 01/12/19 04:35 01/11/19 01/11/19 01/12/19 10:59 12:03 04:35 WBC 10.4 RBC 3.03 L Hgb 10.0 L Hct 29.7 L MCV 98 H MCH 32.9 MCHC 33.5 RDW 13.4 Plt Count 222 Carbonic Acid Cancelled 0.83 L HCO3/H2CO3 Ratio Cancelled 20:1 ABG pH Cancelled 7.41 ABG pCO2 Cancelled 27.5 L ABG pO2 Cancelled 100.4 H ABG HCO3 Cancelled 16.9 L ABG O2 Saturation Cancelled 97.7 ABG Base Excess Cancelled -6.6 FiO2 Cancelled 30% Sodium Potassium Chloride Carbon Dioxide Anion Gap BUN Creatinine Est GFR ( Amer) Glucose Calcium 01/12/19 04:35 WBC RBC Hgb Hct MCV MCH MCHC RDW Plt Count Carbonic Acid HCO3/H2CO3 Ratio ABG pH ABG pCO2 ABG pO2 ABG HCO3 ABG O2 Saturation ABG Base Excess FiO2 Sodium 145.2 H Potassium 3.5 L Chloride 118 H Carbon Dioxide 17 L Anion Gap 10 BUN 62 H Creatinine 2.73 H Est GFR ( Amer) 20 L Glucose 123 H Calcium 8.7 01/08/19 01/08/19 07:55 07:55 Creatine Kinase 74 Troponin I 0.023 Impressions: Head CT 01/11/19 10:35 IMPRESSION: CHRONIC CHANGES OF ATROPHY AND MICROVASCULAR ISCHEMIA. NO ACUTE PROCESS. EVIDENCE OF ACUTE STROKE: NO. Assessment and Plan - Diagnosis (1) Hypertensive urgency Is this a current diagnosis for this admission?: Yes Plan: She responded well to PRN medication. Her blood pressure on her home medications does not seem to provide adequate control at this point. I have changed her home Lopressor to Toprol-XL, I have increased her lisinopril to twice a day, and I have added Norvasc. 01/11/2019-patient has responded well to Norvasc, lisinopril and Toprol. Patient remains on PRN hydralazine. I have added hydralazine 25 mill grams p.o. 3 times daily. We will continue to follow 01/12/2019-at this time patient nonresponsive although she is awake. Patient is not taking any oral medications at this time. We will continue PRN hydralazine. I suspect patient is on a downward decline and will require hospice care. I will discuss this with patient's family once they have presented to the hospital today. (2) Nausea and vomiting Qualifiers: Vomiting type: unspecified Vomiting Intractability: non-intractable Qualified Code(s): R11.2 - Nausea with vomiting, unspecified Is this a current diagnosis for this admission?: Yes Plan: Resolved 01/11/2019-no further bouts of nausea or vomiting. We will continue to follow 01/12/2019-no further bouts of nausea and vomiting. Patient nonresponsive at this time will follow (3) Chronic renal disease, stage IV Is this a current diagnosis for this admission?: Yes Plan: Creatinine remains actually improved relative to her usual range 01/11/2019-chronic stable continue to follow 01/12/2019-worsening at this time. I suspect this is from chronic terminal changes. I will discuss this with family today (4) Dementia Is this a current diagnosis for this admission?: Yes Plan: 01/11/2019-patient very lethargic this time unable to assess her mental status. I suspect this is an exacerbation of her ongoing chronic conditions. 01/12/2019-unable to assess. Will discuss with family (5) Hiatal hernia with GERD and esophagitis Is this a current diagnosis for this admission?: Yes Plan: This is a known diagnosis based on a recent EGD about 2 months ago. She was only on Protonix once a day. I have increased that to twice a day and have added Carafate. 01/11/2019-continue Protonix and Carafate 01/12/2019-patient unable to take oral intake at this time will discuss with family. - Time Time Spent with patient: 15-24 minutes - Inpatient Certification Based on my medical assessment, after consideration of the patient's comorbidities, presenting symptoms, or acuity I expect that the services needed warrant INPATIENT care.: Yes I certify that my determination is in accordance with my understanding of Medicare's requirements for reasonable and necessary INPATIENT services [42 CFR 412.3e].: Yes Medical Necessity: Other - BiPAP, IV fluids, possible end-of-life care
[2019-01-12] MEDS: RIVASTIGMINE TARTRATE 1.5 MG CAPSULE PO SCH ×2 (09:31→17:42)
[2019-01-12] MEDS: LISINOPRIL 10 MG TABLET PO SCH (09:31)
[2019-01-12] MEDS: INSULIN GLARGINE,HUM.REC.ANLOG 1,000 UNIT/10 ML VIAL SUBCUT SCH (09:31)
[2019-01-12] MEDS: ROPINIROLE HCL 1 MG TABLET PO SCH (09:31)
[2019-01-12] MEDS: FERROUS SULFATE 325 MG TABLET PO SCH ×2 (09:31→21:45)
[2019-01-12] MEDS: FLUOXETINE HCL 20 MG CAPSULE PO SCH (09:31)
[2019-01-12] MEDS: METOPROLOL SUCCINATE 50 MG TAB.SR.24H PO SCH ×2 (09:32→21:47)
[2019-01-12] MEDS: FLUTICASONE/UMECLIDIN/VILANTER 100-62.5-25 MCG/DOSE IH SCH (09:32)
[2019-01-12] MEDS: NORMAL SALINE 1000 ML 1,000 ML IV PRN (11:53)
[2019-01-12] MEDS: SIMVASTATIN 10 MG TABLET PO SCH (17:42)
[2019-01-12] MEDS: METOPROLOL TARTRATE PF/INJ 5 MG/5 ML SDV IV PRN (19:04)
[2019-01-12] MEDS: AMLODIPINE BESYLATE 10 MG TABLET PO SCH (21:46)
[2019-01-13] MEDS: SUCRALFATE 1 GM TABLET PO SCH ×3 (01:14→12:50)
[2019-01-13] MEDS: LISINOPRIL 10 MG TABLET PO SCH ×2 (01:14→10:41)
[2019-01-13] MEDS: HYDRALAZINE HCL INJ/PF 20 MG/1 ML SDV IV PRN ×2 (03:50→09:11)
[2019-01-13 05:15] LABS: HEMATOCRIT 29.2 % (36.0-47.0); HEMOGLOBIN 9.6 g/dL (12.0-15.5); MEAN CORPUSCULAR HEMOGLOBIN 32.5 pg (27.0-33.4); MEAN CORPUSCULAR HGB CONC 32.7 g/dL (32.0-36.0); MEAN CORPUSCULAR VOLUME 99 fl (80-97); PLATELET COUNT 210 10^3/uL (150-450); RED BLOOD COUNT 2.94 10^6/uL (3.72-5.28); RED CELL DISTRIBUTION WIDTH 13.5 % (11.5-14.0); WHITE BLOOD COUNT 17.1 10^3/uL (4.0-10.5)
[2019-01-13 05:41] LABS: ANION GAP 12 (5-19); BLOOD UREA NITROGEN 62 mg/dL (7-20); CALCIUM 8.5 mg/dL (8.4-10.2); CARBON DIOXIDE 14 mmol/L (22-30); CHLORIDE 123 mmol/L (98-107); GLUCOSE 125 mg/dL (75-110); POTASSIUM 3.4 mmol/L (3.6-5.0)
--- NOTE | 2019-01-13 09:46 | PDOC DISCHARGE SUMMARY ---
General - Admit/Disc Date/PCP Admission Date/Primary Care Provider: 01/09/19 10:57 GEMA BARNHART Discharge Date: 01/13/19 - Discharge Diagnosis (1) Hypertensive urgency Is this a current diagnosis for this admission?: Yes (2) Nausea and vomiting Is this a current diagnosis for this admission?: Yes (3) Chronic renal disease, stage IV Is this a current diagnosis for this admission?: Yes (4) Dementia Is this a current diagnosis for this admission?: Yes (5) Hiatal hernia with GERD and esophagitis Is this a current diagnosis for this admission?: Yes - Additional Information Resuscitation Status: Do Not Resuscitate Discharge Diet: As Tolerated Discharge Activity: Activity As Tolerated History of Present Illness Patient complains of: Unresponsive at this time History of Present Illness: THOR PORTER is a 83 year old female with progressively declining health who had multiple hospitalizations ER visits over last year. Patient was discharged the day before she returned for readmission for worsening dehydration and chronic kidney disease. Hospital Course Hospital Course: Patient was admitted on 12/29/2018 with worsening dehydration and chronic renal failure. Apparently she had been doing fine and went home the day before had some vomiting that increased in intensity requiring her to return to the ER. She called EMS that they blood pressure was reportedly 70/40 and had not taken her home medication since yesterday. She has history of erosive esophagitis, gastritis, benign gastric polyps, hiatal hernia which were all seen on EGD approximately 2 months ago. Vomit was checked for occult blood was found to be positive. CBC looked the same as it did prior to her discharge. Blood pressure went up into the 200s range after that she responded well to hydralazine. Throughout her hospital stay she has progressively declined requiring BiPAP and has become unresponsive. I have discussed this with patient's family and they feel that fits best take her home at this point with hospice as patient did not want to in the hospital. I found this to be appropriate and they have asked to leave Shukla catheter in place for patient comfort. Physical Exam Vital Signs: Temp Pulse Resp BP Pulse Ox 99.2 F 105 H 22 H 167/56 H 100 01/13/19 07:32 01/13/19 07:32 01/13/19 09:21 01/13/19 07:32 01/13/19 09:21 Intake & Output 01/12/19 01/13/19 01/14/19 06:59 06:59 06:59 Intake Total 1000 360 Output Total 250 250 Balance 750 110 Weight 56 kg 58.5 kg General appearance: PRESENT: no acute distress, well-developed, well-nourished Neck exam: ABSENT: carotid bruit, JVD, lymphadenopathy, thyromegaly Respiratory exam: PRESENT: clear to auscultation mónica, other - On BiPAP. ABSENT: rales, rhonchi, wheezes Cardiovascular exam: PRESENT: RRR. ABSENT: diastolic murmur, rubs, systolic murmur Pulses: PRESENT: +1 pedal pulses bilateral GI/Abdominal exam: PRESENT: normal bowel sounds, soft. ABSENT: distended, guarding, mass, organolmegaly, rebound, tenderness Neurological exam: PRESENT: other - Unable to assess patient nonresponsive Psychiatric exam: PRESENT: other - Unable to assess patient unresponsive Skin exam: PRESENT: dry, intact, warm. ABSENT: cyanosis, rash Results Laboratory Results: 01/13/19 04:47 01/13/19 04:47 01/13/19 01/13/19 04:47 04:47 WBC 17.1 H RBC 2.94 L Hgb 9.6 L Hct 29.2 L MCV 99 H MCH 32.5 MCHC 32.7 RDW 13.5 Plt Count 210 Sodium 149.0 H Potassium 3.4 L Chloride 123 H Carbon Dioxide 14 L Anion Gap 12 BUN 62 H Creatinine 2.78 H Est GFR ( Amer) 20 L Glucose 125 H Calcium 8.5 01/08/19 01/08/19 07:55 07:55 Creatine Kinase 74 Troponin I 0.023 Impressions: Head CT 01/11/19 10:35 IMPRESSION: CHRONIC CHANGES OF ATROPHY AND MICROVASCULAR ISCHEMIA. NO ACUTE PROCESS. EVIDENCE OF ACUTE STROKE: NO. Qualifiers - * PATIENT BEING DISCHARGED WITH ANY OF THE FOLLOWING DIAGNOSIS: No Acute Heart Failure - Is this a Heart Failure Patient?: No Plan Time Spent: Greater than 30 Minutes
--- NOTE | 2019-01-13 09:48 | ADVANCED CARE ---
- Diagnosis (1) Hypertensive urgency Diagnosis Current: Yes (2) Nausea and vomiting Diagnosis Current: Yes (3) Chronic renal disease, stage IV Diagnosis Current: Yes (4) Dementia Diagnosis Current: Yes (5) Hiatal hernia with GERD and esophagitis Diagnosis Current: Yes Attendance: Myself patient her son and daughter Resuscitation Status: Do Not Resuscitate Discussion: Discussed with patient's son and daughter about patient's current status. Patient unresponsive creatinine continues to worsen. I have discussed at length with patient and son about home with hospice for patient. Patient's son and daughter are in agreement at this time and feels that that would be what their mother would want. Care Planning Goals: Home with hospice for comfortable transition through the dying process Time Spent: 20 minutes
[2019-01-13] MEDS: FLUOXETINE HCL 20 MG CAPSULE PO SCH (10:41)
[2019-01-13] MEDS: FERROUS SULFATE 325 MG TABLET PO SCH (10:41)
[2019-01-13] MEDS: RIVASTIGMINE TARTRATE 1.5 MG CAPSULE PO SCH (10:41)
[2019-01-13] MEDS: INSULIN LISPRO 100 UNIT/ML 3 ML VIAL SUBCUT SCH ×2 (10:41→12:50)
[2019-01-13] MEDS: ROPINIROLE HCL 1 MG TABLET PO SCH (10:42)
[2019-01-13] MEDS: METOPROLOL SUCCINATE 50 MG TAB.SR.24H PO SCH (10:42)
[2019-01-13 11:12] VITALS: BP 161/69
[2019-01-13] MEDS: INSULIN GLARGINE,HUM.REC.ANLOG 1,000 UNIT/10 ML VIAL SUBCUT SCH (12:50)
[2019-01-13] MEDS: FLUTICASONE/UMECLIDIN/VILANTER 100-62.5-25 MCG/DOSE IH SCH (12:50)
== END 2019-01-13 13:10 | disposition hospice, home (50) | DRG 305 ==
LOC: ER 06:46 → EH 13:17 → INTOOBSV 13:17 → 3W 17:17 → OBSVTOIN 01-09 10:57
PROVIDERS: ADMIT Family Medicine; ATTEND Family Medicine
DX: I16.0 Hypertensive urgency (principal); N18.4 Chronic kidney disease, stage 4 (severe); I12.9 Hypertensive chronic kidney disease with stage 1 through stage 4 chronic kidney disease, or unspecified chronic kidney disease; Z66 Do not resuscitate; F03.90 Unspecified dementia, unspecified severity, without behavioral disturbance, psychotic disturbance, mood disturbance, and anxiety; K44.9 Diaphragmatic hernia without obstruction or gangrene; K21.0 Gastro-esophageal reflux disease with esophagitis; E86.0 Dehydration; I25.10 Atherosclerotic heart disease of native coronary artery without angina pectoris; E11.65 Type 2 diabetes mellitus with hyperglycemia; E78.5 Hyperlipidemia, unspecified; E11.22 Type 2 diabetes mellitus with diabetic chronic kidney disease; F32.9 Major depressive disorder, single episode, unspecified; D63.1 Anemia in chronic kidney disease; E78.00 Pure hypercholesterolemia, unspecified; Z79.4 Long term (current) use of insulin; Z87.891 Personal history of nicotine dependence; Z79.899 Other long term (current) drug therapy; Z88.8 Allergy status to other drugs, medicaments and biological substances; Z91.018 Allergy to other foods
CPT/HCPCS: 36415; 36600; 51701; 70450; 71045; 74018; 80048; 80053; 81001; 82550; 82803; 82962; 83036; 83605; 83735; 84484; 85025; 85027; 85610; 86850; 86900; 86901; 93005; 93010; 94660; 96374; 96375; 96376; 99291; G0378; J0360; J1815; J2405; J2765; J3490; J7030; S0164